=== PATIENT | male | born 1950 | race Caucasian/White ===

== ENCOUNTER 2022-09-27 13:22 | Outpatient (CLI) | payer OTHER, SELFPAY ==
--- NOTE | ~2022-09-27 | US_ITS ---
US art doppler w press LE BI INDICATION: Peripheral vascular disease TECHNIQUE: Segmental pressures and plethysmographic and Doppler waveforms of the brachial and lower e xtremity arteries were obtained. COMPARISON: None. FINDINGS: Right and left brachial artery pressures of 166 mm Hg and 178 mm Hg, respectively, are concordant (no rmal difference <= 30 mmHg). The right ankle-brachial index (SAMMIE) is 0.62 (normal >= 0.9-1.0). The right great toe-brachial index (TBI) is 0.56 (normal >= 0.60). The left SAMMIE could not be obtained. The left toe brachial index measures 0.62. IMPRESSION: 1. Diminished right ankle-brachial index. Left ankle brachial index could not be obtained. The right TBI is below normal limits measuring 0.56. Left TBI measures 0.62. Findings compatible with mild righ t peripheral arterial disease. 2: Normal left TBI. Evaluation of the left lower extremity limited due to inability to occlude the l ower extremity arteries. Reviewed, dictated and finalized at location A. IMPRESSION: 1. Diminished right ankle-brachial index. Left ankle brachial index could not b e obtained. The right TBI is below normal limits measuring 0.56. Left TBI measu res 0.62. Findings compatible with mild right peripheral arterial disease. 2: Normal left TBI. Evaluation of the left lower extremity limited due to inab ility to occlude the lower extremity arteries.
== END 2022-09-27 13:23 | disposition home or self-care (01) ==
PROVIDERS: PCP Family Medicine; Visit Provider Family Medicine
DX: I73.9 Peripheral vascular disease, unspecified (principal)
CPT/HCPCS: 93923

== ENCOUNTER 2022-11-05 07:58 | Outpatient (CLI) | payer OTHER, SELFPAY ==
[2022-11-05 20:07] LABS: Basophils Absolute Auto 0.1 K/mm3 (0.0-0.1); Basophils Percent Auto 0.6 % (0.2-1.2); Eosinophils Absolute Auto 0.1 K/mm3 (0-0.3); Eosinophils Percent Auto 1.1 % (0-4.4); Hematocrit 37.1 % (42.0-52.0); Hemoglobin 11.4 g/dL (14.0-18.0); Immature Granulocyte Absolute 0.08 K/mm3 (0.00-0.031); Immature Granulocyte Percent A 0.6 % (0-0.5); Lymphocytes Absolute Auto 3.01 K/mm3 (0.9-3.2); Lymphocytes Percent Auto 23.5 % (18.3-44.2); Mean Corpuscular HGB Conc 30.7 g/dl (32-36); Mean Corpuscular Hemoglobin 29.2 pg (26-34); Mean Corpuscular Volume 95.1 fl (80-100); Mean Platelet Volume 12.1 fl (7.4-10.4); Monocytes Absolute Auto 1.2 K/mm3 (0.1-0.6); Monocytes Percent Auto 9.2 % (2.6-8.5); Neutrophils Absolute Auto 8.3 K/mm3 (1.3-6.7); Platelet Count Result 231 k/mm3 (150-375); Red Cell Distribution Width 14.3 % (11.5-14.5); White Blood Count 12.8 K/mm3 (4.5-10.0)
[2022-11-06 00:33] LABS: Alanine Aminotransferase 20 U/L (6-50); Albumin Level 4.1 g/dL (3.5-5.1); Alkaline Phosphatase 52 U/L (38-126); Anion Gap 11 mmol/L (8-16); Aspartate Amino Transferase 38 U/L (17-59); Bilirubin,Total 0.4 mg/dL (0.2-1.3); Blood Urea Nitrogen 25 mg/dL (9-20); Calcium 8.8 mg/dL (8.4-10.2); Carbon Dioxide 24 mmol/L (22-30); Chloride 104 mmol/L (98-107); Cholesterol 123 mg/dL (0-200); Estimated Glomerular Filt Rate 54; Glucose 73 mg/dL (65-110); HDL Direct 31 mg/dL; Potassium 4.4 mmol/L (3.4-5.0); Sodium 139 mmol/L (137-145); Triglycerides 167 mg/dL (<150)
[2022-11-06 00:45] LABS: LDL Cholesterol Direct 50 mg/dL
[2022-11-06 01:03] LABS: Prostate Specific Antigen 0.4 ng/mL (< OR = 4.0)
[2022-11-06 01:10] LABS: Hemoglobin A1C 9.1 % (<5.7)
[2022-11-06 11:45] LABS: Creatinine Urine 41.1 mg/dL
[2022-11-06 12:08] LABS: Vitamin D 25 Hydroxy < 12.8 ng/mL
[2022-11-06 18:15] LABS: Microalbumin Urine Random 1049.8 mg/L (0-16.7)
== END 2022-11-05 07:59 | disposition home or self-care (01) ==
LOC: ANHGOSHLAB 07:59
PROVIDERS: PCP Family Medicine; Visit Provider Family Medicine
DX: E78.5 Hyperlipidemia, unspecified (principal); I10 Essential (primary) hypertension; Z12.5 Encounter for screening for malignant neoplasm of prostate; E11.9 Type 2 diabetes mellitus without complications; E53.8 Deficiency of other specified B group vitamins; E55.9 Vitamin D deficiency, unspecified
CPT/HCPCS: 36415; 80053; 80061; 82043; 82306; 82607; 83036; 84153; 84443; 85025; G0103

== ENCOUNTER 2023-02-04 10:17 | Outpatient (CLI) | payer OTHER, SELFPAY ==
[2023-02-04 14:11] LABS: Alanine Aminotransferase 19 U/L (6-50); Albumin Level 4.5 g/dL (3.5-5.1); Alkaline Phosphatase 53 U/L (38-126); Anion Gap 8 mmol/L (8-16); Aspartate Amino Transferase 37 U/L (17-59); Bilirubin,Total 0.5 mg/dL (0.2-1.3); Blood Urea Nitrogen 38 mg/dL (9-20); Calcium 10.2 mg/dL (8.4-10.2); Carbon Dioxide 25 mmol/L (22-30); Chloride 106 mmol/L (98-107); Estimated Glomerular Filt Rate 43; Glucose 192 mg/dL (65-110); Potassium 4.6 mmol/L (3.4-5.0); Sodium 139 mmol/L (137-145)
[2023-02-04 15:59] LABS: Hemoglobin A1C 8.7 % (<5.7)
== END 2023-02-04 10:18 | disposition home or self-care (01) ==
LOC: ANHGOSHLAB 10:18
PROVIDERS: PCP Family Medicine; Visit Provider Family Medicine
DX: E11.9 Type 2 diabetes mellitus without complications (principal); I10 Essential (primary) hypertension
CPT/HCPCS: 36415; 80053; 83036

== ENCOUNTER 2023-03-12 16:41 | Inpatient (IN) | payer OTHER, SELFPAY ==
[2023-03-12] VITALS (17 sets, daily range): BP systolic 77–170; BP diastolic 53–89; PULSE 67–88; RESP 12–19; TEMP 36.3–36.4; O2SAT 94–100; BMI 35.3; BMI 35.4
--- NOTE | ~2023-03-12 | XR_ITS ---
Supine and upright views of the abdomen Clinical history: Vomiting, recent hernia repair Findings: Dilated small bowel loops are present in the left upper quadrant. Cholecystectomy clips are present. Questionable free air at the left upper quadrant. Surgical brandi are noted vertically in the midline. Presumed percutaneous drainage catheter present. No abnormal mass lesion or calcificatio n is seen. Osseous structures are intact. Impression: Dilated small bowel loops in the left upper quadrant could reflect small bowel obstruction versus pos toperative ileus. Possible free air at the left upper quadrant, which could reflect sequelae recent surgery. Reviewed, dictated and finalized at location . 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 Possible free air at the left upper quadrant, which could reflect sequelae rece nt surgery.
--- NOTE | ~2023-03-12 | XR_ITS ---
EXAM: XR abdomen gastric tube rechec DATE: 03/12/2023 23:06 HISTORY: NG placement . COMPARISON: Same date at 10:01 PM. FINDINGS/IMPRESSION: Increasing bibasilar atelectasis. NG tube advanced into good position. Stable fi ndings of small bowel obstruction. Reviewed, dictated and finalized at location K. 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
--- NOTE | ~2023-03-12 | XR_ITS ---
EXAM: XR abdomen gastric tube insert DATE: 03/12/2023 22:07 HISTORY: NG tube . COMPARISON: CT abdomen pelvis, same date. FINDINGS: NG tube, tip projects over the stomach, side port at the GE junction Left hemidiaphragm el evation. Dilated stomach and multiple loops of dilated bowel in the upper abdomen. Cholecystomy clips . IMPRESSION: Shallow positioned NG tube, side port at the GE junction. Consider advancing 4 cm. Small bowel obstruction. Reviewed, dictated and finalized at location K. E TOURING GUIDE
--- NOTE | ~2023-03-12 | CT_ITS ---
EXAMINATION: CT abdomen pelvis w con DATE: 03/12/2023 19:47 INDICATION: incarcerated umbilical hernia TECHNIQUE: Computed tomography (CT) of the abdomen and pelvis was performed with 100 mL Omnipaque-350 intravenous contrast. Automated exposure control and iterative reconstruction technique were employe d. The dose-length product was 1477.50 mGy-cm. COMPARISON: None. FINDINGS: Lower thorax: Coronary artery calcifications. Dependent atelectasis. Liver: Normal. Biliary/Gallbladder: Gallbladder is absent. No bile duct dilation. Pancreas: No mass or duct dilation. Spleen: Normal. Adrenals:No mass. Kidneys: Bilateral perinephric stranding. Bilateral hypodensities that are too small to characterize but most likely represent cysts. Mild right hydronephrosis and urothelial enhancement. No obstructing mass or stone. GI tract: Dilation of the stomach proximal and mid small bowel. Transition point at the entrance of a infraumbilical ventral wall hernia, with distal decompression. Partial right colectomy. No large bow el dilation. A loop of large bowel herniates into an umbilical hernia, without dilation or inflammato ry change. Appendix not visualized. Mesentery/Peritoneum: No ascites, mass, or free air. Retroperitoneum: No mass. Pelvis: Pelvic organs are within normal limits. Soft Tissues: Uncomplicated appearing supraumbilical hernia containing a loop of normal-appearing lar ge bowel. Complicated infraumbilical ventral hernia containing a loop of mildly dilated small bowel w ith uniform wall hyperemia. There is fluid and inflammatory change in the hernia sac. Small uncomplic ated fat-containing umbilical hernia. Bones: No acute osseous finding. IMPRESSION: Mid small bowel obstruction. Transition point at an inflamed fluid containing infraumbilical hernia w hich contains a loop of mildly dilated small bowel. Uncomplicated supraumbilical hernia containing a loop of nondilated large bowel. Mild right hydronephrosis with urothelial enhancement concerning for ascending infection. Reviewed, dictated and finalized at location K. S CONSULTANT IMPRESSION: Mid small bowel obstruction. Transition point at an inflamed fluid containing i nfraumbilical hernia which contains a loop of mildly dilated small bowel. Uncomplicated supraumbilical hernia containing a loop of nondilated large bowel . Mild right hydronephrosis with urothelial enhancement concerning for ascending infection.
[2023-03-12 17:11] LABS: Basophils Absolute Auto 0.1 K/mm3 (0.0-0.1); Basophils Percent Auto 0.5 % (0.2-1.2); Eosinophils Absolute Auto 0.1 K/mm3 (0-0.3); Eosinophils Percent Auto 0.7 % (0-4.4); Hematocrit 41.7 % (42.0-52.0); Hemoglobin 13.1 g/dL (14.0-18.0); Immature Granulocyte Absolute 0.04 K/mm3 (0.00-0.031); Immature Granulocyte Percent A 0.3 % (0-0.5); Lymphocytes Absolute Auto 3.26 K/mm3 (0.9-3.2); Lymphocytes Percent Auto 28.2 % (18.3-44.2); Mean Corpuscular HGB Conc 31.4 g/dl (32-36); Mean Corpuscular Volume 92.5 fl (80-100); Mean Platelet Volume 11.4 fl (7.4-10.4); Monocytes Absolute Auto 0.9 K/mm3 (0.1-0.6); Monocytes Percent Auto 7.8 % (2.6-8.5); Neutrophils Absolute Auto 7.2 K/mm3 (1.3-6.7); Neutrophils Percent Auto 62.5 % (45.5-73.1); Platelet Count Result 285 k/mm3 (150-375); Red Blood Count 4.51 M/mm3 (4.6-6.20); Red Cell Distribution Width 14.2 % (11.5-14.5); White Blood Count 11.6 K/mm3 (4.5-10.0)
[2023-03-12 17:20] LABS: Alanine Aminotransferase 24 U/L (6-50); Albumin Level 4.7 g/dL (3.5-5.1); Alkaline Phosphatase 58 U/L (38-126); Anion Gap 12 mmol/L (8-16); Aspartate Amino Transferase 27 U/L (17-59); Bilirubin,Total 0.5 mg/dL (0.2-1.3); Blood Urea Nitrogen 41 mg/dL (9-20); Calcium 9.8 mg/dL (8.4-10.2); Carbon Dioxide 25 mmol/L (22-30); Chloride 101 mmol/L (98-107); Estimated CRCL calculation 51 ml/min; Estimated Glomerular Filt Rate 46; Glucose 229 mg/dL (65-110); Lipase 137 U/L (23-300); Potassium 4.5 mmol/L (3.4-5.0); Sodium 138 mmol/L (137-145)
--- NOTE | 2023-03-12 19:03 | ED.ABDPAIN ---
HPI - Abdominal Pain General Chief Complaint: Abdominal Pain Stated Complaint: lower abdomen pain Time Seen by Provider: 03/12/23 18:29 History of Present Illness HPI narrative: 72-year-old male with a history of hypothyroidism, peripheral arterial disease, dyslipidemia, type 2 diabetes, hypertension, known ventral hernia and umbilical hernia reports for evaluation for tenderness to his umbilical hernia and difficulty self reducing it. Pt states he had an emergency umbilical hernia repair on 2-3 years ago after he was found to have a strangulated umbilical hernia. He had his surgery performed and pleural he was living there. States a few months ago, he noticed his umbilical hernia has returned but has always been easily reduced. Patient states today he began having pain to this area no was unable to reduce it which prompted him to come the ED. he also states she normally has soft stools, however he has been more constipated today. He reports taking milk of magnesia today at noon without improvement. He had a bowel movement this morning and one while in the waiting room but he says both of them were small caliber. He reports nausea but no vomiting, fever, urinary complaints, testicular pain. Patient was also treated with colon cancer in [id number]. He had 17 cm of his colon resected and underwent chemo and radiation. He has and in remission since. He follows with his PCP, Dr. Sainz. Related Data Home Medications Medication Instructions Recorded Confirmed pravastatin 40 mg tablet 40 mg PO DAILY 03/12/23 03/12/23 Allergies Allergy/AdvReac Type Severity Reaction Status Date / Time codeine Allergy Severe Rash, Verified 03/12/23 23:03 vomiting meperidine [From Demerol] Allergy Severe Rash,vomiti Verified 03/12/23 23:03 ng gabapentin [From Neurontin] AdvReac Mild Dizziness Verified 03/12/23 23:12 amlodipine AdvReac Mild pedal edema Uncoded 03/12/23 23:03 Review of Systems Review of Systems: CONSTITUTIONAL: Denies fever, chills, or sweats. EYES: Denies visual changes, redness, or discharge. ENT: Denies rhinorrhea, congestion, sore throat, or otalgia. CARDIOVASCULAR: Denies chest pain, palpitations, or edema. RESPIRATORY: Denies cough or dyspnea. GASTROINTESTINAL: See HPI GENITOURINARY: Denies dysuria or hematuria. SKIN: Denies rash or itching. MUSCULOSKELETAL: Denies back pain, joint pain, or myalgia. NEUROLOGIC: Denies headache, numbness, or weakness. PSYCHIATRIC: Denies anxiety or depression. [facility] Past Medical History Medical History Dyslipidemia Essential (primary) hypertension History of colon cancer (~03/1999) s/p partial colectomy History of colon polyps HTN (hypertension) Hypothyroidism Neuropathy of right lower extremity Peripheral arterial disease Type 2 diabetes mellitus without complications Vitamin B12 deficiency Vitamin D deficiency Surgical History Surgical History History of appendectomy (~03/1999) History of cholecystectomy (~2009) History of colon resection (~03/1999) History of hernia repair (~2020) Family History Family History Mother Hypertension Cerebrovascular accident Son Heart disease Grandparent Alcohol abuse Father Lung cancer Social History Social History Smoking status: Never smoker Alcohol intake: never Substance use: never Substance use type: does not use Lack of Transportation: No Lack of Food: Never True Current Housing: I Have Housing Concerned About Future Housing: No Difficulty Paying Gas/Electric Bills: No Difficulty Paying for Meds: No Currently Unemployed: No Education: High School Diploma/GED Difficulty w/ Childcare or Family Care: No Living arrangements: with family Occupation/Education:
[2023-03-12] MEDS: ONDANSETRON INJ 4 MG/2 ML VIAL IV PUSH ×3 (19:08→23:31)
[2023-03-12] MEDS: MORPHINE SULFATE (*CRX) 4 MG/ML INJ IV PUSH (19:08)
[2023-03-12 19:21] LABS: Appearance Urine Turbid (Clear); Bacteria Urine Rare /hpf; Bilirubin Urine Negative (Negative); Blood Urine 2+ (Negative); Color Urine Yellow (Yellow); Glucose Urine UA 3+ mg/dL (Negative); Ketones Urine Negative (Negative); Leukocyte Esterase Ur 2+ LEU/UL (Negative); Need Manual Microscopic Reviewed; Nitrate Urine Negative (Negative); Non Pathogenic Casts 0-2; Protein Urine 2+ mg/dL (Negative); RBC Urine 0-2 /hpf (0-2); Specific Grav Ur 1.023 (1.001-1.035); Squamous Epithelial Cell Urine Occasional /hpf (Few); Urobilinogen Urine 0.2 mg/dL (<2.0); WBC Urine >100 /hpf
[2023-03-12 19:23] LABS: Add Urine Microscopic? YES
[2023-03-12 19:24] LABS: Lactic Acid Reflex 2.3 mmol/L (0.7-2.0)
[2023-03-12] MEDS: SODIUM CHLORIDE 0.9% IV 1,000 ML 999 ML IV CONT (21:23)
[2023-03-12] MEDS: PIPERACILLN/TAZ 3.375GM/NS50ML 3.375 GM/50 ML BAG IVPB (21:24)
[2023-03-12 22:10] LABS: Reflex Lactic Acid Yes or No Add Lactic
[2023-03-12 22:32] LABS: Glucose Point of Care 249 mg/dl (65-105)
--- NOTE | 2023-03-12 22:40 | ADMGEN ---
This patient, Alex Thao Jr., was admitted to [facility] Surg Room 328-01. Patient/family oriented to hospital policies and general routines including ID bracelet, bed and alarms, visiting hours, pain management, procedures, bathroom and other care routines, personal items, smoking policy, room service/diet, and visiting hours. Information on how to activate the Rapid Response Team has been discussed. Patient/Family are encouraged to report perceived risks to care and to ask questions if they do not understand what they are told or what they should do.
[2023-03-12] MEDS: SODIUM CHLORIDE 0.9% IV 1,000 ML 100 ML IV CONT (23:31)
[2023-03-12 23:34] LABS: Lactic Acid 1.7 mmol/L (0.7-2.0)
[2023-03-13] MEDS: MORPHINE SULFATE (*CRX) 4 MG/ML INJ IV PUSH ×4 (00:18→08:32)
--- NOTE | 2023-03-13 00:19 | PM.IMHP ---
H&P: HPI History of Present Illness Date/Time: 03/13/23 00:19 Chief Complaint: Nausea, Abdominal Pain Narrative: 72 y/o M presents here with abdominal pain and nausea/vomiting with PMH of HTN, colon cx s/p partial colectomy, hypothyroidism, PAD, DM2, CKD, and vitamin D/B12 deficiency. Patient presented here with new nausea, abdominal pain, and difficulty passing stools that started this morning. Patient reports that he had an emergency umbilical hernia repair 2-3 years ago due to a strangulated umbilical hernia. Since then has had no issues until recently when umbilical hernia returned. Patient has been able to self reduce without pain. However today hernia would not reduce and he developed diffuse umbilical pain. Initially endorsed nausea without vomiting. However since admission he has vomited 4 times, large volume. Last bowel movement today x2, once this morning and once while awaiting ER treatment room, both hard and small volumes. Tried milk of magnesia without resolution of constipation. ED workup revealed an SBO with transition point at infraumbilical hernia, an uncomplicated supraumbilical hernia, and mild right hydronephrosis. Elevated lactic acid of 2.3. Renal function elevated, similar to outpatient labs done with PCP on 02/04/23. UA indicative of UTI. General Surgery consulted. Review of Systems Review of Systems: All systems reviewed & are unremarkable except as noted in HPI and below PMFSH Past Medical History Medical History Dyslipidemia Essential (primary) hypertension History of colon cancer (~03/1999) s/p partial colectomy History of colon polyps HTN (hypertension) Hypothyroidism Neuropathy of right lower extremity Peripheral arterial disease Type 2 diabetes mellitus without complications Vitamin B12 deficiency Vitamin D deficiency Surgical History Surgical History History of appendectomy (~03/1999) History of cholecystectomy (~2009) History of colon resection (~03/1999) History of hernia repair (~2020) Family History Family History Mother Hypertension Cerebrovascular accident Son Heart disease Grandparent Alcohol abuse Father Lung cancer Social History Social History Smoking status: Never smoker Alcohol intake: never Substance use: never Substance use type: does not use Lack of Transportation: No Lack of Food: Never True Current Housing: I Have Housing Concerned About Future Housing: No Difficulty Paying Gas/Electric Bills: No Difficulty Paying for Meds: No Currently Unemployed: No Education: High School Diploma/GED Difficulty w/ Childcare or Family Care: No Living arrangements: with family Occupation/Education: retired Gender identity (if verbalized by the patient): Male Sexual Orientation (if Verbalized by the Patient): Straight or Heterosexual Spiritual care concerns: No Agree to blood products: Yes Meds Home Medications and Allergies Home Medications Medication Instructions Recorded Confirmed Type blood-glucose sensor (MedClimate G7 #6 ea 01/28/23 02/04/23 Rx Sensor device) cholecalciferol (vitamin D3) 1,250 1,250 mcg PO WEEKLY #12 tabs 01/28/23 03/12/23 Rx mcg (50,000 unit) tablet cyanocobalamin (vitamin B-12) 1,000 mcg IM MONTHLY #4 vials 01/28/23 03/12/23 Rx 1,000 mcg/mL injection solution dapagliflozin propanediol 10 mg 10 mg PO DAILY #90 tabs 01/28/23 03/12/23 Rx tablet (Farxiga) fenofibrate nanocrystallized 145 145 mg PO DAILY #90 tabs 01/28/23 03/12/23 Rx mg tablet glimepiride 4 mg tablet 4 mg PO BID #180 tabs 01/28/23 03/12/23 Rx hydrochlorothiazide 25 mg tablet 25 mg PO DAILY #90 tabs 01/28/23 03/12/23 Rx levothyroxine 50 mcg tablet 50 mcg PO DAILY #90 tabs 01/28/23 03/12/23 Rx lisino
[2023-03-13] MEDS: PIPERACILLN/TAZ 3.375GM/NS50ML 3.375 GM/50 ML BAG IVPB ×4 (02:58→20:49)
[2023-03-13] MEDS: ONDANSETRON INJ 4 MG/2 ML VIAL IV PUSH ×3 (03:02→15:51)
[2023-03-13 05:39] LABS: Glucose Point of Care 241 mg/dl (65-105)
[2023-03-13 05:43] VITALS: BP 122/54; PULSE 85; RESP 18; TEMP 36.6; O2SAT 96
--- NOTE | 2023-03-13 06:00 | ECG_ITS ---
Measurements Intervals [place] Rate: 82 P: 30 [place]: 175 QRS: 19 QRSD: 79 T: 50 QT: 371 QTc: 435 Interpretive Statements SINUS RHYTHM LOW QRS VOLTAGE IN PRECORDIAL LEADS BORDERLINE ECG NO PREVIOUS ECG AVAILABLE FOR COMPARISON Electronically Signed On 03-13-2023 9:15:23 ANESTHESIOLOGY MEDICAL DOCTOR by Renaldo Willis D.O.
[2023-03-13 06:06] LABS: Basophils Absolute Auto 0.1 K/mm3 (0.0-0.1); Basophils Percent Auto 0.4 % (0.2-1.2); Eosinophils Percent Auto 0.2 % (0-4.4); Hematocrit 36.5 % (42.0-52.0); Hemoglobin 11.3 g/dL (14.0-18.0); Immature Granulocyte Absolute 0.04 K/mm3 (0.00-0.031); Immature Granulocyte Percent A 0.3 % (0-0.5); Lymphocytes Absolute Auto 1.58 K/mm3 (0.9-3.2); Lymphocytes Percent Auto 13.4 % (18.3-44.2); Mean Corpuscular Hemoglobin 28.5 pg (26-34); Mean Corpuscular Volume 92.2 fl (80-100); Mean Platelet Volume 11.3 fl (7.4-10.4); Monocytes Absolute Auto 0.8 K/mm3 (0.1-0.6); Monocytes Percent Auto 6.8 % (2.6-8.5); Neutrophils Absolute Auto 9.3 K/mm3 (1.3-6.7); Neutrophils Percent Auto 78.9 % (45.5-73.1); Platelet Count Result 265 k/mm3 (150-375); Red Blood Count 3.96 M/mm3 (4.6-6.20); Red Cell Distribution Width 14.2 % (11.5-14.5); White Blood Count 11.8 K/mm3 (4.5-10.0)
[2023-03-13 06:14] LABS: Prothrombin Time 14.1 Seconds (11.1-14.7)
[2023-03-13 06:15] LABS: Alanine Aminotransferase 24 U/L (6-50); Albumin Level 3.9 g/dL (3.5-5.1); Alkaline Phosphatase 52 U/L (38-126); Anion Gap 10 mmol/L (8-16); Aspartate Amino Transferase 28 U/L (17-59); Bilirubin,Total 0.4 mg/dL (0.2-1.3); Blood Urea Nitrogen 49 mg/dL (9-20); Carbon Dioxide 28 mmol/L (22-30); Chloride 99 mmol/L (98-107); Estimated CRCL calculation 41 ml/min; Estimated Glomerular Filt Rate 35; Glucose 261 mg/dL (65-110); Magnesium 2.1 mg/dL (1.6-2.3); Partial Thromboplastin Time 25.3 SECONDS (22.3-36.8); Potassium 4.2 mmol/L (3.4-5.0); Sodium 137 mmol/L (137-145)
[2023-03-13 06:16] LABS: Lactic Acid Reflex 1.5 mmol/L (0.7-2.0)
[2023-03-13] MEDS: SODIUM CHLORIDE 0.9% IV 1,000 ML 100 ML IV CONT ×2 (06:42→18:28)
[2023-03-13] MEDS: INSULIN ASPART (*BKC) 100 UNITS/ML SUB-Q (06:52)
[2023-03-13] MEDS: LEVOTHYROXINE SODIUM INJ 100 MCG/5 ML VIAL 25 MCG IV PUSH (07:02)
--- NOTE | 2023-03-13 11:20 | PM.CNGS ---
Assessment and Plan Assessment and plan (1) Incarcerated incisional hernia: Code(s): K43.0 - Incisional hernia with obstruction, without gangrene Status: Acute Assessment and Plan: The patient has two incisional hernias, one containing nonobstructed large bowel on CT that was reducible in the ER, and the other is an infraumbilical incisional hernia that was containing a loop of small bowel on CT. The incarcerated infraumbilical hernia appeared to be causing the small bowel obstruction. This was not able to be reduced in the ER, but I was able to reduce the hernia this morning. He has had some relief of his pain after it was reduced. Discussed with the patient that he likely needs surgical repair in the near future, but this is not emergent at this time. We would recommend to continue treating the small bowel obstruction and the UTI, and we will consider proceeding with surgery in the near future. When considering using mesh, it would be ideal that his urinary tract infection be cleared before proceeding with surgery. Will continue to follow along closely to decide on timing of surgery. (2) SBO (small bowel obstruction): Code(s): K56.609 - Unspecified intestinal obstruction, unspecified as to partial versus complete obstruction Status: Acute Assessment and Plan: CT suggests transition point is at the incarcerated infraumbilical hernia containing a loop of small bowel. This was able to be reduced and hopefully will relieve the small bowel obstruction. Will continue NG tube decompression, bowel rest, and IV fluids for now. Monitor for signs of bowel function now that the hernia is reduced. See plan above regarding repair. (3) UTI (urinary tract infection): Qualifiers: Hematuria presence: with hematuria Urinary tract infection type: acute cystitis Qualified Code(s): N30.01 - Acute cystitis with hematuria Code(s): N39.0 - Urinary tract infection, site not specified Status: Acute Assessment and Plan: Continue IV antibiotics per Hospitalist. Urine culture pending. (4) Type 2 diabetes mellitus without complications: Qualifiers: Diabetes mellitus intermediate designer insulin use: without intermediate designer use Qualified Code(s): E11.9 - Type 2 diabetes mellitus without complications Code(s): E11.9 - Type 2 diabetes mellitus without complications Status: Acute (5) Peripheral arterial disease: Code(s): I73.9 - Peripheral vascular disease, unspecified Status: Acute (6) Renal insufficiency: Code(s): N28.9 - Disorder of kidney and ureter, unspecified Status: Acute (7) Essential (primary) hypertension: Code(s): I10 - Essential (primary) hypertension Status: Acute Plan I have discussed the patient's case and plan of care with Dr. Lu. Thank you for allowing us to see the patient in consultation and we will continue to follow along with you. History of Present Illness Consult details Consult date: 03/13/23 Reason for consult: other (Small bowel obstruction secondary to an incarcerated umbilical hernia) Requesting physician: Nisreen García PA-C Narrative: This is a 72-year-old man we were asked to see in surgical consultation for an incarcerated umbilical hernia with possible small bowel obstruction. The patient recently moved to [place] from [place] in July of this year. He reports multiple previous abdominal surgeries while he lived in [place]. 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 He additionally had an open cholecystectomy a few years after his colon resection. He then developed an incisional umbilical hernia that became incarcerated 2-3 years ago requiring emergent repair. Reportedly no mesh was used. A few months ago, he noticed a recurrent infraumbilical bulge that has progressively become more symptomatic. This bulges out when he gets up or when he
[2023-03-13 12:07] LABS: Glucose Point of Care 207 mg/dl (65-105)
[2023-03-13 14:00] VITALS: BP 131/62; PULSE 79; RESP 14; TEMP 36.4; O2SAT 94
[2023-03-13 16:23] VITALS: BP 140/65; PULSE 97; RESP 16; TEMP 36.7; O2SAT 96
[2023-03-13 16:57] LABS: Glucose Point of Care 160 mg/dl (65-105)
[2023-03-13 18:08] LABS: Glucose Point of Care 152 mg/dl (65-105)
[2023-03-13 22:00] VITALS: BP 114/66; PULSE 97; RESP 18; TEMP 36.7; O2SAT 96
[2023-03-14] MEDS: PIPERACILLN/TAZ 3.375GM/NS50ML 3.375 GM/50 ML BAG IVPB ×2 (03:05→08:21)
[2023-03-14] MEDS: SODIUM CHLORIDE 0.9% IV 1,000 ML 100 ML IV CONT (03:05)
[2023-03-14] MEDS: LEVOTHYROXINE SODIUM INJ 100 MCG/5 ML VIAL 25 MCG IV PUSH (05:53)
[2023-03-14 06:00] VITALS: BP 110/48; PULSE 93; RESP 12; TEMP 36.6; O2SAT 95
[2023-03-14 06:23] LABS: Hematocrit 38.1 % (42.0-52.0); Hemoglobin 11.6 g/dL (14.0-18.0); Mean Corpuscular HGB Conc 30.4 g/dl (32-36); Mean Corpuscular Hemoglobin 28.6 pg (26-34); Mean Corpuscular Volume 94.1 fl (80-100); Mean Platelet Volume 11.5 fl (7.4-10.4); Platelet Count Result 262 k/mm3 (150-375); Red Blood Count 4.05 M/mm3 (4.6-6.20); White Blood Count 14.5 K/mm3 (4.5-10.0)
[2023-03-14 06:33] LABS: Anion Gap 10 mmol/L (8-16); Blood Urea Nitrogen 51 mg/dL (9-20); Calcium 8.6 mg/dL (8.4-10.2); Carbon Dioxide 33 mmol/L (22-30); Chloride 101 mmol/L (98-107); Estimated CRCL calculation 34 ml/min; Estimated Glomerular Filt Rate 28; Glucose 153 mg/dL (65-110); Potassium 3.6 mmol/L (3.4-5.0); Sodium 144 mmol/L (137-145)
[2023-03-14 06:35] LABS: Lactic Acid Reflex 1.2 mmol/L (0.7-2.0)
[2023-03-14 06:38] LABS: Glucose Point of Care 145 mg/dl (65-105)
--- NOTE | 2023-03-14 09:29 | PM.IMPN ---
Progress Note: A&P Assessment and Plan (1) SBO (small bowel obstruction): Code(s): K56.609 - Unspecified intestinal obstruction, unspecified as to partial versus complete obstruction Status: Acute Assessment and Plan: Small-bowel obstruction CT showing mid small bowel obstruction. Transition point at an inflamed fluid containing infraumbilical hernia which contains a loop of mildly dilated small bowel. As well as an uncomplicated supraumbilical hernia containing a loop of nondilated large bowel. Bowel rest initiated. NG tube placed and confirmed with abdominal x-ray. Bilious output. Lactic 2.3, given IVF and now 1.7. General surgery consulted. NPO, hold home PO medications. continue pain control and anti-emetics. add EKG, as well as type and screen, and coags to a.m. labs for pre-op testing Appreciate general surgeon consult, cancer considers incarcerated infraumbilical hernia appeared to be causing the small bowel obstruction, he likely needs surgical repair in the near future, recommend to continue treating the small bowel obstruction UTI Patient has cloudy urine, UA shows pyuria, Patient is on Zosyn q.6 are IV kidney worsening kidney function switch to cefepime and Flagyl Follow urine culture Hypothyroidism Continue Synthroid 25 mcg IV daily during p.o. Hypertension Patient is on hydralazine 10 mg q.8 hours IV p.r.n. with parameters GURMEET on CKD Elevated BUN creatinine above baseline Creatinine 2.3 today, baseline 1.5 on March 12 Likely secondary to dehydration and UTI Increase normal saline from 100 mL to 150 mL/hour Switch from Zosyn to cefepime and Flagyl Sepsis Patient has leukocytosis of 14,500, tachycardia, hypothermia POA Possible sepsis from UTI and intra-abdominal infection White blood cells trending up Received fluid resuscitation Follow-up blood culture urine culture, start cefepime and Flagyl IV . continue to monitor CBC, renal function, and electrolytes. (2) Incarcerated umbilical hernia: Code(s): K42.0 - Umbilical hernia with obstruction, without gangrene Status: Acute Assessment and Plan: see above (#1) (3) UTI (urinary tract infection): Qualifiers: Hematuria presence: with hematuria Urinary tract infection type: acute cystitis Qualified Code(s): N30.01 - Acute cystitis with hematuria Code(s): N39.0 - Urinary tract infection, site not specified Status: Acute Assessment and Plan: UA: Turbid, 2+ protein, 3+ glucose, 2+ blood, 2+ le uks,>100 WBC. Urine culture pending. Zosyn started on 03/12. Continue IVF hydration. (4) Renal insufficiency: Code(s): N28.9 - Disorder of kidney and ureter, unspecified Status: Acute Assessment and Plan: creatinine previously 1.3 on 11/05. Outpatient primary care lab work showed increase to 1.6 on 02/04. Current creatinine is 1.5 with a GFR of 46, BUN 41, ECC 51. Lab work consistent with CKD stage 3a, no previous history documented. 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 continue to monitor. (5) Hypothyroidism: Qualifiers: Hypothyroidism type: acquired Qualified Code(s): E03.9 - Hypothyroidism, unspecified Code(s): E03.9 - Hypothyroidism, unspecified Status: Acute Assessment and Plan: Last TSH 3.15 on 11/05/2022. Will reassess. Continue levothyroxine as 25 IVP, home dose is 50 p.o. (6) Type 2 diabetes mellitus without complications: Qualifiers: Diabetes mellitus terminal supervisor insulin use: without alf use Qualified Code(s): E11.9 - Type 2 diabetes mellitus without complications Code(s): E11.9 - Type 2 diabetes mellitus without complications Status: Acute Assessment and Plan: hypoglycemia protocol, POC blood glucose Q6H due to NPO status, home medications held (all PO), correct regimen ordered - low dose TIDWM and HS, A
[2023-03-14] MEDS: SODIUM CHLORIDE 0.9% IV 1,000 ML 250 ML IV CONT (09:45)
[2023-03-14] MEDS: MORPHINE SULFATE (*CRX) 4 MG/ML INJ IV PUSH (09:50)
[2023-03-14] MEDS: PHENOL/SOD PHENO SPRAY CHERRY (*BKC) 1 SPRAY MUCOUS MEM (11:12)
[2023-03-14] MEDS: CEFEPIME 2 GM/NS 50 ML 2 GM/50 ML BAG IVPB ×2 (11:21→21:24)
[2023-03-14 11:47] LABS: Glucose Point of Care 163 mg/dl (65-105)
[2023-03-14] MEDS: metroNIDAZOLE 500 MG/ISO 100ML 500 MG/100 ML BAG 100 MG IVPB ×2 (12:26→22:07)
--- NOTE | 2023-03-14 13:57 | PM.PNGS ---
Progress Note: A&P Assessment and Plan (1) Incarcerated incisional hernia: Code(s): K43.0 - Incisional hernia with obstruction, without gangrene Status: Acute Assessment and Plan: Patient's abdominal exam is much improved today. He is starting passed flatus and he feels like he may need to have a bowel movement. Nasogastric tube output is coffee-ground appearing likely due to stress gastritis and irritation from the nasogastric tube. Would initiate placement of some Mylanta through the nasogastric tube for stress GI prophylaxis. Go ahead and clamp the nasogastric tube today if he tolerates clamping hopefully can remove in started on liquids tomorrow. Hospitalist service has changed IV antibiotics due to increased serum creatinine from acute renal injury. I gave him a liter of lactated Ringer's today as he is likely volume depleted due to his high nasogastric tube output over the past 2 days. Will follow his creatinine and labs. He does not appear to have acute surgical abdomen. His white blood count is still around 15,000 which could be due to his urinary tract infection. Will likely stay in the hospital the weekend for supportive management IV antibiotics. Decision for possible repair of his incisional hernias prior to discharge will be made early next week. Will need to watch his renal function and foot does not improve with hydration then consider nephrology consultation. (2) UTI (urinary tract infection): Qualifiers: Hematuria presence: with hematuria Urinary tract infection type: acute cystitis Qualified Code(s): N30.01 - Acute cystitis with hematuria Code(s): N39.0 - Urinary tract infection, site not specified Status: Acute Assessment and Plan: Await culture results antibiotics switched to cefepime from Zosyn which would be okay with me. Subjective Subjective Date/Time Seen: 03/14/23 13:57 Interval history: Patient is doing better today. Started passing flatus and feels like he might need to have a bowel movement. Has much less abdominal pain. Nasogastric tube is still in place with now dark coffee-ground output. Otherwise been hemodynamically stable. No nausea today. Exam Const: General: comfortable and no acute distress Resp: Effort & Inspection: normal respiratory effort Auscultation: clear to auscultation bilaterally Cardio: Rate: regular rate Rhythm: regular rhythm GI: Other: Abdomen is soft and minimally distended. Some minimal tenderness around the palpable reducible incisional hernias. No evidence of diffuse peritoneal signs or guarding. Neuro: Speech: normal speech Psych: Mental Status: mental status grossly normal Affect: normal affect Objective Data Vital Signs Vital Signs: Vital Signs - 24 hr 03/13/23 16:23 03/13/23 14:00 03/13/23 20:40 Temperature 36.7 C 36.4 C Pulse Rate 97 79 Respiratory Rate 16 14 Blood Pressure 140/65 131/62 Pulse Oximetry 96 94 Oxygen Delivery Room Air 03/13/23 22:00 03/14/23 06:00 03/14/23 08:25 Temperature 36.7 C 36.6 C Pulse Rate 97 93 Respiratory Rate 18 12 Blood Pressure 114/66 110/48 L Pulse Oximetry 96 95 Oxygen Delivery Room Air Intake/Output Intake/Output: Intake & Output 03/11/23 03/12/23 03/13/23 03/14/23 23:59 23:59 23:59 23:59 Intake Total 1050 2200 1250 Output Total 400 2750 2300 Balance 650 -550 -1050 Meds/Results Medications: Active Medications Generic Name Dose Route Start Last Admin Trade Name Freq PRN Reason Stop Dose Admin Acetaminophen 650 mg 03/13/23 00:53 Acetaminophen 650 Mg Suppository RECTAL Q6H PRN Mild Pain (1-3) or Fever Dextrose 12.5 gm 03/12/23 23:55 Dextrose 50% 25 Gm/50 Ml Syringe IV PUSH PRN PRN Hypoglycemia Protocol Glucagon 1 mg 03/12/23 23:55 Glucagon For Inj 1 Mg Vial IM PRN PRN Hypoglycemia Protocol Glucose 15 gm 03/12/23 23:55 Glucos
[2023-03-14 14:00] VITALS: BP 127/69; PULSE 95; RESP 16; TEMP 36.5; O2SAT 95
[2023-03-14] MEDS: MAG HYDROX/AL HYDROX/SIMETH 30 ML UDC PO ×2 (15:05→21:23)
[2023-03-14 16:10] LABS: Glucose Point of Care 134 mg/dl (65-105)
[2023-03-14 21:22] VITALS: BP 139/69; PULSE 92; RESP 16; TEMP 36; O2SAT 97
[2023-03-14] MEDS: SODIUM CHLORIDE 0.9% IV 1,000 ML 150 ML IV CONT (21:31)
[2023-03-15 00:33] LABS: Glucose Point of Care 129 mg/dl (65-105)
[2023-03-15] MEDS: MAG HYDROX/AL HYDROX/SIMETH 30 ML UDC PO ×2 (01:32→08:00)
[2023-03-15] MEDS: metroNIDAZOLE 500 MG/ISO 100ML 500 MG/100 ML BAG 100 MG IVPB ×3 (05:05→22:20)
[2023-03-15 06:00] VITALS: BP 115/74; PULSE 82; RESP 16; TEMP 35.9; O2SAT 97
[2023-03-15 06:12] LABS: Glucose Point of Care 120 mg/dl (65-105)
[2023-03-15] MEDS: LEVOTHYROXINE SODIUM INJ 100 MCG/5 ML VIAL 25 MCG IV PUSH (06:20)
[2023-03-15] MEDS: SODIUM CHLORIDE 0.9% IV 1,000 ML 150 ML IV CONT (06:28)
[2023-03-15 07:33] LABS: Basophils Absolute Auto 0.1 K/mm3 (0.0-0.1); Basophils Percent Auto 0.4 % (0.2-1.2); Eosinophils Absolute Auto 0.1 K/mm3 (0-0.3); Eosinophils Percent Auto 0.9 % (0-4.4); Hematocrit 38.2 % (42.0-52.0); Hemoglobin 11.6 g/dL (14.0-18.0); Immature Granulocyte Absolute 0.04 K/mm3 (0.00-0.031); Immature Granulocyte Percent A 0.3 % (0-0.5); Lymphocytes Absolute Auto 3.16 K/mm3 (0.9-3.2); Lymphocytes Percent Auto 25.8 % (18.3-44.2); Mean Corpuscular HGB Conc 30.4 g/dl (32-36); Mean Corpuscular Hemoglobin 28.8 pg (26-34); Mean Corpuscular Volume 94.8 fl (80-100); Mean Platelet Volume 11.7 fl (7.4-10.4); Monocytes Percent Auto 7.8 % (2.6-8.5); Neutrophils Absolute Auto 7.9 K/mm3 (1.3-6.7); Neutrophils Percent Auto 64.8 % (45.5-73.1); Platelet Count Result 262 k/mm3 (150-375); Red Blood Count 4.03 M/mm3 (4.6-6.20); Red Cell Distribution Width 14.1 % (11.5-14.5); White Blood Count 12.2 K/mm3 (4.5-10.0)
[2023-03-15 07:47] LABS: Anion Gap 18 mmol/L (8-16); Blood Urea Nitrogen 45 mg/dL (9-20); Calcium 8.1 mg/dL (8.4-10.2); Carbon Dioxide 26 mmol/L (22-30); Chloride 103 mmol/L (98-107); Estimated CRCL calculation 45 ml/min; Estimated Glomerular Filt Rate 40; Glucose 135 mg/dL (65-110); Potassium 3.1 mmol/L (3.4-5.0); Sodium 147 mmol/L (137-145)
[2023-03-15] MEDS: CEFEPIME 2 GM/NS 50 ML 2 GM/50 ML BAG IVPB ×2 (08:00→20:19)
--- NOTE | 2023-03-15 09:52 | PM.IMPN ---
Progress Note: A&P Assessment and Plan (1) SBO (small bowel obstruction): Code(s): K56.609 - Unspecified intestinal obstruction, unspecified as to partial versus complete obstruction Status: Acute Assessment and Plan: Small-bowel obstruction CT showing mid small bowel obstruction. Transition point at an inflamed fluid containing infraumbilical hernia which contains a loop of mildly dilated small bowel. As well as an uncomplicated supraumbilical hernia containing a loop of nondilated large bowel. Bowel rest initiated. NG tube placed and confirmed with abdominal x-ray. Bilious output. Lactic 2.3, given IVF and now 1.7. General surgery consulted. was on NGT suction continue pain control and anti-emetics. add EKG, as well as type and screen, and coags to a.m. labs for pre-op testing Appreciate general surgeon consult, cancer considers incarcerated infraumbilical hernia appeared to be causing the small bowel obstruction, plans surgical repair friday off NGT on liquid diet now. tolerated diet well had 2 BMs am UTI Patient has cloudy urine, UA shows pyuria, Patient is on Zosyn q.6 are IV kidney worsening kidney function switch to cefepime and Flagyl Follow urine culture: coag neg staph Hypothyroidism Continue Synthroid 25 mcg IV daily during p.o. Hypertension Patient is on hydralazine 10 mg q.8 hours IV p.r.n. with parameters GURMEET on CKD Elevated BUN creatinine above baseline Creatinine 2.3 today, baseline 1.5 on March 12 Likely secondary to dehydration and UTI Increase normal saline from 100 mL to 150 mL/hour on 03/14 Switch from Zosyn to cefepime and Flagyl Cr 1.7 on 03/15, dc NS 03/15 Hypokalemia Replete with potassium chloride 40 mEq IV once Sepsis Patient has leukocytosis of 14,500, tachycardia, hypothermia POA Possible sepsis from UTI and intra-abdominal infection White blood cells trending up Received fluid resuscitation Follow-up blood culture urine culture, start cefepime and Flagyl IV WBC is trending down 12k continue to monitor CBC, renal function, and electrolytes. (2) Incarcerated umbilical hernia: Code(s): K42.0 - Umbilical hernia with obstruction, without gangrene Status: Acute Assessment and Plan: see above (#1) (3) UTI (urinary tract infection): Qualifiers: Hematuria presence: with hematuria Urinary tract infection type: acute cystitis Qualified Code(s): N30.01 - Acute cystitis with hematuria Code(s): N39.0 - Urinary tract infection, site not specified Status: Acute Assessment and Plan: UA: Turbid, 2+ protein, 3+ glucose, 2+ blood, 2+ le uks,>100 WBC. Urine culture pending. Zosyn started on 03/12. Continue IVF hydration. (4) Renal insufficiency: Code(s): N28.9 - Disorder of kidney and ureter, unspecified Status: Acute Assessment and Plan: creatinine previously 1.3 on 11/05. Outpatient primary care lab work showed increase to 1.6 on 02/04. Current creatinine is 1.5 with a GFR of 46, BUN 41, ECC 51. Lab work consistent with CKD stage 3a, no previous history documented. Previously elevated Ur random microalbumin and microalb/morphologist ratio on 11/05. continue to monitor. (5) Hypothyroidism: Qualifiers: Hypothyroidism type: acquired Qualified Code(s): E03.9 - Hypothyroidism, unspecified Code(s): E03.9 - Hypothyroidism, unspecified Status: Acute Assessment and Plan: Last TSH 3.15 on 11/05/2022. Will reassess. Continue levothyroxine as 25 IVP, home dose is 50 p.o. (6) Type 2 diabetes mellitus without complications: Qualifiers: Diabetes mellitus fdc insulin use: without fdc use Qualified Code(s): E11.9 - Type 2 diabetes mellitus without complications Code(s): E11.9 - Type 2 diabetes mellitus without complications Status: Acute Assessment and Plan: hypoglycemia protocol, POC blood g
--- NOTE | 2023-03-15 10:03 | PM.PNGS ---
Progress Note: A&P Assessment and Plan (1) Incarcerated incisional hernia: Code(s): K43.0 - Incisional hernia with obstruction, without gangrene Status: Acute Assessment and Plan: reduced, exam benign, large BM, NG has been clamped, ok to remove NG and start clears, plan to repair hernia prior to dc Subjective Subjective Date/Time Seen: 03/15/23 10:03 Interval history: feels much better today, large BM this am, NG has been clamped since yesterday afternoon Review of Systems Review of Systems: All systems reviewed & are unremarkable except as noted in HPI and below Exam Const: General: cooperative, comfortable and no acute distress Resp: Auscultation: clear to auscultation bilaterally Cardio: Rate: regular rate Rhythm: regular rhythm GI: Inspection: normal to inspection and non-distended GI Palp: No abdominal tenderness, Yes Soft to palpation, No Tenderness to palpation present (GI), No Guarding due to palpation present (GI) and No Rigid due to palpation Objective Data Vital Signs Vital Signs: Vital Signs - 24 hr 03/14/23 14:00 03/14/23 21:22 03/14/23 21:15 Temperature 36.5 C 36.0 C L Pulse Rate 95 92 Respiratory Rate 16 16 Blood Pressure 127/69 139/69 Pulse Oximetry 95 97 Oxygen Delivery Room Air 03/15/23 06:00 Temperature 35.9 C L Pulse Rate 82 Respiratory Rate 16 Blood Pressure 115/74 Pulse Oximetry 97 Oxygen Delivery Intake/Output Intake/Output: Intake & Output 03/12/23 03/13/23 03/14/23 03/15/23 23:59 23:59 23:59 23:59 Intake Total 1050 2200 3700 1100 Output Total 400 2750 2600 Balance 650 -550 1100 1100 Meds/Results Medications: Active Medications Generic Name Dose Route Start Last Admin Trade Name Freq PRN Reason Stop Dose Admin Acetaminophen 650 mg 03/13/23 00:53 Acetaminophen 650 Mg Suppository RECTAL Q6H PRN Mild Pain (1-3) or Fever Al Hydrox/Mg Hydrox/Simethicone 30 ml 03/14/23 14:25 03/15/23 08:00 Mag Hydrox/Al Hydrox/Simeth 30 Ml Udc PO 30 ml Q6H BANDAR Administration Dextrose 12.5 gm 03/12/23 23:55 Dextrose 50% 25 Gm/50 Ml Syringe IV PUSH PRN PRN Hypoglycemia Protocol Glucagon 1 mg 03/12/23 23:55 Glucagon For Inj 1 Mg Vial IM PRN PRN Hypoglycemia Protocol Glucose 15 gm 03/12/23 23:55 Glucose Oral Gel 15 Gm Of Glucse In 37.5 Gm Tube PO PRN PRN Hypoglycemia Protocol Hydralazine HCl 10 mg 03/12/23 23:53 Hydralazine Hcl 20 Mg/Ml Vial IV PUSH Q8H PRN Blood Pressure - High Sodium Chloride 1,000 mls @ 150 mls/hr 03/12/23 21:15 03/15/23 06:28 Normal Saline Iv IV CONT 150 mls/hr .Q6H40M BANDAR Administration Dextrose 1,000 mls @ 100 mls/hr 03/12/23 23:55 Dextrose 5% 1,000 Ml IVPB PRN PRN Hypoglycemia Protocol Cefepime HCl 2 gm in 50 mls @ 100 mls/hr 03/14/23 12:00 03/15/23 08:00 Maxipime 2 Gm/Ns 50 Ml IVPB 100 mls/hr Q12HR BANDAR Administration Metronidazole 500 mg in 100 mls @ 100 mls/hr 03/14/23 12:00 03/15/23 06:05 Flagyl 500 Mg/Iso Soln 100 Ml IVPB Infused Q8HR BANDAR Infusion Potassium Chloride 40 meq/ 520 mls @ 130 mls/hr 03/15/23 11:00 Sodium Chloride IVPB 03/15/23 14:59 ONCE ONE Insulin Aspart 2 - 5 units 03/13/23 06:10 03/15/23 06:19 Insulin Aspart (*Bkc) 100 Units/Ml SUB-Q Not Given Q6HR [facility] Protocol Levothyroxine Sodium 25 mcg 03/13/23 06:30 03/15/23 06:20 Levothyroxine Sodium Inj 100 Mcg/5 Ml Vial IV PUSH 25 mcg DAILY@0630 BANDAR Administration Morphine Sulfate 4 mg 03/12/23 21:12 03/14/23 09:50 Morphine Sulfate (*Crx) 4 Mg/Ml Inj IV PUSH 4 mg Q2H PRN Administration Pain Rated 7-10 Ondansetron HCl 4 mg 03/12/23 21:12 03/13/23 15:51 Ondansetron Inj 4 Mg/2 Ml Vial IV PUSH 4 mg Q4H PRN Administration Nausea Phenol 1 spray 03/14/23 10:16 03/14/23 11:12 Phenol/Sod Pheno [place] (*Bkc) MUCOUS MEM 1
[2023-03-15 10:19] LABS: Glucose Point of Care 140 mg/dl (65-105)
[2023-03-15] MEDS: POTASSIUM CHLORIDE INJ 40 MEQ in SODIUM CHLORIDE 0.9% IV 500 ML 130 MEQ IVPB (10:49)
[2023-03-15 12:52] LABS: Glucose Point of Care 141 mg/dl (65-105)
[2023-03-15 14:00] VITALS: BP 114/63; PULSE 85; RESP 18; TEMP 36.6; O2SAT 100
[2023-03-15 14:45] VITALS: O2SAT 97
[2023-03-15 16:51] LABS: Glucose Point of Care 217 mg/dl (65-105)
[2023-03-15] MEDS: INSULIN ASPART (*BKC) 100 UNITS/ML SUB-Q (16:52)
[2023-03-15 21:35] LABS: Glucose Point of Care 130 mg/dl (65-105)
[2023-03-15 22:00] VITALS: BP 139/70; PULSE 88; RESP 20; TEMP 37.1; O2SAT 100
[2023-03-16 06:00] VITALS: BP 124/69; PULSE 79; RESP 22; TEMP 36.8; O2SAT 98
[2023-03-16] MEDS: LEVOTHYROXINE SODIUM INJ 100 MCG/5 ML VIAL 25 MCG IV PUSH (06:05)
[2023-03-16] MEDS: metroNIDAZOLE 500 MG/ISO 100ML 500 MG/100 ML BAG 100 MG IVPB ×3 (06:05→21:28)
[2023-03-16 08:17] LABS: Glucose Point of Care 134 mg/dl (65-105)
[2023-03-16] MEDS: CEFEPIME 2 GM/NS 50 ML 2 GM/50 ML BAG IVPB ×2 (08:57→21:29)
--- NOTE | 2023-03-16 11:09 | PM.PNGS ---
Progress Note: A&P Assessment and Plan (1) Incarcerated incisional hernia: Code(s): K43.0 - Incisional hernia with obstruction, without gangrene Status: Acute Assessment and Plan: long d/w pt and decision to proceed c urgent repair tomorrow, NPO p MN Subjective Subjective Date/Time Seen: 03/16/23 11:09 Interval history: feels good, no further pain, [place]inton clears Review of Systems Review of Systems: All systems reviewed & are unremarkable except as noted in HPI and below Exam Const: General: cooperative, comfortable and no acute distress Resp: Auscultation: clear to auscultation bilaterally Cardio: Rate: regular rate Rhythm: regular rhythm GI: Inspection: normal to inspection, non-distended and visible herniation GI Palp: No abdominal tenderness, Yes Soft to palpation, No Tenderness to palpation present (GI), No Guarding due to palpation present (GI), No Rigid due to palpation, Yes Hernia present and No Rebound tenderness present Objective Data Vital Signs Vital Signs: Vital Signs - 24 hr 03/15/23 14:45 03/15/23 14:00 03/15/23 20:00 Temperature 36.6 C Pulse Rate 85 Respiratory Rate 18 Blood Pressure 114/63 Pulse Oximetry 97 100 Oxygen Delivery Room Air Room Air 03/15/23 22:00 03/16/23 06:00 Temperature 37.1 C 36.8 C Pulse Rate 88 79 Respiratory Rate 20 22 H Blood Pressure 139/70 124/69 Pulse Oximetry 100 98 Oxygen Delivery Intake/Output Intake/Output: Intake & Output 03/13/23 03/14/23 03/15/23 03/16/23 23:59 23:59 23:59 23:59 Intake Total 2200 3700 5630 800 Output Total 2750 2600 Balance -550 1100 5630 800 Meds/Results Medications: Active Medications Generic Name Dose Route Start Last Admin Trade Name Freq PRN Reason Stop Dose Admin Acetaminophen 650 mg 03/13/23 00:53 Acetaminophen 650 Mg Suppository RECTAL Q6H PRN Mild Pain (1-3) or Fever Dextrose 12.5 gm 03/12/23 23:55 Dextrose 50% 25 Gm/50 Ml Syringe IV PUSH PRN PRN Hypoglycemia Protocol Glucagon 1 mg 03/12/23 23:55 Glucagon For Inj 1 Mg Vial IM PRN PRN Hypoglycemia Protocol Glucose 15 gm 03/12/23 23:55 Glucose Oral Gel 15 Gm Of Glucse In 37.5 Gm Tube PO PRN PRN Hypoglycemia Protocol Hydralazine HCl 10 mg 03/12/23 23:53 Hydralazine Hcl 20 Mg/Ml Vial IV PUSH Q8H PRN Blood Pressure - High Dextrose 1,000 mls @ 100 mls/hr 03/12/23 23:55 Dextrose 5% 1,000 Ml IVPB PRN PRN Hypoglycemia Protocol Cefepime HCl 2 gm in 50 mls @ 100 mls/hr 03/14/23 12:00 03/16/23 08:57 Maxipime 2 Gm/Ns 50 Ml IVPB 100 mls/hr Q12HR BANDAR Administration Metronidazole 500 mg in 100 mls @ 100 mls/hr 03/14/23 12:00 03/16/23 06:05 Flagyl 500 Mg/Iso Soln 100 Ml IVPB 100 mls/hr Q8HR BANDAR Administration Insulin Aspart 2 - 5 units 03/15/23 17:00 03/16/23 08:56 Insulin Aspart (*Bkc) 100 Units/Ml SUB-Q Not Given TIDWM [facility] Protocol Levothyroxine Sodium 25 mcg 03/13/23 06:30 03/16/23 06:05 Levothyroxine Sodium Inj 100 Mcg/5 Ml Vial IV PUSH 25 mcg DAILY@0630 [facility] Administration Morphine Sulfate 4 mg 03/12/23 21:12 03/14/23 09:50 Morphine Sulfate (*Crx) 4 Mg/Ml Inj IV PUSH 4 mg Q2H PRN Administration Pain Rated 7-10 Ondansetron HCl 4 mg 03/12/23 21:12 03/13/23 15:51 Ondansetron Inj 4 Mg/2 Ml Vial IV PUSH 4 mg Q4H PRN Administration Nausea Phenol 1 spray 03/14/23 10:16 03/14/23 11:12 Phenol/Sod Pheno [place] (*Bkc) MUCOUS MEM 1 spray PRN PRN Administration Sore Throat Radiology Results: ITS Impressions Abdomen/Pelvis CT 03/12/23 20:17 IMPRESSION: Mid small bowel obstruction. Transition point at an inflamed fluid containing infraumbilical hernia which contains a loop of mildly dilated small bowel. Uncomplicated supraumbilical hernia containing a loop of nondilated large bowel. Mild right hydronephro
[2023-03-16 11:42] LABS: Glucose Point of Care 142 mg/dl (65-105)
[2023-03-16 12:24] LABS: Basophils Absolute Auto 0.1 K/mm3 (0.0-0.1); Basophils Percent Auto 0.6 % (0.2-1.2); Eosinophils Absolute Auto 0.1 K/mm3 (0-0.3); Eosinophils Percent Auto 1.4 % (0-4.4); Hematocrit 36.6 % (42.0-52.0); Hemoglobin 11.1 g/dL (14.0-18.0); Immature Granulocyte Absolute 0.04 K/mm3 (0.00-0.031); Immature Granulocyte Percent A 0.4 % (0-0.5); Lymphocytes Absolute Auto 2.33 K/mm3 (0.9-3.2); Lymphocytes Percent Auto 24.4 % (18.3-44.2); Mean Corpuscular HGB Conc 30.3 g/dl (32-36); Mean Corpuscular Hemoglobin 28.9 pg (26-34); Mean Corpuscular Volume 95.3 fl (80-100); Mean Platelet Volume 11.3 fl (7.4-10.4); Monocytes Absolute Auto 0.8 K/mm3 (0.1-0.6); Neutrophils Absolute Auto 6.2 K/mm3 (1.3-6.7); Neutrophils Percent Auto 65.2 % (45.5-73.1); Platelet Count Result 210 k/mm3 (150-375); Red Blood Count 3.84 M/mm3 (4.6-6.20); Red Cell Distribution Width 13.8 % (11.5-14.5); White Blood Count 9.6 K/mm3 (4.5-10.0)
[2023-03-16 12:41] LABS: Anion Gap 10 mmol/L (8-16); Blood Urea Nitrogen 28 mg/dL (9-20); Calcium 7.3 mg/dL (8.4-10.2); Carbon Dioxide 25 mmol/L (22-30); Chloride 103 mmol/L (98-107); Estimated CRCL calculation 58 ml/min; Estimated Glomerular Filt Rate 54; Glucose 158 mg/dL (65-110); Phosphorus 1.5 mg/dL (2.5-4.5); Potassium 3.4 mmol/L (3.4-5.0); Sodium 138 mmol/L (137-145)
[2023-03-16 14:00] VITALS: BP 159/74; PULSE 72; RESP 16; TEMP 36.9; O2SAT 100
[2023-03-16 16:39] LABS: Glucose Point of Care 203 mg/dl (65-105)
--- NOTE | 2023-03-16 17:35 | PM.IMPN ---
Progress Note: A&P Assessment and Plan (1) SBO (small bowel obstruction): Code(s): K56.609 - Unspecified intestinal obstruction, unspecified as to partial versus complete obstruction Status: Acute (2) Incarcerated incisional hernia: Code(s): K43.0 - Incisional hernia with obstruction, without gangrene Status: Acute (3) Incarcerated umbilical hernia: Code(s): K42.0 - Umbilical hernia with obstruction, without gangrene Status: Acute (4) Vitamin B12 deficiency: Code(s): E53.8 - Deficiency of other specified B group vitamins Status: Acute (5) Vitamin D deficiency: Code(s): E55.9 - Vitamin D deficiency, unspecified Status: Acute (6) Hypothyroidism: Qualifiers: Hypothyroidism type: acquired Qualified Code(s): E03.9 - Hypothyroidism, unspecified Code(s): E03.9 - Hypothyroidism, unspecified Status: Acute (7) Peripheral arterial disease: Code(s): I73.9 - Peripheral vascular disease, unspecified Status: Acute (8) Neuropathy of right lower extremity: Code(s): G57.91 - Unspecified mononeuropathy of right lower limb Status: Acute (9) Type 2 diabetes mellitus without complications: Qualifiers: Diabetes mellitus termite technician insulin use: without retirement use Qualified Code(s): E11.9 - Type 2 diabetes mellitus without complications Code(s): E11.9 - Type 2 diabetes mellitus without complications Status: Acute (10) Essential (primary) hypertension: Code(s): I10 - Essential (primary) hypertension Status: Acute (11) UTI (urinary tract infection): Qualifiers: Hematuria presence: with hematuria Urinary tract infection type: acute cystitis Qualified Code(s): N30.01 - Acute cystitis with hematuria Code(s): N39.0 - Urinary tract infection, site not specified Status: Acute (12) Renal insufficiency: Code(s): N28.9 - Disorder of kidney and ureter, unspecified Status: Acute Plan Small-bowel obstruction CT showing mid small bowel obstruction. Transition point at an inflamed fluid containing infraumbilical hernia which contains a loop of mildly dilated small bowel. As well as an uncomplicated supraumbilical hernia containing a loop of nondilated large bowel. Bowel rest initiated.? NG tube placed and confirmed with abdominal x-ray.? Bilious output.? Lactic 2.3, given IVF and now normal at 1.2. General surgery consulted. was on NGT suction continue pain control and anti-emetics.? add EKG, as well as type and screen, and coags to a.m. labs for pre-op testing Appreciate general surgeon consult, cancer considers? incarcerated infraumbilical hernia appeared to be causing the small bowel obstruction, plans surgical repair friday off NGT on liquid diet now.? tolerated diet well had 2 BMs am Keep patient NPO after midnight for surgery in a.m. UTI Patient has cloudy urine, UA shows pyuria, Patient is on Zosyn q.6 are IV kidney worsening kidney function switch to cefepime and Flagyl Follow urine culture: coag neg staph Hypothyroidism Continue Synthroid 25 mcg IV daily during p.o. Hypertension Patient is on hydralazine 10 mg q.8 hours IV p.r.n. with parameters GURMEET on CKD Elevated BUN creatinine above baseline Creatinine 2.3 , now on baseline at 1.3 DC IV fluids Switch from Zosyn to cefepime and Flagyl Hypokalemia Replete with potassium chloride 40 mEq IV on 03/15/2023 Now within normal limits Sepsis Patient had leukocytosis of 14,500, tachycardia, hypothermia POA Possible sepsis from UTI and intra-abdominal infection Received fluid resuscitation Follow-up blood culture urine culture, start cefepime and Flagyl IV WBC is trending down ... now within normal limits at 9.6 ? Patient seen and examined at bedside during my morning rounds ? Collaborated with patient's nurse at the bedside in detail and addressed all concerns ? Labs, electrolytes, radiology, inv
[2023-03-16] MEDS: POTASSIUM PHOS,M-BASIC-D-BASIC 40 MMOL in SODIUM CHLORIDE 0.9% IV 250 ML 43.89 MMOL IVPB (18:55)
[2023-03-16 20:03] LABS: Glucose Point of Care 219 mg/dl (65-105)
[2023-03-16 20:20] VITALS: BP 179/92; PULSE 89; RESP 18; TEMP 37.2; O2SAT 98
[2023-03-16] MEDS: hydrALAZINE HCL 20 MG/ML VIAL 10 MG IV PUSH (21:28)
[2023-03-17] VITALS (13 sets, daily range): BP systolic 127–177; BP diastolic 66–91; PULSE 83–99; RESP 12–20; TEMP 36.4–37; O2SAT 93–100
[2023-03-17] MEDS: metroNIDAZOLE 500 MG/ISO 100ML 500 MG/100 ML BAG 100 MG IVPB ×2 (06:24→13:57)
[2023-03-17] MEDS: LEVOTHYROXINE SODIUM INJ 100 MCG/5 ML VIAL 25 MCG IV PUSH (06:57)
[2023-03-17 07:00] LABS: Basophils Absolute Auto 0.1 K/mm3 (0.0-0.1); Basophils Percent Auto 0.9 % (0.2-1.2); Eosinophils Absolute Auto 0.2 K/mm3 (0-0.3); Eosinophils Percent Auto 1.8 % (0-4.4); Hematocrit 35.1 % (42.0-52.0); Hemoglobin 10.9 g/dL (14.0-18.0); Immature Granulocyte Absolute 0.04 K/mm3 (0.00-0.031); Immature Granulocyte Percent A 0.5 % (0-0.5); Lymphocytes Absolute Auto 2.23 K/mm3 (0.9-3.2); Lymphocytes Percent Auto 27.2 % (18.3-44.2); Mean Corpuscular HGB Conc 31.1 g/dl (32-36); Mean Corpuscular Hemoglobin 28.8 pg (26-34); Mean Corpuscular Volume 92.9 fl (80-100); Mean Platelet Volume 11.3 fl (7.4-10.4); Monocytes Absolute Auto 0.8 K/mm3 (0.1-0.6); Monocytes Percent Auto 9.9 % (2.6-8.5); Neutrophils Absolute Auto 4.9 K/mm3 (1.3-6.7); Neutrophils Percent Auto 59.7 % (45.5-73.1); Platelet Count Result 236 k/mm3 (150-375); Red Blood Count 3.78 M/mm3 (4.6-6.20); Red Cell Distribution Width 13.6 % (11.5-14.5); White Blood Count 8.2 K/mm3 (4.5-10.0)
[2023-03-17 07:13] LABS: Anion Gap 10 mmol/L (8-16); Blood Urea Nitrogen 21 mg/dL (9-20); Calcium 7.6 mg/dL (8.4-10.2); Carbon Dioxide 24 mmol/L (22-30); Chloride 106 mmol/L (98-107); Estimated CRCL calculation 58 ml/min; Estimated Glomerular Filt Rate 54; Glucose 179 mg/dL (65-110); Phosphorus 2.2 mg/dL (2.5-4.5); Potassium 3.4 mmol/L (3.4-5.0); Sodium 140 mmol/L (137-145)
[2023-03-17] MEDS: SODIUM CHLORIDE 0.9% IV 1,000 ML 100 ML IV CONT (07:35)
[2023-03-17 08:17] LABS: Glucose Point of Care 175 mg/dl (65-105)
[2023-03-17] MEDS: CEFEPIME 2 GM/NS 50 ML 2 GM/50 ML BAG IVPB ×2 (08:57→22:03)
--- NOTE | 2023-03-17 11:19 | PM.IMPN ---
Progress Note: A&P Assessment and Plan (1) SBO (small bowel obstruction): Code(s): K56.609 - Unspecified intestinal obstruction, unspecified as to partial versus complete obstruction Status: Acute (2) Incarcerated incisional hernia: Code(s): K43.0 - Incisional hernia with obstruction, without gangrene Status: Acute (3) Incarcerated umbilical hernia: Code(s): K42.0 - Umbilical hernia with obstruction, without gangrene Status: Acute (4) Vitamin B12 deficiency: Code(s): E53.8 - Deficiency of other specified B group vitamins Status: Acute (5) Vitamin D deficiency: Code(s): E55.9 - Vitamin D deficiency, unspecified Status: Acute (6) Hypothyroidism: Qualifiers: Hypothyroidism type: acquired Qualified Code(s): E03.9 - Hypothyroidism, unspecified Code(s): E03.9 - Hypothyroidism, unspecified Status: Acute (7) Peripheral arterial disease: Code(s): I73.9 - Peripheral vascular disease, unspecified Status: Acute (8) Neuropathy of right lower extremity: Code(s): G57.91 - Unspecified mononeuropathy of right lower limb Status: Acute (9) Type 2 diabetes mellitus without complications: Qualifiers: Diabetes mellitus long term care administrator insulin use: without custodial use Qualified Code(s): E11.9 - Type 2 diabetes mellitus without complications Code(s): E11.9 - Type 2 diabetes mellitus without complications Status: Acute (10) Essential (primary) hypertension: Code(s): I10 - Essential (primary) hypertension Status: Acute (11) UTI (urinary tract infection): Qualifiers: Hematuria presence: with hematuria Urinary tract infection type: acute cystitis Qualified Code(s): N30.01 - Acute cystitis with hematuria Code(s): N39.0 - Urinary tract infection, site not specified Status: Acute (12) Renal insufficiency: Code(s): N28.9 - Disorder of kidney and ureter, unspecified Status: Acute Plan DVT prophylaxis with SCDs GI prophylaxis not indicated Code status full code Small-bowel obstruction CT showing mid small bowel obstruction. Transition point at an inflamed fluid containing infraumbilical hernia which contains a loop of mildly dilated small bowel. As well as an uncomplicated supraumbilical hernia containing a loop of nondilated large bowel. Bowel rest initiated.? NG tube placed and confirmed with abdominal x-ray.? Bilious output.? Lactic 2.3, given IVF and now normal at 1.2. General surgery consulted. was on NGT suction continue pain control and anti-emetics.? add EKG, as well as type and screen, and coags to a.m. labs for pre-op testing Appreciate general surgeon consult, cancer considers? incarcerated infraumbilical hernia appeared to be causing the small bowel obstruction, plans surgical repair friday off NGT on liquid diet now.? tolerated diet well had 2 BMs am Keep patient NPO after midnight for surgery in a.m. UTI Patient has cloudy urine, UA shows pyuria, Patient is on Zosyn q.6 are IV kidney worsening kidney function switch to cefepime and Flagyl Follow urine culture: coag neg staph Hypothyroidism Continue Synthroid 25 mcg IV daily during p.o. Hypertension Patient is on hydralazine 10 mg q.8 hours IV p.r.n. with parameters GURMEET on CKD Elevated BUN creatinine above baseline Creatinine 2.3 , now on baseline at 1.3 DC IV fluids Switch from Zosyn to cefepime and Flagyl Hypokalemia Replete with potassium chloride 40 mEq IV on 03/15/2023 Now within normal limits Sepsis Patient had leukocytosis of 14,500, tachycardia, hypothermia POA Possible sepsis from UTI and intra-abdominal infection Received fluid resuscitation Follow-up blood culture urine culture, start cefepime and Flagyl IV WBC is trending down ... now within normal limits at 9.6 ? Patient seen and examined at bedside during my morning rounds ? Collaborated with patient's nurse at the
[2023-03-17 11:47] LABS: Glucose Point of Care 178 mg/dl (65-105)
--- NOTE | 2023-03-17 15:06 | PC.NURSE ---
To OR per [Cat], IV [ ]. Report given to [Cat].
[2023-03-17 15:21] LABS: Glucose Point of Care 148 mg/dl (65-105)
--- NOTE | 2023-03-17 15:52 | WPDANESEPPF ---
Anes - Initial Pre Proc Eval Procedure: Operation Date: 03/17/23 16:00 Proposed Procedures p Open Incisional Hernia Repair with Mesh - Devin Lu MD Date/Time: 03/17/23 15:52 Surgeon: Salvatore Craig MD Pre Op Diagnosis: SBO, Incarcerated Umbilical Hernia, UTI Patient Data Age: 72 Gender: M Height: 1.78 m Weight: 111.9 kg Last Vital Signs Temp 36.5 C 03/17/23 15:05 Pulse 83 03/17/23 15:05 Resp 18 03/17/23 15:05 BP 177/77 H 03/17/23 15:05 Pulse Ox 100 03/17/23 15:05 O2 Del Method Room Air 03/17/23 15:05 Allergies Allergy/AdvReac Type Severity Reaction Status Date / Time codeine Allergy Severe Rash, Verified 03/12/23 23:03 vomiting meperidine [From Demerol] Allergy Severe Rash,vomiti Verified 03/12/23 23:03 ng amlodipine AdvReac Mild pedal edema Verified 03/17/23 07:30 gabapentin [From Neurontin] AdvReac Mild Dizziness Verified 03/12/23 23:12 Home Medications Medication Instructions Recorded Confirmed Type blood-glucose sensor (Dexcom G7 #6 ea 01/28/23 03/13/23 Rx Sensor device) cholecalciferol (vitamin D3) 1,250 1,250 mcg PO WEEKLY #12 tabs 01/28/23 03/12/23 Rx mcg (50,000 unit) tablet cyanocobalamin (vitamin B-12) 1,000 mcg IM MONTHLY #4 vials 01/28/23 03/12/23 Rx 1,000 mcg/mL injection solution dapagliflozin propanediol 10 mg 10 mg PO DAILY #90 tabs 01/28/23 03/12/23 Rx tablet (Farxiga) fenofibrate nanocrystallized 145 145 mg PO DAILY #90 tabs 01/28/23 03/12/23 Rx mg tablet glimepiride 4 mg tablet 4 mg PO BID #180 tabs 01/28/23 03/12/23 Rx hydrochlorothiazide 25 mg tablet 25 mg PO DAILY #90 tabs 01/28/23 03/12/23 Rx levothyroxine 50 mcg tablet 50 mcg PO DAILY #90 tabs 01/28/23 03/12/23 Rx lisinopril 40 mg tablet 40 mg PO DAILY #90 tabs 01/28/23 03/12/23 Rx metformin 1,000 mg tablet 1,000 mg PO BID #180 tabs 01/28/23 03/12/23 Rx metoprolol succinate 50 mg 50 mg PO DAILY #90 tabs 02/04/23 03/12/23 Rx tablet,extended release 24 hr pravastatin 40 mg tablet 40 mg PO DAILY 03/12/23 03/12/23 History Laboratory Tests 03/16/23 03/16/23 03/17/23 16:25 19:44 06:40 WBC 8.2 K/mm3 (4.5-10.0) RBC 3.78 L M/mm3 (4.6-6.20) Hgb 10.9 L g/dL (14.0-18.0) Hct 35.1 L % (42.0-52.0) MCV 92.9 fl (80-100) MCH 28.8 pg (26-34) MCHC 31.1 L g/dl (32-36) RDW 13.6 % (11.5-14.5) Plt Count 236 k/mm3 (150-375) MPV 11.3 H fl (7.4-10.4) Immature Gran % (Auto) 0.5 % (0-0.5) Neut % (Auto) 59.7 % (45.5-73.1) Lymph % (Auto) 27.2 % (18.3-44.2) [place] % (Auto) 9.9 H % (2.6-8.5) Eos % (Auto) 1.8 % (0-4.4) Baso % (Auto) 0.9 % (0.2-1.2) Lymph # (Auto) 2.23 K/mm3 (0.9-3.2) [place] # (Auto) 0.8 H K/mm3 (0.1-0.6) Eos # (Auto) 0.2 K/mm3 (0-0.3) Baso # (Auto) 0.1 K/mm3 (0.0-0.1) Abs Immat Gran (auto) 0.04 H K/mm3 (0.00-0.031) Absolute Neuts (auto) 4.9 K/mm3 (1.3-6.7) Absolute Nucleated RBC 0.0 K/mm3 (0.0-0.012) Nucleated RBC % 0.0 % (0.0-0.2) Sodium 140 mmol/L (137-145) Potassium 3.4 mmol/L (3.4-5.0) Chloride 106 mmol/L (98-107) Carbon Dioxide 24 mmol/L (22-30) Anion Gap 10 mmol/L (8-16) BUN 21 H mg/dL (9-20) Creatinine 1.30 mg/dL (0.7-1.3) Estim Creat Clear Calc 58 ml/min Estimated GFR 54 L (59 - ) Glucose 179 H mg/dL (65-110) POC Capillary Glucose 203 H mg/dl 219 H mg/dl (65-105) (65-105) Calcium 7.6 L mg/dL (8.4-10.2) Phosphorus 2.2 L mg/dL (2.5-4.5) 03/17/23 03/17/23 03/17/23 08:04 11:18 15:16 WBC RBC Hgb Hct MCV MCH MCHC RDW Plt Count
--- NOTE | 2023-03-17 16:16 | WPDHPUPDATE1 ---
History and Physical Update Update Date/Time: 03/17/23 16:16 History and Physical has been reviewed, including an updated exam of the patient. There are NO changes in the patient's condition. Risks, benefits, and alternatives have been discussed and questions answered. Patient agrees to proceed with procedure. Will proceed with open incisional hernia repair with mesh today. Risks, benefits, indications, and expected outcomes were discussed with the patient and/or family members. Risks to include bleeding and possible need for blood transfusion, injury to other organs, infection and possible infection of mesh if mesh is placed, and risks for recurrence of the hernia was discussed. Specifically the risk for chronic pain after hernia repair was discussed as well. They understand and I have answered all their questions. They wished to proceed with surgery as outlined above.
[2023-03-17] MEDS: ceFAZolin 2 GM/D5W 50 ML 2 GM/50 ML BAG IVPB (16:36)
--- NOTE | 2023-03-17 18:41 | PM.IMPN ---
Progress Note: A&P Assessment and Plan (1) SBO (small bowel obstruction): Code(s): K56.609 - Unspecified intestinal obstruction, unspecified as to partial versus complete obstruction Status: Acute (2) Incarcerated incisional hernia: Code(s): K43.0 - Incisional hernia with obstruction, without gangrene Status: Acute (3) Incarcerated umbilical hernia: Code(s): K42.0 - Umbilical hernia with obstruction, without gangrene Status: Acute (4) Vitamin B12 deficiency: Code(s): E53.8 - Deficiency of other specified B group vitamins Status: Acute (5) Vitamin D deficiency: Code(s): E55.9 - Vitamin D deficiency, unspecified Status: Acute (6) Hypothyroidism: Qualifiers: Hypothyroidism type: acquired Qualified Code(s): E03.9 - Hypothyroidism, unspecified Code(s): E03.9 - Hypothyroidism, unspecified Status: Acute (7) Peripheral arterial disease: Code(s): I73.9 - Peripheral vascular disease, unspecified Status: Acute (8) Neuropathy of right lower extremity: Code(s): G57.91 - Unspecified mononeuropathy of right lower limb Status: Acute (9) Type 2 diabetes mellitus without complications: Qualifiers: Diabetes mellitus intermediate frame tender insulin use: without [place] [facility] use Qualified Code(s): E11.9 - Type 2 diabetes mellitus without complications Code(s): E11.9 - Type 2 diabetes mellitus without complications Status: Acute (10) Essential (primary) hypertension: Code(s): I10 - Essential (primary) hypertension Status: Acute (11) UTI (urinary tract infection): Qualifiers: Hematuria presence: with hematuria Urinary tract infection type: acute cystitis Qualified Code(s): N30.01 - Acute cystitis with hematuria Code(s): N39.0 - Urinary tract infection, site not specified Status: Acute (12) Renal insufficiency: Code(s): N28.9 - Disorder of kidney and ureter, unspecified Status: Acute Plan DVT prophylaxis with SCDs GI prophylaxis not indicated Code status full code Small-bowel obstruction CT showing mid small bowel obstruction. Transition point at an inflamed fluid containing infraumbilical hernia which contains a loop of mildly dilated small bowel. As well as an uncomplicated supraumbilical hernia containing a loop of nondilated large bowel. Bowel rest initiated.? NG tube placed and confirmed with abdominal x-ray.? Bilious output.? Lactic 2.3, given IVF and now normal at 1.2. General surgery consulted. was on NGT suction continue pain control and anti-emetics.? add EKG, as well as type and screen, and coags to a.m. labs for pre-op testing Appreciate general surgeon consult, cancer considers? incarcerated infraumbilical hernia appeared to be causing the small bowel obstruction, plans surgical repair friday off NGT on liquid diet now.? tolerated diet well had 2 BMs am Keep patient NPO sincer midnight for surgery today UTI Patient has cloudy urine, UA shows pyuria, Patient is on Zosyn q.6 are IV kidney worsening kidney function switch to cefepime and Flagyl Follow urine culture: coag neg staph Hypothyroidism Continue Synthroid 25 mcg IV daily during p.o. Hypertension Patient is on hydralazine 10 mg q.8 hours IV p.r.n. with parameters GURMEET on CKD Elevated BUN creatinine above baseline Creatinine 2.3 , now on baseline at 1.3 DC IV fluids Switch from Zosyn to cefepime and Flagyl Hypokalemia Replete with potassium chloride 40 mEq IV on 03/15/2023 Now within normal limits Sepsis Patient had leukocytosis of 14,500, tachycardia, hypothermia POA Possible sepsis from UTI and intra-abdominal infection Received fluid resuscitation Follow-up blood culture urine culture, start cefepime and Flagyl IV WBC is trending down ... now within normal limits at 8.2 ? Patient seen and examined at bedside during my morning rounds ? Collaborated with patient's nurse at the
[2023-03-17] MEDS: KETOROLAC 15 MG/ML VIAL (*BKC) IV PUSH (19:00)
--- NOTE | 2023-03-17 19:26 | SUR.OPER ---
300mL of yellow urine drained from suresh
[2023-03-17] MEDS: LACTATED RINGERS 1,000 ML 30 ML IV CONT ×2 (19:35)
[2023-03-17] MEDS: fentaNYL CITRATE INJ (*CRX) 100 MCG/2 ML VIAL 25 MCG IV PUSH ×6 (19:46→20:35)
[2023-03-17 19:59] LABS: Glucose Point of Care 149 mg/dl (65-105)
[2023-03-17 21:30] LABS: Glucose Point of Care 218 mg/dl (65-105)
[2023-03-17] MEDS: HYDROmorphone HCL INJ (*CRX) 1 MG/ML SYR IV PUSH (22:02)
[2023-03-17] MEDS: diazePAM INJ (*CRX) 10 MG/2 ML SYRINGE 5 MG IV PUSH (22:02)
[2023-03-17] MEDS: TOLNAFTATE 1% POWDER 45 GM BTL 1 APPLIC TOPICAL (22:05)
[2023-03-17] MEDS: IBUPROFEN IV 800 MG/200 ML 800 MG/200 ML BAG 400 MG IVPB (22:53)
[2023-03-18] VITALS (7 sets, daily range): BP systolic 134–166; BP diastolic 65–78; PULSE 77–85; RESP 16–20; TEMP 36.1–36.8; O2SAT 94–100
[2023-03-18] MEDS: HYDROmorphone HCL INJ (*CRX) 1 MG/ML SYR IV PUSH (04:16)
[2023-03-18] MEDS: IBUPROFEN IV 800 MG/200 ML 800 MG/200 ML BAG 400 MG IVPB ×3 (05:17→21:13)
--- NOTE | 2023-03-18 06:53 | PC.NURSE ---
pt back to floor from surgery at 2100, suresh removed prior, pt had not voided since, this RN and SCREEN AND CYCLONE REPAIRER bladder scanned pt and no volume was seen on the bladder scanner at 0330
--- NOTE | 2023-03-18 07:25 | WPDANESPN ---
Anes - Prog Note Post-Op Date/Time: 03/18/23 07:25 Cardiovascular status: normal Respiratory status: normal Airway patency: baseline Mental status: baseline Post-Op hydration status: normal Vital Signs: Last Vital Signs Temp 36.2 C L 03/18/23 04:35 Pulse 78 03/18/23 04:35 Resp 20 03/18/23 04:35 BP 134/66 03/18/23 04:35 Pulse Ox 99 03/18/23 04:35 O2 Del Method Nasal Cannula 03/17/23 20:45 O2 Flow Rate 2 03/17/23 20:45 Pain Score (VAS): 2 I/O: Intake & Output 03/17/23 03/17/23 03/18/23 15:59 23:59 07:59 Intake Total 150 500 450 Output Total 30 40 Balance 150 470 410 Laboratory Tests 03/17/23 06:40 03/17/23 06:40 03/17/23 03/17/23 03/17/23 08:04 11:18 15:16 POC Capillary Glucose 175 H 178 H 148 H 03/17/23 03/17/23 19:48 21:25 POC Capillary Glucose 149 H 218 H Post-procedural complaints: none Patient Feedback: Patient satisfied with anesthetic care.
[2023-03-18] MEDS: CEFEPIME 2 GM/NS 50 ML 2 GM/50 ML BAG IVPB (08:32)
[2023-03-18 08:35] LABS: Glucose Point of Care 159 mg/dl (65-105)
[2023-03-18] MEDS: PRAVASTATIN SODIUM 20 MG TABLET 40 MG PO (08:35)
[2023-03-18] MEDS: lisinopriL 20 MG TABLET 40 MG PO (08:35)
[2023-03-18] MEDS: PANTOPRAZOLE 40 MG TABLET PO (08:35)
[2023-03-18] MEDS: GLIMEPIRIDE 2 MG TABLET 4 MG PO ×2 (08:35→16:40)
[2023-03-18] MEDS: FENOFIBRATE NANOCRYSTALLIZED 145 MG TABLET PO (08:35)
[2023-03-18] MEDS: hydroCHLOROthiazide 25 MG TABLET PO (08:35)
[2023-03-18] MEDS: EMPAGLIFLOZIN 25 MG TABLET BY MOUTH (08:36)
[2023-03-18] MEDS: metFORMIN HCL 500 MG TABLET 1000 MG PO ×2 (08:36→16:40)
[2023-03-18] MEDS: METOPROLOL SUCCINATE EXT REL 50 MG TABCR PO (08:36)
[2023-03-18] MEDS: TOLNAFTATE 1% POWDER 45 GM BTL 1 APPLIC TOPICAL ×2 (08:38→21:22)
[2023-03-18] MEDS: ENOXAPARIN 40 MG/0.4 ML SYRINGE SUB-Q (08:39)
[2023-03-18] MEDS: diazePAM INJ (*CRX) 10 MG/2 ML SYRINGE 5 MG IV PUSH ×2 (08:40→21:13)
[2023-03-18] MEDS: HYDROcodone/acetaminophen (*CRX) 5-325 MG TABLET 1 TAB PO ×3 (08:44→19:33)
[2023-03-18 10:23] LABS: Basophils Absolute Auto 0.1 K/mm3 (0.0-0.1); Basophils Percent Auto 0.6 % (0.2-1.2); Eosinophils Absolute Auto 0.1 K/mm3 (0-0.3); Eosinophils Percent Auto 0.4 % (0-4.4); Hematocrit 37.6 % (42.0-52.0); Hemoglobin 10.9 g/dL (14.0-18.0); Immature Granulocyte Absolute 0.08 K/mm3 (0.00-0.031); Immature Granulocyte Percent A 0.6 % (0-0.5); Immature Platelet Fraction Pct 8.1 % (0.9-11.2); Lymphocytes Absolute Auto 1.75 K/mm3 (0.9-3.2); Lymphocytes Percent Auto 14.1 % (18.3-44.2); Mean Corpuscular Hemoglobin 28.2 pg (26-34); Mean Corpuscular Volume 97.2 fl (80-100); Monocytes Absolute Auto 0.9 K/mm3 (0.1-0.6); Monocytes Percent Auto 7.5 % (2.6-8.5); Neutrophils Absolute Auto 9.5 K/mm3 (1.3-6.7); Neutrophils Percent Auto 76.8 % (45.5-73.1); Platelet Count Result 178 k/mm3 (150-375); Red Blood Count 3.87 M/mm3 (4.6-6.20); Red Cell Distribution Width 13.9 % (11.5-14.5); White Blood Count 12.4 K/mm3 (4.5-10.0)
[2023-03-18 10:38] LABS: Anion Gap 10 mmol/L (8-16); Blood Urea Nitrogen 25 mg/dL (9-20); Calcium 7.8 mg/dL (8.4-10.2); Carbon Dioxide 21 mmol/L (22-30); Chloride 109 mmol/L (98-107); Estimated CRCL calculation 54 ml/min; Estimated Glomerular Filt Rate 50; Glucose 252 mg/dL (65-110); Potassium 3.9 mmol/L (3.4-5.0); Sodium 140 mmol/L (137-145)
--- NOTE | 2023-03-18 10:53 | PM.PNGS ---
Progress Note: A&P Assessment and Plan (1) Incarcerated incisional hernia: Code(s): K43.0 - Incisional hernia with obstruction, without gangrene Status: Acute Assessment and Plan: S/p open incisional hernia repair with mesh, extensive adhesiolysis. Advance to full liquids for dinner. Pain well controlled. IV antibiotics stopped. Will try to get up to the chair and start increasing activity. Will order therapy to evaluate the patient. Repeat labs tomorrow morning. (2) SBO (small bowel obstruction): Code(s): K56.609 - Unspecified intestinal obstruction, unspecified as to partial versus complete obstruction Status: Acute Assessment and Plan: Resolved once hernia was reduced, and now s/p hernia repair as mentioned above. Advancing diet to full liquids today. Plan I have discussed the patient's case and plan of care with Dr. Lu. Subjective Subjective Date/Time Seen: 03/18/23 10:53 Post Op day: 1 (Open incisional hernia repair with mesh, extensive adhesiolysis) Patient reports: voiding w/o difficulty, flatus, diarrhea (in the OR) and afebrile Interval history: Patient seen postop day and was brought back to the room after surgery last evening around 9pm per nursing. He is feeling very tired this morning, but wakes up easily. He has been up out of bed to the bedside commode. He reports lots of flatus and had liquid diarrhea yesterday. Denies any bowel movements yet today. He had his first clear liquid tray this morning and tolerated this well. No nausea or vomiting. His postoperative pain is currently controlled, and he received hydrocodone not long before my assessment. Denies any issues with voiding. Per nursing, he was taken off 2 liters of O2 this morning and tolerating this well. Review of Systems Constitutional: Constitutional: Reports no additional constitutional complaints, Denies headache(s) and Denies weakness Cardiovascular: Cardiovascular: Reports no additional cardiovascular complaints, Denies chest pain and Denies pedal edema Respiratory: Respiratory: Reports no additional respiratory complaints, Denies cough and Denies dyspnea Exam Const: General: no acute distress and tired appearing Orientation/consciousness: patient oriented x3 Resp: Auscultation: clear to auscultation bilaterally GI: Inspection: non-distended GI Palp: Yes Soft to palpation, Yes Tenderness to palpation present (GI) and No Hernia present Auscultation: normal bowel sounds Other: Midline incision covered with an island dressing that has scant dry sanguineous drainage, scattered small incisions in a circular pattern that are dry and intact, no erythema Extrem: General: no calf tenderness and no edema Psych: Mental Status: mental status grossly normal Insight: Good insight present (Psych) Objective Data Vital Signs Vital Signs: Vital Signs - 24 hr 03/17/23 15:05 03/17/23 14:00 03/17/23 19:35 Temperature 97.7 F 98.1 F 98.6 F Pulse Rate 83 84 99 Respiratory Rate 18 16 16 Blood Pressure 177/77 H 165/74 H 176/91 H Pulse Oximetry 100 100 98 Oxygen Delivery Room Air Simple Face Mask Oxygen Flow Rate 10 03/17/23 19:50 03/17/23 20:05 03/17/23 20:15 Temperature Pulse Rate 93 88 87 Respiratory Rate 12 12 12 Blood Pressure 153/84 H 167/87 H 165/88 H Pulse Oximetry 99 93 97 Oxygen Delivery Simple Face Mask Nasal Cannula Nasal Cannula Oxygen Flow Rate 10 2 2 03/17/23 20:30 03/17/23 20:45 03/17/23 21:00 Temperature 98 F Pulse Rate 86 87 89 Respiratory Rate 12 12 16 Blood Pressure 170/84 H 165/81 H 160/76 H Pulse Oximetry 99 97 94 Oxygen Delivery Nasal Cannula Nasal Cannula Oxygen Flow Rate 2 2 03/17/23 21:25 03/17/23 21:59 03/17/23 23:10 Temperature 98.1 F 98 F 98 F Pulse Rate 87 90 85 Respiratory Rate 18 20 20 Blood Pressure 152/71 H 150/74 H 127/66 Pulse Oximetry 95 97 96 Oxygen Delivery Oxygen Flow Rate 03/18/23 00:55 03/18/23 04:35 03/18/23 08:36 Temperat
[2023-03-18 11:56] LABS: Glucose Point of Care 188 mg/dl (65-105)
--- NOTE | 2023-03-18 15:36 | W.PM.PROC2 ---
Procedure Note - Detailed Date of Procedure 03/17/23 Pre-op Diagnosis Incisional hernia. Post-op Diagnosis Same Procedure Performed Open reducible incisional hernia repair with Ventralight ST mesh and extensive intra-abdominal adhesiolysis. Surgeon Devin Lu MD [employer]let [employer] Operator YOU Casarez Anesthesia General Indications Patient is a 72-year-old gentleman who previously had an open cholecystectomy as well as a prior colon resection. He has developed an incisional hernia with 2 separate defects measuring approximately 3cm each in diameter along the midline scar. He was admitted to the hospital because he had a partial small-bowel obstruction due to incarceration of the lower incisional hernia with small bowel. This hernia was reduced the hospital and his small-bowel obstruction resolved. He presents now for a semi-urgent open incisional hernia repair with mesh. Findings Patient had extensive abdominal adhesions including a small portion of the transverse colon as well as multiple loops of small bowel and omentum to the undersurface of the anterior abdominal wall around the old scar. There were 2 separate fascial defects, one was in the upper epigastric region and the 2nd was in the juan jose umbilical region. Each defect measured approximately 3 cm in diameter and both of these defects were by approximately 10 to 12 cm. The hernia was repaired with intraperitoneal placement of Bard Ventralight ST mesh measuring 20 cm in length by 15cm in width. The mesh was circumferentially fixated with transfascial 0 Ethibond sutures. In total 20 sutures were used to secure the mesh. Description of Procedure After informed consent was obtained patient brought to the operating room was placed supine position and general endotracheal anesthesia was administered. An orogastric tube was placed to decompress the stomach and a Duong catheter was placed decompress the bladder. The abdomen was then prepped and draped usual sterile fashion. A time-out was then performed correctly identifying the patient as well as procedure to be performed. He was already on scheduled IV antibiotics. I then started by making a generous midline incision starting in the epigastric region extending all way down to below the umbilicus. Dissection was then carried down through the subcu tissue electrocautery. I then dissected down to both of the hernia sacs and the hernia sac from the surrounding subcutaneous tissues. This is all done electrocautery dissection. I then opened the hernia sac in the epigastric region of the abdomen and released some omentum which was adherent within the hernia sac with electrocautery. I was then able to palpate underneath the anterior abdominal wall and there were multiple loops of small bowel and omentum adherent to the undersurface of the anterior abdominal wall going in the caudal direction. I then very carefully opened the midline fascia electrocautery all the time taking down these adhesions of the small bowel and omentum. This extensive intra-abdominal adhesiolysis added about 1hour to the surgical case. This is all done with a combination sharp scissor and electrocautery dissection. No iatrogenic bowel injuries were noted during the adhesiolysis. Once I had all the adhesions down I then evaluated whether I could place a piece of mesh in the retrorectus space. The patient had prior open cholecystectomy with scarring of that space and the separation in the muscle was about 6cm in diameter after I opened the fascia between the 2 hernia defects. Both hernia defects measured about 3cm each and they were by a bridge of fascia about 10 to 12 cm long. I decided to place a piece of intraperitoneal onlay mesh for the repair. A piece of Bard Ventralight ST mesh and a oval configuration measuring 20cm in length by 15cm in width was chosen. Initially 0 Ethibond sutures were placed into the mesh at the 4 cardinal points. The
[2023-03-18 17:06] LABS: Glucose Point of Care 203 mg/dl (65-105)
[2023-03-18] MEDS: INSULIN ASPART (*BKC) 100 UNITS/ML SUB-Q (17:09)
--- NOTE | 2023-03-18 18:49 | PM.IMPN ---
Progress Note: A&P Assessment and Plan (1) SBO (small bowel obstruction): Code(s): K56.609 - Unspecified intestinal obstruction, unspecified as to partial versus complete obstruction Status: Acute (2) Incarcerated incisional hernia: Code(s): K43.0 - Incisional hernia with obstruction, without gangrene Status: Acute (3) Incarcerated umbilical hernia: Code(s): K42.0 - Umbilical hernia with obstruction, without gangrene Status: Acute (4) Vitamin B12 deficiency: Code(s): E53.8 - Deficiency of other specified B group vitamins Status: Acute (5) Vitamin D deficiency: Code(s): E55.9 - Vitamin D deficiency, unspecified Status: Acute (6) Hypothyroidism: Qualifiers: Hypothyroidism type: acquired Qualified Code(s): E03.9 - Hypothyroidism, unspecified Code(s): E03.9 - Hypothyroidism, unspecified Status: Acute (7) Peripheral arterial disease: Code(s): I73.9 - Peripheral vascular disease, unspecified Status: Acute (8) Neuropathy of right lower extremity: Code(s): G57.91 - Unspecified mononeuropathy of right lower limb Status: Acute (9) Type 2 diabetes mellitus without complications: Qualifiers: Diabetes mellitus intermodal customer service insulin use: without [facility] use Qualified Code(s): E11.9 - Type 2 diabetes mellitus without complications Code(s): E11.9 - Type 2 diabetes mellitus without complications Status: Acute (10) Essential (primary) hypertension: Code(s): I10 - Essential (primary) hypertension Status: Acute (11) UTI (urinary tract infection): Qualifiers: Hematuria presence: with hematuria Urinary tract infection type: acute cystitis Qualified Code(s): N30.01 - Acute cystitis with hematuria Code(s): N39.0 - Urinary tract infection, site not specified Status: Acute (12) Renal insufficiency: Code(s): N28.9 - Disorder of kidney and ureter, unspecified Status: Acute Plan Plan DVT prophylaxis with SCDs GI prophylaxis not indicated Code status full code Small-bowel obstruction CT showing mid small bowel obstruction. Transition point at an inflamed fluid containing infraumbilical hernia which contains a loop of mildly dilated small bowel. As well as an uncomplicated supraumbilical hernia containing a loop of nondilated large bowel. Bowel rest initiated.? NG tube placed and confirmed with abdominal x-ray.? Bilious output.? Lactic 2.3, given IVF and now normal at 1.2. General surgery consulted. was on NGT suction continue pain control and anti-emetics.? add EKG, as well as type and screen, and coags to a.m. labs for pre-op testing Appreciate general surgeon consult, cancer considers? incarcerated infraumbilical hernia appeared to be causing the small bowel obstruction, Patient underwent surgery yesterday Postop he is doing okay Started patient on clear liquid diet UTI Patient has cloudy urine, UA shows pyuria, Patient is on Zosyn q.6 are IV kidney worsening kidney function switch to cefepime and Flagyl Follow urine culture: coag neg staph Hypothyroidism Continue Synthroid 25 mcg IV daily during p.o. Hypertension Patient is on hydralazine 10 mg q.8 hours IV p.r.n. with parameters GURMEET on CKD Elevated BUN creatinine above baseline Creatinine 2.3 , now on baseline at 1.3 DC IV fluids Switch from Zosyn to cefepime and Flagyl Hypokalemia Replete with potassium chloride 40 mEq IV on? 03/15/2023 Now within normal limits Sepsis Patient had leukocytosis of 14,500, tachycardia, hypothermia POA Possible sepsis from UTI and intra-abdominal infection Received fluid resuscitation Follow-up blood culture urine culture, start cefepime and Flagyl IV WBC is trending down ...? now within normal limits at 8.2 ? Patient seen and examined at bedside during my morning rounds ? Collaborated with patient's nurse at the bedside in detail and addressed all con
[2023-03-18 19:45] LABS: Glucose Point of Care 258 mg/dl (65-105)
[2023-03-19] MEDS: oxyCODONE HCL (*CRX) 5 MG TAB IR PO ×2 (03:27→19:28)
[2023-03-19 04:45] VITALS: BP 155/79; PULSE 73; RESP 18; TEMP 36.5; O2SAT 96
[2023-03-19] MEDS: LEVOTHYROXINE SODIUM 50 MCG TABLET PO (05:55)
[2023-03-19] MEDS: IBUPROFEN IV 800 MG/200 ML 800 MG/200 ML BAG 400 MG IVPB ×3 (05:55→21:24)
[2023-03-19 06:45] LABS: Hematocrit 35.3 % (42.0-52.0); Hemoglobin 10.8 g/dL (14.0-18.0); Mean Corpuscular HGB Conc 30.6 g/dl (32-36); Mean Corpuscular Hemoglobin 28.6 pg (26-34); Mean Corpuscular Volume 93.4 fl (80-100); Mean Platelet Volume 11.3 fl (7.4-10.4); Platelet Count Result 243 k/mm3 (150-375); Red Blood Count 3.78 M/mm3 (4.6-6.20); Red Cell Distribution Width 13.9 % (11.5-14.5)
[2023-03-19 06:59] LABS: Anion Gap 8 mmol/L (8-16); Blood Urea Nitrogen 20 mg/dL (9-20); Calcium 8.3 mg/dL (8.4-10.2); Carbon Dioxide 26 mmol/L (22-30); Chloride 106 mmol/L (98-107); Estimated CRCL calculation 48 ml/min; Estimated Glomerular Filt Rate 43; Glucose 96 mg/dL (65-110); Potassium 3.3 mmol/L (3.4-5.0); Sodium 140 mmol/L (137-145)
[2023-03-19 07:39] LABS: Glucose Point of Care 82 mg/dl (65-105)
[2023-03-19] MEDS: lisinopriL 20 MG TABLET 40 MG PO (08:12)
[2023-03-19] MEDS: hydroCHLOROthiazide 25 MG TABLET PO (08:13)
[2023-03-19] MEDS: PANTOPRAZOLE 40 MG TABLET PO (08:13)
[2023-03-19] MEDS: metFORMIN HCL 500 MG TABLET 1000 MG PO ×2 (08:13→16:45)
[2023-03-19] MEDS: EMPAGLIFLOZIN 25 MG TABLET BY MOUTH (08:13)
[2023-03-19 08:14] VITALS: PULSE 84
[2023-03-19] MEDS: FENOFIBRATE NANOCRYSTALLIZED 145 MG TABLET PO (08:14)
[2023-03-19] MEDS: GLIMEPIRIDE 2 MG TABLET 4 MG PO ×2 (08:14→16:45)
[2023-03-19] MEDS: METOPROLOL SUCCINATE EXT REL 50 MG TABCR PO (08:14)
[2023-03-19] MEDS: ENOXAPARIN 40 MG/0.4 ML SYRINGE SUB-Q (08:15)
[2023-03-19] MEDS: TOLNAFTATE 1% POWDER 45 GM BTL 1 APPLIC TOPICAL ×2 (08:18→20:27)
[2023-03-19] MEDS: PRAVASTATIN SODIUM 20 MG TABLET 40 MG PO (08:24)
[2023-03-19] MEDS: diazePAM (*CRX) 5 MG TABLET 10 MG PO (10:39)
[2023-03-19] MEDS: POTASSIUM CHLORIDE 20 MEQ ER TABLET 40 MEQ PO (10:39)
[2023-03-19] MEDS: MAGNESIUM SULF 1 GM/D5W 100 ML 1 GM/100 ML BAG IVPB (10:40)
[2023-03-19] MEDS: CYANOCOBALAMIN INJ 1,000 MCG/ML VIAL 1000 MCG IM (11:13)
[2023-03-19 11:24] LABS: Glucose Point of Care 171 mg/dl (65-105)
--- NOTE | 2023-03-19 13:26 | PM.PNGS ---
Progress Note: A&P Assessment and Plan (1) Incarcerated incisional hernia: Code(s): K43.0 - Incisional hernia with obstruction, without gangrene Status: Acute Assessment and Plan: S/p open incisional hernia repair with mesh, extensive adhesiolysis. Pain is well controlled and he is increasing his activity. Will advance to a diabetic diet. Give a Dulcolax suppository. Potassium replaced. Continue increasing activity, PT/OT following. CHANELL drain with minimal output, will consider removing tomorrow. Repeat labs tomorrow morning. (2) SBO (small bowel obstruction): Code(s): K56.609 - Unspecified intestinal obstruction, unspecified as to partial versus complete obstruction Status: Acute Assessment and Plan: Resolved once hernia was reduced, and now s/p hernia repair as mentioned above. Advancing diet. Plan I have discussed the patient's case and plan of care with Dr. Lu. Subjective Subjective Date/Time Seen: 03/19/23 13:26 Post Op day: 2 (Open reducible incisional hernia repair with Ventralight ST mesh and extensive intra-abdominal adhesiolysis) Patient reports: feels better, tolerating liquids well, voiding w/o difficulty, flatus, no bowel movement and afebrile Interval history: Patient feels better today. He feels sore but not having much pain. He has gotten up more today and ambulated into the bathroom. He slept in the recliner last night because it was more comfortable. He has not used any IV Dilaudid since early yesterday morning, and feels his pain is well controlled on the oral analgesics. No nausea or vomiting. Lots of flatus but no BM yet since surgery. Exam Const: General: comfortable and no acute distress Orientation/consciousness: patient oriented x3 GI: Inspection: non-distended GI Palp: Yes Soft to palpation and Yes Tenderness to palpation present (GI) (expected incisional tenderness) Auscultation: normal bowel sounds Other: Dressing removed today and midline incision has scant sanguineous drainage near umbilicus but otherwise dry with brandi intact, no erythema. Tiny puncture incisions with glue intact and no erythema, a few small areas of the glue peeled off with the dressing. CHANELL drain with scant serosanguineous drainage. Extrem: General: no calf tenderness and no edema Objective Data Vital Signs Vital Signs: Vital Signs - 24 hr 03/18/23 16:00 03/18/23 20:35 03/19/23 04:45 Temperature 97.8 F 96.9 F L 97.7 F Pulse Rate 77 79 73 Respiratory Rate 16 18 18 Blood Pressure 166/78 H 155/74 H 155/79 H Pulse Oximetry 100 98 96 Oxygen Delivery 03/19/23 08:14 03/19/23 09:25 03/19/23 08:00 Temperature Pulse Rate 84 Respiratory Rate Blood Pressure Pulse Oximetry Oxygen Delivery Room Air Room Air Intake/Output Intake/Output: Intake & Output 03/16/23 03/17/23 03/18/23 03/19/23 23:59 23:59 23:59 23:59 Intake Total 2019 3534 2254 1348 Output Total 30 60 5 Balance 2019 4587 0956 1344 Meds/Results Medications: Active Medications Generic Name Dose Route Start Last Admin Trade Name Freq PRN Reason Stop Dose Admin Acetaminophen 1,000 mg 03/17/23 19:28 Acetaminophen 500 Mg Tablet PO Q6H PRN Mild Pain (1-3) or Fever Hydrocodone Bitart/Acetaminophen 1 tab 03/17/23 19:28 03/18/23 19:33 Hydrocodone/Acetaminophen (*Crx) 5-325 Mg Tablet PO 1 tab Q4H PRN Administration Pain Rated 4-6 Cyanocobalamin 1,000 mcg 04/14/23 09:00 Cyanocobalamin Inj 1,000 Mcg/Ml Vial IM MONTHLY [facility] Dextrose 12.5 gm 03/12/23 23:55 Dextrose 50% 25 Gm/50 Ml Syringe IV PUSH PRN PRN Hypoglycemia Protocol Diazepam 10 mg 03/19/23 09:00 03/19/23 10:39 Diazepam (*Crx) 5 Mg Tablet PO 10 mg DAILY [facility] Administration Empagliflozin 25 mg 03/18/23 09:00 03/19/23 08:13 Empagliflozin 25 Mg Tablet BY MOUTH 25 mg DAILY [facility] Administration Enoxaparin Sodium 40 mg 03/18/23 09:00 03/19/23 08:15
[2023-03-19 14:00] VITALS: BP 150/64; PULSE 75; RESP 14; TEMP 36.9; O2SAT 94
[2023-03-19] MEDS: HYDROcodone/acetaminophen (*CRX) 5-325 MG TABLET 1 TAB PO (14:55)
[2023-03-19 16:25] LABS: Glucose Point of Care 103 mg/dl (65-105)
--- NOTE | 2023-03-19 17:40 | PM.IMPN ---
Progress Note: A&P Assessment and Plan (1) SBO (small bowel obstruction): Code(s): K56.609 - Unspecified intestinal obstruction, unspecified as to partial versus complete obstruction Status: Acute (2) Incarcerated incisional hernia: Code(s): K43.0 - Incisional hernia with obstruction, without gangrene Status: Acute (3) Incarcerated umbilical hernia: Code(s): K42.0 - Umbilical hernia with obstruction, without gangrene Status: Acute (4) Vitamin B12 deficiency: Code(s): E53.8 - Deficiency of other specified B group vitamins Status: Acute (5) Vitamin D deficiency: Code(s): E55.9 - Vitamin D deficiency, unspecified Status: Acute (6) Hypothyroidism: Qualifiers: Hypothyroidism type: acquired Qualified Code(s): E03.9 - Hypothyroidism, unspecified Code(s): E03.9 - Hypothyroidism, unspecified Status: Acute (7) Peripheral arterial disease: Code(s): I73.9 - Peripheral vascular disease, unspecified Status: Acute (8) Neuropathy of right lower extremity: Code(s): G57.91 - Unspecified mononeuropathy of right lower limb Status: Acute (9) Type 2 diabetes mellitus without complications: Qualifiers: Diabetes mellitus 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 insulin use: without detention use Qualified Code(s): E11.9 - Type 2 diabetes mellitus without complications Code(s): E11.9 - Type 2 diabetes mellitus without complications Status: Acute (10) Essential (primary) hypertension: Code(s): I10 - Essential (primary) hypertension Status: Acute (11) UTI (urinary tract infection): Qualifiers: Hematuria presence: with hematuria Urinary tract infection type: acute cystitis Qualified Code(s): N30.01 - Acute cystitis with hematuria Code(s): N39.0 - Urinary tract infection, site not specified Status: Acute (12) Renal insufficiency: Code(s): N28.9 - Disorder of kidney and ureter, unspecified Status: Acute Plan Plan DVT prophylaxis with SCDs GI prophylaxis not indicated Code status full code Small-bowel obstruction CT showing mid small bowel obstruction. Transition point at an inflamed fluid containing infraumbilical hernia which contains a loop of mildly dilated small bowel. As well as an uncomplicated supraumbilical hernia containing a loop of nondilated large bowel. Bowel rest initiated.? NG tube placed and confirmed with abdominal x-ray.? Bilious output.? Lactic 2.3, given IVF and now normal at 1.2. General surgery consulted. was on NGT suction continue pain control and anti-emetics.? add EKG, as well as type and screen, and coags to a.m. labs for pre-op testing Appreciate general surgeon consult, cancer considers? incarcerated infraumbilical hernia appeared to be causing the small bowel obstruction, Patient underwent surgery yesterday Postop he is doing okay Patient tolerated clear liquid and full liquid diet, advanced to diabetic consistent carbohydrate diet Awaiting bowel movement May DC in next 1-2 days if he remains stable and cleared by surgery UTI Patient has cloudy urine, UA shows pyuria, Patient is on Zosyn q.6 are IV kidney worsening kidney function switch to cefepime and Flagyl Follow urine culture: coag neg staph Hypothyroidism Continue Synthroid 25 mcg IV daily during p.o. Hypertension Patient is on hydralazine 10 mg q.8 hours IV p.r.n. with parameters GURMEET on CKD Elevated BUN creatinine above baseline Creatinine 2.3 , now on baseline at 1.3 DC IV fluids Switch from Zosyn to cefepime and Flagyl Hypokalemia Replete with potassium chloride 40 mEq IV on? 03/15/2023 Now within normal limits Sepsis Patient had leukocytosis of 14,500, tachycardia, hypothermia POA Possible sepsis from UTI and intra-abdominal infection Received fluid resuscitation Follow-up blood culture urine culture, start cefepime and Flagyl IV WBC has mildly up trended to 12.4/13 post surger
[2023-03-19 20:07] VITALS: PULSE 81; RESP 20; TEMP 36.8; O2SAT 96
[2023-03-19] MEDS: ONDANSETRON INJ 4 MG/2 ML VIAL IV PUSH (20:26)
[2023-03-19 20:32] VITALS: BP 186/84
[2023-03-19] MEDS: hydrALAZINE HCL 20 MG/ML VIAL 10 MG IV PUSH (20:36)
[2023-03-19 21:10] VITALS: BP 168/80
[2023-03-19 21:16] LABS: Glucose Point of Care 73 mg/dl (65-105)
[2023-03-19 21:16] LABS: Glucose Point of Care 77 mg/dl (65-105)
[2023-03-19 21:52] LABS: Glucose Point of Care 90 mg/dl (65-105)
[2023-03-19 22:39] LABS: Glucose Point of Care 113 mg/dl (65-105)
[2023-03-19] MEDS: HYDROmorphone HCL INJ (*CRX) 1 MG/ML SYR IV PUSH (22:57)
[2023-03-20 01:34] LABS: Glucose Point of Care 173 mg/dl (65-105)
[2023-03-20 01:55] VITALS: BP 138/70; PULSE 88; RESP 16; TEMP 36.3; O2SAT 97
[2023-03-20] MEDS: ONDANSETRON INJ 4 MG/2 ML VIAL IV PUSH (02:51)
[2023-03-20] MEDS: IBUPROFEN IV 800 MG/200 ML 800 MG/200 ML BAG 400 MG IVPB (05:45)
[2023-03-20 06:00] VITALS: BP 146/79; PULSE 84; RESP 20; TEMP 35.9; O2SAT 98
[2023-03-20 08:26] LABS: Glucose Point of Care 170 mg/dl (65-105)
--- NOTE | 2023-03-20 08:51 | PCOTNOTE ---
The patient treatment was not able to be completed. Pt. getting blood draw. Will plan to continue treatment per plan of care.
[2023-03-20 09:43] LABS: Anion Gap 9 mmol/L (8-16); Blood Urea Nitrogen 19 mg/dL (9-20); Calcium 9.1 mg/dL (8.4-10.2); Carbon Dioxide 26 mmol/L (22-30); Chloride 103 mmol/L (98-107); Estimated CRCL calculation 43 ml/min; Estimated Glomerular Filt Rate 37; Glucose 177 mg/dL (65-110); Magnesium 2.6 mg/dL (1.6-2.3); Phosphorus 3.9 mg/dL (2.5-4.5); Potassium 3.8 mmol/L (3.4-5.0); Sodium 138 mmol/L (137-145)
[2023-03-20 09:46] LABS: Basophils Percent Auto 0.3 % (0.2-1.2); Eosinophils Absolute Auto 0.1 K/mm3 (0-0.3); Eosinophils Percent Auto 0.5 % (0-4.4); Hematocrit 38.3 % (42.0-52.0); Hemoglobin 11.8 g/dL (14.0-18.0); Immature Granulocyte Percent A 0.8 % (0-0.5); Lymphocytes Absolute Auto 1.76 K/mm3 (0.9-3.2); Lymphocytes Percent Auto 13.6 % (18.3-44.2); Mean Corpuscular HGB Conc 30.8 g/dl (32-36); Mean Corpuscular Hemoglobin 28.4 pg (26-34); Mean Corpuscular Volume 92.3 fl (80-100); Mean Platelet Volume 11.5 fl (7.4-10.4); Monocytes Percent Auto 7.3 % (2.6-8.5); Neutrophils Absolute Auto 10.1 K/mm3 (1.3-6.7); Neutrophils Percent Auto 77.5 % (45.5-73.1); Platelet Count Result 269 k/mm3 (150-375); Red Blood Count 4.15 M/mm3 (4.6-6.20)
[2023-03-20 10:14] LABS: Alanine Aminotransferase 22 U/L (6-50); Albumin Level 3.5 g/dL (3.5-5.1); Alkaline Phosphatase 81 U/L (38-126); Aspartate Amino Transferase 35 U/L (17-59); Bilirubin,Total 0.6 mg/dL (0.2-1.3)
[2023-03-20] MEDS: ENOXAPARIN 40 MG/0.4 ML SYRINGE SUB-Q (11:39)
[2023-03-20] MEDS: BISACODYL 10 MG SUPPOSITORY RECTAL (11:39)
[2023-03-20 12:10] LABS: Glucose Point of Care 142 mg/dl (65-105)
[2023-03-20 13:19] VITALS: BMI 36.1
--- NOTE | 2023-03-20 14:02 | PM.PNGS ---
Progress Note: A&P Assessment and Plan (1) Incarcerated incisional hernia: Code(s): K43.0 - Incisional hernia with obstruction, without gangrene Status: Acute Assessment and Plan: S/p open incisional hernia repair with mesh and extensive adhesiolysis. He developed vomiting last night and early this morning. May have developed an ileus. He was made NPO. Creatinine up to 1.8 today. IV fluids have been added. He is feeling better this afternoon and is passing flatus. Still no bowel movement since surgery. Nursing is going to give the Dulcolax suppository today that he did not take yesterday. Will keep NPO for now. CHANELL drain with minimal output over the past 24 hours, continue to monitor. Repeat labs again tomorrow morning. Plan I have discussed the patient's case and plan of care with Dr. Lu. Subjective Subjective Date/Time Seen: 03/20/23 12:02 Post Op day: 3 (Open reducible incisional hernia repair with Ventralight ST mesh and extensive intra-abdominal adhesiolysis) Patient reports: voiding w/o difficulty, flatus, no bowel movement, nausea and vomiting Interval history: Patient seen today with complaints of nausea and multiple episodes of vomiting. He reportedly had a solid diet for dinner last night and shortly after vomited a large quantity. He vomited again early this morning. He also reports having lots of flatus last night, but still no BM. He refused his suppository yesterday per nursing. He is still getting up and ambulating well without any issues. He is still having incisional soreness, but denies any abdominal pain. Overall, he is feeling much better than he did last night. He is not having any nausea anymore. He is actually thirsty and a little hungry. No other complaints at this time. His creatinine is up to 1.8 today. He is NPO and is not currently on IV fluids. Review of Systems Review of Systems: All systems reviewed & are unremarkable except as noted in HPI and below Exam Const: General: comfortable and no acute distress Orientation/consciousness: patient oriented x3 GI: Inspection: non-distended GI Palp: Yes Soft to palpation, Yes Tenderness to palpation present (GI) (only tender near incisions, but otherwise no diffuse tenderness) and No Guarding due to palpation present (GI) Auscultation: normal bowel sounds Other: LLQ CHANELL drain with scant serosanguineous drainage Midline incision dry and brandi intact, no erythema Neuro: General: no focal motor deficits Speech: normal speech Extrem: General: no calf tenderness and no edema Psych: Mental Status: mental status grossly normal Objective Data Vital Signs Vital Signs: Vital Signs - 24 hr 03/19/23 20:32 03/19/23 21:10 03/19/23 20:07 Temperature 98.2 F Pulse Rate 81 Respiratory Rate 20 Blood Pressure 186/84 H 168/80 H Pulse Oximetry 96 Oxygen Delivery 03/20/23 01:55 03/20/23 06:00 03/20/23 11:07 Temperature 97.4 F L 96.7 F L Pulse Rate 88 84 Respiratory Rate 16 20 Blood Pressure 138/70 146/79 H Pulse Oximetry 97 98 Oxygen Delivery Room Air Intake/Output Intake/Output: Intake & Output 03/17/23 03/18/23 03/19/23 03/20/23 23:59 23:59 23:59 23:59 Intake Total 1339 2254 2768 1260 Output Total 30 60 513 1015 Balance 1309 2194 2255 245 Meds/Results Medications: Active Medications Generic Name Dose Route Start Last Admin Trade Name Freq PRN Reason Stop Dose Admin Acetaminophen 1,000 mg 03/17/23 19:28 Acetaminophen 500 Mg Tablet PO Q6H PRN Mild Pain (1-3) or Fever Hydrocodone Bitart/Acetaminophen 1 tab 03/17/23 19:28 03/19/23 14:55 Hydrocodone/Acetaminophen (*Crx) 5-325 Mg Tablet PO 1 tab Q4H PRN Administration Pain Rated 4-6 Cyanocobalamin 1,000 mcg 04/14/23 09:00 Cyanocobalamin Inj 1,000 Mcg/Ml Vial IM MONTHLY [facility] Dextrose 12.5 gm 03/12/23 23:55 Dextrose 50% 25 Gm/50 Ml Syringe IV PUSH PRN PRN Hypoglycemia Protocol
[2023-03-20] MEDS: LACTATED RINGERS 1,000 ML 100 ML IV CONT (14:34)
[2023-03-20] MEDS: TOLNAFTATE 1% POWDER 45 GM BTL 1 APPLIC TOPICAL ×2 (14:35→20:32)
[2023-03-20 16:15] VITALS: BP 182/79; PULSE 89; RESP 12; TEMP 36.4; O2SAT 98
[2023-03-20 17:21] LABS: Glucose Point of Care 78 mg/dl (65-105)
--- NOTE | 2023-03-20 17:59 | PC.NURSE ---
Die Cut Operator spoke with Dr Craig while he was rounding on floor. Pt BS is 78 at dinner and is NPO. Patient has had a BM and no N/V today. Verbal order given to advance diet to full liquids and provide patient with apple juice.
--- NOTE | 2023-03-20 19:47 | PM.IMPN ---
Progress Note: A&P Assessment and Plan (1) SBO (small bowel obstruction): Code(s): K56.609 - Unspecified intestinal obstruction, unspecified as to partial versus complete obstruction Status: Acute (2) Incarcerated incisional hernia: Code(s): K43.0 - Incisional hernia with obstruction, without gangrene Status: Acute (3) Incarcerated umbilical hernia: Code(s): K42.0 - Umbilical hernia with obstruction, without gangrene Status: Acute (4) Vitamin B12 deficiency: Code(s): E53.8 - Deficiency of other specified B group vitamins Status: Acute (5) Vitamin D deficiency: Code(s): E55.9 - Vitamin D deficiency, unspecified Status: Acute (6) Hypothyroidism: Qualifiers: Hypothyroidism type: acquired Qualified Code(s): E03.9 - Hypothyroidism, unspecified Code(s): E03.9 - Hypothyroidism, unspecified Status: Acute (7) Peripheral arterial disease: Code(s): I73.9 - Peripheral vascular disease, unspecified Status: Acute (8) Neuropathy of right lower extremity: Code(s): G57.91 - Unspecified mononeuropathy of right lower limb Status: Acute (9) Type 2 diabetes mellitus without complications: Qualifiers: Diabetes mellitus corporate logistics manager insulin use: without residential use Qualified Code(s): E11.9 - Type 2 diabetes mellitus without complications Code(s): E11.9 - Type 2 diabetes mellitus without complications Status: Acute (10) Essential (primary) hypertension: Code(s): I10 - Essential (primary) hypertension Status: Acute (11) UTI (urinary tract infection): Qualifiers: Hematuria presence: with hematuria Urinary tract infection type: acute cystitis Qualified Code(s): N30.01 - Acute cystitis with hematuria Code(s): N39.0 - Urinary tract infection, site not specified Status: Acute (12) Renal insufficiency: Code(s): N28.9 - Disorder of kidney and ureter, unspecified Status: Acute Plan Plan DVT prophylaxis with SCDs GI prophylaxis not indicated Code status full code Small-bowel obstruction CT showing mid small bowel obstruction. Transition point at an inflamed fluid containing infraumbilical hernia which contains a loop of mildly dilated small bowel. As well as an uncomplicated supraumbilical hernia containing a loop of nondilated large bowel. Bowel rest initiated.? NG tube placed and confirmed with abdominal x-ray.? Bilious output.? Lactic 2.3, given IVF and now normal at 1.2. General surgery consulted. was on NGT suction continue pain control and anti-emetics.? add EKG, as well as type and screen, and coags to a.m. labs for pre-op testing Appreciate general surgeon consult, cancer considers? incarcerated infraumbilical hernia appeared to be causing the small bowel obstruction, Patient underwent surgery 03/18/2023 Postop he is doing okay Patient tolerated clear liquid and full liquid diet, advanced to diabetic consistent carbohydrate diet which caused nausea vomiting Patient is NPO at this time Will start patient on full liquid diet to be slowly advanced to semi solid as tolerated Patient is passing flatus yet awaiting bowel movement May DC in next 1-2 days if he remains stable and cleared by surgery UTI Patient has cloudy urine, UA shows pyuria, Patient is on Zosyn q.6 are IV kidney worsening kidney function switch to cefepime and Flagyl Follow urine culture: coag neg staph Hypothyroidism Continue Synthroid 25 mcg IV daily during p.o. Hypertension Patient is on hydralazine 10 mg q.8 hours IV p.r.n. with parameters GURMEET on CKD Elevated BUN creatinine above baseline Creatinine 2.3 , came down to baseline at 1.3, now rising slowly up to 1.8 Patient's daughter gentle IV hydration with the normal saline at 75 cc/hour Switch from Zosyn to cefepime and Flagyl Hypokalemia Replete with potassium chloride 40 mEq IV on? 03/15/2023 Now within normal limits Se
[2023-03-20 20:10] VITALS: BP 164/93; PULSE 95; RESP 16; TEMP 36.4; O2SAT 98
[2023-03-20] MEDS: HYDROcodone/acetaminophen (*CRX) 5-325 MG TABLET 1 TAB PO (20:29)
[2023-03-20] MEDS: SODIUM CHLORIDE 0.9% IV 1,000 ML 75 ML IV CONT (20:43)
[2023-03-20 21:05] LABS: Glucose Point of Care 87 mg/dl (65-105)
[2023-03-21 00:02] LABS: Glucose Point of Care 137 mg/dl (65-105)
[2023-03-21 04:25] VITALS: BP 144/67; PULSE 81; RESP 16; TEMP 36.7; O2SAT 98
[2023-03-21] MEDS: LEVOTHYROXINE SODIUM 50 MCG TABLET PO (05:12)
[2023-03-21 07:49] LABS: Glucose Point of Care 64 mg/dl (65-105)
[2023-03-21 07:49] LABS: Glucose Point of Care 62 mg/dl (65-105)
[2023-03-21 08:06] LABS: Glucose Point of Care 85 mg/dl (65-105)
[2023-03-21 08:23] LABS: Basophils Percent Auto 0.4 % (0.2-1.2); Eosinophils Absolute Auto 0.3 K/mm3 (0-0.3); Eosinophils Percent Auto 2.5 % (0-4.4); Hematocrit 37.2 % (42.0-52.0); Hemoglobin 11.5 g/dL (14.0-18.0); Immature Granulocyte Absolute 0.05 K/mm3 (0.00-0.031); Immature Granulocyte Percent A 0.5 % (0-0.5); Lymphocytes Absolute Auto 2.62 K/mm3 (0.9-3.2); Lymphocytes Percent Auto 24.5 % (18.3-44.2); Mean Corpuscular HGB Conc 30.9 g/dl (32-36); Mean Corpuscular Hemoglobin 28.4 pg (26-34); Mean Corpuscular Volume 91.9 fl (80-100); Mean Platelet Volume 10.9 fl (7.4-10.4); Monocytes Absolute Auto 0.9 K/mm3 (0.1-0.6); Monocytes Percent Auto 8.8 % (2.6-8.5); Neutrophils Absolute Auto 6.8 K/mm3 (1.3-6.7); Neutrophils Percent Auto 63.3 % (45.5-73.1); Platelet Count Result 277 k/mm3 (150-375); Red Blood Count 4.05 M/mm3 (4.6-6.20); Red Cell Distribution Width 13.9 % (11.5-14.5); White Blood Count 10.7 K/mm3 (4.5-10.0)
[2023-03-21 08:58] LABS: Anion Gap 4 mmol/L (8-16); Blood Urea Nitrogen 16 mg/dL (9-20); Calcium 8.7 mg/dL (8.4-10.2); Carbon Dioxide 29 mmol/L (22-30); Chloride 105 mmol/L (98-107); Estimated CRCL calculation 55 ml/min; Estimated Glomerular Filt Rate 50; Glucose 104 mg/dL (65-110); Potassium 3.8 mmol/L (3.4-5.0); Sodium 138 mmol/L (137-145)
[2023-03-21] MEDS: FENOFIBRATE NANOCRYSTALLIZED 145 MG TABLET PO (09:26)
[2023-03-21] MEDS: TOLNAFTATE 1% POWDER 45 GM BTL 1 APPLIC TOPICAL (09:26)
[2023-03-21] MEDS: hydroCHLOROthiazide 25 MG TABLET PO (09:26)
[2023-03-21] MEDS: METOPROLOL SUCCINATE EXT REL 50 MG TABCR PO (09:26)
[2023-03-21] MEDS: lisinopriL 20 MG TABLET 40 MG PO (09:26)
[2023-03-21] MEDS: diazePAM (*CRX) 5 MG TABLET 10 MG PO (09:26)
[2023-03-21] MEDS: ENOXAPARIN 40 MG/0.4 ML SYRINGE SUB-Q (09:26)
[2023-03-21] MEDS: PRAVASTATIN SODIUM 20 MG TABLET 40 MG PO (09:26)
[2023-03-21] MEDS: PANTOPRAZOLE 40 MG TABLET PO (09:26)
--- NOTE | 2023-03-21 10:38 | PM.DS ---
DS: Admitting Diagnosis Discharge Date 03/21/2023: Admitting Diagnosis Small-bowel obstruction Incarcerated incisional hernia Incarcerated umbilical hernia DS: Discharge Diagnosis Discharge Diagnosis (1) Incarcerated incisional hernia: Code(s): K43.0 - Incisional hernia with obstruction, without gangrene Status: Acute (2) SBO (small bowel obstruction): Code(s): K56.609 - Unspecified intestinal obstruction, unspecified as to partial versus complete obstruction Status: Acute (3) Incarcerated umbilical hernia: Code(s): K42.0 - Umbilical hernia with obstruction, without gangrene Status: Acute (4) UTI (urinary tract infection): Qualifiers: Hematuria presence: with hematuria Urinary tract infection type: acute cystitis Qualified Code(s): N30.01 - Acute cystitis with hematuria Code(s): N39.0 - Urinary tract infection, site not specified Status: Acute (5) Renal insufficiency: Code(s): N28.9 - Disorder of kidney and ureter, unspecified Status: Acute (6) Vitamin B12 deficiency: Code(s): E53.8 - Deficiency of other specified B group vitamins Status: Acute (7) Vitamin D deficiency: Code(s): E55.9 - Vitamin D deficiency, unspecified Status: Acute (8) Hypothyroidism: Qualifiers: Hypothyroidism type: acquired Qualified Code(s): E03.9 - Hypothyroidism, unspecified Code(s): E03.9 - Hypothyroidism, unspecified Status: Acute (9) Peripheral arterial disease: Code(s): I73.9 - Peripheral vascular disease, unspecified Status: Acute (10) History of colon polyps: Code(s): Z86.010 - Personal history of colonic polyps Status: Acute (11) Neuropathy of right lower extremity: Code(s): G57.91 - Unspecified mononeuropathy of right lower limb Status: Acute (12) Dyslipidemia: Code(s): E78.5 - Hyperlipidemia, unspecified Status: Acute (13) Type 2 diabetes mellitus without complications: Qualifiers: Diabetes mellitus director long term care insulin use: without director long term care use Qualified Code(s): E11.9 - Type 2 diabetes mellitus without complications Code(s): E11.9 - Type 2 diabetes mellitus without complications Status: Acute (14) Essential (primary) hypertension: Code(s): I10 - Essential (primary) hypertension Status: Acute (15) Post-op pain: Code(s): G89.18 - Other acute postprocedural pain Status: Acute DS: Summary Hospital Course Reason for hospitalization: Patient admitted with nausea, vomiting and abdominal pain. Workup was done which showed small bowel obstruction and incarcerated incisional/umbilical hernias Hospital Course: H&P: HPI History of Present Illness Date/Time: 03/13/23? 00:19 Chief Complaint: Nausea, Abdominal Pain Narrative: 72 y/o M presents here with abdominal pain and nausea/vomiting with PMH of HTN, colon cx s/p partial colectomy, hypothyroidism, PAD, DM2, CKD, and vitamin D/B12 deficiency. Patient presented here with new nausea, abdominal pain, and difficulty passing stools that started this morning. Patient reports that he had an emergency umbilical hernia repair 2-3 years ago due to a strangulated umbilical hernia.? Since then has had no issues until recently when umbilical hernia returned.? Patient has been able to self reduce without pain.? However today hernia would not reduce and he developed diffuse umbilical pain.? Initially endorsed nausea without vomiting.? However since admission he has vomited 4 times, large volume.? Last bowel movement today x2, once this morning and once while awaiting ER treatment room, both hard and small volumes. Tried milk of magnesia without resolution of constipation. ED workup revealed an SBO with transition point at infraumbilical hernia, an uncomplicated supraumbilical hernia, and mild right hydronephrosis. Elevated lactic acid of 2.3.? Renal function elevated, similar
--- NOTE | 2023-03-21 10:41 | PM.PNGS ---
Progress Note: A&P Assessment and Plan (1) Incarcerated incisional hernia: Code(s): K43.0 - Incisional hernia with obstruction, without gangrene Status: Acute Assessment and Plan: Patient seems to be doing much better today. He has been able to tolerate full liquids without any nausea or vomiting. I think he can advance to regular diet today if he continues to do well later today he can be discharged home. He is to be discharged home with his drain. Nursing will need to teach drain care. I will see him back in my office next week for wound check and likely to remove his drain. His creatinine which was elevated 1.8 yesterday likely due to mild dehydration with nausea vomiting and no IV fluids started has resolved back to his baseline of a creatinine of 1.4 today. Subjective Subjective Date/Time Seen: 03/21/23 10:41 Interval history: Patient is doing much better today. Not had any nausea or vomiting for over 24hours. He received an enema yesterday and started having multiple bowel movements after the enema. His pain is minimal today any has tolerated full liquids. Would like to go home today if possible. Exam GI: Other: Abdomen is soft and nondistended. Incisions are healing well. CHANELL drain put is slightly blood-tinged serous. Drain site is fine. Objective Data Vital Signs Vital Signs: Vital Signs - 24 hr 03/20/23 11:07 03/20/23 16:15 03/20/23 20:10 Temperature 36.4 C L 36.4 C L Pulse Rate 89 95 Respiratory Rate 12 16 Blood Pressure 182/79 H 164/93 H Pulse Oximetry 98 98 Oxygen Delivery Room Air 03/20/23 20:20 03/21/23 04:25 Temperature 36.7 C Pulse Rate 81 Respiratory Rate 16 Blood Pressure 144/67 H Pulse Oximetry 98 Oxygen Delivery Room Air Intake/Output Intake/Output: Intake & Output 03/18/23 03/19/23 03/20/23 03/21/23 23:59 23:59 23:59 23:59 Intake Total 2254 2768 1260 1200 Output Total 60 513 1026 10 Balance 2194 7876 234 1190 Meds/Results Medications: Active Medications Generic Name Dose Route Start Last Admin Trade Name Freq PRN Reason Stop Dose Admin Acetaminophen 1,000 mg 03/17/23 19:28 Acetaminophen 500 Mg Tablet PO Q6H PRN Mild Pain (1-3) or Fever Hydrocodone Bitart/Acetaminophen 1 tab 03/17/23 19:28 03/20/23 20:29 Hydrocodone/Acetaminophen (*Crx) 5-325 Mg Tablet PO 1 tab Q4H PRN Administration Pain Rated 4-6 Cyanocobalamin 1,000 mcg 04/14/23 09:00 Cyanocobalamin Inj 1,000 Mcg/Ml Vial IM MONTHLY [facility] Dextrose 12.5 gm 03/12/23 23:55 Dextrose 50% 25 Gm/50 Ml Syringe IV PUSH PRN PRN Hypoglycemia Protocol Diazepam 10 mg 03/19/23 09:00 03/21/23 09:26 Diazepam (*Crx) 5 Mg Tablet PO 10 mg DAILY [facility] Administration Empagliflozin 25 mg 03/18/23 09:00 03/21/23 08:07 Empagliflozin 25 Mg Tablet BY MOUTH Not Given DAILY [facility] Enoxaparin Sodium 40 mg 03/18/23 09:00 03/21/23 09:26 Enoxaparin 40 Mg/0.4 Ml Syringe SUB-Q 40 mg DAILY BANDAR Administration Ergocalciferol 50,000 units 03/22/23 09:00 Ergocalciferol 50,000 Units Capsule PO WEEKLY [facility] Fenofibrate 145 mg 03/18/23 09:00 03/21/23 09:26 Fenofibrate Nanocrystallized 145 Mg Tablet PO 145 mg DAILY [facility] Administration Glimepiride 4 mg 03/18/23 09:00 03/21/23 08:07 Glimepiride 2 Mg Tablet PO Not Given BID [facility] Glucagon 1 mg 03/12/23 23:55 Glucagon For Inj 1 Mg Vial IM PRN PRN Hypoglycemia Protocol Glucose 15 gm 03/12/23 23:55 Glucose Oral Gel 15 Gm Of Glucse In 37.5 Gm Tube PO PRN PRN Hypoglycemia Protocol Hydralazine HCl 10 mg 03/12/23 23:53 03/19/23 20:36 Hydralazine Hcl 20 Mg/Ml Vial IV PUSH 10 mg Q8H PRN Administration Blood Pressure - High Hydrochlorothiazide 25 mg 03/18/23 09:00 03/21/23 09:26 Hydrochlorothiazide 25 Mg Tablet PO 25 mg DAILY [facility]AR Administration Hydromorphone HCl 1 mg 03/17
[2023-03-21 11:41] LABS: Glucose Point of Care 161 mg/dl (65-105)
== END 2023-03-21 13:05 | disposition home health service (06) | DRG 854 ==
LOC: ANHED 21:12 → ANH3MEDSUR 22:09
PROVIDERS: Nurse Practitioner Family; Student in an Organized Health Care Education/Training Program; Surgery; Admitting Provider Internal Medicine; Emergency Provider Physician Assistant; PCP Family Medicine; Visit Provider Family Medicine
PROC: 0WQF0ZZ Repair Abdominal Wall, Open Approach (ICD-10-PCS; principal; 2023-03-17 16:00)
DX: A41.9 Sepsis, unspecified organism (principal); K43.0 Incisional hernia with obstruction, without gangrene; N39.0 Urinary tract infection, site not specified; N17.9 Acute kidney failure, unspecified; N13.30 Unspecified hydronephrosis; I12.9 Hypertensive chronic kidney disease with stage 1 through stage 4 chronic kidney disease, or unspecified chronic kidney disease; K66.0 Peritoneal adhesions (postprocedural) (postinfection); I73.9 Peripheral vascular disease, unspecified; E03.9 Hypothyroidism, unspecified; E78.5 Hyperlipidemia, unspecified; E55.9 Vitamin D deficiency, unspecified; E53.8 Deficiency of other specified B group vitamins; E11.22 Type 2 diabetes mellitus with diabetic chronic kidney disease; E87.6 Hypokalemia; E86.0 Dehydration; N18.31 Chronic kidney disease, stage 3a; Z85.038 Personal history of other malignant neoplasm of large intestine
CPT/HCPCS: 36415; 74018; 74177; 80048; 80053; 80076; 81001; 82948; 83605; 83690; 83735; 84100; 85025; 85027; 85055; 85610; 85730; 86850; 86900; 86901; 87077; 87086; 87088; 88302; 93005; 96361; 96365; 96366; 96375; 96376; 97161; 97165; 97535; 99285; A9270; C1781; G0378; J0360; J0690; J0692; J1170; J1650; J1741; J1815; J1836; J1885; J2270; J2405; J2543; J3010; J3360; J3420; J3475; J3480; J7030; J7040; J7050; J7120; Q9967

== ENCOUNTER 2023-07-08 09:14 | Outpatient (CLI) | payer OTHER, SELFPAY ==
[2023-07-08 14:02] LABS: Basophils Absolute Auto 0.1 K/mm3 (0.0-0.1); Basophils Percent Auto 0.6 % (0.2-1.2); Eosinophils Absolute Auto 0.2 K/mm3 (0-0.3); Eosinophils Percent Auto 1.3 % (0-4.4); Hematocrit 40.9 % (42.0-52.0); Hemoglobin 12.3 g/dL (14.0-18.0); Immature Granulocyte Absolute 0.05 K/mm3 (0.00-0.031); Immature Granulocyte Percent A 0.4 % (0-0.5); Lymphocytes Absolute Auto 3.39 K/mm3 (0.9-3.2); Lymphocytes Percent Auto 29.6 % (18.3-44.2); Mean Corpuscular HGB Conc 30.1 g/dl (32-36); Mean Corpuscular Hemoglobin 27.8 pg (26-34); Mean Corpuscular Volume 92.3 fl (80-100); Mean Platelet Volume 12.5 fl (7.4-10.4); Monocytes Percent Auto 8.6 % (2.6-8.5); Neutrophils Absolute Auto 6.8 K/mm3 (1.3-6.7); Neutrophils Percent Auto 59.5 % (45.5-73.1); Platelet Count Result 260 k/mm3 (150-375); Red Blood Count 4.43 M/mm3 (4.6-6.20); Red Cell Distribution Width 14.6 % (11.5-14.5); White Blood Count 11.4 K/mm3 (4.5-10.0)
[2023-07-08 14:29] LABS: Alanine Aminotransferase 16 U/L (6-50); Albumin Level 4.1 g/dL (3.5-5.1); Alkaline Phosphatase 52 U/L (38-126); Anion Gap 6 mmol/L (4-12); Aspartate Amino Transferase 35 U/L (17-59); Bilirubin,Total 0.5 mg/dL (0.2-1.3); Blood Urea Nitrogen 29 mg/dL (9-20); Calcium 9.4 mg/dL (8.4-10.2); Carbon Dioxide 22 mmol/L (22-30); Chloride 107 mmol/L (98-107); Estimated Glomerular Filt Rate 50; Glucose 158 mg/dL (65-110); Potassium 4.4 mmol/L (3.4-5.0); Sodium 135 mmol/L (137-145)
[2023-07-08 16:54] LABS: Vitamin D 25 Hydroxy 61.8 ng/mL
[2023-07-08 16:58] LABS: Iron 68 ug/dL (49-181)
[2023-07-08 17:07] LABS: Percent Iron Saturation 14 % (20-50)
[2023-07-08 21:00] LABS: Hemoglobin A1C 8.7 % (<5.7)
== END 2023-07-08 09:15 | disposition home or self-care (01) ==
LOC: ANHGOSHLAB 09:15
PROVIDERS: PCP Family Medicine; Visit Provider Family Medicine
DX: E11.9 Type 2 diabetes mellitus without complications (principal); D64.9 Anemia, unspecified; I10 Essential (primary) hypertension; Z00.00 Encounter for general adult medical examination without abnormal findings; E55.9 Vitamin D deficiency, unspecified
CPT/HCPCS: 36415; 80053; 82306; 82728; 83036; 83540; 83550; 84443; 85025

== ENCOUNTER 2024-01-27 08:03 | Outpatient (CLI) | payer OTHER, SELFPAY ==
[2024-01-27 19:25] LABS: Basophils Absolute Auto 0.1 K/mm3 (0.0-0.1); Basophils Percent Auto 0.8 % (0.2-1.2); Eosinophils Absolute Auto 0.2 K/mm3 (0-0.3); Hematocrit 38.5 % (42.0-52.0); Hemoglobin 11.8 g/dL (14.0-18.0); Lymphocytes Absolute Auto 3.48 K/mm3 (0.9-3.2); Lymphocytes Percent Auto 33.7 % (18.3-44.2); Mean Corpuscular HGB Conc 30.6 g/dl (32-36); Mean Corpuscular Hemoglobin 28.9 pg (26-34); Mean Corpuscular Volume 94.4 fl (80-100); Mean Platelet Volume 11.3 fl (7.4-10.4); Monocytes Absolute Auto 1.1 K/mm3 (0.1-0.6); Monocytes Percent Auto 10.3 % (2.6-8.5); Neutrophils Absolute Auto 5.4 K/mm3 (1.3-6.7); Neutrophils Percent Auto 52.2 % (45.5-73.1); Platelet Count Result 292 k/mm3 (150-375); Red Blood Count 4.08 M/mm3 (4.6-6.20); Red Cell Distribution Width 14.6 % (11.5-14.5); White Blood Count 10.3 K/mm3 (4.5-10.0)
[2024-01-27 19:39] LABS: Alanine Aminotransferase 21 U/L (6-50); Alkaline Phosphatase 55 U/L (38-126); Anion Gap 7 mmol/L (4-12); Aspartate Amino Transferase 44 U/L (17-59); Bilirubin,Total 0.4 mg/dL (0.2-1.3); Blood Urea Nitrogen 33 mg/dL (9-20); Carbon Dioxide 28 mmol/L (22-30); Chloride 99 mmol/L (98-107); Cholesterol 129 mg/dL (0-200); Estimated Glomerular Filt Rate 54; Glucose 165 mg/dL (65-110); HDL Direct 28 mg/dL; Potassium 4.3 mmol/L (3.4-5.0); Sodium 134 mmol/L (137-145); Triglycerides 195 mg/dL (<150)
[2024-01-27 19:51] LABS: LDL Cholesterol Direct 43 mg/dL
[2024-01-27 20:11] LABS: Prostate Specific Antigen 0.4 ng/mL (< OR = 4.0)
[2024-01-27 20:50] LABS: Hemoglobin A1C 8.5 % (<5.7)
== END 2024-01-27 08:04 | disposition home or self-care (01) ==
LOC: ANHGOSHLAB 08:05
PROVIDERS: PCP Family Medicine; Visit Provider Nurse Practitioner Family
DX: E11.9 Type 2 diabetes mellitus without complications (principal); I10 Essential (primary) hypertension; Z12.5 Encounter for screening for malignant neoplasm of prostate; E78.5 Hyperlipidemia, unspecified; E03.9 Hypothyroidism, unspecified
CPT/HCPCS: 36415; 80053; 80061; 83036; 84153; 84443; 85025; G0103

== ENCOUNTER 2024-03-03 10:24 | Outpatient (CLI) | payer OTHER, SELFPAY ==
[2024-03-03 14:33] LABS: Creatinine Urine 32.1 mg/dL
[2024-03-03 15:47] LABS: MALB Creatinine Ratio 2513.7 mg/g (0-30); Microalbumin Urine Random 806.9 mg/L (0-16.7)
== END 2024-03-03 10:25 | disposition home or self-care (01) ==
PROVIDERS: PCP Family Medicine; Visit Provider Nurse Practitioner Family
DX: E11.9 Type 2 diabetes mellitus without complications (principal)
CPT/HCPCS: 82043

== ENCOUNTER 2024-03-07 09:16 | Emergency (ER) | payer OTHER, SELFPAY ==
[2024-03-07] VITALS (9 sets, daily range): BP systolic 153–180; BP diastolic 75–83; PULSE 79–115; RESP 12–23; TEMP 36.4; O2SAT 94–99
--- NOTE | ~2024-03-07 | CT_ITS ---
EXAMINATION: CT abdomen pelvis w con DATE: 03/07/2024 10:11 INDICATION: Possible bowel obstruction. TECHNIQUE: Computed tomography (CT) of the abdomen and pelvis was performed without intravenous contr ast. Automated exposure control and iterative reconstruction technique were employed. The dose-length product was 1315.50 mGy-cm. COMPARISON: 03/12/2023 FINDINGS: Small patchy groundglass opacities in the right lower lobe which could represent atelectasis, aspirat ion or pneumonia. Heart size is normal. No pericardial or pleural effusion. Cholecystectomy clips in the gallbladder fossa. Liver, spleen,, bilateral adrenal glands and left kidney are normal. There is mild right hydroureteronephrosis extending to the ureterovesicular junction without evident obstructi ng stone or mass. Bladder is unremarkable. Small dystrophic calcification at the tail the pancreas li kimberly sequela of chronic pancreatitis. There is dilation of multiple loops of proximal small bowel whi ch gradually tapers distally to decompressed distal loops of bowel without a discrete transition poin t and would favor an ileus over obstruction. Postoperative change of prior right hemicolectomy with i leocolic anastomosis in the right lower quadrant. Multiple surgical clips the right inguinal region s uggesting prior inguinal hernia repair. No free intraperitoneal gas or fluid. No pathologically enlar ged abdominal or pelvic lymphadenopathy. Mild S-shaped curvature of the lumbar spine with severe spon dylosis. IMPRESSION: 1. Mild dilation of the proximal small bowel which tapers gradually with no discrete transition point and would favor an ileus over obstruction. 2. Mild right hydroureteronephrosis extending to the ureterovesicular junction but without evident ob structing stone or mass. Would consider further evaluation with either CT urogram or ureteroscopy and retrograde pyelogram. Reviewed, dictated and finalized at location A. AND LABEL CUTTER IMPRESSION: 1. Mild dilation of the proximal small bowel which tapers gradually with no dis crete transition point and would favor an ileus over obstruction. 2. Mild right hydroureteronephrosis extending to the ureterovesicular junction but without evident obstructing stone or mass. Would consider further evaluatio n with either CT urogram or ureteroscopy and retrograde pyelogram.
--- NOTE | 2024-03-07 09:23 | ECG_ITS ---
Test Date: 2024-03-07 09:24:59 Measurements Intervals Lilly Rate: 96 P: 55 OH: 191 QRS: 14 QRSD: 86 T: 68 QT: 337 QTc: 426 Interpretive Statements SINUS RHYTHM INTERMITTENT CHANGE IN QRS COMPLEXES TO IVCD LOW QRS VOLTAGE IN PRECORDIAL LEADS BORDERLINE R WAVE PROGRESSION, ANTERIOR LEADS BORDERLINE ST-T WAVE ABNORMALITY- INF/HIGH LAT LEADS BASELINE ARTIFACT- I, II, III, AVR, AVL, AVF ABNORMAL ECG No previous ECG available for comparison Electronically Signed On 03-07-2024 11:59:34 SHANK TAPER by Renaldo Willis D.O.
[2024-03-07 09:33] LABS: Basophils Absolute Auto 0.1 K/mm3 (0.0-0.1); Basophils Percent Auto 0.4 % (0.2-1.2); Eosinophils Percent Auto 0.1 % (0-4.4); Hematocrit 38.3 % (42.0-52.0); Hemoglobin 12.4 g/dL (14.0-18.0); Immature Granulocyte Absolute 0.04 K/mm3 (0.00-0.031); Immature Granulocyte Percent A 0.3 % (0-0.5); Lymphocytes Absolute Auto 1.99 K/mm3 (0.9-3.2); Mean Corpuscular HGB Conc 32.4 g/dl (32-36); Mean Corpuscular Hemoglobin 29.7 pg (26-34); Mean Corpuscular Volume 91.8 fl (80-100); Mean Platelet Volume 11.2 fl (7.4-10.4); Monocytes Absolute Auto 0.9 K/mm3 (0.1-0.6); Monocytes Percent Auto 6.1 % (2.6-8.5); Neutrophils Absolute Auto 12.3 K/mm3 (1.3-6.7); Neutrophils Percent Auto 80.1 % (45.5-73.1); Platelet Count Result 294 k/mm3 (150-375); Red Blood Count 4.17 M/mm3 (4.6-6.20); Red Cell Distribution Width 14.5 % (11.5-14.5); White Blood Count 15.4 K/mm3 (4.5-10.0)
[2024-03-07] MEDS: ONDANSETRON INJ 4 MG/2 ML VIAL IV PUSH (09:41)
[2024-03-07] MEDS: SODIUM CHLORIDE 0.9% IV 1,000 ML 999 ML IV CONT (09:41)
[2024-03-07 09:42] LABS: Alanine Aminotransferase 18 U/L (6-50); Albumin Level 4.3 g/dL (3.5-5.1); Alkaline Phosphatase 53 U/L (38-126); Anion Gap 10 mmol/L (4-12); Aspartate Amino Transferase 31 U/L (17-59); Bilirubin,Total 0.7 mg/dL (0.2-1.3); Blood Urea Nitrogen 38 mg/dL (9-20); Calcium 9.4 mg/dL (8.4-10.2); Carbon Dioxide 34 mmol/L (22-30); Chloride 95 mmol/L (98-107); Estimated CRCL calculation 45 ml/min; Estimated Glomerular Filt Rate 40; Glucose 291 mg/dL (65-110); Lipase 77 U/L (23-300); Potassium 4.3 mmol/L (3.4-5.0); Sodium 139 mmol/L (137-145)
[2024-03-07 09:53] LABS: Add Urine Microscopic? YES; Appearance Urine Cloudy (Clear); Bacteria Urine None Seen /hpf; Bilirubin Urine Negative (Negative); Blood Urine 1+ (Negative); Color Urine Yellow (Yellow); Glucose Urine UA 3+ mg/dL (Negative); Ketones Urine Trace mg/dL (Negative); Leukocyte Esterase Ur 1+ LEU/UL (Negative); Nitrate Urine Negative (Negative); Non Pathogenic Casts 0-2; Protein Urine 3+ mg/dL (Negative); Squamous Epithelial Cell Urine None Seen /hpf (Few); Urobilinogen Urine 0.2 mg/dL (<2.0); WBC Urine >100 /hpf (0-3); pH Urine 7.5 (5.0-9.0)
--- NOTE | 2024-03-07 11:56 | ED.GENADULT ---
HPI - General Adult General Chief complaint: Nausea/Vomiting/Diarrhea Stated complaint: vomiting since last night Time Seen by Provider: 03/07/24 09:20 History of Present Illness HPI narrative: Patient is a 73-year-old male who presents ER with nausea vomiting. Began last night. He is passing gas from below. No diarrhea. No fevers or chills or sweats. Has history of partial colectomy from colon cancer. No fevers chills. No alleviating factors. Related Data Allergies Allergy/AdvReac Type Severity Reaction Status Date / Time codeine Allergy Severe Rash, Verified 03/07/24 09:17 vomiting meperidine [From Demerol] Allergy Severe Rash,vomiti Verified 03/07/24 09:17 ng amlodipine AdvReac Mild pedal edema Verified 03/07/24 09:17 gabapentin [From Neurontin] AdvReac Mild Dizziness Verified 03/07/24 09:17 Review of Systems Review of Systems: All systems reviewed & are unremarkable except as noted in HPI and below Constitutional: Constitutional: Reports no additional constitutional complaints ENT: Reports system reviewed and no additional complaints, except as documented Cardiovascular: Cardiovascular: Reports no additional cardiovascular complaints Respiratory: Respiratory: Reports no additional respiratory complaints Gastrointestinal: Gastrointestinal: Reports bloating, Denies diarrhea, Reports nausea and Reports vomiting PMFSH Past Medical History Medical History (Updated 03/07/24 @ 12:01 by Abner Villalta MD) Dyslipidemia Essential (primary) hypertension History of colon cancer (~03/1999) s/p partial colectomy History of colon polyps HTN (hypertension) Hypothyroidism Incarcerated incisional hernia (~02/2023) Neuropathy of right lower extremity Peripheral arterial disease SBO (small bowel obstruction) (~02/2023) Stage 3a chronic kidney disease (CKD) Type 2 diabetes mellitus with stage 3 chronic kidney disease Vitamin B12 deficiency Vitamin D deficiency Surgical History Surgical History History of appendectomy (~03/1999) History of cholecystectomy (~2009) History of colon resection (~03/1999) History of hernia repair (~2020) History of incisional hernia repair (~03/2023) Open reducible incisional hernia repair with Ventralight ST mesh and extensive intra-abdominal adhesiolysis on 03/18/23 SAW Family History Family History Mother Hypertension Cerebrovascular accident Son Heart disease Grandparent Alcohol abuse Father Lung cancer Social History Social History Smoking status: Never smoker Alcohol intake: never Substance use: never Substance use type: does not use Lack of Transportation: No Lack of Food: Never True Current Housing: I Have Housing Concerned About Future Housing: No Difficulty Paying Gas/Electric Bills: No Difficulty Paying for Meds: No Currently Unemployed: No Education: High School Diploma/GED Difficulty w/ Childcare or Family Care: No Living arrangements: with family Occupation/Education: retired Gender identity (if verbalized by the patient): Male Sexual Orientation (if Verbalized by the Patient): Straight or Heterosexual Spiritual care concerns: No Agree to blood products: Yes Exam Narrative: GENERAL: Well-appearing, Obese, and in no acute distress. HEAD: Normocephalic, atraumatic. ENT: Mucous membranes moist. CHEST: Clear to auscultation. No respiratory distress. HEART: Regular rate and rhythm. Normal peripheral pulses. ABDOMEN: Soft, nontender, nondistended. EXTREMITIES: Normal range of motion. No edema. SKIN: Warm, dry, no rash. NEURO: Alert and oriented x3. PSYCH: Normal mood and affect. Course Course Emergency Course: patient resting comfortably. No longer vomiting after antiemetics and feels improved. Discussed imaging and labs. Offered admission for observation with bowel rest and symptom control. Patient declines reports that he can perform these treatments at home. He will follow-up with his PCP about dilated ureter to get a referral to Urology. Urine does have elevated white blood cells with positive leukocyte Estrace so I will give him some oral antibiotic as well. Vital Signs Vital signs: Vital Signs Temperature 97.6 F 03/07/24 09:20 Pulse Rate 95 03/07/24 09:20 Respiratory Rate 17 03/07/24 09:20 Blood Pressure 162/78 H 03/07/24 09:20 Pulse Oximetry 99 03/07/24 09:20 Oxygen Delivery Room Air 03/07/24 09:20 Temperature 97.6 F 03/07/24 09:20 Pulse Rate 92 03/07/24 09:46 Respiratory Rate 23 H 03/07/24 09:46 Blood Pressure 160/83 H 03/07/24 09:46 Pulse Oximetry 98 03/07/24 09:46 Oxygen Delivery Room Air 03/07/24 09:20 Medical Decision Making Vital Signs Vital Signs: Vital Signs Temperature 97.6 F 03/07/24 09:20 Pulse Rate 95 03/07/24 09:20 Respiratory Rate 17 03/07/24 09:20 Blood Pressure 162/78 H 03/07/24 09:20 Pulse Oximetry 99 03/07/24 09:20 Oxygen Delivery Room Air 03/07/24 09:20 Temperature 97.6 F 03/07/24 09:20 Pulse Rate 92 03/07/24 09:46 Respiratory Rate 23 H 03/07/24 09:46 Blood Pressure 160/83 H 03/07/24 09:46 Pulse Oximetry 98 03/07/24 09:46 Oxygen Delivery Room Air 03/07/24 09:20 Lab Data 03/07/24 09:27 03/07/24 09:27 Labs: Lab Results 03/07/24 03/07/24 Range/Units 09:27 09:46 WBC 15.4 H (4.5-10.0) K/mm3 RBC 4.17 L (4.6-6.20) M/mm3 Hgb 12.4 L (14.0-18.0) g/dL Hct 38.3 L (42.0-52.0) % MCV 91.8 (80-100) fl MCH 29.7 (26-34) pg MCHC 32.4 (32-36) g/dl RDW 14.5 (11.5-14.5) % Plt Count 294 (150-375) k/mm3 MPV 11.2 H (7.4-10.4) fl Immature Gran % (Auto) 0.3 (0-0.5) % Neut % (Auto) 80.1 H (45.5-73.1) % Lymph % (Auto) 13.0 L (18.3-44.2) % [place] % (Auto) 6.1 (2.6-8.5) % Eos % (Auto) 0.1 (0-4.4) % Baso % (Auto) 0.4 (0.2-1.2) % Lymph # (Auto) 1.99 (0.9-3.2) K/mm3 [place] # (Auto) 0.9 H (0.1-0.6) K/mm3 Eos # (Auto) 0.0 (0-0.3) K/mm3 Baso # (Auto) 0.1 (0.0-0.1) K/mm3 Abs Immat Gran (auto) 0.04 H (0.00-0.031) K/mm3 Absolute Neuts (auto) 12.3 H (1.3-6.7) K/mm3 Absolute Nucleated RBC 0.000 (0.0-0.012) K/mm3 Nucleated RBC % 0.0 (0.0-0.2) % Sodium 139 (137-145) mmol/L Potassium 4.3 (3.4-5.0) mmol/L Chloride 95 L (98-107) mmol/L Carbon Dioxide 34 H (22-30) mmol/L Anion Gap 10 (4-12) mmol/L BUN 38 H (9-20) mg/dL Creatinine 1.70 H (0.7-1.3) mg/dL Estim Creat Clear Calc 45 ml/min Estimated GFR 40 L (59 - ) Glucose 291 H (65-110) mg/dL Calcium 9.4 (8.4-10.2) mg/dL Total Bilirubin 0.7 (0.2-1.3) mg/dL AST 31 (17-59) U/L ALT 18 (6-50) U/L Alkaline Phosphatase 53 (38-126) U/L Total Protein 8.0 (6.3-8.2) g/dL Albumin 4.3 (3.5-5.1) g/dL Lipase 77 (23-300) U/L Urine Color Yellow (Yellow) Urine Appearance Cloudy H (Clear) Urine pH 7.5 (5.0-9.0) Ur Specific [place] 1.020 (1.001-1.035) Urine Protein 3+ H (Negative) mg/dL Urine Glucose (UA) 3+ H (Negative) mg/dL Urine Ketones Trace H (Negative) mg/dL Ur Blood (Man) 1+ H (Negative) Urine Nitrate Negative (Negative) Urine Bilirubin Negative (Negative) Urine Urobilinogen 0.2 (<2.0) mg/dL Leukocyte Esterase Rfl 1+ H (Negative) LANG/UL Urine RBC 3-5 H (0-2) /hpf Urine WBC >100 H (0-3) /hpf Ur Squamous Epith Cells None seen (Few) /hpf Urine Bacteria None seen /hpf Urine Casts 0-2 Imaging Data Radiologist's impression: ITS Impressions Abdomen/Pelvis CT 03/07/24 10:14 IMPRESSION: 1. Mild dilation of the proximal small bowel which tapers gradually with no discrete transition point and would favor an ileus over obstruction. 2. Mild right hydroureteronephrosis extending to the ureterovesicular junction but without evident obstructing stone or mass. Would consider further evaluation with either CT urogram or ureteroscopy and retrograde pyelogram. Discharge Plan Discharge Clinical Impression: Ileus, Dilation of right ureter, Acute UTI Patient Disposition: Home, Self-Care Condition: Stable Instructions: Antibiotic Form, Urinary Tract Infection in Men (ED), Ileus (ED) Additional Instructions: Return to the emergency department if you develop severe abdominal pain, severe nausea and vomiting to the point where you are unable to keep down fluids, if you develop chest pain or difficulty breathing, blood in your stool, dizziness or fainting, or if you develop any other new or concerning symptoms as these could be signs of more serious medical illness. Try to stay well hydrated. Prescriptions: New ondansetron 4 mg tablet,disintegrating 4 mg PO Q6H PRN (Reason: nausea and vomiting) Qty: 10 0RF cefuroxime axetil 500 mg tablet 500 mg PO BID Qty: 14 0RF No Action hydrocortisone [Anusol-HC] 2.5 % cream with perineal applicator 1 applic RECTAL DAILY PRN (Reason: hemorrhoids) Qty: 30 0RF fenofibrate nanocrystallized 145 mg tablet 145 mg PO DAILY Qty: 90 1RF levothyroxine 50 mcg tablet 50 mcg PO DAILY Qty: 90 1RF pravastatin 40 mg tablet 40 mg PO QHS Qty: 90 1RF diltiazem HCl 240 mg capsule,extended release 24 hr 240 mg PO BID Qty: 360 1RF glimepiride 4 mg tablet 4 mg PO BID Qty: 180 1RF Rx Instructions: administer with breakfast lisinopril 40 mg tablet 40 mg PO DAILY Qty: 90 1RF hydrochlorothiazide 25 mg tablet 25 mg PO DAILY Qty: 90 1RF cholecalciferol (vitamin D3) 50 mcg (2,000 unit) tablet 50 mcg PO DAILY Qty: 90 1RF metoprolol succinate 100 mg tablet extended release 24 hr 100 mg PO DAILY Qty: 90 1RF Follow-up/Referrals: Marito Sainz MD [Primary Care Provider] - 3 Days
== END 2024-03-07 12:16 | disposition home or self-care (01) ==
PROVIDERS: Emergency Provider Emergency Medicine; PCP Family Medicine
DX: N39.0 Urinary tract infection, site not specified (principal); K56.7 Ileus, unspecified; N28.82 Megaloureter; E11.22 Type 2 diabetes mellitus with diabetic chronic kidney disease; I12.9 Hypertensive chronic kidney disease with stage 1 through stage 4 chronic kidney disease, or unspecified chronic kidney disease; N18.30 Chronic kidney disease, stage 3 unspecified; E11.51 Type 2 diabetes mellitus with diabetic peripheral angiopathy without gangrene; I73.9 Peripheral vascular disease, unspecified; E11.40 Type 2 diabetes mellitus with diabetic neuropathy, unspecified; E03.9 Hypothyroidism, unspecified; E78.5 Hyperlipidemia, unspecified; E55.9 Vitamin D deficiency, unspecified; E53.8 Deficiency of other specified B group vitamins; Z90.49 Acquired absence of other specified parts of digestive tract; Z86.0100 Personal history of colon polyps, unspecified; Z79.899 Other long term (current) drug therapy; Z79.84 Long term (current) use of oral hypoglycemic drugs; N13.30 Unspecified hydronephrosis; R94.31 Abnormal electrocardiogram [ECG] [EKG]
CPT/HCPCS: 36415; 74177; 80053; 81001; 83690; 85025; 87086; 93005; 96361; 96374; 99284; J2405; J7030; Q9967

== ENCOUNTER 2024-09-16 07:52 | Outpatient (CLI) | payer OTHER, SELFPAY ==
--- OUTSIDE RECORDS SUMMARY | 2024-09-16 07:56 | XMS_ITS | Patient Health Record ---
Author Organization [facility] Address [address] [place] [address] Care Team Providers Care Brim Presser Name Role Phone Adelfo Hernandez Primary Care Provider Jian Nuñez Unavailable [phone] Reason For Referral No Information Medications Medication SIG (Take, Route, Frequency, Duration) Notes Start Date End Date Status Aspirin 81 MG Oral aspirin 81 mg or al tablet,chewable 05/13/2011 Active Semaglutide 1 mg/0.75 mL (2 mg/1.5 mL) inject 0.75 milliliter (1 mg) by subcutaneous route once weekly on the same day of each week, in the abdomen, thighs, or upper arm rotatinginjection sites *please review for potential update for e-prescription and drug interaction check* semaglutide 1 mg/dose (2 mg/1.5 mL) subcutaneous Pen Injector 07/01/2019 Active Pravastatin take 1 tablet daily *please revi ew for potential update for e-prescription and drug interaction check* Pravastatin 40 mg 05/13/2011 Active Levothyroxine Sodium 50 MCG take 1 tablet (50 mcg) by oral route once daily Oral levothyroxine 50 mcg oral tablet 07/01/2019 Active metFORMIN HCl take 1 tablet twice dialy *please review for potential update for e-prescription and drug interaction check* Metformin HCl 1000 mg 05/13/2011 Active Glimepiride take 2 tablets daily *please rev iew for potential update for e-prescription and drug interaction check* Glimepiride 4mg 05/13/2011 Active Fenofibrate 145 mg take 1 tablet daily *please review for potential update for e-prescription and drug interaction check* fenofibrate 07/01/2019 Active Lisinopril 40 MG take 1 tablet (40 mg ) by oral route once daily Oral lisinopriL 40 mg oral tablet 07/01/2019 Active dapagliflozin 10 mg take 1 tablet (10 mg ) by oral route once daily in the morning *please review for potential update for e-prescription and drug interaction check* dapagliflozin 10 mg oral tablet 07/01/2019 Active Problems Problem Type SNOMED Code ICD Code Onset Dates Problem Status W/U Status Risk Notes Problem Functional diarrhea (05420372) Functional diarrhea (564.5) 2 Problem resolved confirmed Agustin-1199 882- Problem Diarrhea (28451745) Diarrhea (787.91) 2 Active confirmed Agustin-1199 882- Problem History of malignant neoplasm of colon (730857181) History of colon cancer (Z85.038) Active confirmed Problem History of malignant neoplasm of colon (162024253) HISTORY OF COLON CANCER (V10.05) 2 Active confirmed Agustin-1199 882- Problem History of polyp of colon (situation) (577158744) Personal history of colon polyps (Z86.010) Active confirmed Problem 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) Adenomatous colon polyps (235.2) 2 Active confirmed Agustin-1199 882- Problem History of polyp of colon (situation) (248486688) History of colonic polyps (V12.72) 2 Active confirmed Agustin-1199 882- Problem Screening for malignant neoplasm of colon (395243928) Screening for cancer of colon (V76.51) 2 Active confirmed Agustin-1199 882- Plan Of Treatment No Information Insurance Providers Payer Name Payer Address Payer Phone Subscriber Number Group Number Insured Name Patient Relationship to Insured Coverage Start Date Coverage End Date BC [place] [address] [place] [address] [id number] Alex Thao Self - patient is the insured Medical (General) History Surgical History Surgery Date(Month/Year) diverticulosis, internal hem orrhoids, polyp of the colon, and benign amastomosis. BX: adenoma, SURVEILLANCE: 5 years COLONOSCOPY: 06/10/11 INDICA TION: personal history of colon cancer DX: mild diverticulosis, internal hemorrhoids, and polyps of the colon. BX: adenoma, SURVEILLANCE: 3 years COLONOSCOPY: 11/21/14 INDICATION: personal history of colon cancer DX: mild
--- OUTSIDE RECORDS SUMMARY | 2024-09-16 07:56 | XMS_ITS | Clinical Summary ---
Author Organization [facility] at the [facility] Address [address] [place] [address] Care Team Providers Care Quality Assurance Technician Name Role Phone Sanjeev Sainz MD Primary Care Provider Allergies Active Allergy Reactions Criticality Noted Date Comments Codeine Fever,Vomiting Medium 10/16/2022 Meperidine Fever,Vomiting Medium 10/16/2022 Medications glimepiride (AMARYL) 4 mg tablet Take 1 tablet (4 mg total) by mouth 2 (two) times a day after breakfast and dinner 07/12/19 23 Active metFORMIN (GLUCOPHAGE) 1,000 mg tablet Take 1 tablet (1,000 mg total) by mouth 2 (two) times a day 09/06/19 23 Active lisinopriL (PRINIVIL,ZESTRIL) 40 mg tablet Take 1 tablet (40 mg total) by mouth daily 07/12/19 23 Active amLODIPine (NORVASC) 10 mg tablet Take 1 tablet (10 mg total) by mouth daily 09/24/19 23 Active fenofibrate nanocrystallized (TRICOR) 145 mg tablet Take 1 tablet (145 mg total) by mouth daily 07/12/19 23 Active levothyroxine (SYNTHROID) 50 mcg tablet Take 1 tablet (50 mcg total) by mouth daily 07/12/19 23 Active pravastatin (PRAVACHOL) 40 mg tablet Take 1 tablet (40 mg total) by mouth daily 07/12/19 23 Active Active Problems Problem Noted Date Diagnosed Date 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 Distal pulses palpable on the left. Will have patient follow-up in 1-3 months with baseline lower extremity arterial Doppler, as patient states his is undergoing surgery involving a hernia repair within the next couple of weeks. Assessment & Plan (10/16/2022 11:32 AM CDT): Patient with chronic non limiting claudication to his right lower extremity, no distal pulses palpable on exam. Distal pulses palpable on the left. Will have patient follow-up in 1-3 months with baseline lower extremity arterial Doppler, as patient states his is undergoing surgery involving a hernia repair within the next couple of weeks. Essential hypertension 10/16/2022 Overview (10/16/2022): Amlodipine lisinopril Type 2 diabetes mellitus without complication Hyperlipidemia 10/16/2022 Surgical History Surgery Date Site/Laterality Comments GALLBLADDER SURGERY 04/14/2009 - 04/13/2010 N/A HERNIA REPAIR 04/14/2020 - 04/13/2021 CATARACT EXTRACTION, BILATERAL 04/14/2018 - 04/13/2019 B ilateral COLON BIOPSY Medical History Medical History Date Comments Colon cancer (HCC) 1998 Stage 4- Canc er free at this time Social History Tobacco Use Types Packs/Day Years Used Date Smoking Tobacco: Never Passive Smoke Exposure: Never Smokeless Tobacco: Never Tobacco Cessation:Counseling Given: No Personal Safety Answer Date Recorded Getting School Help Needed Not on file 06/14 Sex and Gender Information Value Date Recorded Sex Assigned at Not on file Legal Sex Male 12:12 PM CDT Gender Identity Male 12/11/2022 7:04 AM CDT Sexual Orientation Straight 12/11/2022 7: 04 AM CDT Obstetrics History Last Filed Vital Signs Vital Sign Reading Time Taken Comments Blood Pressure - - Pulse - - Temperature - - Respiratory Rate - - Oxygen Saturation - - Inhaled Oxygen Concentration - - Weight 111.6 kg (246 lb) 10/16/2022 10:21 AM CDT Height 177.8 cm (5' 10) 10/16/2022 10:21 AM CDT Body Mass Index 35.3 10/16/2022 10:21 AM CDT Plan of Treatment Health Maintenance Due Date Last Done Comments Albumin Creatinine Ratio, Urine 1951 Colon Cancer Screening-Colonoscopy 1951 Depression Screening 1951 Fall Risk Assessment 1950 Hemoglobin A1C 1951 Hepatitis C Screening 1950 eGFR 1951 Dilated Eye Exam 1951 Foot Exam 1951 Lipid Panel 1951 DTaP/Tdap/Td Vaccine (1 - Tdap) 07/07/1962 Hepatitis B Screening 07/07/1969 Pneumococcal vaccine 65+ (1 of 2 - PCV) 07/07/1970 Zoster Vaccine (1 of 2) 07/07/2001 Abdominal Aortic Aneurysm (AAA) Screen 07/07/2016 Well Visit 65+ 07/07/2016 Influenza Vaccine (Season Ended) 2024 Insurance [facility] Member Subscriber Plan / Payer (Ef fective 2022-Present) Name:Alex Thao Relation to Subscriber:Self Name:Alex Thao Payer ID:[id number] (NAIC) Type:MEDICARE RISK OTHER Address: [place] [id number] Care Teams Quality Assurance Technician Relationship Specialty Start Date End Date Sanjeev Sainz MD PCP - General Family Practice 10/02/22
--- OUTSIDE RECORDS SUMMARY | 2024-09-16 07:56 | XMS_ITS | Referral Summary ---
Author Organization [facility] at the [facility] Address [address] [place] [address] Care Team Providers Care Motor Teacher Name Role Phone Sanjeev Sainz MD Primary [...] Problem Noted Date Diagnosed Date Atherosclerosis of [place] of right lower extremity with [...] 2 diabetes mellitus without complication Hyperlipidemia 10/16/2022 Social History Tobacco Use Types Packs/Day Years [...] Orientation Straight 12/11/2022 7: 04 AM CDT Last Filed Vital Signs Vital Sign Reading Time Taken Comments Blood Pressure - - Pulse - - Temperature - - Respiratory Rate - - Oxygen Saturation - - Inhaled Oxygen Concentration - - Weight 111.6 kg (246 lb) 10/16/2022 10:21 AM CDT Height 177.8 cm (5' 10) 10/16/2022 10:21 AM CDT Body Mass Index 35.3 10/16/2022 10:21 AM CDT Plan of Treatment Not on file Insurance [facility] Member Subscriber Plan / Payer ( fective 2022-Present) Name:Alex Thao Relation to Subscriber:Self Name:Alex Thao Payer ID:[id number] (NAIC) Type:MEDICARE RISK OTHER Address: [place] [id number] Care Teams Motor Teacher Relationship Specialty Start Date End Date Sanjeev Sainz MD PCP - General Family Practice 10/02/22
[2024-09-16 13:07] LABS: Basophils Absolute Auto 0.1 K/mm3 (0.0-0.1); Basophils Percent Auto 0.8 % (0.2-1.2); Eosinophils Absolute Auto 0.1 K/mm3 (0-0.3); Eosinophils Percent Auto 1.2 % (0-4.4); Hematocrit 34.1 % (42.0-52.0); Immature Granulocyte Absolute 0.05 K/mm3 (0.00-0.031); Immature Granulocyte Percent A 0.6 % (0-0.5); Lymphocytes Absolute Auto 2.46 K/mm3 (0.9-3.2); Lymphocytes Percent Auto 27.2 % (18.3-44.2); Mean Corpuscular HGB Conc 29.3 g/dl (32-36); Mean Corpuscular Hemoglobin 28.2 pg (26-34); Mean Corpuscular Volume 96.3 fl (80-100); Mean Platelet Volume 11.7 fl (7.4-10.4); Monocytes Absolute Auto 0.8 K/mm3 (0.1-0.6); Monocytes Percent Auto 8.6 % (2.6-8.5); Neutrophils Absolute Auto 5.6 K/mm3 (1.3-6.7); Neutrophils Percent Auto 61.6 % (45.5-73.1); Platelet Count Result 235 k/mm3 (150-375); Red Blood Count 3.54 M/mm3 (4.6-6.20); Red Cell Distribution Width 14.6 % (11.5-14.5); White Blood Count 9.1 K/mm3 (4.5-10.0)
[2024-09-16 13:39] LABS: Alanine Aminotransferase 17 U/L (6-50); Albumin Level 3.7 g/dL (3.5-5.1); Alkaline Phosphatase 49 U/L (38-126); Anion Gap 7 mmol/L (4-12); Aspartate Amino Transferase 46 U/L (17-59); Bilirubin,Total 0.3 mg/dL (0.2-1.3); Blood Urea Nitrogen 23 mg/dL (9-20); Calcium 8.9 mg/dL (8.4-10.2); Carbon Dioxide 26 mmol/L (22-30); Chloride 108 mmol/L (98-107); Cholesterol 92 mg/dL (0-200); Estimated Glomerular Filt Rate 47; Glucose 107 mg/dL (65-110); HDL Direct 29 mg/dL; LDL Cholesterol Direct 31 mg/dL; Potassium 4.1 mmol/L (3.4-5.0); Sodium 141 mmol/L (137-145); Total Protein 6.9 g/dL (6.3-8.2); Triglycerides 104 mg/dL (<150)
[2024-09-16 14:10] LABS: Hypochromasia 1+; Platelet Estimate Adequate (Adequate); Schistocytes None Seen
[2024-09-16 14:31] LABS: Free T4 Free Thyroxine 1.06 ng/dL (0.78-2.19)
[2024-09-16 15:59] LABS: Hemoglobin A1C 7.1 % (<5.7)
[2024-09-16 19:22] LABS: Creatinine Urine 55.6 mg/dL; MALB Creatinine Ratio > 2050.4 mg/g (0-30); Microalbumin Urine Random > 1140.0 mg/L (0-16.7)
== END 2024-09-16 07:53 | disposition home or self-care (01) ==
LOC: ANHGOSHLAB 07:52
PROVIDERS: PCP Family Medicine; Visit Provider Nurse Practitioner Family
DX: E03.9 Hypothyroidism, unspecified (principal); E11.9 Type 2 diabetes mellitus without complications; I10 Essential (primary) hypertension; E78.5 Hyperlipidemia, unspecified
CPT/HCPCS: 36415; 80053; 80061; 82043; 83036; 84439; 84443; 85025

== ENCOUNTER 2024-09-18 19:37 | Inpatient (IN) | payer OTHER, SELFPAY ==
[2024-09-18] VITALS (19 sets, daily range): BP systolic 137–223; BP diastolic 63–143; PULSE 71–91; RESP 12–22; TEMP 36.6; O2SAT 97–100; BMI 40.1
--- NOTE | ~2024-09-18 | CT_ITS ---
Clinical Indication: Dyspnea CT Scan of the Chest with Contrast: Technique: Contiguous sections were acquired throughout the chest after intravenous administration of 100 cc of Omnipaque 350. Dose reduction technique was used on this scan by utilizing automated expos ure control and iterative reconstruction technique. The dose-length product (DLP) was 996.46 mGy-cm. Findings: There is no evidence of any significant mediastinal, hilar or axillary lymphadenopathy. There is no f illing defect in the pulmonary arterial tree to suggest pulmonary embolus. There is no evidence of ao rtic dissection or aneurysm. There is no evidence of pleural or pericardial effusion. There is minimal mosaic attenuation pattern in the lungs. No suspicious pulmonary nodule. Images through the upper abdomen reveal no abnormalities. Impression: No evidence of pulmonary embolus, aortic dissection, or aortic aneurysm. Minimal mosaic attenuation pattern in the lungs. Correlate for minimal pulmonary edema, hypoventilato ry change, bronchiolitis, hypersensitivity pneumonitis, chronic interstitial disease. Reviewed, dictated and finalized at location . Impression: No evidence of pulmonary embolus, aortic dissection, or aortic aneurysm. Minimal mosaic attenuation pattern in the lungs. Correlate for minimal pulmonar y edema, hypoventilatory change, bronchiolitis, hypersensitivity pneumonitis, c hronic interstitial disease.
--- NOTE | ~2024-09-18 | XR_ITS ---
EXAMINATION: XR chest 1V portable Exam Date/Time: 09/18/2024 20:19 CDT HISTORY: chest pain Comparison: None. RESULT: Lines, tubes, and devices: Left subclavian central line terminating over the brachiocephalic vein. Lungs and pleura: Low volumes with crowding. Lordotic positioning. Streaky bibasilar atelectasis/sca r. Tenting/elevation of the left hemidiaphragm. Cardiomediastinal silhouette: Stable. Other: No acute osseous or upper abdominal finding. IMPRESSION: No acute cardiopulmonary process. Reviewed, dictated and finalized at location K.
--- OUTSIDE RECORDS SUMMARY | 2024-09-18 19:39 | XMS_ITS | Clinical Summary ---
Author Organization [facility] at the [facility] Address [address] [place] [address] Care Team Providers Care Reinforcement Maker Name Role Phone Sanjeev Sainz MD Primary [...] Problem Noted Date Diagnosed Date Atherosclerosis of [place] ar [place] of right lower extremity with [...] Influenza Vaccine (Season Ended) [address] [facility] Member Subscriber Plan / Payer (Ef fective 2022-Present) Name:Alex Thao Relation to Subscriber:Self Name:Alex Thao Payer ID:[id number] (NAIC) Type:MEDICARE RISK OTHER Address: [place] [id number] Care Teams Reinforcement Maker Relationship Specialty Start Date End Date Sanjeev Sainz MD PCP - General Family Practice 10/02/22
--- OUTSIDE RECORDS SUMMARY | 2024-09-18 19:39 | XMS_ITS | Patient Health Record ---
Author Organization [facility] Address [address] [address] Care Team Providers Care Field Support Specialist Name Role Phone Adelfo Hernandez Primary Care Provider Jian Nuñez Unavailable [phone] Reason For Referral No Information Medications Medication [...] W/U Status Risk Notes Problem Functional diarrhea (21920086) Functional diarrhea (564.5) 2 Problem resolved confirmed Agustin-1199 882- Problem Screening for malignant neoplasm of colon (309386674) Screening for cancer of colon (V76.51) 2 Active confirmed Agustin-1199 882- Problem History of polyp of colon (situation) (593276109) History of colonic polyps (V12.72) 2 Active confirmed Agustin-1199 882- Problem 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) Adenomatous colon polyps (235.2) 2 Active confirmed Agustin-1199 882- Problem History of malignant neoplasm of colon (538936221) HISTORY OF COLON CANCER (V10.05) 2 Active confirmed Agustin-1199 882- Problem Diarrhea (54328085) Diarrhea (787.91) 2 Active confirmed Agustin-1199 882- Problem History of polyp of colon (situation) (885456095) Personal history of colon polyps (Z86.010) Active confirmed Problem History of malignant neoplasm of colon (721906027) History of colon cancer (Z85.038) Active confirmed Plan Of Treatment No Information Insurance Providers Payer Name Payer Address Payer Phone Subscriber Number Group Number Insured Name Patient Relationship to Insured Coverage Start Date Coverage End Date [place] [address] [place] [address] [id number] Alex Thao Self - patient is the [...]
--- OUTSIDE RECORDS SUMMARY | 2024-09-18 19:39 | XMS_ITS | Referral Summary ---
Author Organization [facility] Address [address] [place] [address] Care Team Providers Care Rigger Third Name Role Phone Sanjeev Sainz MD Primary [...] Problem Noted Date Diagnosed Date Atherosclerosis of [place] ar tristin of right lower extremity with [...] Plan of Treatment Not on file Insurance [facility] Member Subscriber Plan / Payer ( fective 2022-Present) Name:Alex Thao Relation to Subscriber:Self Name:Alex Thao Payer ID:[id number] (NAIC) Type:MEDICARE RISK OTHER Address: [place] [phone] Care Teams Rigger Third Relationship Specialty Start Date End Date Sanjeev Sainz MD PCP - General Family Practice 10/02/22
--- NOTE | 2024-09-18 19:41 | ECG_ITS ---
Test Date: 2024-09-18 19:43:33 Measurements Intervals [place] Rate: 89 P: 78 [place]: 221 QRS: -29 QRSD: 113 T: 86 QT: 345 QTc: 420 Interpretive Statements SINUS RHYTHM WITH FIRST DEGREE AV BLOCK INTRAVENTRICULAR CONDUCTION DELAY LOW QRS VOLTAGE IN PRECORDIAL LEADS CANNOT R/O SEPTAL INFARCT, AGE INDETERMINATE BORDERLINE ST-T WAVE ABNORMALITY- HIGH LATERAL LEADS ABNORMAL ECG Compared to ECG 03/07/2024 09:24:59 First degree AV block now present Electronically Signed On 09-18-2024 20:14:15 CDT by Renaldo Willis D.O.
[2024-09-18] MEDS: ASPIRIN 81 MG CHEWABLE TABLET 324 MG PO (20:17)
--- NOTE | 2024-09-18 20:21 | ED.CHESTPAIN ---
HPI - Chest Pain General Chief Complaint: Chest Pain Stated Complaint: chest pain Time Seen by Provider: 09/18/24 19:39 History of Present Illness HPI narrative: 74-year-old male with a past medical history including hypertension, CKD, diabetes. Patient presents to the emergency room with difficulty breathing 10 chest pain, lower extremity swelling bilaterally for several weeks. Patient denies any significant cardiac history but states he has had multiple abdominal surgeries previously and a remote history of colon cancer now in remission. Patient states that symptoms started with bilateral lower extremity swelling and now progressed to the point where he is feeling bloated and short of breath and having chest pain. Has a history of hypertension several different medications but his is not sure which ones are current as they have been changed previously by his PCP. Patient states that he is having shortness of breath and it worsens with standing or exertion. Patient states he has been gaining weight recently. Related Data Allergies Allergy/AdvReac Type Severity Reaction Status Date / Time codeine Allergy Severe Rash, Verified 09/18/24 19:47 vomiting meperidine (From Demerol) Allergy Severe Rash,vomiti Verified 09/18/24 19:47 ng dapagliflozin (From Farxiga) Allergy Mild genital Verified 09/18/24 19:47 abscess amlodipine AdvReac Mild pedal edema Verified 09/18/24 19:47 gabapentin (From Neurontin) AdvReac Mild Dizziness Verified 09/18/24 19:47 sitagliptin (From Januvia) AdvReac Mild abscess Verified 09/18/24 23:04 Review of Systems Review of Systems: As reviewed above in HPI [facility] Past Medical History Medical History (Updated 09/19/24 @ 06:54 by Neal Luque MD) Kidney stones BPH (benign prostatic hyperplasia) Diabetic peripheral neuropathy Type 2 diabetes mellitus with stage 3 chronic kidney disease Stage 3a chronic kidney disease (CKD) Incarcerated incisional hernia (~02/2023) SBO (small bowel obstruction) (~02/2023) Vitamin B12 deficiency Vitamin D deficiency Hypothyroidism Peripheral arterial disease Mildly diminished ankle-brachial index on the left 09/2022 History of colon polyps History of colon cancer (~03/1999) Stage IV at time of initial diagnosis in 1998 s/p partial colectomy currently in remission Dyslipidemia Essential (primary) hypertension HTN (hypertension) Surgical History Surgical History (Updated 09/18/24 @ 22:40 by Kenzie Martin DO) Status post cataract extraction of both eyes with insertion of intraocular lens History of incisional hernia repair (~03/2023) Open reducible incisional hernia repair with Ventralight ST mesh and extensive intra-abdominal adhesiolysis on 03/18/23 SAW History of hernia repair (~2020) Patient has had multiple ventral hernia repairs with most recent being March [address] Lu History of cholecystectomy (~2009) History of colon resection (~03/1999) History of appendectomy (~03/1999) Family History Family History Mother , Early 60s Hypertension Cerebrovascular accident Son , Mid 30s Acute myocardial infarction Grandparent Alcohol abuse Father , Mid 60s Lung cancer Heavy tobacco smoker Social History Social History (Updated 09/18/24 @ 22:46 by Kenzie Martin DO) Social History: Patient is been to his current for over 40 years. He has 2 biological children 1 of which in his mid 30s of heart disease. He has 2 step children. He is a lifelong nonsmoker and does not drink alcohol or use illicit substances. 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 Code status: Full code Surrogate decision maker: Smoking status: Never smoker Alcohol intake: never Substance use: never Substance use type: does not use Do You Feel Safe in your Home?: Yes Lack of Transportation: No Lack of Food: Never True Current Housing: I Have Housing Concerned About Future Housing: No Difficulty Paying Gas/Electric Bills: No Difficulty Paying for Meds: No Currently Unemployed: No Education: Decline to Answer Difficulty w/ Childcare or Family Care: Decline to Answer Living arrangements: with family Occupation/Education: retired Gender identity (if verbalized by the patient): Male Sexual Orientation (if Verbalized by the Patient): Straight or Heterosexual Spiritual care concerns: No Agree to blood products: Yes Exam Narrative: GENERAL: Difficulty breathing but conversational, tachypneic, audible rales in the examination room HEAD: [Normocephalic, atraumatic.] EYES: [PERRLA and EOMI.] ENT: Nares clear, no rhinorrhea or epistaxis. Mucous membranes moist. NECK: Supple. CHEST: Rales in bilateral lung walls, mildly tachypneic and moderate respiratory distress. Conversational with clear speech HEART: [Regular rate and rhythm]. No murmur heard. [Normal peripheral pulses.] ABDOMEN: [Soft, nondistended], [nontender], [No rigidity or guarding] EXTREMITIES: Normal range of motion. 2+ pitting edema to the thighs bilaterally and symmetric SKIN: Warm, dry, no rash. Dilated left upper chest vessels from previous port site in the left chest wall NEURO: [No focal deficits]. Alert and oriented [x3.] PSYCH: [Normal mood and affect.] Course Vital Signs Vital signs: Vital Signs Temperature 36.6 C 09/18/24 19:42 Pulse Rate 90 09/18/24 19:42 Respiratory Rate 21 H 09/18/24 19:42 Blood Pressure 194/78 H 09/18/24 19:42 Pulse Oximetry 97 09/18/24 19:42 Oxygen Delivery Room Air 09/18/24 19:42 Temperature 36.1 C L 09/19/24 06:31 Pulse Rate 65 09/19/24 06:31 Respiratory Rate 12 09/19/24 06:31 Blood Pressure 118/55 L 09/19/24 06:31 Pulse Oximetry 99 09/19/24 06:31 Oxygen Delivery BiPAP 09/19/24 04:00 Fraction of Inspired Oxygen 09/19/24 04:00 MDM - Chest Pain MDM Narrative Medical decision making narrative: 74-year-old male with history of hypertension, diabetes, CKD. He presents with signs and symptoms of bilateral lower extremity swelling, audible rales in both lungs, shortness of breath and chest pain. He appears in moderate respiratory distress and tachypneic but is saturating well on room air. He is hypertensive in the 190s region. He states this is been going on for several weeks and worsening. He is on blood pressure medicines but not sure what kind. Examination is concerning for congestive heart failure which he states he has no history of. Other considerations are for sympathetic crash acute pulmonary edema but this is been going on for several weeks and not acutely onset. Hypertensive urgency or emergency given that his blood pressure is rather elevated. Patient's laboratory studies were sent including CBC, CMP, BNP, troponin, EKG is obtained, chest x-ray ordered. He was given Lasix and hydralazine and re-evaluated. Patient is still on room air at this time but given his respiratory efforts might benefit from BiPAP depending on findings. Bedside echocardiogram was performed and does show biapical enlarged atria, no ventricular strain, ventricular hypertrophy is noted, plethoric IVC indicative of fluid overload and right-sided heart failure. He is massively hypertensive requiring additional antihypertensive regimen including nitro paste and nitro infusion. Patient was placed on BiPAP given his respiratory efforts and concern for decompensation. He had improvement after initial treatment plan and was feeling improved after blood pressure lowering. His troponins are negative, BNP is negative and his chest x-ray initially appears clear raising suspicion for a sympathetic acute pulmonary edema and hypertensive crisis for or acute right-sided heart failure. CT angiography shows no PE, dissection or aneurysm. There is minimal pulmonary edema on the CT angiography. Intensive care unit was consulted and small kick press operator Dr. Camargo was spoken to with accepting him to the ICU. Hospitalist Dr. Martin came and evaluated the patient at bedside and agreeable for admission here. Family members or comfortable the plan patient is improving on current regimen. Medical Records Data Attestation: I reviewed the patient's medical records. Lab Data Attestation: I reviewed the patient's lab results. 09/18/24 20:17 09/18/24 20:17 Labs: Lab Results 09/18/24 Range/Units 20:17 WBC 10.0 (4.5-10.0) K/mm3 RBC 3.41 L (4.6-6.20) M/mm3 Hgb 9.8 L (14.0-18.0) g/dL Hct 32.3 L (42.0-52.0) % MCV 94.7 (80-100) fl MCH 28.7 (26-34) pg MCHC 30.3 L (32-36) g/dl RDW 14.7 H (11.5-14.5) % Plt Count 238 (150-375) k/mm3 MPV 10.7 H (7.4-10.4) fl Immature Gran % (Auto) 0.6 H (0-0.5) % Neut % (Auto) 57.3 (45.5-73.1) % Lymph % (Auto) 30.7 (18.3-44.2) % [place] % (Auto) 9.3 H (2.6-8.5) % Eos % (Auto) 1.4 (0-4.4) % Baso % (Auto) 0.7 (0.2-1.2) % Lymph # (Auto) 3.05 (0.9-3.2) K/mm3 [place] # (Auto) 0.9 H (0.1-0.6) K/mm3 Eos # (Auto) 0.1 (0-0.3) K/mm3 Baso # (Auto) 0.1 (0.0-0.1) K/mm3 Abs Immat Gran (auto) 0.06 H (0.00-0.031) K/mm3 Absolute Neuts (auto) 5.7 (1.3-6.7) K/mm3 Absolute Nucleated RBC 0.000 (0.0-0.012) K/mm3 Nucleated RBC % 0.0 (0.0-0.2) % PT 13.2 (11.1-14.7) Seconds INR 1.0 APTT 29.0 (22.3-36.8) Seconds D-Dimer 0.92 H (<0.48) ug/mL Sodium 144 (137-145) mmol/L Potassium 4.4 (3.4-5.0) mmol/L Chloride 109 H (98-107) mmol/L Carbon Dioxide 25 (22-30) mmol/L Anion Gap 10 (4-12) mmol/L BUN 31 H (9-20) mg/dL Creatinine 1.73 H (0.7-1.3) mg/dL Estim Creat Clear Calc 46 ml/min Estimated GFR 39 L (59 - ) Glucose 220 H (65-110) mg/dL Calcium 8.4 (8.4-10.2) mg/dL Total Bilirubin 0.2 (0.2-1.3) mg/dL AST 27 (17-59) U/L ALT 19 (6-50) U/L Alkaline Phosphatase 49 (38-126) U/L Troponin I < 0.012 (0.000-0.034) ng/mL NT-Pro-B Natriuret Pep 384 H (19.9-100) pg/mL Total Protein 7.3 (6.3-8.2) g/dL Albumin 3.9 (3.5-5.1) g/dL Lipase 51 (23-300) U/L Imaging Data Attestation: I personally reviewed and interpreted this imaging study as follows: My impression: Impressions Chest X-Ray 09/18/24 20:35 IMPRESSION: No acute cardiopulmonary process. Radiologist's impression: No evidence of pulmonary embolus, aortic dissection, or aortic aneurysm. Minimal mosaic attenuation pattern in the lungs. Correlate for minimal pulmonary edema, hypoventilatory change, bronchiolitis, hypersensitivity pneumonitis, chronic interstitial disease. ECG Data EKG #1: Attestation: I personally reviewed and interpreted this ECG as follows: ECG completion date: 09/19/24 ECG completion time: 19:43 Prior ECG tracings: available for review Interpretation: Sinus rhythm with first-degree AV block, no ST segment elevations, depressions. QTC 420, QRS 113, MN interval 221. Rate of 89 beats per minute. Critical Care Time Critical Care Time Critical Care Time: Yes Total Critical Care Time: 75 Discharge Plan Discharge Clinical Impression: Hypertensive crisis, Difficulty breathing Patient Disposition: Still a Patient Condition: Serious
[2024-09-18] MEDS: hydrALAZINE HCL 20 MG/ML VIAL 10 MG IV PUSH (20:22)
[2024-09-18] MEDS: FUROSEMIDE INJ 40 MG/4 ML VIAL IV PUSH (20:22)
[2024-09-18 20:23] LABS: Basophils Absolute Auto 0.1 K/mm3 (0.0-0.1); Basophils Percent Auto 0.7 % (0.2-1.2); Eosinophils Absolute Auto 0.1 K/mm3 (0-0.3); Eosinophils Percent Auto 1.4 % (0-4.4); Hematocrit 32.3 % (42.0-52.0); Hemoglobin 9.8 g/dL (14.0-18.0); Immature Granulocyte Absolute 0.06 K/mm3 (0.00-0.031); Immature Granulocyte Percent A 0.6 % (0-0.5); Lymphocytes Absolute Auto 3.05 K/mm3 (0.9-3.2); Lymphocytes Percent Auto 30.7 % (18.3-44.2); Mean Corpuscular HGB Conc 30.3 g/dl (32-36); Mean Corpuscular Hemoglobin 28.7 pg (26-34); Mean Corpuscular Volume 94.7 fl (80-100); Mean Platelet Volume 10.7 fl (7.4-10.4); Monocytes Absolute Auto 0.9 K/mm3 (0.1-0.6); Monocytes Percent Auto 9.3 % (2.6-8.5); Neutrophils Absolute Auto 5.7 K/mm3 (1.3-6.7); Neutrophils Percent Auto 57.3 % (45.5-73.1); Platelet Count Result 238 k/mm3 (150-375); Red Blood Count 3.41 M/mm3 (4.6-6.20); Red Cell Distribution Width 14.7 % (11.5-14.5)
[2024-09-18 20:32] LABS: Alanine Aminotransferase 19 U/L (6-50); Albumin Level 3.9 g/dL (3.5-5.1); Alkaline Phosphatase 49 U/L (38-126); Anion Gap 10 mmol/L (4-12); Aspartate Amino Transferase 27 U/L (17-59); Bilirubin,Total 0.2 mg/dL (0.2-1.3); Blood Urea Nitrogen 31 mg/dL (9-20); Calcium 8.4 mg/dL (8.4-10.2); Carbon Dioxide 25 mmol/L (22-30); Chloride 109 mmol/L (98-107); Estimated CRCL calculation 46 ml/min; Estimated Glomerular Filt Rate 39; Glucose 220 mg/dL (65-110); Lipase 51 U/L (23-300); Potassium 4.4 mmol/L (3.4-5.0); Sodium 144 mmol/L (137-145); Total Protein 7.3 g/dL (6.3-8.2)
[2024-09-18 20:43] LABS: Troponin I < 0.012 ng/mL (0.000-0.034)
[2024-09-18 20:52] LABS: Prothrombin Time 13.2 Seconds (11.1-14.7)
[2024-09-18 21:04] LABS: NT Pro B Type Natriuretic Pept 384 pg/mL (19.9-100)
--- NOTE | 2024-09-18 21:11 | PM.IMHP ---
H&P: HPI History of Present Illness Date/Time: 09/18/24 21:11 Chief Complaint: Chest pain, shortness breast, leg swelling Narrative: 74-year-old male with a past medical history of essential hypertension, chronic kidney disease stage III, type 2 diabetes mellitus, diabetic peripheral neuropathy, suspected obstructive sleep apnea in multiple prior abdominal surgeries who presented to the ER via private vehicle with shortness of breath, chest pain and leg swelling. The patient reports that he has had about a 30 lb weight gain since his visit with his primary care physician in August. He has had a 2-1/2 lb weight gain in the last 24-48 hours. He had went to his primary care physician in August due to his symptoms of dyspnea on exertion and lower extremity swelling and was started on Lasix 20 mg daily. Despite starting on Lasix his leg swelling has progressed from his mid lower extremities and is now up into his thighs. His at bedside also reports that she thinks the patient's abdomen is been more swollen. He has been short of breath with exertion for the last couple of months but in the last day or so his shortness of breath has precipitously worsened where he is labored at rest. He has been having central chest pressure that is nonradiating. It is been intermittent in nature as been occurring for the last week or so. He denies any radiation of the pain, diaphoresis or nausea. He does not have a history of coronary artery disease or heart failure that he knows of. He has never had an echocardiogram. His reports that the patient has slept in a recliner for several years due to orthopnea. He feels like he has to have a fan on him at all times or he can not breathe. It is been suggested in the past that he have a polysomnogram but the patient never followed up with this recommendation. states that the patient falls asleep in his recliner all the time. She worries at times that he will not stop breathing and not start breathing again. It sounds like he has numerous episodes of witnessed apnea at home. He also has had episodes of paroxysmal nocturnal dyspnea. He reports that his blood pressures usually run in the 130s to 140 systolic over 80s to 90s. His blood pressure just before leaving the house was in the mid 140s systolic. He denies history of BPH but was noted to have difficulty urinating in the ER. Pure wick catheter was in place and the patient was only able to pass a few mL of urine. Bladder scan was performed while I was at bedside and patient had greater than 700 mL of retained urine. The patient does report chronic weak urinary stream and possible symptoms of incomplete bladder emptying. His reports that he does have frequent urinary tract infections. He has not had any recent cough, congestion, fevers, dysuria or hematuria. On review of external medication records it appears that the patient was recently discontinued on his hydrochlorothiazide. He has been on metoprolol 100 mg a.m. and 50 mg p.m. for a long time. He has also been on lisinopril 40 mg and Cardizem 240 mg p.o. b.i.d. for a long time. He was recently started on Lasix 40 mg daily. Patient did have some skin changes on his abdomen and lateral ribcage at the mid axillary line that appear to be consistent with either bruising or vascular malformations. Patient denies any recent falls or trauma. His states that these and had not been noticed previously. He denies any history of easy bruising or bleeding. In the ER patient was had markedly labored respirations despite chest x-ray demonstrating no acute cardiopulmonary process and patient was on room air. He was started on BiPAP for respiratory support and given 10 mg of IV hydralazine and 40 mg of IV Lasix. Despite these medications his blood pressures continued to provides upward instead of decreasing. Although he looks more comfortable on BiPAP he is still labored. He was still having some chest discomfort but it had improved from prior. Bedside echo was performed by ER provider and reviewed by myself at bedside patient seemed to have biatrial enlargement and noncompressible IVC suggesting volume overload despite no evidence of for CHF on chest x-ray. Given the patient's reported symptoms of orthopnea paroxysmal nocturnal dyspnea as well as witnessed episodes of apnea I suspect patient has a right-sided heart failure likely due to untreated severe obstructive sleep apnea. However patient also has elevated D-dimer 0.92. He is at higher risk of blood clots due to his history of stage IV colon cancer (in remission since early ) and sedentary lifestyle. Risk for DVT/PE is still moderate subsequently patient will be sent for CTA of the chest to rule out pulmonary embolism. Patient's has been started on a nitro drip and nitro paste in the ER and the patient has been admitted to the ICU with the veterinary toxicologist being consulted from the ER. Hemoglobin in the ER was stable compared to values from 2 days ago that were performed as outpatient. But down 2.5 g from last February. He denies any hematochezia or melena. He is not on blood thinners. Patient's , who was at bedside, helps provide some of the pertinent information with the patient's permission. Review of Systems Review of Systems: 12 systems were reviewed with pertinent positives and negatives per HPI. Except as documented in the HPI, all other systems were reviewed and are negative. The patient is stated to his that he had times cannot feel the bottoms of either of his feet. He denies any GERD symptoms or heartburn. He has not had a EGD in many years. His colon cancer was treated in [place]. The patient reports chronic candidiasis under is right pannus fold. He relates the start of the yeast infection to when he was on Ozempic long time ago. They have tried multiple medications both prescription and [id number]. [facility] Past Medical History Medical History (Updated 09/18/24 @ 23:09 by Kenzie Martin DO) Kidney stones BPH (benign prostatic hyperplasia) Diabetic peripheral neuropathy Type 2 diabetes mellitus with stage 3 chronic kidney disease Stage 3a chronic kidney disease (CKD) Incarcerated incisional hernia (~02/2023) SBO (small bowel obstruction) (~02/2023) Vitamin B12 deficiency Vitamin D deficiency Hypothyroidism Peripheral arterial disease Mildly diminished ankle-brachial index on the left 09/2022 History of colon polyps History of colon cancer (~03/1999) Stage IV at time of initial diagnosis in 1998 s/p partial colectomy currently in remission Dyslipidemia Essential (primary) hypertension HTN (hypertension) Surgical History Surgical History (Updated 09/18/24 @ 22:40 by Kenzie Martin DO) Status post cataract extraction of both eyes with insertion of intraocular lens History of incisional hernia repair (~03/2023) Open reducible incisional hernia repair with Ventralight ST mesh and extensive intra-abdominal adhesiolysis on 03/18/23 SAW History of hernia repair (~2020) Patient has had multiple ventral hernia repairs with most recent being March [address] Lu History of cholecystectomy (~2009) History of colon resection (~03/1999) History of appendectomy (~03/1999) Family History Family History (Updated 09/18/24 @ 22:44 by Kenzie Martin DO) Mother , Early 60s Hypertension Cerebrovascular accident Son , Mid 30s Acute myocardial infarction Grandparent Alcohol abuse Father , Mid 60s Lung cancer Heavy tobacco smoker Social History Social History (Updated 09/18/24 @ 22:46 by Kenzie Martin DO) Social History: Patient is been to his current for over 40 years. He has 2 biological children 1 of which in his mid 30s of heart disease. He has 2 step children. He is a lifelong nonsmoker and does not drink alcohol or use illicit substances. 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 Code status: Full code Surrogate decision maker: Smoking status: Never smoker Alcohol intake: never Substance use: never Substance use type: does not use Lack of Transportation: No Lack of Food: Never True Current Housing: I Have Housing Concerned About Future Housing: No Difficulty Paying Gas/Electric Bills: No Difficulty Paying for Meds: No Currently Unemployed: No Education: High School Diploma/GED Difficulty w/ Childcare or Family Care: No Living arrangements: with family Occupation/Education: retired Gender identity (if verbalized by the patient): Male Sexual Orientation (if Verbalized by the Patient): Straight or Heterosexual Spiritual care concerns: No Agree to blood products: Yes Meds Home Medications and Allergies Home Medications ?Medication ?Instructions ?Recorded ?Confirmed ?Type hydrocortisone 2.5 % topical cream 1 applic RECTAL DAILY PRN 04/08/23 05/31/24 Rx with perineal applicator hemorrhoids #30 grams (Anusol-HC) diltiazem HCl 240 mg capsule,24 240 mg PO BID #360 caps 01/28/24 05/31/24 Rx hr,extended release glimepiride 4 mg tablet 4 mg PO BID #180 tabs 03/03/24 05/31/24 Rx lisinopril 40 mg tablet 40 mg PO DAILY #90 tabs 03/04/24 05/31/24 Rx cholecalciferol (vitamin D3) 50 50 mcg PO DAILY #90 tabs 05/10/24 05/31/24 Rx mcg (2,000 unit) tablet fenofibrate nanocrystallized 145 145 mg PO DAILY #90 tabs 05/20/24 05/31/24 Rx mg tablet pravastatin 40 mg tablet 40 mg PO QHS #90 tabs 05/20/24 05/31/24 Rx doxazosin 2 mg tablet (Cardura) 2 mg PO DAILY #90 tabs 05/31/24 05/31/24 Rx metformin 500 mg tablet,extended 500 mg PO DAILY #90 tabs 05/31/24 05/31/24 Rx release 24 hr (Glucophage XR) levothyroxine 50 mcg tablet 50 mcg PO DAILY #90 tabs 06/10/24 Rx metoprolol succinate 100 mg 100 mg PO QAM #90 tabs 06/10/24 Rx tablet,extended release 24 hr metoprolol succinate 50 mg 50 mg PO QPM #90 tabs 06/10/24 Rx tablet,extended release 24 hr furosemide 20 mg tablet (Lasix) 20 mg PO QAM #90 tabs 08/30/24 Rx ferrous sulfate 325 mg (65 mg 325 mg PO DAILY #90 tabs 09/16/24 Rx iron) tablet,delayed release Allergies Allergy/AdvReac Type Severity Reaction Status Date / Time codeine Allergy Severe Rash, Verified 09/18/24 19:47 vomiting meperidine (From Demerol) Allergy Severe Rash,vomiti Verified 09/18/24 19:47 ng dapagliflozin (From Farxiga) Allergy Mild genital Verified 09/18/24 19:47 abscess amlodipine AdvReac Mild pedal edema Verified 09/18/24 19:47 gabapentin (From Neurontin) AdvReac Mild Dizziness Verified 09/18/24 19:47 sitagliptin (From Januvia) AdvReac Mild abscess Verified 09/18/24 23:04 Vital Signs Vital Signs - 24 hr 09/18/24 19:42 09/18/24 20:37 Temperature 97.9 F Pulse Rate 90 Respiratory Rate 21 H Blood Pressure 194/78 H Pulse Oximetry 97 97 Oxygen Delivery Room Air Room Air Exam Narrative: Weight 127.7 kg BMI 40.4 Const: Other: Acutely ill-appearing, morbidly obese, appears stated age HENMT: Other: Mucous membranes are dry, oral exam limited due to BiPAP but patient's oropharynx is definitely crowded, head is normocephalic atraumatic Eyes: Other: Pupils are equal and reactive, lens implants noted bilaterally, positive conjunctival pallor, mild scleral icterus Neck: Other: Large neck circumference, no overt JVD Resp: Other: Tachypnea with accessory muscle use, crackles at the bases Cardio: Other: Regular rate, regular rhythm, no murmur, 2+ bilateral radial pedal pulses GI: Other: Distended, nontender, multiple abdominal scars, nontender Abdomen image:  1. Longitudinal midline scar transecting umbilicus 2. Scar from prior open cholecystectomy : Other: Pure wick catheter in place but patient unable to urinate, bladder scan perform oz at bedside with greater than 700 mL Skin: Other: Generalized pallor, non jaundice, multiple areas of purple discoloration possibly vascular malformations verses bruising which patient's had not noticed previously Full body images:  1. 2. 3. Neuro: Other: Alert oriented x4, speech is clear within limits of expected given presence of BiPAP, no obvious facial asymmetry, cranial nerves 2-12 appear to be grossly intact, no localizing neurologic deficits noted during the course of conversation Extrem: Other: 2+ Pitting edema up through the thighs and into the lower abdomen bilaterally, no clubbing, no cyanosis Psych: Other: Appropriate mood and affect, pleasant and cooperative, fair judgment and insight H&P: Results Labs Labs: Laboratory Tests 09/18/24 20:17 09/18/24 20:17 09/18/24 09/18/24 20:17 21:44 WBC 10.0 RBC 3.41 L Hgb 9.8 L Hct 32.3 L MCV 94.7 MCH 28.7 MCHC 30.3 L RDW 14.7 H Plt Count 238 MPV 10.7 H Immature Gran % (Auto) 0.6 H Neut % (Auto) 57.3 Lymph % (Auto) 30.7 Tripp % (Auto) 9.3 H Eos % (Auto) 1.4 Baso % (Auto) 0.7 Lymph # (Auto) 3.05 Tripp # (Auto) 0.9 H Eos # (Auto) 0.1 Baso # (Auto) 0.1 Abs Immat Gran (auto) 0.06 H Absolute Neuts (auto) 5.7 Absolute Nucleated RBC 0.000 Nucleated RBC % 0.0 PT 13.2 INR 1.0 APTT 29.0 D-Dimer 0.92 H Sodium 144 Potassium 4.4 Chloride 109 H Carbon Dioxide 25 Anion Gap 10 BUN 31 H Creatinine 1.73 H Estim Creat Clear Calc 46 Estimated GFR 39 L Glucose 220 H Calcium 8.4 Total Bilirubin 0.2 AST 27 ALT 19 Alkaline Phosphatase 49 Troponin I < 0.012 NT-Pro-B Natriuret Pep 384 H Total Protein 7.3 Albumin 3.9 Lipase 51 Nasal MRSA (PCR) Pending Impressions Chest X-Ray 09/18/24 20:35 IMPRESSION: No acute cardiopulmonary process. EKG: (nonspecific ST and T-wave abnormalities V1 V2) Test Date: 2024-09-18 19:43:33 Measurements Intervals [place] Rate: 89 P: 78 VA: 221 QRS: -29 QRSD: 113 T: 86 QT: 345 QTc: 420 Interpretive Statements SINUS RHYTHM WITH FIRST DEGREE AV BLOCK INTRAVENTRICULAR CONDUCTION DELAY LOW QRS VOLTAGE IN PRECORDIAL LEADS CANNOT R/O SEPTAL INFARCT, AGE INDETERMINATE BORDERLINE ST-T WAVE ABNORMALITY- HIGH LATERAL LEADS ABNORMAL ECG Compared to ECG 03/07/2024 09:24:59 First degree AV block now present Assessment and Plan Assessment and plan (1) Acute exacerbation of CHF (congestive heart failure): Qualifiers: Heart failure type: unspecified Qualified Code(s): I50.9 - Heart failure, unspecified Code(s): I50.9 - Heart failure, unspecified Status: Acute (2) Hypertensive emergency: Code(s): I16.1 - Hypertensive emergency Status: Acute (3) Obstructive sleep apnea: Code(s): G47.33 - Obstructive sleep apnea (adult) (pediatric) Status: Acute (4) Respiratory distress determined by examination: Code(s): R06.03 - Acute respiratory distress Status: Acute (5) Type 2 diabetes mellitus with hyperglycemia, without long-term current use of insulin: Code(s): E11.65 - Type 2 diabetes mellitus with hyperglycemia Status: Acute (6) Urinary retention due to benign prostatic hyperplasia: Code(s): N40.1 - Benign prostatic hyperplasia with lower urinary tract symptoms; R33.8 - Other retention of urine Status: Acute (7) Stage 3a chronic kidney disease (CKD): Code(s): N18.31 - Chronic kidney disease, stage 3a Status: Acute (8) Anemia: Qualifiers: Anemia type: unspecified type Qualified Code(s): D64.9 - Anemia, unspecified Code(s): D64.9 - Anemia, unspecified Status: Acute Plan Patient presented with respiratory distress with clinical picture concerning for acute on chronic heart failure previously undiagnosed. I suspect right-sided heart failure given likely previously undiagnosed severe obstructive sleep apnea and what appears to be at least moderate biatrial enlargement on bedside echocardiogram with noncompressible IVC. Patient has hypertensive emergency with blood pressures 220s over 90s with persistent chest pain. Patient is started on nitropaste and nitroglycerin drip and has been admitted to the ICU. As the patient's hypertensive crisis is acute in onset it is safe to bring the patient down to normal systolic blood pressures. Will resume the patient's home metoprolol, Cardizem, and lisinopril. The patient has been started on Lasix 40 mg IV q.6 hours per veterinary toxicologist and ER discussion. Will monitor strict I&O's. The patient is having active urinary retention his sounds as if he has been having symptoms of BPH for quite some time. Will start patient on Flomax and will continue home doxazosin. Will continue BiPAP patient is currently on settings of 12/6 with a backup rate of 12. His pulling tidal volumes 500-600 in appears more comfortable. Patient needs to remain on BiPAP at least while sleeping. Patient will need outpatient polysomnogram on discharge. Patient does have chronic kidney disease stage 3 which appears to be relatively stable. Will monitor electrolyte panel in a.m. given aggressive diuresis. Given the patient's elevated D-dimer and degree of respiratory distress will give the patient 1 time dose of 1 milligram/kilogram Lovenox until CTA with PE protocol results are known. Patient did have chest pain but initial troponin was negative. Will monitor serial troponins. Pain is improved with respiratory support and blood pressure control. Will check serial EKGs. Patient does have type 2 diabetes mellitus with hyperglycemia. Will place patient on moderate sliding scale insulin with Accu-Cheks a.c. HS. Will evaluate home hypoglycemic agents and restart if appropriate. Will check A1c with a.m. labs. Patient does have history of chronic anemia but hemoglobin has dropped a couple of grams since prior values in February 2024. Will check iron studies, B12 and folic acid level well as reticulocyte count. Patient could have component of anemia of chronic disease and or some iron deficiency anemia. Denies any active symptoms of bleeding. Will monitor closely. Will place patient on Protonix 40 mg IV daily for stress ulcer prophylaxis. 105 minute spent in critical care activities. Due to a high probability of clinically significant, life threatening deterioration, the patient required my highest level of preparedness to intervene emergently and I personally spent this critical care time directly and personally managing the patient. This critical care time included obtaining a history; examining the patient; pulse oximetry; ordering and review of studies; arranging urgent treatment with development of a management plan; evaluation of patient's response to treatment; frequent reassessment; and discussions with other providers. It was exclusive of separately billable procedures and treating other patients and teaching time. Please see Assessment and Plan section and the rest of the note for further information on patient assessment and treatment.
[2024-09-18] MEDS: LORazepam INJ (*CRX) 2 MG/ML VIAL 0.5 MG IV PUSH (21:14)
[2024-09-18 21:29] LABS: D Dimer 0.92 ug/mL (<0.48)
[2024-09-18] MEDS: NITROGLYCERIN/D5W 200 MCG/ML 50 MG/250 ML BTL IV CONT (21:32)
[2024-09-18] MEDS: NITROGLYCERIN OINTMENT 1 INCH DOSE TRANSDERM (21:41)
--- NOTE | 2024-09-18 22:00 | PC.NURSE ---
This attempted to call report to ICU when service unit operator oil well and COMPUTER ENGINEERING PROFESSOR were arguing about CT being done before pt gets brought. Called CT to come take pt for scan.
--- NOTE | 2024-09-18 22:03 | PC.NURSE ---
On phone for report, notified ADULT PAROLE OFFICER that Dr Martin wants the CTA ordered by Dr Naqvi completed before patient is brought to the floor. ER states 'OK and ended call.
--- NOTE | 2024-09-18 22:19 | PC.NURSE ---
This RN spoke to EDP Dr. Zhang who stated Hospitalist Hopen wants pt up to ICU immediately. CT has been waiting for ED Respiratory to help transport pt and then This RN and ED Resp. will transport pt to floor.
--- NOTE | 2024-09-18 22:24 | PC.NURSE ---
2217 Report received from ER, CT picking up patient for CTA.
--- NOTE | 2024-09-18 22:45 | PC.NURSE ---
This patient, Alex Thao Jr., was admitted to Intensive Care Unit-5. Patient/family oriented to hospital policies and general routines including ID bracelet, bed and alarms, visiting hours, pain management, procedures, bathroom and other care routines, personal items, smoking policy, room service/diet, and visiting hours. Information on how to activate the Rapid Response Team has been discussed. Patient/Family are encouraged to report perceived risks to care and to ask questions if they do not understand what they are told or what they should do.
[2024-09-18] MEDS: LIDOCAINE 2% GEL UROJET 10 ML PKG MUCOUS MEM (23:00)
[2024-09-18 23:04] LABS: MRSA (PCR) NOT DETECTED (NOT DETECTE)
[2024-09-18 23:40] LABS: Immature Reticulocyte Fraction 13.1 % (3.0-15.9); Reticulocyte Hemoglobin Conten 31.1 pg (28.2-36.6); Reticulocyte Percent 1.25 % (0.7-4.3); Reticulocytes Absolute 0.04 10^6/uL (0.02-0.10)
[2024-09-19] VITALS (66 sets, daily range): BP systolic 114–158; BP diastolic 52–98; PULSE 56–110; RESP 6–22; TEMP 36–37.1; O2SAT 96–100
[2024-09-19] MEDS: ENOXAPARIN 120 MG/0.8 ML SYRINGE SUB-Q (00:18)
[2024-09-19 00:20] LABS: Iron 50 ug/dL (49-181)
[2024-09-19] MEDS: NITROGLYCERIN OINTMENT 1 INCH DOSE TRANSDERM ×4 (00:20→17:40)
[2024-09-19 00:29] LABS: Percent Iron Saturation 12 % (20-50)
[2024-09-19 00:32] LABS: Troponin I < 0.012 ng/mL (0.000-0.034)
[2024-09-19] MEDS: FUROSEMIDE INJ 40 MG/4 ML VIAL IV PUSH ×3 (01:17→14:50)
[2024-09-19 02:25] LABS: Troponin I < 0.012 ng/mL (0.000-0.034)
[2024-09-19 03:34] LABS: Folic Acid 11.6 ng/mL (2.76->20)
[2024-09-19 07:29] LABS: Hemoglobin A1C 7.1 % (<5.7)
[2024-09-19] MEDS: MICONAZOLE NITRATE 2% CREAM 30 GM TUBE 1 APPLIC TOPICAL ×2 (09:00→21:30)
[2024-09-19] MEDS: TAMSULOSIN HCL 0.4 MG CAPSULE PO (09:36)
[2024-09-19] MEDS: FENOFIBRATE NANOCRYSTALLIZED 145 MG TABLET PO (09:36)
[2024-09-19] MEDS: PANTOPRAZOLE SODIUM IV 40 MG VIAL IV PUSH (09:36)
[2024-09-19] MEDS: HYDROCORTISONE 2.5% CREAM 30 GM TUBE 1 APPLIC TOPICAL ×2 (09:36→21:30)
[2024-09-19] MEDS: lisinopriL 20 MG TABLET PO (09:37)
[2024-09-19] MEDS: LEVOTHYROXINE SODIUM 50 MCG TABLET PO (09:37)
[2024-09-19] MEDS: METOPROLOL TARTRATE 25 MG TABLET PO ×2 (09:37→21:33)
[2024-09-19] MEDS: ASPIRIN 325 MG ENTERIC TABLET PO (09:37)
[2024-09-19] MEDS: PRAVASTATIN SODIUM 20 MG TABLET 40 MG PO (09:37)
[2024-09-19] MEDS: GLIMEPIRIDE 2 MG TABLET 4 MG PO (09:38)
--- NOTE | 2024-09-19 09:54 | WPDCNINT ---
Assessment and Plan Assessment and plan (1) Acute respiratory failure: Code(s): J96.00 - Acute respiratory failure, unspecified whether with hypoxia or hypercapnia Status: Acute Assessment and Plan: patient presented with acute respiratory failure secondary to congestive heart failure and hypertensive emergency he was placed on BiPAP. he was also given Lasix he appears clinically improved with no respiratory distress at this time and saturating adequately and 25% FiO2 on the BiPAP. I will transition him to nasal cannula continue diuretic BiPAP p.r.n. (2) Hypertensive crisis: Code(s): I16.9 - Hypertensive crisis, unspecified Status: Acute Assessment and Plan: patient was started on nitroglycerin infusion which has been weaned off. I will continue metoprolol and lisinopril at lower dose at this time patient will be diuresed aggressively for his CHF and volume overload will adjust blood pressure medications as needed add p.r.n. labetalol (3) Acute exacerbation of CHF (congestive heart failure): Qualifiers: Heart failure type: unspecified Qualified Code(s): I50.9 - Heart failure, unspecified Code(s): I50.9 - Heart failure, unspecified Status: Acute Assessment and Plan: patient clearly has signs and symptoms of congestive heart failure with bilateral lower extremity edema, orthopnea PND and mild pulmonary edema this could be mostly right heart failure considering patient has untreated sleep apnea and obesity echocardiogram is ordered IV Lasix cardiology consult (4) Dyslipidemia: Code(s): E78.5 - Hyperlipidemia, unspecified Status: Acute Assessment and Plan: continue staff (5) Type 2 diabetes mellitus with hyperglycemia, without long-term current use of insulin: Code(s): E11.65 - Type 2 diabetes mellitus with hyperglycemia Status: Acute Assessment and Plan: patient is on high dose of glimepiride and also on metformin I will continue them and add sliding scale insulin at this time (6) Stage 3a chronic kidney disease (CKD): Code(s): N18.31 - Chronic kidney disease, stage 3a Status: Acute Assessment and Plan: creatinine appears to be close to baseline Duong catheter has been inserted for accurate I&Os any urinary retention monitor urine output electrolytes and creatinine IV Lasix for volume overload (7) Urinary retention: Code(s): R33.9 - Retention of urine, unspecified Status: Acute Assessment and Plan: Duong placed urology consulted (8) Obstructive sleep apnea: Code(s): G47.33 - Obstructive sleep apnea (adult) (pediatric) Status: Acute Assessment and Plan: BiPAP while inpatient. he will need a formal sleep study once he recovers from current issues (9) Chest pain: Code(s): R07.9 - Chest pain, unspecified Status: Acute Assessment and Plan: EKG reviewed troponin negative patient does have history of diabetes mellitus hypertension and hyperlipidemia. he has CHF consult cardiology for evaluation for ischemic coronary disease Plan DVT prophylaxis - Lovenox Stress ulcer prophylaxis - Nutrition - diet ordered Code Status - Full Code Total Critical Care Time - 35 minutes Due to a high probability of clinically significant, life threatening deterioration, the patient required my highest level of preparedness to intervene emergently and I personally spent this critical care time directly and personally managing the patient. This critical care time included obtaining a history; examining the patient; pulse oximetry; ordering and review of studies; arranging urgent treatment with development of a management plan; evaluation of patient's response to treatment; frequent reassessment; and discussions with other providers. It was exclusive of separately billable procedures and treating other patients and teaching time. Please see Assessment and Plan section and the rest of the note for further information on patient assessment and treatment Director Of Coding Consult Note Consult date: 09/19/24 Reason for consult: acute respiratory failure, congestive heart failure, uncontrolled hypertension HPI: Alex Thao Jr. is a 74 year old male with past medical history of essential hypertension, chronic kidney disease stage III, type 2 diabetes mellitus, diabetic peripheral neuropathy, suspected obstructive sleep apnea in multiple prior abdominal surgeries who presented to the ER via private vehicle with shortness of breath, intermittent chest pain and leg swelling. patient states that he has gained about 30 lb over last few months. He had gained couple more lb in last 2 days. He states that he has been having difficulty urinating with poor stream. Over last few days he has been feeling shortness of breath mostly on exertion. He denies any cough fever nausea vomiting. He states he has difficulty laying flat because of shortness of breath. He has also noticed swelling in his legs. Few days ago he had episode of chest pain which was 4/10 severe Hua in the chest resolved by itself. He denies any dysuria hematuria hematochezia melena. He does snore at night and does not know if he has sleep apnea. He states compliance with his medications. Blood pressure is elevated but in controlled range as per patient's report. In the ER patient was found to be having urinary retention. And a Duong catheter was placed. He was also noticed to have elevated blood pressure. He was noticed to have be in respiratory distress. chest x-ray demonstrating no acute cardiopulmonary process and patient was on room air. He was started on BiPAP for respiratory support and given 10 mg of IV hydralazine and 40 mg of IV Lasix. Bedside echo was performed by ER provider and reviewed by myself at bedside patient seemed to have biatrial enlargement and noncompressible IVC suggesting volume overload despite no evidence of for CHF on chest x-ray. Patient had elevated D-dimer 0.92. CTA chest Minimal mosaic attenuation pattern in the lungs. Correlate for minimal pulmonary edema, hypoventilatory change, bronchiolitis, hypersensitivity pneumonitis, chronic interstitial disease He was started on nitro infusion for hypotension and given Lasix and admitted to ICU This morning when I evaluated the patient he is on BiPAP at 25% FiO2 and feels markedly better with improvement in his breathing. He has been weaned off of nitroglycerin infusion. Overnight no new complaints. Denies any chest pain at this time Review of Systems Review of Systems: All systems reviewed & are unremarkable except as noted in HPI and below ( HPI) [facility] Past Medical History Medical History Kidney stones BPH (benign prostatic hyperplasia) Diabetic peripheral neuropathy Type 2 diabetes mellitus with stage 3 chronic kidney disease Stage 3a chronic kidney disease (CKD) Incarcerated incisional hernia (~02/2023) SBO (small bowel obstruction) (~02/2023) Vitamin B12 deficiency Vitamin D deficiency Hypothyroidism Peripheral arterial disease Mildly diminished ankle-brachial index on the left 09/2022 History of colon polyps History of colon cancer (~03/1999) Stage IV at time of initial diagnosis in 1998 s/p partial colectomy currently in remission Dyslipidemia Essential (primary) hypertension HTN (hypertension) Surgical History Surgical History Status post cataract extraction of both eyes with insertion of intraocular lens History of incisional hernia repair (~03/2023) Open reducible incisional hernia repair with Ventralight ST mesh and extensive intra-abdominal adhesiolysis on 03/18/23 SAW History of hernia repair (~2020) Patient has had multiple ventral hernia repairs with most recent being March [address] Lu History of cholecystectomy (~2009) History of colon resection (~03/1999) History of appendectomy (~03/1999) Family History Family History Mother , Early 60s Hypertension Cerebrovascular accident Son , Mid 30s Acute myocardial infarction Grandparent Alcohol abuse Father , Mid 60s Lung cancer Heavy tobacco smoker Social History Social History Social History: Patient is been to his current for over 40 years. He has 2 biological children 1 of which in his mid 30s of heart disease. He has 2 step children. He is a lifelong nonsmoker and does not drink alcohol or use illicit substances. 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 Code status: Full code Surrogate decision maker: Smoking status: Never smoker Alcohol intake: never Substance use: never Substance use type: does not use Do You Feel Safe in your Home?: Yes Lack of Transportation: No Lack of Food: Never True Current Housing: I Have Housing Concerned About Future Housing: No Difficulty Paying Gas/Electric Bills: No Difficulty Paying for Meds: No Currently Unemployed: No Education: Decline to Answer Difficulty w/ Childcare or Family Care: Decline to Answer Living arrangements: with family Occupation/Education: retired Gender identity (if verbalized by the patient): Male Sexual Orientation (if Verbalized by the Patient): Straight or Heterosexual Spiritual care concerns: No Agree to blood products: Yes Meds Home Medications and Allergies Home Medications ?Medication ?Instructions ?Recorded ?Confirmed ?Type hydrocortisone 2.5 % topical cream 1 applic RECTAL DAILY PRN 04/08/23 05/31/24 Rx with perineal applicator hemorrhoids #30 grams (Anusol-HC) diltiazem HCl 240 mg capsule,24 240 mg PO BID #360 caps 01/28/24 05/31/24 Rx hr,extended release glimepiride 4 mg tablet 4 mg PO BID #180 tabs 03/03/24 05/31/24 Rx lisinopril 40 mg tablet 40 mg PO DAILY #90 tabs 03/04/24 05/31/24 Rx cholecalciferol (vitamin D3) 50 50 mcg PO DAILY #90 tabs 05/10/24 05/31/24 Rx mcg (2,000 unit) tablet fenofibrate nanocrystallized 145 145 mg PO DAILY #90 tabs 05/20/24 05/31/24 Rx mg tablet pravastatin 40 mg tablet 40 mg PO QHS #90 tabs 05/20/24 05/31/24 Rx doxazosin 2 mg tablet (Cardura) 2 mg PO DAILY #90 tabs 05/31/24 05/31/24 Rx metformin 500 mg tablet,extended 500 mg PO DAILY #90 tabs 05/31/24 05/31/24 Rx release 24 hr (Glucophage XR) levothyroxine 50 mcg tablet 50 mcg PO DAILY #90 tabs 06/10/24 Rx metoprolol succinate 100 mg 100 mg PO QAM #90 tabs 06/10/24 Rx tablet,extended release 24 hr metoprolol succinate 50 mg 50 mg PO QPM #90 tabs 06/10/24 Rx tablet,extended release 24 hr furosemide 20 mg tablet (Lasix) 20 mg PO QAM #90 tabs 08/30/24 Rx ferrous sulfate 325 mg (65 mg 325 mg PO DAILY #90 tabs 09/16/24 Rx iron) tablet,delayed release Allergies Allergy/AdvReac Type Severity Reaction Status Date / Time codeine Allergy Severe Rash, Verified 09/18/24 19:47 vomiting meperidine (From Demerol) Allergy Severe Rash,vomiti Verified 09/18/24 19:47 ng dapagliflozin (From Farxiga) Allergy Mild genital Verified 09/18/24 19:47 abscess amlodipine AdvReac Mild pedal edema Verified 09/18/24 19:47 gabapentin (From Neurontin) AdvReac Mild Dizziness Verified 09/18/24 19:47 sitagliptin (From Januvia) AdvReac Mild abscess Verified 09/18/24 23:04 Vital Signs Vital Signs - 24 hr 09/18/24 19:42 09/18/24 20:25 09/18/24 20:37 Temperature 36.6 C Pulse Rate 90 87 Respiratory Rate 21 H 22 H Blood Pressure 194/78 H 184/81 H Pulse Oximetry 97 97 97 Oxygen Delivery Room Air Room Air Oxygen Flow Rate Fraction of Inspired Oxygen 09/18/24 20:40 09/18/24 20:40 09/18/24 21:00 Temperature Pulse Rate 90 Respiratory Rate 22 H 22 H Blood Pressure 186/84 H Pulse Oximetry 98 97 100 Oxygen Delivery BiPAP BiPAP Oxygen Flow Rate Fraction of Inspired Oxygen 09/18/24 21:15 09/18/24 21:20 09/18/24 21:32 Temperature Pulse Rate 87 88 87 Respiratory Rate 20 20 Blood Pressure 212/96 H 223/90 H 222/94 H Pulse Oximetry 100 100 Oxygen Delivery Oxygen Flow Rate Fraction of Inspired Oxygen 09/18/24 21:52 09/18/24 22:02 09/18/24 22:20 Temperature Pulse Rate 80 77 91 Respiratory Rate 18 15 17 Blood Pressure 194/88 H 164/143 H Pulse Oximetry 100 100 100 Oxygen Delivery BiPAP Oxygen Flow Rate Fraction of Inspired Oxygen 09/18/24 23:00 09/18/24 23:00 09/18/24 23:00 Temperature Pulse Rate 84 84 84 Respiratory Rate 15 Blood Pressure 155/68 H Pulse Oximetry Oxygen Delivery Oxygen Flow Rate Fraction of Inspired Oxygen 09/18/24 23:05 09/18/24 23:15 09/18/24 23:15 Temperature 36.6 C Pulse Rate 81 80 79 Respiratory Rate 13 16 Blood Pressure 144/63 H 147/68 H Pulse Oximetry 100 99 Oxygen Delivery Oxygen Flow Rate Fraction of Inspired Oxygen 09/18/24 23:16 09/18/24 23:30 09/18/24 23:30 Temperature 36.6 C 36.6 C Pulse Rate 77 75 73 Respiratory Rate 13 12 Blood Pressure 147/68 H 137/69 Pulse Oximetry 100 99 Oxygen Delivery Oxygen Flow Rate Fraction of Inspired Oxygen 09/18/24 23:31 09/18/24 23:45 09/18/24 23:45 Temperature 36.6 C 36.6 C Pulse Rate 75 71 72 Respiratory Rate 15 20 Blood Pressure 137/69 149/67 H Pulse Oximetry 100 99 Oxygen Delivery Oxygen Flow Rate Fraction of Inspired Oxygen 09/18/24 23:46 09/19/24 00:00 09/19/24 00:00 Temperature 36.6 C Pulse Rate 72 75 75 Respiratory Rate 17 15 Blood Pressure 149/67 H 154/69 H Pulse Oximetry 100 100 Oxygen Delivery BiPAP Oxygen Flow Rate Fraction of Inspired Oxygen 09/19/24 00:00 09/19/24 00:00 09/19/24 00:00 Temperature 36.6 C 36.6 C Pulse Rate 75 66 70 Respiratory Rate 15 12 Blood Pressure 154/69 H Pulse Oximetry 100 100 Oxygen Delivery Oxygen Flow Rate Fraction of Inspired Oxygen 09/19/24 00:15 09/19/24 00:15 09/19/24 00:16 Temperature 36.6 C 36.5 C Pulse Rate 65 73 67 Respiratory Rate 21 H 14 Blood Pressure 137/60 137/60 Pulse Oximetry 98 100 Oxygen Delivery Oxygen Flow Rate Fraction of Inspired Oxygen 09/19/24 00:30 09/19/24 00:31 09/19/24 00:45 Temperature 36.6 C 36.6 C 36.5 C Pulse Rate 63 66 61 Respiratory Rate 10 L 10 L 10 L Blood Pressure 136/60 Pulse Oximetry 99 98 99 Oxygen Delivery Oxygen Flow Rate Fraction of Inspired Oxygen 09/19/24 00:46 09/19/24 00:47 09/19/24 01:00 Temperature 36.5 C 36.5 C 36.4 C Pulse Rate 65 62 60 Respiratory Rate 10 L 10 L 10 L Blood Pressure 121/54 L Pulse Oximetry 96 98 100 Oxygen Delivery Oxygen Flow Rate Fraction of Inspired Oxygen 09/19/24 01:01 09/19/24 01:15 09/19/24 01:30 Temperature 36.4 C 36.4 C L 36.3 C L Pulse Rate 58 L 60 56 L Respiratory Rate 10 L 9 L 9 L Blood Pressure 115/56 L 121/59 L Pulse Oximetry 99 100 100 Oxygen Delivery Oxygen Flow Rate Fraction of Inspired Oxygen 09/19/24 01:31 09/19/24 01:46 09/19/24 02:00 Temperature 36.3 C L 36.3 C L Pulse Rate 59 L 60 58 L Respiratory Rate 9 L 8 L Blood Pressure 133/52 L 145/58 H 123/57 L Pulse Oximetry 99 98 Oxygen Delivery Oxygen Flow Rate Fraction of Inspired Oxygen 09/19/24 02:00 09/19/24 02:01 09/19/24 02:16 Temperature 36.2 C L 36.2 C L Pulse Rate 57 L 58 L 56 L Respiratory Rate 9 L 10 L Blood Pressure 123/57 L Pulse Oximetry 100 99 Oxygen Delivery Oxygen Flow Rate Fraction of Inspired Oxygen 09/19/24 02:16 09/19/24 02:16 09/19/24 02:30 Temperature 36.2 C L 36.2 C L Pulse Rate 56 L 58 L 60 Respiratory Rate 10 L 8 L 10 L Blood Pressure 140/53 L 140/53 L Pulse Oximetry 99 99 100 Oxygen Delivery Oxygen Flow Rate Fraction of Inspired Oxygen 09/19/24 02:31 09/19/24 02:40 09/19/24 02:46 Temperature 36.2 C L 36.1 C L Pulse Rate 56 L 58 L 58 L Respiratory Rate 12 16 10 L Blood Pressure 130/55 L 134/56 L Pulse Oximetry 100 99 100 Oxygen Delivery BiPAP Oxygen Flow Rate Fraction of Inspired Oxygen 09/19/24 03:00 09/19/24 03:01 09/19/24 03:30 Temperature 36.1 C L 36.1 C L 36.1 C L Pulse Rate 64 57 L 63 Respiratory Rate 11 L 8 L 10 L Blood Pressure 146/57 H Pulse Oximetry 99 100 99 Oxygen Delivery Oxygen Flow Rate Fraction of Inspired Oxygen 09/19/24 03:31 09/19/24 03:46 09/19/24 04:00 Temperature 36.1 C L 36.1 C L 36.0 C L Pulse Rate 64 56 L 68 Respiratory Rate 9 L 12 12 Blood Pressure 144/59 H 137/56 L 123/91 H Pulse Oximetry 99 100 100 Oxygen Delivery Oxygen Flow Rate Fraction of Inspired Oxygen 09/19/24 04:00 09/19/24 04:00 09/19/24 04:00 Temperature 36.0 C L Pulse Rate 65 72 Respiratory Rate 13 Blood Pressure Pulse Oximetry 100 99 Oxygen Delivery BiPAP Oxygen Flow Rate Fraction of Inspired Oxygen 09/19/24 04:01 09/19/24 04:16 09/19/24 04:30 Temperature 36.0 C L 36.0 C L 36.0 C L Pulse Rate 61 81 71 Respiratory Rate 9 L 16 12 Blood Pressure 123/91 H 137/83 Pulse Oximetry 100 100 100 Oxygen Delivery Oxygen Flow Rate Fraction of Inspired Oxygen 09/19/24 04:31 09/19/24 04:45 09/19/24 05:00 Temperature 36.0 C L 36.0 C L 36.0 C L Pulse Rate 70 66 62 Respiratory Rate 10 L 12 11 L Blood Pressure 136/61 132/63 Pulse Oximetry 100 100 100 Oxygen Delivery Oxygen Flow Rate Fraction of Inspired Oxygen 09/19/24 05:01 09/19/24 05:02 09/19/24 05:15 Temperature 36.0 C L 36.0 C L 36.1 C L Pulse Rate 60 62 67 Respiratory Rate 6 L 13 12 Blood Pressure 127/52 L Pulse Oximetry 100 100 100 Oxygen Delivery Oxygen Flow Rate Fraction of Inspired Oxygen 09/19/24 05:16 09/19/24 05:30 09/19/24 05:31 Temperature 36.0 C L 36.1 C L 36.1 C L Pulse Rate 60 60 65 Respiratory Rate 12 14 12 Blood Pressure 142/58 H 128/55 L Pulse Oximetry 100 100 99 Oxygen Delivery Oxygen Flow Rate Fraction of Inspired Oxygen 09/19/24 05:45 09/19/24 05:46 09/19/24 06:00 Temperature 36.1 C L 36.1 C L Pulse Rate 62 72 65 Respiratory Rate 9 L 11 L Blood Pressure 114/54 L Pulse Oximetry 99 98 Oxygen Delivery Oxygen Flow Rate Fraction of Inspired Oxygen 09/19/24 06:00 09/19/24 06:00 09/19/24 06:01 Temperature 36.1 C L 36.1 C L 36.1 C L Pulse Rate 65 63 61 Respiratory Rate 12 11 L 12 Blood Pressure 114/54 L 114/54 L Pulse Oximetry 99 98 100 Oxygen Delivery Oxygen Flow Rate Fraction of Inspired Oxygen 09/19/24 06:02 09/19/24 06:15 09/19/24 06:16 Temperature 36.1 C L 36.1 C L Pulse Rate 74 63 60 Respiratory Rate 10 L 10 L Blood Pressure 115/54 L 125/56 L Pulse Oximetry 99 99 Oxygen Delivery Oxygen Flow Rate Fraction of Inspired Oxygen 09/19/24 06:30 09/19/24 06:31 09/19/24 08:00 Temperature 36.1 C L 36.1 C L 36.6 C Pulse Rate 64 65 79 Respiratory Rate 11 L 12 13 Blood Pressure 118/55 L 151/73 H Pulse Oximetry 98 99 97 Oxygen Delivery Oxygen Flow Rate Fraction of Inspired Oxygen 09/19/24 08:00 09/19/24 08:00 09/19/24 08:17 Temperature Pulse Rate 80 73 72 Respiratory Rate 14 Blood Pressure 151/73 H Pulse Oximetry 99 Oxygen Delivery BiPAP Oxygen Flow Rate Fraction of Inspired Oxygen 09/19/24 08:20 09/19/24 09:32 09/19/24 09:37 Temperature Pulse Rate 73 80 Respiratory Rate Blood Pressure 132/67 Pulse Oximetry 99 Oxygen Delivery Nasal Cannula Oxygen Flow Rate 2 Fraction of Inspired Oxygen 28 Exam Narrative: General: Pt is alert awake and in NAD Lungs/Chest: Trachea central Clear BS B/L, few crackles at the bases bilaterally, no respiratory distress tachypnea or use of accessory muscles at this time. Cardiac: RRR. Normal S1 S2. No murmurs Circulation: Pedal pulses are intact and symmetrical. Abdomen: Normal bowel sounds obese.. Soft. NT. ND. Extremities: bilateral lower extremity pitting edema present : Duong in place Neurologic: Follows commands. Moves all 4 extremities PERRL Skin: No Rash, had fungal infection and inguinal skin folds Results Labs 09/18/24 20:17 09/18/24 20:17 Labs: Impressions Chest X-Ray 09/18/24 20:35 IMPRESSION: No acute cardiopulmonary process. Chest CTA 09/19/24 06:17 Impression: No evidence of pulmonary embolus, aortic dissection, or aortic aneurysm. Minimal mosaic attenuation pattern in the lungs. Correlate for minimal pulmonary edema, hypoventilatory change, bronchiolitis, hypersensitivity pneumonitis, chronic interstitial disease. Short CBC 09/18/24 Range/Units 20:17 WBC 10.0 (4.5-10.0) K/mm3 Hgb 9.8 L (14.0-18.0) g/dL Hct 32.3 L (42.0-52.0) % Plt Count 238 (150-375) k/mm3 BMP 09/18/24 20:17 Sodium 144 Potassium 4.4 Chloride 109 H Carbon Dioxide 25 BUN 31 H Creatinine 1.73 H Glucose 220 H Calcium 8.4 Cardiac Enzymes 09/18/24 09/18/24 09/19/24 Range/Units 20:17 23:30 01:43 Troponin I < 0.012 < 0.012 < 0.012 (0.000-0.034) ng/mL Liver Function 09/18/24 Range/Units 20:17 Total Bilirubin 0.2 (0.2-1.3) mg/dL AST 27 (17-59) U/L ALT 19 (6-50) U/L Alkaline Phosphatase 49 (38-126) U/L Albumin 3.9 (3.5-5.1) g/dL Quality VTE Prophylaxis VTE prophylaxis: pharmacologic ordered Hospitalist MIPS Advance Care Plan I have confirmed that the patient's Advanced Care Plan is present, code status is documented, or surrogate decision maker is listed in patient medical record.: Yes Medication Reconciliation I have utilized all available resources to obtain, update and review the patients current medications (includes all prescriptions, OTC, herbals, cannabis, and nutritional supplements).: Yes
--- NOTE | 2024-09-19 09:57 | P.CONUR_ITS ---
Assessment and Plan Assessment and plan (1) Urinary retention: Code(s): R33.9 - Retention of urine, unspecified Status: Acute Assessment and Plan: Etiology for his retention is unclear but there is concern that he may have an atonic component given his lack of sensation. At this point time will need Duong catheter for about a week. He once catheter is no longer needed for his diuresis he will have a voiding trial which can be done as an outpatient if needed. Continue with tamsulosin for the time being. If he fails his voiding trial he may need urodynamics and cystoscopy as an outpatient Urology Consult Note HPI Date Seen: 09/19/24 Time Seen: 09:58 Requesting Physician: Kenzie Martin DO Primary Care Provider: Sanjeev Sainz MD Consult Narrative Reason for consult: Urinary retention patient had Narrative: Alex Thao Jr. is a 74 year old male admitted to the intensive care unit with respiratory issues. Patient has multiple medical issues. Were asked to see him after Doung catheter was placed in the emergency room with anywhere from 800-1000 cc. Patient denied any discomfort prior to that. He states that he normally has nocturia every hour and voids every couple hours during the daytime with a poor stream. He denied being on any medicines for his prostate but a tamsulosin as listed as a home medication. He has never seen a urologist nor has he had any surgery on his prostate. He has a history of colon cancer with chemo and radiation. Currently his Duong catheter is draining clear urine Review of Systems 2 Review of Systems: All systems reviewed & are unremarkable except as noted in HPI and below PMFSH Past Medical History Medical History Kidney stones BPH (benign prostatic hyperplasia) Diabetic peripheral neuropathy Type 2 diabetes mellitus with stage 3 chronic kidney disease Stage 3a chronic kidney disease (CKD) Incarcerated incisional hernia (~02/2023) SBO (small bowel obstruction) (~02/2023) Vitamin B12 deficiency Vitamin D deficiency Hypothyroidism Peripheral arterial disease Mildly diminished ankle-brachial index on the left 09/2022 History of colon polyps History of colon cancer (~03/1999) Stage IV at time of initial diagnosis in 1998 s/p partial colectomy currently in remission Dyslipidemia Essential (primary) hypertension HTN (hypertension) Surgical History Surgical History Status post cataract extraction of both eyes with insertion of intraocular lens History of incisional hernia repair (~03/2023) Open reducible incisional hernia repair with Ventralight ST mesh and extensive intra-abdominal adhesiolysis on 03/18/23 SAW History of hernia repair (~2020) Patient has had multiple ventral hernia repairs with most recent being March [address] Lu History of cholecystectomy (~2009) History of colon resection (~03/1999) History of appendectomy (~03/1999) Family History Family History Mother , Early 60s Hypertension Cerebrovascular accident Son , Mid 30s Acute myocardial infarction Grandparent Alcohol abuse Father , Mid 60s Lung cancer Heavy tobacco smoker Social History Social History Social History: Patient is been to his current for over 40 years. He has 2 biological children 1 of which in his mid 30s of heart disease. He has 2 step children. He is a lifelong nonsmoker and does not drink alcohol or use illicit substances. 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 Code status: Full code Surrogate decision maker: Smoking status: Never smoker Alcohol intake: never Substance use: never Substance use type: does not use Do You Feel Safe in your Home?: Yes Lack of Transportation: No Lack of Food: Never True Current Housing: I Have Housing Concerned About Future Housing: No Difficulty Paying Gas/Electric Bills: No Difficulty Paying for Meds: No Currently Unemployed: No Education: Decline to Answer Difficulty w/ Childcare or Family Care: Decline to Answer Living arrangements: with family Occupation/Education: retired Gender identity (if verbalized by the patient): Male Sexual Orientation (if Verbalized by the Patient): Straight or Heterosexual Spiritual care concerns: No Agree to blood products: Yes Meds Home Medications and Allergies Home Medications ?Medication ?Instructions ?Recorded ?Confirmed ?Type hydrocortisone 2.5 % topical cream 1 applic RECTAL DAILY PRN 04/08/23 05/31/24 Rx with perineal applicator hemorrhoids #30 grams (Anusol-HC) diltiazem HCl 240 mg capsule,24 240 mg PO BID #360 caps 01/28/24 05/31/24 Rx hr,extended release glimepiride 4 mg tablet 4 mg PO BID #180 tabs 03/03/24 05/31/24 Rx lisinopril 40 mg tablet 40 mg PO DAILY #90 tabs 03/04/24 05/31/24 Rx cholecalciferol (vitamin D3) 50 50 mcg PO DAILY #90 tabs 05/10/24 05/31/24 Rx mcg (2,000 unit) tablet fenofibrate nanocrystallized 145 145 mg PO DAILY #90 tabs 05/20/24 05/31/24 Rx mg tablet pravastatin 40 mg tablet 40 mg PO QHS #90 tabs 05/20/24 05/31/24 Rx doxazosin 2 mg tablet (Cardura) 2 mg PO DAILY #90 tabs 05/31/24 05/31/24 Rx metformin 500 mg tablet,extended 500 mg PO DAILY #90 tabs 05/31/24 05/31/24 Rx release 24 hr (Glucophage XR) levothyroxine 50 mcg tablet 50 mcg PO DAILY #90 tabs 06/10/24 Rx metoprolol succinate 100 mg 100 mg PO QAM #90 tabs 06/10/24 Rx tablet,extended release 24 hr metoprolol succinate 50 mg 50 mg PO QPM #90 tabs 06/10/24 Rx tablet,extended release 24 hr furosemide 20 mg tablet (Lasix) 20 mg PO QAM #90 tabs 08/30/24 Rx ferrous sulfate 325 mg (65 mg 325 mg PO DAILY #90 tabs 09/16/24 Rx iron) tablet,delayed release Allergies Allergy/AdvReac Type Severity Reaction Status Date / Time codeine Allergy Severe Rash, Verified 09/18/24 19:47 vomiting meperidine (From Demerol) Allergy Severe Rash,vomiti Verified 09/18/24 19:47 ng dapagliflozin (From Farxiga) Allergy Mild genital Verified 09/18/24 19:47 abscess amlodipine AdvReac Mild pedal edema Verified 09/18/24 19:47 gabapentin (From Neurontin) AdvReac Mild Dizziness Verified 09/18/24 19:47 sitagliptin (From Januvia) AdvReac Mild abscess Verified 09/18/24 23:04 Vital Signs Vital Signs - 24 hr 09/18/24 19:42 09/18/24 20:25 09/18/24 20:37 Temperature 36.6 C Pulse Rate 90 87 Respiratory Rate 21 H 22 H Blood Pressure 194/78 H 184/81 H Pulse Oximetry 97 97 97 Oxygen Delivery Room Air Room Air Oxygen Flow Rate Fraction of Inspired Oxygen 09/18/24 20:40 09/18/24 20:40 09/18/24 21:00 Temperature Pulse Rate 90 Respiratory Rate 22 H 22 H Blood Pressure 186/84 H Pulse Oximetry 98 97 100 Oxygen Delivery BiPAP BiPAP Oxygen Flow Rate Fraction of Inspired Oxygen 09/18/24 21:15 09/18/24 21:20 09/18/24 21:32 Temperature Pulse Rate 87 88 87 Respiratory Rate 20 20 Blood Pressure 212/96 H 223/90 H 222/94 H Pulse Oximetry 100 100 Oxygen Delivery Oxygen Flow Rate Fraction of Inspired Oxygen 09/18/24 21:52 09/18/24 22:02 09/18/24 22:20 Temperature Pulse Rate 80 77 91 Respiratory Rate 18 15 17 Blood Pressure 194/88 H 164/143 H Pulse Oximetry 100 100 100 Oxygen Delivery BiPAP Oxygen Flow Rate Fraction of Inspired Oxygen 09/18/24 23:00 09/18/24 23:00 09/18/24 23:00 Temperature Pulse Rate 84 84 84 Respiratory Rate 15 Blood Pressure 155/68 H Pulse Oximetry Oxygen Delivery Oxygen Flow Rate Fraction of Inspired Oxygen 09/18/24 23:05 09/18/24 23:15 09/18/24 23:15 Temperature 36.6 C Pulse Rate 81 80 79 Respiratory Rate 13 16 Blood Pressure 144/63 H 147/68 H Pulse Oximetry 100 99 Oxygen Delivery Oxygen Flow Rate Fraction of Inspired Oxygen 09/18/24 23:16 09/18/24 23:30 09/18/24 23:30 Temperature 36.6 C 36.6 C Pulse Rate 77 75 73 Respiratory Rate 13 12 Blood Pressure 147/68 H 137/69 Pulse Oximetry 100 99 Oxygen Delivery Oxygen Flow Rate Fraction of Inspired Oxygen 09/18/24 23:31 09/18/24 23:45 09/18/24 23:45 Temperature 36.6 C 36.6 C Pulse Rate 75 71 72 Respiratory Rate 15 20 Blood Pressure 137/69 149/67 H Pulse Oximetry 100 99 Oxygen Delivery Oxygen Flow Rate Fraction of Inspired Oxygen 09/18/24 23:46 09/19/24 00:00 09/19/24 00:00 Temperature 36.6 C Pulse Rate 72 75 75 Respiratory Rate 17 15 Blood Pressure 149/67 H 154/69 H Pulse Oximetry 100 100 Oxygen Delivery BiPAP Oxygen Flow Rate Fraction of Inspired Oxygen 25 09/19/24 00:00 09/19/24 00:00 09/19/24 00:00 Temperature 36.6 C 36.6 C Pulse Rate 75 66 70 Respiratory Rate 15 12 Blood Pressure 154/69 H Pulse Oximetry 100 100 Oxygen Delivery Oxygen Flow Rate Fraction of Inspired Oxygen 09/19/24 00:15 09/19/24 00:15 09/19/24 00:16 Temperature 36.6 C 36.5 C Pulse Rate 65 73 67 Respiratory Rate 21 H 14 Blood Pressure 137/60 137/60 Pulse Oximetry 98 100 Oxygen Delivery Oxygen Flow Rate Fraction of Inspired Oxygen 09/19/24 00:30 09/19/24 00:31 09/19/24 00:45 Temperature 36.6 C 36.6 C 36.5 C Pulse Rate 63 66 61 Respiratory Rate 10 L 10 L 10 L Blood Pressure 136/60 Pulse Oximetry 99 98 99 Oxygen Delivery Oxygen Flow Rate Fraction of Inspired Oxygen 09/19/24 00:46 09/19/24 00:47 09/19/24 01:00 Temperature 36.5 C 36.5 C 36.4 C Pulse Rate 65 62 60 Respiratory Rate 10 L 10 L 10 L Blood Pressure 121/54 L Pulse Oximetry 96 98 100 Oxygen Delivery Oxygen Flow Rate Fraction of Inspired Oxygen 09/19/24 01:01 09/19/24 01:15 09/19/24 01:30 Temperature 36.4 C 36.4 C L 36.3 C L Pulse Rate 58 L 60 56 L Respiratory Rate 10 L 9 L 9 L Blood Pressure 115/56 L 121/59 L Pulse Oximetry 99 100 100 Oxygen Delivery Oxygen Flow Rate Fraction of Inspired Oxygen 09/19/24 01:31 09/19/24 01:46 09/19/24 02:00 Temperature 36.3 C L 36.3 C L Pulse Rate 59 L 60 58 L Respiratory Rate 9 L 8 L Blood Pressure 133/52 L 145/58 H 123/57 L Pulse Oximetry 99 98 Oxygen Delivery Oxygen Flow Rate Fraction of Inspired Oxygen 09/19/24 02:00 09/19/24 02:01 09/19/24 02:16 Temperature 36.2 C L 36.2 C L Pulse Rate 57 L 58 L 56 L Respiratory Rate 9 L 10 L Blood Pressure 123/57 L Pulse Oximetry 100 99 Oxygen Delivery Oxygen Flow Rate Fraction of Inspired Oxygen 09/19/24 02:16 09/19/24 02:16 09/19/24 02:30 Temperature 36.2 C L 36.2 C L Pulse Rate 56 L 58 L 60 Respiratory Rate 10 L 8 L 10 L Blood Pressure 140/53 L 140/53 L Pulse Oximetry 99 99 100 Oxygen Delivery Oxygen Flow Rate Fraction of Inspired Oxygen 09/19/24 02:31 09/19/24 02:40 09/19/24 02:46 Temperature 36.2 C L 36.1 C L Pulse Rate 56 L 58 L 58 L Respiratory Rate 12 16 10 L Blood Pressure 130/55 L 134/56 L Pulse Oximetry 100 99 100 Oxygen Delivery BiPAP Oxygen Flow Rate Fraction of Inspired Oxygen 09/19/24 03:00 09/19/24 03:01 09/19/24 03:30 Temperature 36.1 C L 36.1 C L 36.1 C L Pulse Rate 64 57 L 63 Respiratory Rate 11 L 8 L 10 L Blood Pressure 146/57 H Pulse Oximetry 99 100 99 Oxygen Delivery Oxygen Flow Rate Fraction of Inspired Oxygen 09/19/24 03:31 09/19/24 03:46 09/19/24 04:00 Temperature 36.1 C L 36.1 C L 36.0 C L Pulse Rate 64 56 L 68 Respiratory Rate 9 L 12 12 Blood Pressure 144/59 H 137/56 L 123/91 H Pulse Oximetry 99 100 100 Oxygen Delivery Oxygen Flow Rate Fraction of Inspired Oxygen 09/19/24 04:00 09/19/24 04:00 09/19/24 04:00 Temperature 36.0 C L Pulse Rate 65 72 Respiratory Rate 13 Blood Pressure Pulse Oximetry 100 99 Oxygen Delivery BiPAP Oxygen Flow Rate Fraction of Inspired Oxygen 09/19/24 04:01 09/19/24 04:16 09/19/24 04:30 Temperature 36.0 C L 36.0 C L 36.0 C L Pulse Rate 61 81 71 Respiratory Rate 9 L 16 12 Blood Pressure 123/91 H 137/83 Pulse Oximetry 100 100 100 Oxygen Delivery Oxygen Flow Rate Fraction of Inspired Oxygen 09/19/24 04:31 09/19/24 04:45 09/19/24 05:00 Temperature 36.0 C L 36.0 C L 36.0 C L Pulse Rate 70 66 62 Respiratory Rate 10 L 12 11 L Blood Pressure 136/61 132/63 Pulse Oximetry 100 100 100 Oxygen Delivery Oxygen Flow Rate Fraction of Inspired Oxygen 09/19/24 05:01 09/19/24 05:02 09/19/24 05:15 Temperature 36.0 C L 36.0 C L 36.1 C L Pulse Rate 60 62 67 Respiratory Rate 6 L 13 12 Blood Pressure 127/52 L Pulse Oximetry 100 100 100 Oxygen Delivery Oxygen Flow Rate Fraction of Inspired Oxygen 09/19/24 05:16 09/19/24 05:30 09/19/24 05:31 Temperature 36.0 C L 36.1 C L 36.1 C L Pulse Rate 60 60 65 Respiratory Rate 12 14 12 Blood Pressure 142/58 H 128/55 L Pulse Oximetry 100 100 99 Oxygen Delivery Oxygen Flow Rate Fraction of Inspired Oxygen 09/19/24 05:45 09/19/24 05:46 09/19/24 06:00 Temperature 36.1 C L 36.1 C L Pulse Rate 62 72 65 Respiratory Rate 9 L 11 L Blood Pressure 114/54 L Pulse Oximetry 99 98 Oxygen Delivery Oxygen Flow Rate Fraction of Inspired Oxygen 09/19/24 06:00 09/19/24 06:00 09/19/24 06:01 Temperature 36.1 C L 36.1 C L 36.1 C L Pulse Rate 65 63 61 Respiratory Rate 12 11 L 12 Blood Pressure 114/54 L 114/54 L Pulse Oximetry 99 98 100 Oxygen Delivery Oxygen Flow Rate Fraction of Inspired Oxygen 09/19/24 06:02 09/19/24 06:15 09/19/24 06:16 Temperature 36.1 C L 36.1 C L Pulse Rate 74 63 60 Respiratory Rate 10 L 10 L Blood Pressure 115/54 L 125/56 L Pulse Oximetry 99 99 Oxygen Delivery Oxygen Flow Rate Fraction of Inspired Oxygen 09/19/24 06:30 09/19/24 06:31 09/19/24 08:00 Temperature 36.1 C L 36.1 C L 36.6 C Pulse Rate 64 65 79 Respiratory Rate 11 L 12 13 Blood Pressure 118/55 L 151/73 H Pulse Oximetry 98 99 97 Oxygen Delivery Oxygen Flow Rate Fraction of Inspired Oxygen 09/19/24 08:00 09/19/24 08:00 09/19/24 08:17 Temperature Pulse Rate 80 73 72 Respiratory Rate 14 Blood Pressure 151/73 H Pulse Oximetry 99 Oxygen Delivery BiPAP Oxygen Flow Rate Fraction of Inspired Oxygen 09/19/24 08:20 09/19/24 09:32 09/19/24 09:37 Temperature Pulse Rate 73 80 Respiratory Rate Blood Pressure 132/67 Pulse Oximetry 99 Oxygen Delivery Nasal Cannula Oxygen Flow Rate 2 Fraction of Inspired Oxygen 28 Exam 2 Const: General: cooperative Urinary Catheter: Urinary Catheter: patent and draining and urine clear Results Labs 09/18/24 20:17 09/18/24 20:17 Labs: Short CBC 09/18/24 Range/Units 20:17 WBC 10.0 (4.5-10.0) K/mm3 Hgb 9.8 L (14.0-18.0) g/dL Hct 32.3 L (42.0-52.0) % Plt Count 238 (150-375) k/mm3 BMP 09/18/24 20:17 Sodium 144 Potassium 4.4 Chloride 109 H Carbon Dioxide 25 BUN 31 H Creatinine 1.73 H Glucose 220 H Calcium 8.4 Cardiac Enzymes 09/18/24 09/18/24 09/19/24 Range/Units 20:17 23:30 01:43 Troponin I < 0.012 < 0.012 < 0.012 (0.000-0.034) ng/mL Liver Function 09/18/24 Range/Units 20:17 Total Bilirubin 0.2 (0.2-1.3) mg/dL AST 27 (17-59) U/L ALT 19 (6-50) U/L Alkaline Phosphatase 49 (38-126) U/L Albumin 3.9 (3.5-5.1) g/dL
--- NOTE | 2024-09-19 10:08 | P.CONCA_ITS ---
Assessment and Plan Assessment and plan (1) Acute exacerbation of CHF (congestive heart failure): Qualifiers: Heart failure type: unspecified Qualified Code(s): I50.9 - Heart failure, unspecified Code(s): I50.9 - Heart failure, unspecified Status: Acute Plan -acute CHF exacerbation, unspecified -chest pressure -CKD stage 3 -hypertension -hyperlipidemia -diabetes -in regards to acute heart failure exacerbation, nonspecified. Order echocardiogram to assess cardiac structure and function. Reported gaining 30 lb. Continue IV Lasix. Serum albumin 3.9. -in regards to chest pressure he will benefit from ischemic evaluation at some point -in regards to hypertension urgency, blood pressure improved. Continue metoprolol, lisinopril. -in regards to hyperlipidemia continue pravastatin. -in regards to her diabetes, management per primary team, hemoglobin A1c 7.3 History of Present Illness History of Present Illness Consult date/time: Date of service 09/19/24 10:08 Requesting physician: Seth Camargo MD Consult reason: chest pain, congestive heart failure and Other (Diabetes) Reason For Visit: Hypertensive crisis, Difficulty breathing Narrative: This 74-year-old patient with history of diabetes, hypertension, CKD stage 3, history of colon cancer in remission since 1999 who presents here to the hospital with progressive weight gain, shortness of breath and chest pressure. He stated that he was having increasing lower extremity edema and so his PCP in August and started him on Lasix 20 mg daily but since then he gained 30 lb. stated that he has also abdominal distention. For the last 1 weeks admits to central chest pressure with no radiation. He sleeps usually on a recliner because cannot lay flat. Noticed to have apnea episodes in the past. His blood pressure on admission was severely elevated as well. Blood pressure this morning 158/73. He is receiving IV Lasix and his lower extremity edema much improved. His labs show creatinine 1.7 which is baseline. Albumin 3.9, brain atretic peptide 384. Troponins x2 negative. Chest x-ray reviewed was muscle unremarkable, CTA thorax ruled out pulmonary embolism and shows mosaic pattern which can be edema versus bronchiolitis versus chronic changes. EKG reviewed and as massive sinus rhythm, first-degree heart block, interventricular conduction delay, possible septal Q-waves. Review of Systems 2 Constitutional: Constitutional: Denies chills, Denies fever(s) and Denies poor appetite Eyes: Eyes: Denies eye discharge, Denies loss of vision and Denies eye pain ENT: Denies dizziness, Denies epistaxis, Denies nasal congestion and Denies sore throat Cardiovascular: Cardiovascular: Reports chest pain, Denies syncope, Denies pedal edema, Reports leg edema, Denies palpitations, Reports dyspnea, Reports dyspnea on exertion and Reports orthopnea Respiratory: Respiratory: Denies cough, Reports dyspnea, Reports dyspnea on exertion and Denies wheezing Gastrointestinal: Gastrointestinal: Denies abdominal pain, Denies diarrhea, Denies nausea and Denies vomiting Genitourinary: Genitourinary: Denies hematuria, Denies genital lesions and Denies dysuria Musculoskeletal: Musculoskeletal: Denies arthralgias, Denies joint swelling and Denies numbness Integumentary/Breasts: Skin/Breast: Denies pruritus and Denies rash Neurologic: Denies dizziness, Denies syncope, Denies loss of vision and Denies numbness Psychiatric: Psychiatric: Denies anxiety and Denies depression Endocrine: Endocrine: Denies cold intolerance, Denies heat intolerance and Denies palpitations Hematologic/Lymphatic: Hematologic/Lymphatic: Denies easy bleeding and Denies easy bruising Allergic/Immunologic: Allergic/Immunologic: Denies urticaria and Denies wheezing PMFSH Past Medical History Medical History Kidney stones BPH (benign prostatic hyperplasia) Diabetic peripheral neuropathy Type 2 diabetes mellitus with stage 3 chronic kidney disease Stage 3a chronic kidney disease (CKD) Incarcerated incisional hernia (~02/2023) SBO (small bowel obstruction) (~02/2023) Vitamin B12 deficiency Vitamin D deficiency Hypothyroidism Peripheral arterial disease Mildly diminished ankle-brachial index on the left 09/2022 History of colon polyps History of colon cancer (~03/1999) Stage IV at time of initial diagnosis in 1998 s/p partial colectomy currently in remission Dyslipidemia Essential (primary) hypertension HTN (hypertension) Surgical History Surgical History Status post cataract extraction of both eyes with insertion of intraocular lens History of incisional hernia repair (~03/2023) Open reducible incisional hernia repair with Ventralight ST mesh and extensive intra-abdominal adhesiolysis on 03/18/23 SAW History of hernia repair (~2020) Patient has had multiple ventral hernia repairs with most recent being March [address] Lu History of cholecystectomy (~2009) History of colon resection (~03/1999) History of appendectomy (~03/1999) Family History Family History Mother , Early 60s Hypertension Cerebrovascular accident Son , Mid 30s Acute myocardial infarction Grandparent Alcohol abuse Father , Mid 60s Lung cancer Heavy tobacco smoker Social History Social History Social History: Patient is been to his current for over 40 years. He has 2 biological children 1 of which in his mid 30s of heart disease. He has 2 step children. He is a lifelong nonsmoker and does not drink alcohol or use illicit substances. 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 Code status: Full code Surrogate decision maker: Smoking status: Never smoker Alcohol intake: never Substance use: never Substance use type: does not use Do You Feel Safe in your Home?: Yes Lack of Transportation: No Lack of Food: Never True Current Housing: I Have Housing Concerned About Future Housing: No Difficulty Paying Gas/Electric Bills: No Difficulty Paying for Meds: No Currently Unemployed: No Education: Decline to Answer Difficulty w/ Childcare or Family Care: Decline to Answer Living arrangements: with family Occupation/Education: retired Gender identity (if verbalized by the patient): Male Sexual Orientation (if Verbalized by the Patient): Straight or Heterosexual Spiritual care concerns: No Agree to blood products: Yes Meds Home Medications and Allergies Home Medications ?Medication ?Instructions ?Recorded ?Confirmed ?Type hydrocortisone 2.5 % topical cream 1 applic RECTAL DAILY PRN 04/08/23 05/31/24 Rx with perineal applicator hemorrhoids #30 grams (Anusol-HC) diltiazem HCl 240 mg capsule,24 240 mg PO BID #360 caps 01/28/24 05/31/24 Rx hr,extended release glimepiride 4 mg tablet 4 mg PO BID #180 tabs 03/03/24 05/31/24 Rx lisinopril 40 mg tablet 40 mg PO DAILY #90 tabs 03/04/24 05/31/24 Rx cholecalciferol (vitamin D3) 50 50 mcg PO DAILY #90 tabs 05/10/24 05/31/24 Rx mcg (2,000 unit) tablet fenofibrate nanocrystallized 145 145 mg PO DAILY #90 tabs 05/20/24 05/31/24 Rx mg tablet pravastatin 40 mg tablet 40 mg PO QHS #90 tabs 05/20/24 05/31/24 Rx doxazosin 2 mg tablet (Cardura) 2 mg PO DAILY #90 tabs 05/31/24 05/31/24 Rx metformin 500 mg tablet,extended 500 mg PO DAILY #90 tabs 05/31/24 05/31/24 Rx release 24 hr (Glucophage XR) levothyroxine 50 mcg tablet 50 mcg PO DAILY #90 tabs 06/10/24 Rx metoprolol succinate 100 mg 100 mg PO QAM #90 tabs 06/10/24 Rx tablet,extended release 24 hr metoprolol succinate 50 mg 50 mg PO QPM #90 tabs 06/10/24 Rx tablet,extended release 24 hr furosemide 20 mg tablet (Lasix) 20 mg PO QAM #90 tabs 08/30/24 Rx ferrous sulfate 325 mg (65 mg 325 mg PO DAILY #90 tabs 09/16/24 Rx iron) tablet,delayed release Allergies Allergy/AdvReac Type Severity Reaction Status Date / Time codeine Allergy Severe Rash, Verified 09/18/24 19:47 vomiting meperidine (From Demerol) Allergy Severe Rash,vomiti Verified 09/18/24 19:47 ng dapagliflozin (From Farxiga) Allergy Mild genital Verified 09/18/24 19:47 abscess amlodipine AdvReac Mild pedal edema Verified 09/18/24 19:47 gabapentin (From Neurontin) AdvReac Mild Dizziness Verified 09/18/24 19:47 sitagliptin (From Januvia) AdvReac Mild abscess Verified 09/18/24 23:04 Vital Signs Vital Signs - 24 hr 09/18/24 19:42 09/18/24 20:25 09/18/24 20:37 Temperature 36.6 C Pulse Rate 90 87 Respiratory Rate 21 H 22 H Blood Pressure 194/78 H 184/81 H Pulse Oximetry 97 97 97 Oxygen Delivery Room Air Room Air Oxygen Flow Rate Fraction of Inspired Oxygen 09/18/24 20:40 09/18/24 20:40 09/18/24 21:00 Temperature Pulse Rate 90 Respiratory Rate 22 H 22 H Blood Pressure 186/84 H Pulse Oximetry 98 97 100 Oxygen Delivery BiPAP BiPAP Oxygen Flow Rate Fraction of Inspired Oxygen 09/18/24 21:15 09/18/24 21:20 09/18/24 21:32 Temperature Pulse Rate 87 88 87 Respiratory Rate 20 20 Blood Pressure 212/96 H 223/90 H 222/94 H Pulse Oximetry 100 100 Oxygen Delivery Oxygen Flow Rate Fraction of Inspired Oxygen 09/18/24 21:52 09/18/24 22:02 09/18/24 22:20 Temperature Pulse Rate 80 77 91 Respiratory Rate 18 15 17 Blood Pressure 194/88 H 164/143 H Pulse Oximetry 100 100 100 Oxygen Delivery BiPAP Oxygen Flow Rate Fraction of Inspired Oxygen 09/18/24 23:00 09/18/24 23:00 09/18/24 23:00 Temperature Pulse Rate 84 84 84 Respiratory Rate 15 Blood Pressure 155/68 H Pulse Oximetry Oxygen Delivery Oxygen Flow Rate Fraction of Inspired Oxygen 09/18/24 23:05 09/18/24 23:15 09/18/24 23:15 Temperature 36.6 C Pulse Rate 81 80 79 Respiratory Rate 13 16 Blood Pressure 144/63 H 147/68 H Pulse Oximetry 100 99 Oxygen Delivery Oxygen Flow Rate Fraction of Inspired Oxygen 09/18/24 23:16 09/18/24 23:30 09/18/24 23:30 Temperature 36.6 C 36.6 C Pulse Rate 77 75 73 Respiratory Rate 13 12 Blood Pressure 147/68 H 137/69 Pulse Oximetry 100 99 Oxygen Delivery Oxygen Flow Rate Fraction of Inspired Oxygen 09/18/24 23:31 09/18/24 23:45 09/18/24 23:45 Temperature 36.6 C 36.6 C Pulse Rate 75 71 72 Respiratory Rate 15 20 Blood Pressure 137/69 149/67 H Pulse Oximetry 100 99 Oxygen Delivery Oxygen Flow Rate Fraction of Inspired Oxygen 09/18/24 23:46 09/19/24 00:00 09/19/24 00:00 Temperature 36.6 C Pulse Rate 72 75 75 Respiratory Rate 17 15 Blood Pressure 149/67 H 154/69 H Pulse Oximetry 100 100 Oxygen Delivery BiPAP Oxygen Flow Rate Fraction of Inspired Oxygen 09/19/24 00:00 09/19/24 00:00 09/19/24 00:00 Temperature 36.6 C 36.6 C Pulse Rate 75 66 70 Respiratory Rate 15 12 Blood Pressure 154/69 H Pulse Oximetry 100 100 Oxygen Delivery Oxygen Flow Rate Fraction of Inspired Oxygen 09/19/24 00:15 09/19/24 00:15 09/19/24 00:16 Temperature 36.6 C 36.5 C Pulse Rate 65 73 67 Respiratory Rate 21 H 14 Blood Pressure 137/60 137/60 Pulse Oximetry 98 100 Oxygen Delivery Oxygen Flow Rate Fraction of Inspired Oxygen 09/19/24 00:30 09/19/24 00:31 09/19/24 00:45 Temperature 36.6 C 36.6 C 36.5 C Pulse Rate 63 66 61 Respiratory Rate 10 L 10 L 10 L Blood Pressure 136/60 Pulse Oximetry 99 98 99 Oxygen Delivery Oxygen Flow Rate Fraction of Inspired Oxygen 09/19/24 00:46 09/19/24 00:47 09/19/24 01:00 Temperature 36.5 C 36.5 C 36.4 C Pulse Rate 65 62 60 Respiratory Rate 10 L 10 L 10 L Blood Pressure 121/54 L Pulse Oximetry 96 98 100 Oxygen Delivery Oxygen Flow Rate Fraction of Inspired Oxygen 09/19/24 01:01 09/19/24 01:15 09/19/24 01:30 Temperature 36.4 C 36.4 C L 36.3 C L Pulse Rate 58 L 60 56 L Respiratory Rate 10 L 9 L 9 L Blood Pressure 115/56 L 121/59 L Pulse Oximetry 99 100 100 Oxygen Delivery Oxygen Flow Rate Fraction of Inspired Oxygen 09/19/24 01:31 09/19/24 01:46 09/19/24 02:00 Temperature 36.3 C L 36.3 C L Pulse Rate 59 L 60 58 L Respiratory Rate 9 L 8 L Blood Pressure 133/52 L 145/58 H 123/57 L Pulse Oximetry 99 98 Oxygen Delivery Oxygen Flow Rate Fraction of Inspired Oxygen 09/19/24 02:00 09/19/24 02:01 09/19/24 02:16 Temperature 36.2 C L 36.2 C L Pulse Rate 57 L 58 L 56 L Respiratory Rate 9 L 10 L Blood Pressure 123/57 L Pulse Oximetry 100 99 Oxygen Delivery Oxygen Flow Rate Fraction of Inspired Oxygen 09/19/24 02:16 09/19/24 02:16 09/19/24 02:30 Temperature 36.2 C L 36.2 C L Pulse Rate 56 L 58 L 60 Respiratory Rate 10 L 8 L 10 L Blood Pressure 140/53 L 140/53 L Pulse Oximetry 99 99 100 Oxygen Delivery Oxygen Flow Rate Fraction of Inspired Oxygen 09/19/24 02:31 09/19/24 02:40 09/19/24 02:46 Temperature 36.2 C L 36.1 C L Pulse Rate 56 L 58 L 58 L Respiratory Rate 12 16 10 L Blood Pressure 130/55 L 134/56 L Pulse Oximetry 100 99 100 Oxygen Delivery BiPAP Oxygen Flow Rate Fraction of Inspired Oxygen 09/19/24 03:00 09/19/24 03:01 09/19/24 03:30 Temperature 36.1 C L 36.1 C L 36.1 C L Pulse Rate 64 57 L 63 Respiratory Rate 11 L 8 L 10 L Blood Pressure 146/57 H Pulse Oximetry 99 100 99 Oxygen Delivery Oxygen Flow Rate Fraction of Inspired Oxygen 09/19/24 03:31 09/19/24 03:46 09/19/24 04:00 Temperature 36.1 C L 36.1 C L 36.0 C L Pulse Rate 64 56 L 68 Respiratory Rate 9 L 12 12 Blood Pressure 144/59 H 137/56 L 123/91 H Pulse Oximetry 99 100 100 Oxygen Delivery Oxygen Flow Rate Fraction of Inspired Oxygen 09/19/24 04:00 09/19/24 04:00 09/19/24 04:00 Temperature 36.0 C L Pulse Rate 65 72 Respiratory Rate 13 Blood Pressure Pulse Oximetry 100 99 Oxygen Delivery BiPAP Oxygen Flow Rate Fraction of Inspired Oxygen 09/19/24 04:01 09/19/24 04:16 09/19/24 04:30 Temperature 36.0 C L 36.0 C L 36.0 C L Pulse Rate 61 81 71 Respiratory Rate 9 L 16 12 Blood Pressure 123/91 H 137/83 Pulse Oximetry 100 100 100 Oxygen Delivery Oxygen Flow Rate Fraction of Inspired Oxygen 09/19/24 04:31 09/19/24 04:45 09/19/24 05:00 Temperature 36.0 C L 36.0 C L 36.0 C L Pulse Rate 70 66 62 Respiratory Rate 10 L 12 11 L Blood Pressure 136/61 132/63 Pulse Oximetry 100 100 100 Oxygen Delivery Oxygen Flow Rate Fraction of Inspired Oxygen 09/19/24 05:01 09/19/24 05:02 09/19/24 05:15 Temperature 36.0 C L 36.0 C L 36.1 C L Pulse Rate 60 62 67 Respiratory Rate 6 L 13 12 Blood Pressure 127/52 L Pulse Oximetry 100 100 100 Oxygen Delivery Oxygen Flow Rate Fraction of Inspired Oxygen 09/19/24 05:16 09/19/24 05:30 09/19/24 05:31 Temperature 36.0 C L 36.1 C L 36.1 C L Pulse Rate 60 60 65 Respiratory Rate 12 14 12 Blood Pressure 142/58 H 128/55 L Pulse Oximetry 100 100 99 Oxygen Delivery Oxygen Flow Rate Fraction of Inspired Oxygen 09/19/24 05:45 09/19/24 05:46 09/19/24 06:00 Temperature 36.1 C L 36.1 C L Pulse Rate 62 72 65 Respiratory Rate 9 L 11 L Blood Pressure 114/54 L Pulse Oximetry 99 98 Oxygen Delivery Oxygen Flow Rate Fraction of Inspired Oxygen 09/19/24 06:00 09/19/24 06:00 09/19/24 06:01 Temperature 36.1 C L 36.1 C L 36.1 C L Pulse Rate 65 63 61 Respiratory Rate 12 11 L 12 Blood Pressure 114/54 L 114/54 L Pulse Oximetry 99 98 100 Oxygen Delivery Oxygen Flow Rate Fraction of Inspired Oxygen 09/19/24 06:02 09/19/24 06:15 09/19/24 06:16 Temperature 36.1 C L 36.1 C L Pulse Rate 74 63 60 Respiratory Rate 10 L 10 L Blood Pressure 115/54 L 125/56 L Pulse Oximetry 99 99 Oxygen Delivery Oxygen Flow Rate Fraction of Inspired Oxygen 09/19/24 06:30 09/19/24 06:31 09/19/24 08:00 Temperature 36.1 C L 36.1 C L 36.6 C Pulse Rate 64 65 79 Respiratory Rate 11 L 12 13 Blood Pressure 118/55 L 151/73 H Pulse Oximetry 98 99 97 Oxygen Delivery Oxygen Flow Rate Fraction of Inspired Oxygen 09/19/24 08:00 09/19/24 08:00 09/19/24 08:17 Temperature Pulse Rate 80 73 72 Respiratory Rate 14 Blood Pressure 151/73 H Pulse Oximetry 99 Oxygen Delivery BiPAP Oxygen Flow Rate Fraction of Inspired Oxygen 09/19/24 08:20 09/19/24 09:32 09/19/24 09:37 Temperature Pulse Rate 73 80 Respiratory Rate Blood Pressure 132/67 Pulse Oximetry 99 Oxygen Delivery Nasal Cannula Oxygen Flow Rate 2 Fraction of Inspired Oxygen 28 Exam 2 Const: General: cooperative, comfortable, no acute distress, alert, awake and well nourished Nutritional Appearance: well nourished O rientation/consciousness: patient oriented x3 HENMT: Head: normal to inspection, normocephalic and atraumatic Ears: h earing grossly normal bilaterally Face/Nose/Sinus: Normal external nose present, Normal nares present, no nasal discharge noted, normal facial exam and No erythema Face and sinus: normal facial exam and no erythema Mouth: No drooling and No restricted motion Throat: uvula midline Eyes: General: appearance normal, both eyes and all related structures A lignment and Position: position normal Conjunctivae: conjunctivae normal S clera: sclerae normal Direct Ophthalmoscopy: No photophobia Neck: Neck: normal visual inspection and no JVD Thyroid: thyroid normal Carotids: no bruits Lymphatic: lymphedema not noted Chest: Chest palpation & inspection: normal inspection of the chest and no tenderness Resp: Effort & Inspection: normal respiratory effort and no nasal flaring A uscultation: diminished lung sounds Cardio: Jugular venous distension: no JVD Rate: regular rate Rhythm: r egular rhythm Heart sounds: S1 normal heart sound present, S2 normal heart sound present, no gallops, no murmurs and no rubs GI: Inspection: non-distended GI Palp: No abdominal tenderness and No Soft to palpation Auscultation: normal bowel sounds Rectal Exam: deferred : General: No no CVA tenderness Back/Spine/Pelvis: Back: No no CVA tenderness Cervical Spine: cervical ROM normal Skin: General skin exam: normal color and rashes and/or lesions noted Neuro: General: patient oriented x3 Cranial nerves: No CN's II-XII intact bilaterally Speech: normal speech Motor exam (neuro): no tremors Extrem: General: normal to inspection and pedal edema present Psych: Appearance: grossly normal and well kempt Speech and movement: N ormal speech and movement present Affect: normal affect Results Labs and Meds 09/18/24 20:17 09/18/24 20:17 Lab results: Cardiac Enzymes 09/18/24 09/18/24 09/19/24 Range/Units 20:17 23:30 01:43 AST 27 (17-59) U/L Troponin I < 0.012 < 0.012 < 0.012 (0.000-0.034) ng/mL Coagulation 09/18/24 Range/Units 20:17 PT 13.2 (11.1-14.7) Seconds APTT 29.0 (22.3-36.8) Seconds CBC 09/18/24 Range/Units 20:17 WBC 10.0 (4.5-10.0) K/mm3 RBC 3.41 L (4.6-6.20) M/mm3 Hgb 9.8 L (14.0-18.0) g/dL Hct 32.3 L (42.0-52.0) % Plt Count 238 (150-375) k/mm3 Lymph # (Auto) 3.05 (0.9-3.2) K/mm3 Shannon # (Auto) 0.9 H (0.1-0.6) K/mm3 Eos # (Auto) 0.1 (0-0.3) K/mm3 Baso # (Auto) 0.1 (0.0-0.1) K/mm3 Comprehensive Metabolic Panel 09/18/24 Range/Units 20:17 Sodium 144 (137-145) mmol/L Potassium 4.4 (3.4-5.0) mmol/L Chloride 109 H (98-107) mmol/L Carbon Dioxide 25 (22-30) mmol/L BUN 31 H (9-20) mg/dL Creatinine 1.73 H (0.7-1.3) mg/dL Glucose 220 H (65-110) mg/dL Calcium 8.4 (8.4-10.2) mg/dL AST 27 (17-59) U/L ALT 19 (6-50) U/L Alkaline Phosphatase 49 (38-126) U/L Total Protein 7.3 (6.3-8.2) g/dL Albumin 3.9 (3.5-5.1) g/dL Intake and Output 09/18/24 09/19/24 09/19/24 23:59 07:59 15:59 Intake Total 3.4 100.8 0 Output Total 1175 1650 Balance -1171.6 -1549.2 0 Intake: IV 3.4 0.8 0 Nitroglycerin/D5w 200 Mcg/ml 50 3.4 0.8 0 mg In 250 ml @ 0 mls/hr IV CONT .Q0M [facility] Rx#:[id number] Oral 100 Output: Urine 925 Catheter Urine 250 1650 External/Condom 250 Urethral Catheter 1650 Other: # Unmeasured Voids 2 Patient Weight 09/19/24 23:59 Weight 123.7 kg
[2024-09-19 10:11] LABS: Glucose Point of Care 82 mg/dl (65-105)
--- NOTE | 2024-09-19 11:09 | PM.IMPN ---
Progress Note: A&P Assessment and Plan (1) Acute respiratory failure: Code(s): J96.00 - Acute respiratory failure, unspecified whether with hypoxia or hypercapnia Status: Acute Assessment and Plan: patient presented with acute respiratory failure secondary to congestive heart failure and hypertensive emergency he was placed on BiPAP. he was also given Lasix he appears clinically improved with no respiratory distress at this time and saturating adequately and 25% FiO2 on the BiPAP. I will transition him to nasal cannula continue diuretic BiPAP p.r.n. (2) Hypertensive crisis: Code(s): I16.9 - Hypertensive crisis, unspecified Status: Acute Assessment and Plan: patient was started on nitroglycerin infusion which has been weaned off. I will continue metoprolol and lisinopril at lower dose at this time patient will be diuresed aggressively for his CHF and volume overload will adjust blood pressure medications as needed add p.r.n. labetalol (3) Acute exacerbation of CHF (congestive heart failure): Qualifiers: Heart failure type: unspecified Qualified Code(s): I50.9 - Heart failure, unspecified Code(s): I50.9 - Heart failure, unspecified Status: Acute Assessment and Plan: patient clearly has signs and symptoms of congestive heart failure with bilateral lower extremity edema, orthopnea PND and mild pulmonary edema this could be mostly right heart failure considering patient has untreated sleep apnea and obesity echocardiogram is ordered IV Lasix cardiology consult (4) Dyslipidemia: Code(s): E78.5 - Hyperlipidemia, unspecified Status: Acute Assessment and Plan: continue staff (5) Type 2 diabetes mellitus with hyperglycemia, without long-term current use of insulin: Code(s): E11.65 - Type 2 diabetes mellitus with hyperglycemia Status: Acute Assessment and Plan: patient is on high dose of glimepiride and also on metformin I will continue them and add sliding scale insulin at this time (6) Stage 3a chronic kidney disease (CKD): Code(s): N18.31 - Chronic kidney disease, stage 3a Status: Acute Assessment and Plan: creatinine appears to be close to baseline Duong catheter has been inserted for accurate I&Os any urinary retention monitor urine output electrolytes and creatinine IV Lasix for volume overload (7) Urinary retention: Code(s): R33.9 - Retention of urine, unspecified Status: Acute Assessment and Plan: Duong placed urology consulted (8) Obstructive sleep apnea: Code(s): G47.33 - Obstructive sleep apnea (adult) (pediatric) Status: Acute Assessment and Plan: BiPAP while inpatient. he will need a formal sleep study once he recovers from current issues (9) Chest pain: Code(s): R07.9 - Chest pain, unspecified Status: Acute Assessment and Plan: EKG reviewed troponin negative patient does have history of diabetes mellitus hypertension and hyperlipidemia. he has CHF consult cardiology for evaluation for ischemic coronary disease Plan DVT prophylaxis - Lovenox Stress ulcer prophylaxis - Nutrition - diet ordered Code Status - Full Code Subjective Date/time seen: 09/19/24 11:09 Interval history: Patient is admitted in the setting of hypertension, acute on chronic CHF and urinary retention. Cardiology evaluated the patient. Pending echocardiogram. In regards to hypertension continue metoprolol and lisinopril. Urology evaluated the patient and advised to continue Duong for a week and continue tamsulosin. Possible urodynamics and cystoscopy as an outpatient Review of Systems Review of Systems: 12 systems were reviewed with pertinent positives and negatives per HPI. Except as documented in the HPI, all other systems were reviewed and are negative. The patient is stated to his that he had times cannot feel the bottoms of either of his feet. He denies any GERD symptoms or heartburn. He has not had a EGD in many years. His colon cancer was treated in [place]. The patient reports chronic candidiasis under is right pannus fold. He relates the start of the yeast infection to when he was on Ozempic long time ago. They have tried multiple medications both prescription and [id number]. All systems reviewed & are unremarkable except as noted in HPI and below ( HPI) Exam Narrative: General: Pt is alert awake and in NAD Lungs/Chest: Trachea central Clear BS B/L, few crackles at the bases bilaterally, no respiratory distress tachypnea or use of accessory muscles at this time. Cardiac: RRR. Normal S1 S2. No murmurs Circulation: Pedal pulses are intact and symmetrical. Abdomen: Normal bowel sounds obese.. Soft. NT. ND. Extremities: bilateral lower extremity pitting edema present : Duong in place Neurologic: Follows commands. Moves all 4 extremities PERRL Skin: No Rash, had fungal infection and inguinal skin folds Const: Other: Acutely ill-appearing, morbidly obese, appears stated age HENMT: Other: Mucous membranes are dry, oral exam limited due to BiPAP but patient's oropharynx is definitely crowded, head is normocephalic atraumatic Eyes: Other: Pupils are equal and reactive, lens implants noted bilaterally, positive conjunctival pallor, mild scleral icterus Neck: Other: Large neck circumference, no overt JVD Resp: Other: Tachypnea with accessory muscle use, crackles at the bases Cardio: Other: Regular rate, regular rhythm, no murmur, 2+ bilateral radial pedal pulses GI: Other: Distended, nontender, multiple abdominal scars, nontender : Other: Pure wick catheter in place but patient unable to urinate, bladder scan perform oz at bedside with greater than 700 mL Skin: Other: Generalized pallor, non jaundice, multiple areas of purple discoloration possibly vascular malformations verses bruising which patient's had not noticed previously Neuro: Other: Alert oriented x4, speech is clear within limits of expected given presence of BiPAP, no obvious facial asymmetry, cranial nerves 2-12 appear to be grossly intact, no localizing neurologic deficits noted during the course of conversation Extrem: Other: 2+ Pitting edema up through the thighs and into the lower abdomen bilaterally, no clubbing, no cyanosis Psych: Other: Appropriate mood and affect, pleasant and cooperative, fair judgment and insight Objective Data Vital Signs Vital Signs: Vital Signs - 24 hr 09/18/24 19:42 09/18/24 20:25 09/18/24 20:37 Temperature 97.9 F Pulse Rate 90 87 Respiratory Rate 21 H 22 H Blood Pressure 194/78 H 184/81 H Pulse Oximetry 97 97 97 Oxygen Delivery Room Air Room Air Oxygen Flow Rate Fraction of Inspired Oxygen 09/18/24 20:40 09/18/24 20:40 09/18/24 21:00 Temperature Pulse Rate 90 Respiratory Rate 22 H 22 H Blood Pressure 186/84 H Pulse Oximetry 98 97 100 Oxygen Delivery BiPAP BiPAP Oxygen Flow Rate Fraction of Inspired Oxygen 09/18/24 21:15 09/18/24 21:20 09/18/24 21:32 Temperature Pulse Rate 87 88 87 Respiratory Rate 20 20 Blood Pressure 212/96 H 223/90 H 222/94 H Pulse Oximetry 100 100 Oxygen Delivery Oxygen Flow Rate Fraction of Inspired Oxygen 09/18/24 21:52 09/18/24 22:02 09/18/24 22:20 Temperature Pulse Rate 80 77 91 Respiratory Rate 18 15 17 Blood Pressure 194/88 H 164/143 H Pulse Oximetry 100 100 100 Oxygen Delivery BiPAP Oxygen Flow Rate Fraction of Inspired Oxygen 09/18/24 23:00 09/18/24 23:00 09/18/24 23:00 Temperature Pulse Rate 84 84 84 Respiratory Rate 15 Blood Pressure 155/68 H Pulse Oximetry Oxygen Delivery Oxygen Flow Rate Fraction of Inspired Oxygen 09/18/24 23:05 09/18/24 23:15 09/18/24 23:15 Temperature 97.8 F Pulse Rate 81 80 79 Respiratory Rate 13 16 Blood Pressure 144/63 H 147/68 H Pulse Oximetry 100 99 Oxygen Delivery Oxygen Flow Rate Fraction of Inspired Oxygen 09/18/24 23:16 09/18/24 23:30 09/18/24 23:30 Temperature 97.9 F 97.9 F Pulse Rate 77 75 73 Respiratory Rate 13 12 Blood Pressure 147/68 H 137/69 Pulse Oximetry 100 99 Oxygen Delivery Oxygen Flow Rate Fraction of Inspired Oxygen 09/18/24 23:31 09/18/24 23:45 09/18/24 23:45 Temperature 97.9 F 97.9 F Pulse Rate 75 71 72 Respiratory Rate 15 20 Blood Pressure 137/69 149/67 H Pulse Oximetry 100 99 Oxygen Delivery Oxygen Flow Rate Fraction of Inspired Oxygen 09/18/24 23:46 09/19/24 00:00 09/19/24 00:00 Temperature 97.8 F Pulse Rate 72 75 75 Respiratory Rate 17 15 Blood Pressure 149/67 H 154/69 H Pulse Oximetry 100 100 Oxygen Delivery BiPAP Oxygen Flow Rate Fraction of Inspired Oxygen 09/19/24 00:00 09/19/24 00:00 09/19/24 00:00 Temperature 97.8 F 97.8 F Pulse Rate 75 66 70 Respiratory Rate 15 12 Blood Pressure 154/69 H Pulse Oximetry 100 100 Oxygen Delivery Oxygen Flow Rate Fraction of Inspired Oxygen 09/19/24 00:15 09/19/24 00:15 09/19/24 00:16 Temperature 97.8 F 97.7 F Pulse Rate 65 73 67 Respiratory Rate 21 H 14 Blood Pressure 137/60 137/60 Pulse Oximetry 98 100 Oxygen Delivery Oxygen Flow Rate Fraction of Inspired Oxygen 09/19/24 00:30 09/19/24 00:31 09/19/24 00:45 Temperature 97.8 F 97.8 F 97.7 F Pulse Rate 63 66 61 Respiratory Rate 10 L 10 L 10 L Blood Pressure 136/60 Pulse Oximetry 99 98 99 Oxygen Delivery Oxygen Flow Rate Fraction of Inspired Oxygen 09/19/24 00:46 09/19/24 00:47 09/19/24 01:00 Temperature 97.7 F 97.7 F 97.6 F Pulse Rate 65 62 60 Respiratory Rate 10 L 10 L 10 L Blood Pressure 121/54 L Pulse Oximetry 96 98 100 Oxygen Delivery Oxygen Flow Rate Fraction of Inspired Oxygen 09/19/24 01:01 09/19/24 01:15 09/19/24 01:30 Temperature 97.6 F 97.5 F L 97.4 F L Pulse Rate 58 L 60 56 L Respiratory Rate 10 L 9 L 9 L Blood Pressure 115/56 L 121/59 L Pulse Oximetry 99 100 100 Oxygen Delivery Oxygen Flow Rate Fraction of Inspired Oxygen 09/19/24 01:31 09/19/24 01:46 09/19/24 02:00 Temperature 97.4 F L 97.3 F L Pulse Rate 59 L 60 58 L Respiratory Rate 9 L 8 L Blood Pressure 133/52 L 145/58 H 123/57 L Pulse Oximetry 99 98 Oxygen Delivery Oxygen Flow Rate Fraction of Inspired Oxygen 09/19/24 02:00 09/19/24 02:01 09/19/24 02:16 Temperature 97.2 F L 97.2 F L Pulse Rate 57 L 58 L 56 L Respiratory Rate 9 L 10 L Blood Pressure 123/57 L Pulse Oximetry 100 99 Oxygen Delivery Oxygen Flow Rate Fraction of Inspired Oxygen 09/19/24 02:16 09/19/24 02:16 09/19/24 02:30 Temperature 97.2 F L 97.1 F L Pulse Rate 56 L 58 L 60 Respiratory Rate 10 L 8 L 10 L Blood Pressure 140/53 L 140/53 L Pulse Oximetry 99 99 100 Oxygen Delivery Oxygen Flow Rate Fraction of Inspired Oxygen 09/19/24 02:31 09/19/24 02:40 09/19/24 02:46 Temperature 97.1 F L 97.0 F L Pulse Rate 56 L 58 L 58 L Respiratory Rate 12 16 10 L Blood Pressure 130/55 L 134/56 L Pulse Oximetry 100 99 100 Oxygen Delivery BiPAP Oxygen Flow Rate Fraction of Inspired Oxygen 09/19/24 03:00 09/19/24 03:01 09/19/24 03:30 Temperature 97.0 F L 97.0 F L 96.9 F L Pulse Rate 64 57 L 63 Respiratory Rate 11 L 8 L 10 L Blood Pressure 146/57 H Pulse Oximetry 99 100 99 Oxygen Delivery Oxygen Flow Rate Fraction of Inspired Oxygen 09/19/24 03:31 09/19/24 03:46 09/19/24 04:00 Temperature 96.9 F L 96.9 F L 96.8 F L Pulse Rate 64 56 L 68 Respiratory Rate 9 L 12 12 Blood Pressure 144/59 H 137/56 L 123/91 H Pulse Oximetry 99 100 100 Oxygen Delivery Oxygen Flow Rate Fraction of Inspired Oxygen 09/19/24 04:00 09/19/24 04:00 09/19/24 04:00 Temperature 96.8 F L Pulse Rate 65 72 Respiratory Rate 13 Blood Pressure Pulse Oximetry 100 99 Oxygen Delivery BiPAP Oxygen Flow Rate Fraction of Inspired Oxygen 09/19/24 04:01 09/19/24 04:16 09/19/24 04:30 Temperature 96.8 F L 96.8 F L 96.8 F L Pulse Rate 61 81 71 Respiratory Rate 9 L 16 12 Blood Pressure 123/91 H 137/83 Pulse Oximetry 100 100 100 Oxygen Delivery Oxygen Flow Rate Fraction of Inspired Oxygen 09/19/24 04:31 09/19/24 04:45 09/19/24 05:00 Temperature 96.8 F L 96.8 F L 96.8 F L Pulse Rate 70 66 62 Respiratory Rate 10 L 12 11 L Blood Pressure 136/61 132/63 Pulse Oximetry 100 100 100 Oxygen Delivery Oxygen Flow Rate Fraction of Inspired Oxygen 09/19/24 05:01 09/19/24 05:02 09/19/24 05:15 Temperature 96.8 F L 96.8 F L 96.9 F L Pulse Rate 60 62 67 Respiratory Rate 6 L 13 12 Blood Pressure 127/52 L Pulse Oximetry 100 100 100 Oxygen Delivery Oxygen Flow Rate Fraction of Inspired Oxygen 09/19/24 05:16 09/19/24 05:30 09/19/24 05:31 Temperature 96.8 F L 96.9 F L 96.9 F L Pulse Rate 60 60 65 Respiratory Rate 12 14 12 Blood Pressure 142/58 H 128/55 L Pulse Oximetry 100 100 99 Oxygen Delivery Oxygen Flow Rate Fraction of Inspired Oxygen 09/19/24 05:45 09/19/24 05:46 09/19/24 06:00 Temperature 96.9 F L 96.9 F L Pulse Rate 62 72 65 Respiratory Rate 9 L 11 L Blood Pressure 114/54 L Pulse Oximetry 99 98 Oxygen Delivery Oxygen Flow Rate Fraction of Inspired Oxygen 09/19/24 06:00 09/19/24 06:00 09/19/24 06:01 Temperature 96.9 F L 97.0 F L 97.0 F L Pulse Rate 65 63 61 Respiratory Rate 12 11 L 12 Blood Pressure 114/54 L 114/54 L Pulse Oximetry 99 98 100 Oxygen Delivery Oxygen Flow Rate Fraction of Inspired Oxygen 09/19/24 06:02 09/19/24 06:15 09/19/24 06:16 Temperature 97.0 F L 97.0 F L Pulse Rate 74 63 60 Respiratory Rate 10 L 10 L Blood Pressure 115/54 L 125/56 L Pulse Oximetry 99 99 Oxygen Delivery Oxygen Flow Rate Fraction of Inspired Oxygen 09/19/24 06:30 09/19/24 06:31 09/19/24 08:00 Temperature 97.0 F L 97.0 F L 97.9 F Pulse Rate 64 65 79 Respiratory Rate 11 L 12 13 Blood Pressure 118/55 L 151/73 H Pulse Oximetry 98 99 97 Oxygen Delivery Oxygen Flow Rate Fraction of Inspired Oxygen 09/19/24 08:00 09/19/24 08:00 09/19/24 08:00 Temperature Pulse Rate 80 73 Respiratory Rate Blood Pressure 151/73 H Pulse Oximetry 99 Oxygen Delivery Nasal Cannula Oxygen Flow Rate 2 Fraction of Inspired Oxygen 09/19/24 08:17 09/19/24 08:20 09/19/24 09:32 Temperature Pulse Rate 72 73 Respiratory Rate 14 Blood Pressure 132/67 Pulse Oximetry 99 99 Oxygen Delivery BiPAP Nasal Cannula Oxygen Flow Rate 2 Fraction of Inspired Oxygen 28 09/19/24 09:37 09/19/24 10:00 09/19/24 10:00 Temperature 97.7 F Pulse Rate 80 83 79 Respiratory Rate 18 Blood Pressure 158/73 H Pulse Oximetry 99 Oxygen Delivery Oxygen Flow Rate Fraction of Inspired Oxygen 09/19/24 10:47 Temperature Pulse Rate Respiratory Rate Blood Pressure Pulse Oximetry 100 Oxygen Delivery Nasal Cannula Oxygen Flow Rate 1 Fraction of Inspired Oxygen 24 Intake/Output Intake/Output: Intake & Output 09/16/24 09/17/24 09/18/24 09/19/24 23:59 23:59 23:59 23:59 Intake Total 3.4 100.8 Output Total 1175 1650 Balance -1171.6 -1549.2 Meds/Results Medications: Active Medications Generic Name Dose Route Start Last Admin Trade Name Freq PRN Reason Stop Dose Admin Acetaminophen 650 mg 09/18/24 23:06 Acetaminophen 325 Mg Tablet PO Q4H PRN Mild Pain (1-3) or Fever Aspirin 325 mg 09/19/24 09:00 09/19/24 09:37 Aspirin 325 Mg Enteric Tablet PO 325 mg QAM BANDAR Administration Enoxaparin Sodium 40 mg 09/20/24 09:00 Enoxaparin 40 Mg/0.4 Ml Syringe SUB-Q DAILY [facility] Fenofibrate 145 mg 09/19/24 09:00 09/19/24 09:36 Fenofibrate Nanocrystallized 145 Mg Tablet PO 145 mg QAM BANDAR Administration Furosemide 40 mg 09/19/24 02:00 09/19/24 09:36 Furosemide Inj 40 Mg/4 Ml Vial IV PUSH 09/19/24 14:01 40 mg Q6H BANDAR Administration Furosemide 40 mg 09/20/24 09:00 Furosemide Inj 40 Mg/4 Ml Vial IV PUSH BID BANDAR Glimepiride 4 mg 09/19/24 09:05 09/19/24 09:38 Glimepiride 2 Mg Tablet PO 4 mg BIDWM BANDAR Administration Hydrocortisone 1 applic 09/19/24 09:00 09/19/24 09:36 Hydrocortisone 2.5% Cream 30 Gm Tube TOPICAL 1 applic Q12HR BANDAR Administration Nitroglycerin/Dextrose 50 mg in 250 mls @ 0 mls/hr 09/18/24 21:20 09/19/24 08:00 Nitroglycerin In 5% Dextrose 50 Mg IV CONT 0 mcg/min .Q0M BANDAR 0 mls/hr Titration Protocol Labetalol HCl 20 mg 09/19/24 08:37 Labetalol Hcl Inj 100 Mg/20 Ml Vial IV PUSH Q4H PRN SBP > 180 Levothyroxine Sodium 50 mcg 09/19/24 09:00 09/19/24 09:37 Levothyroxine Sodium 50 Mcg Tablet PO 50 mcg DAILY@0630 BANDAR Administration Lisinopril 20 mg 09/19/24 09:00 09/19/24 09:37 Lisinopril 20 Mg Tablet PO 20 mg QAM BANDAR Administration Metformin HCl 500 mg 09/19/24 17:00 Metformin Hcl 500 Mg Tablet PO BIDWM [facility] Metoprolol Tartrate 25 mg 09/19/24 09:00 09/19/24 09:37 Metoprolol Tartrate 25 Mg Tablet PO 25 mg Q12HR BANDAR Administration Miconazole Nitrate 1 applic 09/19/24 09:00 Miconazole Nitrate 2% Cream 30 Gm Tube TOPICAL Q12HR [facility] Nitroglycerin 1 inch 09/19/24 00:00 09/19/24 05:54 Nitroglycerin Ointment 1 Inch Dose TRANSDERM 1 inch Q6HR [facility] Administration Pantoprazole Sodium 40 mg 09/19/24 09:00 09/19/24 09:36 Pantoprazole Sodium Iv 40 Mg Vial IV PUSH 40 mg QAM BANDAR Administration Perflutren Lipid Microsphere 0 ml 09/18/24 22:59 Perflutren Lipid Microspheres 1.5 Ml Vial Diluted To 10 Ml Total Volume IV PUSH 09/21/24 22:59 ONCE PRN adequate visualization Protocol Pravastatin Sodium 40 mg 09/19/24 09:00 09/19/24 09:37 Pravastatin Sodium 20 Mg Tablet PO 40 mg DAILY BANDAR Administration Tamsulosin HCl 0.4 mg 09/19/24 09:00 09/19/24 09:36 Tamsulosin Hcl 0.4 Mg Capsule PO 0.4 mg QAM BANDAR Administration Radiology Results: ITS Impressions Chest X-Ray 09/18/24 20:35 IMPRESSION: No acute cardiopulmonary process. Chest CTA 09/19/24 06:17 Impression: No evidence of pulmonary embolus, aortic dissection, or aortic aneurysm. Minimal mosaic attenuation pattern in the lungs. Correlate for minimal pulmonary edema, hypoventilatory change, bronchiolitis, hypersensitivity pneumonitis, chronic interstitial disease. Labs Labs: Laboratory Results - last 24 hr 09/18/24 09/18/24 09/18/24 20:17 21:44 23:30 WBC 10.0 RBC 3.41 L Hgb 9.8 L Hct 32.3 L MCV 94.7 MCH 28.7 MCHC 30.3 L RDW 14.7 H Plt Count 238 MPV 10.7 H Immature Gran % (Auto) 0.6 H Neut % (Auto) 57.3 Lymph % (Auto) 30.7 [place] % (Auto) 9.3 H Eos % (Auto) 1.4 Baso % (Auto) 0.7 Lymph # (Auto) 3.05 [place] # (Auto) 0.9 H Eos # (Auto) 0.1 Baso # (Auto) 0.1 Abs Immat Gran (auto) 0.06 H Absolute Neuts (auto) 5.7 Absolute Nucleated RBC 0.000 Nucleated RBC % 0.0 Absolute Retic 0.04 Percent Retic 1.25 Immature Retic Fraction 13.1 Retic Hgb Content 31.1 PT 13.2 INR 1.0 APTT 29.0 D-Dimer 0.92 H Sodium 144 Potassium 4.4 Chloride 109 H Carbon Dioxide 25 Anion Gap 10 BUN 31 H Creatinine 1.73 H Estim Creat Clear Calc 46 Estimated GFR 39 L Glucose 220 H POC Capillary Glucose Hemoglobin A1c 7.1 H Calcium 8.4 Iron 50 TIBC 404 % Saturation 12 L Ferritin 32.20 Total Bilirubin 0.2 AST 27 ALT 19 Alkaline Phosphatase 49 Troponin I < 0.012 < 0.012 NT-Pro-B Natriuret Pep 384 H Total Protein 7.3 Albumin 3.9 Lipase 51 Vitamin B12 272.0 Folate 11.6 TSH (Reflex) 3.010 Nasal MRSA (PCR) Not detected 09/19/24 09/19/24 01:43 09:33 WBC RBC Hgb Hct MCV MCH MCHC RDW Plt Count MPV Immature Gran % (Auto) Neut % (Auto) Lymph % (Auto) [place] % (Auto) Eos % (Auto) Baso % (Auto) Lymph # (Auto) [place] # (Auto) Eos # (Auto) Baso # (Auto) Abs Immat Gran (auto) Absolute Neuts (auto) Absolute Nucleated RBC Nucleated RBC % Absolute Retic Percent Retic Immature Retic Fraction Retic Hgb Content PT INR APTT D-Dimer Sodium Potassium Chloride Carbon Dioxide Anion Gap BUN Creatinine Estim Creat Clear Calc Estimated GFR Glucose POC Capillary Glucose 82 Hemoglobin A1c Calcium Iron TIBC % Saturation Ferritin Total Bilirubin AST ALT Alkaline Phosphatase Troponin I < 0.012 NT-Pro-B Natriuret Pep Total Protein Albumin Lipase Vitamin B12 Folate TSH (Reflex) Nasal MRSA (PCR) Quality VTE Prophylaxis VTE prophylaxis: pharmacologic ordered Hospitalist MIPS Advance Care Plan I have confirmed that the patient's Advanced Care Plan is present, code status is documented, or surrogate decision maker is listed in patient medical record.: Yes Medication Reconciliation I have utilized all available resources to obtain, update and review the patients current medications (includes all prescriptions, OTC, herbals, cannabis, and nutritional supplements).: Yes
[2024-09-19 16:22] LABS: Glucose Point of Care 81 mg/dl (65-105)
[2024-09-19 16:22] LABS: Glucose Point of Care 54 mg/dl (65-105)
--- NOTE | 2024-09-19 18:43 | PC.NURSE ---
This patient, Alex Thao Jr., was received from ICU 5 on 09/19/24 at 1822. Patient/family oriented to unit policies and routines. Call light and personal items in reach. Bed alarm on. Will continue to monitor. Betty Khan RN
[2024-09-19 20:22] LABS: Glucose Point of Care 154 mg/dl (65-105)
[2024-09-20] VITALS (15 sets, daily range): BP systolic 142–164; BP diastolic 63–83; PULSE 76–112; RESP 14–18; TEMP 36.6–36.9; O2SAT 96–100
--- NOTE | 2024-09-20 | ECHO_ITS ---
Patient Info Name: Alex Thao Age: 74 years : 1950 Gender: Male Ht: 70 in Wt: 279 lbs BSA: 2.56 m2 HR: 97 bpm BP: 163 / 68 mmHg Technical Quality: Good Exam Date: 09/20/2024 3:15 PM Patient Status: I Admit Date: 09/18/2024 Exam Type: CA echo doppler color flow Complete two-dimensional, color flow and Doppler transthoracic echocardiogram is performed. Staff Referring Physician: Neal Luque [employer] Designer: Agata Heredia Attending Provider: Kenzie Martin DO Summary 1. Left ventricular chamber dimension is normal. 2. Left ventricular systolic function is normal, estimated at 50-55. 3. There is mildly increased left ventricular wall thickness. 4. The left ventricular diastolic function is grade I diastolic dysfunction. 5. Right ventricular chamber dimension is mildly enlarged. 6. Right ventricular systolic function is normal. 7. There is mild mitral valve regurgitation. Left Ventricle Left ventricular chamber dimension is normal. Left ventricular systolic function is normal, estimated at 50-55. There is mildly increased left ventricular wall thickness. The left ventricular diastolic function is grade I diastolic dysfunction. Right Ventricle Right ventricular chamber dimension is mildly enlarged. Right ventricular systolic function is normal. Left Atria Left atrial chamber dimension is normal. Right Atria Right atrial chamber dimension is normal. Atrial Septum Intact interatrial septum visualized by color flow imaging. Aortic Valve The aortic valve is probable trileaflet. There is no aortic valve stenosis. There is no aortic valve regurgitation. There is mild aortic valve calcification. Pulmonic Valve The pulmonic valve is not well visualized. There is no pulmonic regurgitation. Mitral Valve There is mild mitral valve regurgitation. Tricuspid Valve There is trace tricuspid valve regurgitation. Pericardium/Pleural There is no pericardial effusion. Inferior Vena Cava Normal inferior vena cava with >50% collapse upon inspiration consistent with normal right atrial pressure, 3 mmHg. Aorta The aortic root size at the sinus of Valsalva is normal. Left Ventricular Outflow Tract Name Value Normal LVOT 2D LVOT Diameter 2.0 cm LVOT Doppler LVOT Peak Velocity 112 cm/s LVOT Peak Gradient 5 mmHg LVOT Mean Gradient 3 mmHg LVOT VTI 19 cm LVOT VTI/AV VTI Ratio 0.9 LVOT Stroke Volume 58 ml LVOT CO 4.8 l/min LVOT CI 1.9 l/min/m2 Mitral Valve Name Value Normal MV Diastolic Function MV E Peak Velocity 99 cm/s MV A Peak Velocity 101 cm/s MV E/A 1.0 MV Decel Time (PW) 209 ms MV Annular TDI MV E/e' (Septal) 13.7 MV E/e' (Lateral) 13.4 MV E/e' (Average) 13.5 Tricuspid Valve Name Value Normal Estimated PAP/RSVP RA Pressure 3 mmHg <=5 TV Annular TDI TV Lateral Gregoria s' Velocity 13.5 cm/s >=9.5 Aortic Valve Name Value Normal AV Doppler AV Peak Velocity 129 cm/s AV Peak Gradient 7 mmHg AV Mean Gradient 3 mmHg AV VTI 22 cm AV Area (Cont Eq VTI) 2.7 cm2 >=3.0 AV Area (Cont Eq Aly) 2.6 cm2 AV DI (Aly) 0.87 AV Regurgitation 2D LVOT Area 3.0 cm2 Ventricles Name Value Normal LV Dimensions 2D/MM IVS Diastolic Thickness (2D) 1.1 cm 0.6-1.0 LVID Diastole (2D) 5.1 cm 4.2-5.8 LVIW Diastolic Thickness (2D) 0.9 cm 0.6-1.0 LVID Systole (2D) 3.6 cm 2.5-4.0 LVOT Diameter 2.0 cm LV Mass (2D Cubed) 190.30 g 88.00-224.00 LV Mass Index (2D Cubed) 74 g/m2 49-115 Relative Wall Thickness (2D) 0.37 <=0.42 LV Fractional Shortening/Ejection Fraction 2D/MM LV Fractional Shortening (2D) 29 % 25-43 LV EF (2D Teichholz) 55 % LV Diastolic Volume (4C MOD) 144 ml LV EF (4C MOD) 51 % LV Diastolic Volume (2C MOD) 127 ml LV EF (2C MOD) 54 % LV Diastolic Volume (BP MOD) 136 ml 62-150 LV Diastolic Volume Index (BP MOD) 53 ml/m2 34-74 LV Systolic Volume (BP MOD) 65 ml 21-61 LV Systolic Volume Index (BP MOD) 25 ml/m2 11-31 LV EF (BP MOD) 53 % 52-72 LV Diastolic Length (4C) 8.7 cm LV Systolic Length (4C) 7.1 cm LV Stroke Volume (4C MOD) 74 ml Atria Name Value Normal LA Dimensions LA Volume (4C A-L) 52 ml LA Volume (BP A-L) 56 ml RA Dimensions RA Systolic Major [place] Length (4C) 5.2 cm 2.1-2.7 RA Area (4C) 20.5 cm2 <=18.0 Report Signatures
[2024-09-20 03:43] LABS: Glucose Point of Care 52 mg/dl (65-105)
[2024-09-20 04:03] LABS: Glucose Point of Care 94 mg/dl (65-105)
[2024-09-20 04:26] LABS: Hematocrit 30.3 % (42.0-52.0); Mean Corpuscular HGB Conc 29.7 g/dl (32-36); Mean Corpuscular Volume 94.1 fl (80-100); Mean Platelet Volume 11.6 fl (7.4-10.4); Platelet Count Result 216 k/mm3 (150-375); Red Blood Count 3.22 M/mm3 (4.6-6.20); Red Cell Distribution Width 14.5 % (11.5-14.5); White Blood Count 10.2 K/mm3 (4.5-10.0)
[2024-09-20 04:47] LABS: Alanine Aminotransferase 14 U/L (6-50); Albumin Level 3.3 g/dL (3.5-5.1); Alkaline Phosphatase 45 U/L (38-126); Anion Gap 3 mmol/L (4-12); Aspartate Amino Transferase 29 U/L (17-59); Bilirubin,Total 0.3 mg/dL (0.2-1.3); Blood Urea Nitrogen 25 mg/dL (9-20); Calcium 8.5 mg/dL (8.4-10.2); Carbon Dioxide 31 mmol/L (22-30); Chloride 105 mmol/L (98-107); Estimated CRCL calculation 45 ml/min; Estimated Glomerular Filt Rate 39; Glucose 66 mg/dL (65-110); Potassium 3.5 mmol/L (3.4-5.0); Sodium 139 mmol/L (137-145); Total Protein 6.2 g/dL (6.3-8.2)
[2024-09-20 04:54] LABS: NT Pro B Type Natriuretic Pept 465 pg/mL (19.9-100)
--- NOTE | 2024-09-20 05:51 | PCRCNOTE ---
ABG not obtained this am due patient coming off bipap at 3:45am. RCS will attempt again tomorrow morning.
[2024-09-20] MEDS: NITROGLYCERIN OINTMENT 1 INCH DOSE TRANSDERM ×5 (06:04→23:55)
[2024-09-20] MEDS: LEVOTHYROXINE SODIUM 50 MCG TABLET PO (06:05)
[2024-09-20 06:17] LABS: Alveolar/Arterial O2 Gradient 17.6 mmHg; Base Excess ABG 5.1 mEq/l (+/-2.0); Fractional Inspired Oxygen 21 %; HCO3 ABG 28.9 mEq/l (22.0-26.0); Oxygen Content ABG 14.3 %vol (16.0-22.0); Oxyhemoglobin 95.9 % THb (90.0-100.0); PCO2 ABG 39.3 mmHg (35.0-45.0); PO2 ABG 85.1 mmHg (80.0-100.0); PO2 FiO2 Ratio Arterial Blood 4.05 %; Total Hemoglobin 10.5 g/dL (12.0-18.0); pH ABG 7.484 (7.350-7.450)
[2024-09-20 06:21] LABS: Modified Allen's Test Pass; Site Drawn LEFT RADIAL
[2024-09-20 07:47] LABS: Glucose Point of Care 52 mg/dl (65-105)
--- NOTE | 2024-09-20 07:49 | P.PNIM_ITS ---
Progress Note: A&P Assessment and Plan (1) Acute respiratory failure: Code(s): J96.00 - Acute respiratory failure, unspecified whether with hypoxia or hypercapnia Status: Acute Assessment and Plan: Patient presented with acute respiratory failure secondary to congestive heart failure and hypertensive emergency Status post BiPAP and Lasix Currently on nasal cannula Patient currently on furosemide 40 mg IV b.i.d. BiPAP p.r.n. Patient home medications on hold: Can be restart after echocardiogram and Cardiology recommendation Diltiazem 240 mg ER Doxazosin 2 mg p.o. q.d. Lisinopril 40 mg p.o. q.d. Metoprolol 50 mg p.o. HS Metoprolol 100 mg Q a.m. (2) Hypertensive crisis: Code(s): I16.9 - Hypertensive crisis, unspecified Status: Acute Assessment and Plan: Initially started nitroglycerin infusion which has been weaned off. Continue metoprolol and lisinopril at lower dose at this time Patient will be diuresed aggressively for his CHF and volume overload Will adjust blood pressure medications as needed P.r.n. labetalol (3) Acute exacerbation of CHF (congestive heart failure): Qualifiers: Heart failure type: unspecified Qualified Code(s): I50.9 - Heart failure, unspecified Code(s): I50.9 - Heart failure, unspecified Status: Acute Assessment and Plan: Patient clearly has signs and symptoms of congestive heart failure with bilateral lower extremity edema, orthopnea PND and mild pulmonary edema this could be mostly right heart failure considering patient has untreated sleep apnea and obesity Echocardiogram pending IV Lasix cardiology consult (4) Dyslipidemia: Code(s): E78.5 - Hyperlipidemia, unspecified Status: Acute Assessment and Plan: continue staff (5) Type 2 diabetes mellitus with hyperglycemia, without long-term current use of insulin: Code(s): E11.65 - Type 2 diabetes mellitus with hyperglycemia Status: Acute Assessment and Plan: Hold home glimepiride due to hypoglycemia and continue metformin Add sliding scale insulin at this time (6) Stage 3a chronic kidney disease (CKD): Code(s): N18.31 - Chronic kidney disease, stage 3a Status: Acute Assessment and Plan: creatinine appears to be close to baseline Duong catheter has been inserted for accurate I&Os any urinary retention monitor urine output electrolytes and creatinine IV Lasix for volume overload (7) Urinary retention: Code(s): R33.9 - Retention of urine, unspecified Status: Acute Assessment and Plan: Duong placed urology consulted (8) Obstructive sleep apnea: Code(s): G47.33 - Obstructive sleep apnea (adult) (pediatric) Status: Acute Assessment and Plan: BiPAP while inpatient. he will need a formal sleep study once he recovers from current issues (9) Chest pain: Code(s): R07.9 - Chest pain, unspecified Status: Acute Assessment and Plan: EKG reviewed troponin negative patient does have history of diabetes mellitus hypertension and hyperlipid emia. he has CHF consult cardiology for evaluation for ischemic coronary disease Plan DVT prophylaxis - Lovenox Stress ulcer prophylaxis - Nutrition - diet ordered Code Status - Full Code Subjective Date/time seen: 09/20/24 07:49 Interval history: Patient needs the medication reconciliation from Cardiology. Pending echocardiogram. During the evaluation patient reports he is feeling better than yesterday. Review of Systems Review of Systems: 12 systems were reviewed with pertinent positives and negatives per HPI. Except as documented in the HPI, all other systems were reviewed and are negative. The patient is stated to his that he had times cannot feel the bottoms of either of his feet. He denies any GERD symptoms or heartburn. He has not had a EGD in many years. His colon cancer was treated in [place]. The patient reports chronic candidiasis under is right pannus fold. He relates the start of the yeast infection to when he was on Ozempic long time ago. They have tried multiple medications both prescription and [id number]. All systems reviewed & are unremarkable except as noted in HPI and below ( HPI) Exam Narrative: General: Pt is alert awake and in NAD Lungs/Chest: Trachea central Clear BS B/L, few crackles at the bases bilaterally, no respiratory distress tachypnea or use of accessory muscles at this time. Cardiac: RRR. Normal S1 S2. No murmurs Circulation: Pedal pulses are intact and symmetrical. Abdomen: Normal bowel sounds obese.. Soft. NT. ND. Extremities: bilateral lower extremity pitting edema present : Duong in place Neurologic: Follows commands. Moves all 4 extremities PERRL Skin: No Rash, had fungal infection and inguinal skin folds Const: Other: Acutely ill-appearing, morbidly obese, appears stated age HENMT: Other: Mucous membranes are dry, oral exam limited due to BiPAP but patient's oropharynx is definitely crowded, head is normocephalic atraumatic Eyes: Other: Pupils are equal and reactive, lens implants noted bilaterally, positive conjunctival pallor, mild scleral icterus Neck: Other: Large neck circumference, no overt JVD Resp: Other: Tachypnea with accessory muscle use, crackles at the bases Cardio: Other: Regular rate, regular rhythm, no murmur, 2+ bilateral radial pedal pulses GI: Other: Distended, nontender, multiple abdominal scars, nontender : Other: Pure wick catheter in place but patient unable to urinate, bladder scan perform oz at bedside with greater than 700 mL Skin: Other: Generalized pallor, non jaundice, multiple areas of purple discoloration possibly vascular malformations verses bruising which patient's had not noticed previously Neuro: Other: Alert oriented x4, speech is clear within limits of expected given presence of BiPAP, no obvious facial asymmetry, cranial nerves 2-12 appear to be grossly intact, no localizing neurologic deficits noted during the course of conversation Extrem: Other: 2+ Pitting edema up through the thighs a nd into the lower abdomen bilaterally, no clubbing, no cyanosis Psych: Other: Appropriate mood and affect, pleasant and cooperative, fair judgment and insight Objective Data Vital Signs Vital Signs: Vital Signs - 24 hr 09/19/24 08:00 09/19/24 08:00 09/19/24 08:00 Temperature 97.9 F Pulse Rate 79 80 73 Respiratory Rate 13 Blood Pressure 151/73 H 151/73 H Pulse Oximetry 97 Oxygen Delivery Oxygen Flow Rate Fraction of Inspired Oxygen 09/19/24 08:00 09/19/24 08:17 09/19/24 08:20 Temperature Pulse Rate 72 Respiratory Rate 14 Blood Pressure Pulse Oximetry 99 99 99 Oxygen Delivery Nasal Cannula BiPAP Nasal Cannula Oxygen Flow Rate 2 2 Fraction of Inspired Oxygen 28 09/19/24 09:32 09/19/24 09:37 09/19/24 10:00 Temperature 97.7 F Pulse Rate 73 80 83 Respiratory Rate 18 Blood Pressure 132/67 158/73 H Pulse Oximetry 99 Oxygen Delivery Oxygen Flow Rate Fraction of Inspired Oxygen 09/19/24 10:00 09/19/24 10:00 09/19/24 10:47 Temperature Pulse Rate 79 81 Respiratory Rate Blood Pressure 158/73 H Pulse Oximetry 100 Oxygen Delivery Nasal Cannula Oxygen Flow Rate 1 Fraction of Inspired Oxygen 24 09/19/24 12:00 09/19/24 12:00 09/19/24 12:00 Temperature 98.2 F Pulse Rate 83 71 Respiratory Rate 20 Blood Pressure 143/66 H 156/64 H Pulse Oximetry 100 100 Oxygen Delivery Nasal Cannula Oxygen Flow Rate 2 Fraction of Inspired Oxygen 09/19/24 12:00 09/19/24 13:52 09/19/24 14:00 Temperature 98.7 F Pulse Rate 79 87 Respiratory Rate 14 Blood Pressure 131/98 H Pulse Oximetry 98 100 Oxygen Delivery Room Air Oxygen Flow Rate Fraction of Inspired Oxygen 21 09/19/24 14:00 09/19/24 14:00 09/19/24 16:00 Temperature Pulse Rate 80 84 Respiratory Rate Blood Pressure 131/98 H Pulse Oximetry 99 Oxygen Delivery Room Air Oxygen Flow Rate Fraction of Inspired Oxygen 09/19/24 16:00 09/19/24 16:00 09/19/24 18:00 Temperature 98.1 F Pulse Rate 85 84 84 Respiratory Rate 13 Blood Pressure 153/70 H Pulse Oximetry 99 Oxygen Delivery Oxygen Flow Rate Fraction of Inspired Oxygen 09/19/24 20:00 09/19/24 20:00 09/19/24 20:14 Temperature 97.9 F Pulse Rate 110 H 89 Respiratory Rate 22 H Blood Pressure 141/65 H Pulse Oximetry 98 Oxygen Delivery Room Air Oxygen Flow Rate Fraction of Inspired Oxygen 09/19/24 20:59 09/19/24 21:33 09/19/24 22:00 Temperature Pulse Rate 91 87 Respiratory Rate Blood Pressure Pulse Oximetry 98 Oxygen Delivery Room Air Oxygen Flow Rate Fraction of Inspired Oxygen 09/19/24 23:00 09/20/24 00:00 09/20/24 00:00 Temperature 98.0 F Pulse Rate 80 85 Respiratory Rate 12 17 Blood Pressure 147/63 H Pulse Oximetry 99 96 98 Oxygen Delivery BiPAP BiPAP Oxygen Flow Rate 12 Fraction of Inspired Oxygen 09/20/24 00:00 09/20/24 01:51 09/20/24 02:00 Temperature Pulse Rate 86 79 76 Respiratory Rate 14 Blood Pressure Pulse Oximetry 99 Oxygen Delivery BiPAP Oxygen Flow Rate Fraction of Inspired Oxygen 09/20/24 04:00 09/20/24 04:00 09/20/24 04:00 Temperature 98.0 F Pulse Rate 87 88 Respiratory Rate 16 Blood Pressure 163/68 H Pulse Oximetry 97 Oxygen Delivery Room Air Oxygen Flow Rate Fraction of Inspired Oxygen 09/20/24 06:00 Temperature Pulse Rate 97 Respiratory Rate Blood Pressure Pulse Oximetry Oxygen Delivery Oxygen Flow Rate Fraction of Inspired Oxygen Intake/Output Intake/Output: Intake & Output 09/17/24 09/18/24 09/19/24 09/20/24 23:59 23:59 23:59 23:59 Intake Total 3.4 880.8 250 Output Total 1175 6900 1700 Balance -1171.6 -6019.2 -1450 Meds/Results Medications: Active Medications Generic Name Dose Route Start Last Admin Trade Name Freq PRN Reason Stop Dose Admin Acetaminophen 650 mg 09/18/24 23:06 Acetaminophen 325 Mg Tablet PO Q4H PRN Mild Pain (1-3) or Fever Aspirin 325 mg 09/19/24 09:00 09/19/24 09:37 Aspirin 325 Mg Enteric Tablet PO 325 mg QAM [facility] Administration Enoxaparin Sodium 40 mg 09/20/24 09:00 Enoxaparin 40 Mg/0.4 Ml Syringe SUB-Q DAILY [facility] Fenofibrate 145 mg 09/19/24 09:00 09/19/24 09:36 Fenofibrate Nanocrystallized 145 Mg Tablet PO 145 mg QAM [facility] Administration Furosemide 40 mg 09/20/24 09:00 Furosemide Inj 40 Mg/4 Ml Vial IV PUSH BID [facility] Glimepiride 4 mg 09/20/24 08:00 Glimepiride 2 Mg Tablet PO DAILY@0800 [facility] Hydrocortisone 1 applic 09/19/24 09:00 09/19/24 21:30 Hydrocortisone 2.5% Cream 30 Gm Tube TOPICAL 1 applic Q12HR [facility] Administration Labetalol HCl 20 mg 09/19/24 08:37 Labetalol Hcl Inj 100 Mg/20 Ml Vial IV PUSH Q4H PRN SBP > 180 Levothyroxine Sodium 50 mcg 09/19/24 09:00 09/20/24 06:05 Levothyroxine Sodium 50 Mcg Tablet PO 50 mcg DAILY@0630 [facility] Administration Lisinopril 20 mg 09/19/24 09:00 09/19/24 09:37 Lisinopril 20 Mg Tablet PO 20 mg QAM [facility] Administration Metformin HCl 500 mg 09/20/24 08:00 Metformin Hcl 500 Mg Tablet PO DAILY@0800 [facility] Metoprolol Tartrate 25 mg 09/19/24 09:00 09/19/24 21:33 Metoprolol Tartrate 25 Mg Tablet PO 25 mg Q12HR [facility] Administration Miconazole Nitrate 1 applic 09/19/24 09:00 09/19/24 21:30 Miconazole Nitrate 2% Cream 30 Gm Tube TOPICAL 1 applic Q12HR [facility] Administration Nitroglycerin 1 inch 09/19/24 00:00 09/20/24 06:04 Nitroglycerin Ointment 1 Inch Dose TRANSDERM 1 inch Q6HR [facility] Administration Pantoprazole Sodium 40 mg 09/19/24 09:00 09/19/24 09:36 Pantoprazole Sodium Iv 40 Mg Vial IV PUSH 40 mg QAM [facility] Administration Perflutren Lipid Microsphere 0 ml 09/18/24 22:59 Perflutren Lipid Microspheres 1.5 Ml Vial Diluted To 10 Ml Total Volume IV PUSH 09/21/24 22:59 ONCE PRN adequate visualization Protocol Pravastatin Sodium 40 mg 09/19/24 09:00 09/19/24 09:37 Pravastatin Sodium 20 Mg Tablet PO 40 mg DAILY [facility] Administration Tamsulosin HCl 0.4 mg 09/19/24 09:00 09/19/24 09:36 Tamsulosin Hcl 0.4 Mg Capsule PO 0.4 mg QAM [facility] Administration Radiology Results: ITS Impressions Chest X-Ray 09/18/24 20:35 IMPRESSION: No acute cardiopulmonary process. Chest CTA 09/19/24 06:17 Impression: No evidence of pulmonary embolus, aortic dissection, or aortic aneurysm. Minimal mosaic attenuation pattern in the lungs. Correlate for minimal pulmonary edema, hypoventilatory change, bronchiolitis, hypersensitivity pneumonitis, chronic interstitial disease. Labs Labs: Laboratory Results - last 24 hr 09/19/24 09/19/24 09/19/24 09:33 16:04 16:18 WBC RBC Hgb Hct MCV MCH MCHC RDW Plt Count MPV Puncture Site ABG pH ABG pCO2 ABG pO2 ABG PO2/FiO2 Ratio ABG HCO3 ABG O2 Saturation ABG O2 Content ABG Base Excess A-a Gradient Oxyhemoglobin Total Hemoglobin O2 Delivery Device O2 Liters/Min FiO2 Sodium Potassium Chloride Carbon Dioxide Anion Gap BUN Creatinine Estim Creat Clear Calc Estimated GFR Glucose POC Capillary Glucose 82 54 L* 81 Calcium Total Bilirubin AST ALT Alkaline Phosphatase NT-Pro-B Natriuret Pep Total Protein Albumin 09/19/24 09/20/24 09/20/24 20:17 03:40 03:56 WBC 10.2 H RBC 3.22 L Hgb 9.0 L Hct 30.3 L MCV 94.1 MCH 28.0 MCHC 29.7 L RDW 14.5 Plt Count 216 MPV 11.6 H Puncture Site ABG pH ABG pCO2 ABG pO2 ABG PO2/FiO2 Ratio ABG HCO3 ABG O2 Saturation ABG O2 Content ABG Base Excess A-a Gradient Oxyhemoglobin Total Hemoglobin O2 Delivery Device O2 Liters/Min FiO2 Sodium 139 Potassium 3.5 Chloride 105 Carbon Dioxide 31 H Anion Gap 3 L BUN 25 H Creatinine 1.74 H Estim Creat Clear Calc 45 Estimated GFR 39 L Glucose 66 POC Capillary Glucose 154 H 52 L* Calcium 8.5 Total Bilirubin 0.3 AST 29 ALT 14 Alkaline Phosphatase 45 NT-Pro-B Natriuret Pep 465 H Total Protein 6.2 L Albumin 3.3 L 09/20/24 09/20/24 09/20/24 04:00 06:06 07:24 WBC RBC Hgb Hct MCV MCH MCHC RDW Plt Count MPV Puncture Site Left radial ABG pH 7.484 H ABG pCO2 39.3 ABG pO2 85.1 ABG PO2/FiO2 Ratio 4.05 ABG HCO3 28.9 H ABG O2 Saturation 97.0 ABG O2 Content 14.3 L ABG Base Excess 5.1 A-a Gradient 17.6 Oxyhemoglobin 95.9 Total Hemoglobin 10.5 L O2 Delivery Device Not Reportable O2 Liters/Min 0.0 FiO2 21 Sodium Potassium Chloride Carbon Dioxide Anion Gap BUN Creatinine Estim Creat Clear Calc Estimated GFR Glucose POC Capillary Glucose 94 52 L* Calcium Total Bilirubin AST ALT Alkaline Phosphatase NT-Pro-B Natriuret Pep Total Protein Albumin Hospitalist MIPS Advance Care Plan I have confirmed that the patient's Advanced Care Plan is present, code status is documented, or surrogate decision maker is listed in patient medical record.: Yes Medication Reconciliation I have utilized all available resources to obtain, update and review the patients current medications (includes all prescriptions, OTC, herbals, cannabis, and nutritional supplements).: Yes
[2024-09-20] MEDS: CHOLECALCIFEROL (VITAMIN D3) 25 MCG (1,000 UNITS) TABLET 50 MCG PO (08:52)
[2024-09-20] MEDS: lisinopriL 20 MG TABLET PO (08:52)
[2024-09-20] MEDS: FERROUS SULFATE 325 MG TABLET DR PO (08:52)
[2024-09-20] MEDS: METOPROLOL TARTRATE 25 MG TABLET PO (08:52)
[2024-09-20] MEDS: ENOXAPARIN 40 MG/0.4 ML SYRINGE SUB-Q (08:52)
[2024-09-20] MEDS: FENOFIBRATE NANOCRYSTALLIZED 145 MG TABLET PO (08:52)
[2024-09-20] MEDS: PANTOPRAZOLE SODIUM IV 40 MG VIAL IV PUSH (08:52)
[2024-09-20] MEDS: ASPIRIN 81 MG ENTERIC TABLET PO (08:52)
[2024-09-20] MEDS: FUROSEMIDE INJ 40 MG/4 ML VIAL IV PUSH ×2 (08:52→17:15)
[2024-09-20] MEDS: TAMSULOSIN HCL 0.4 MG CAPSULE PO (08:52)
[2024-09-20] MEDS: metFORMIN HCL 500 MG TABLET PO (08:52)
[2024-09-20] MEDS: MICONAZOLE NITRATE 2% CREAM 30 GM TUBE 1 APPLIC TOPICAL ×2 (08:53→21:03)
[2024-09-20 11:26] LABS: Glucose Point of Care 169 mg/dl (65-105)
--- NOTE | 2024-09-20 11:53 | P.PNCA_ITS ---
Progress Note: A&P Assessment and Plan (1) Acute exacerbation of CHF (congestive heart failure): Qualifiers: Heart failure type: unspecified Qualified Code(s): I50.9 - Heart failure, unspecified Code(s): I50.9 - Heart failure, unspecified Status: Acute (2) Dyslipidemia: Code(s): E78.5 - Hyperlipidemia, unspecified Status: Acute (3) Essential (primary) hypertension: Code(s): I10 - Essential (primary) hypertension Status: Acute Plan 74-year-old man with diabetes, hypertension, hyperlipidemia, chronic kidney disease stage 3, and history of colon cancer presented with shortness of breath, swelling, and weight gain Congestive heart failure -will define systolic function and valve function on echocardiogram -that echo rather unremarkable, would recommend continue outpatient evaluation for other etiologies of swelling -likely discontinue his Lasix tomorrow Hypertension -on lisinopril 20 mg p.o. daily -will change his Lopressor to carvedilol 6.25 mg p.o. b.i.d. for better blood pressure control Hyperlipidemia -on pravastatin Subjective Date/time seen: 09/20/24 11:53 Interval history: No shortness of breath. No chest discomfort. Feels much better when compared to admission. Lower extremity swelling has resolved. Review of Systems Cardiovascular: Cardiovascular: Reports as per HPI Respiratory: Respiratory: Reports as per HPI Exam Const: General: comfortable HENMT: Mouth: Yes moist mucous membranes Eyes: EOM: EOMs intact bilaterally Neck: Neck: no JVD Resp: Effort & Inspection: normal respiratory effort Auscultation: clear to auscultation bilaterally Cardio: Rate: regular rate Rhythm: regular rhythm Extrem: General: no pedal edema Objective Data Vital Signs Vital Signs: Vital Signs - 24 hr 09/19/24 12:00 09/19/24 12:00 09/19/24 12:00 Temperature 36.8 C Pulse Rate 83 71 Respiratory Rate 20 Blood Pressure 143/66 H 156/64 H Pulse Oximetry 100 100 Oxygen Delivery Nasal Cannula Oxygen Flow Rate 2 Fraction of Inspired Oxygen 09/19/24 12:00 09/19/24 13:52 09/19/24 14:00 Temperature 37.1 C Pulse Rate 79 87 Respiratory Rate 14 Blood Pressure 131/98 H Pulse Oximetry 98 100 Oxygen Delivery Room Air Oxygen Flow Rate Fraction of Inspired Oxygen 21 09/19/24 14:00 09/19/24 14:00 09/19/24 16:00 Temperature Pulse Rate 80 84 Respiratory Rate Blood Pressure 131/98 H Pulse Oximetry 99 Oxygen Delivery Room Air Oxygen Flow Rate Fraction of Inspired Oxygen 09/19/24 16:00 09/19/24 16:00 09/19/24 18:00 Temperature 36.7 C Pulse Rate 85 84 84 Respiratory Rate 13 Blood Pressure 153/70 H Pulse Oximetry 99 Oxygen Delivery Oxygen Flow Rate Fraction of Inspired Oxygen 09/19/24 20:00 09/19/24 20:00 09/19/24 20:14 Temperature 36.6 C Pulse Rate 110 H 89 Respiratory Rate 22 H Blood Pressure 141/65 H Pulse Oximetry 98 Oxygen Delivery Room Air Oxygen Flow Rate Fraction of Inspired Oxygen 09/19/24 20:59 09/19/24 21:33 09/19/24 22:00 Temperature Pulse Rate 91 87 Respiratory Rate Blood Pressure Pulse Oximetry 98 Oxygen Delivery Room Air Oxygen Flow Rate Fraction of Inspired Oxygen 21 09/19/24 23:00 09/20/24 00:00 09/20/24 00:00 Temperature 36.7 C Pulse Rate 80 85 Respiratory Rate 12 17 Blood Pressure 147/63 H Pulse Oximetry 99 96 98 Oxygen Delivery BiPAP BiPAP Oxygen Flow Rate 12 Fraction of Inspired Oxygen 25 09/20/24 00:00 09/20/24 01:51 09/20/24 02:00 Temperature Pulse Rate 86 79 76 Respiratory Rate 14 Blood Pressure Pulse Oximetry 99 Oxygen Delivery BiPAP Oxygen Flow Rate Fraction of Inspired Oxygen 09/20/24 04:00 09/20/24 04:00 09/20/24 04:00 Temperature 36.7 C Pulse Rate 87 88 Respiratory Rate 16 Blood Pressure 163/68 H Pulse Oximetry 97 Oxygen Delivery Room Air Oxygen Flow Rate Fraction of Inspired Oxygen 09/20/24 06:00 09/20/24 07:59 09/20/24 08:00 Temperature 36.6 C Pulse Rate 97 93 100 Respiratory Rate 16 Blood Pressure 151/72 H Pulse Oximetry 100 Oxygen Delivery Oxygen Flow Rate Fraction of Inspired Oxygen 09/20/24 08:00 09/20/24 08:16 09/20/24 08:52 Temperature Pulse Rate 98 Respiratory Rate Blood Pressure Pulse Oximetry 98 98 Oxygen Delivery Room Air Room Air Oxygen Flow Rate Fraction of Inspired Oxygen 09/20/24 10:00 Temperature Pulse Rate 100 Respiratory Rate Blood Pressure Pulse Oximetry Oxygen Delivery Oxygen Flow Rate Fraction of Inspired Oxygen Intake/Output Intake/Output: Intake & Output 09/17/24 09/18/24 09/19/24 09/20/24 23:59 23:59 23:59 23:59 Intake Total 3.4 880.8 730 Output Total 1175 6900 3650 Balance -1171.6 -6019.2 -2920 Meds/Results Medications: Active Medications Generic Name Dose Route Start Last Admin Trade Name Freq PRN Reason Stop Dose Admin Acetaminophen 650 mg 09/18/24 23:06 Acetaminophen 325 Mg Tablet PO Q4H PRN Mild Pain (1-3) or Fever Aspirin 81 mg 09/20/24 09:00 09/20/24 08:52 Aspirin 81 Mg Enteric Tablet PO 81 mg DAILY [facility] Administration Enoxaparin Sodium 40 mg 09/20/24 09:00 09/20/24 08:52 Enoxaparin 40 Mg/0.4 Ml Syringe SUB-Q 40 mg DAILY [facility] Administration Fenofibrate 145 mg 09/19/24 09:00 09/20/24 08:52 Fenofibrate Nanocrystallized 145 Mg Tablet PO 145 mg QAM [facility] Administration Ferrous Sulfate 325 mg 09/20/24 09:00 09/20/24 08:52 Ferrous Sulfate [address] PO 325 mg DAILY [facility] Administration Furosemide 40 mg 09/20/24 09:00 09/20/24 08:52 Furosemide Inj 40 Mg/4 Ml Vial IV PUSH 40 mg BID [facility] Administration Glimepiride 4 mg 09/20/24 08:00 Glimepiride 2 Mg Tablet PO DAILY@0800 [facility] Hydrocortisone 1 applic 09/20/24 08:10 Hydrocortisone 2.5% Cream 30 Gm Tube RECTAL DAILY PRN hemorrhoids Labetalol HCl 20 mg 09/19/24 08:37 Labetalol Hcl Inj 100 Mg/20 Ml Vial IV PUSH Q4H PRN SBP > 180 Levothyroxine Sodium 50 mcg 09/21/24 06:30 Levothyroxine Sodium 50 Mcg Tablet PO DAILY@0630 [facility] Lisinopril 20 mg 09/19/24 09:00 09/20/24 08:52 Lisinopril 20 Mg Tablet PO 20 mg QAM [facility] Administration Metformin HCl 500 mg 09/20/24 08:00 09/20/24 08:52 Metformin Hcl 500 Mg Tablet PO 500 mg DAILY@0800 [facility] Administration Metoprolol Tartrate 25 mg 09/19/24 09:00 09/20/24 08:52 Metoprolol Tartrate 25 Mg Tablet PO 25 mg Q12HR [facility] Administration Miconazole Nitrate 1 applic 09/19/24 09:00 09/20/24 08:53 Miconazole Nitrate 2% Cream 30 Gm Tube TOPICAL 1 applic Q12HR [facility] Administration Nitroglycerin 1 inch 09/19/24 00:00 09/20/24 11:41 Nitroglycerin Ointment 1 Inch Dose TRANSDERM 1 inch Q6HR [facility] Administration Pantoprazole Sodium 40 mg 09/19/24 09:00 09/20/24 08:52 Pantoprazole Sodium Iv 40 Mg Vial IV PUSH 40 mg QAM [facility] Administration Perflutren Lipid Microsphere 0 ml 09/18/24 22:59 Perflutren Lipid Microspheres 1.5 Ml Vial Diluted To 10 Ml Total Volume IV PUSH 09/21/24 22:59 ONCE PRN adequate visualization Protocol Pravastatin Sodium 40 mg 09/20/24 21:00 Pravastatin Sodium 20 Mg Tablet PO QHS [facility] Tamsulosin HCl 0.4 mg 09/19/24 09:00 09/20/24 08:52 Tamsulosin Hcl 0.4 Mg Capsule PO 0.4 mg QAM [facility] Administration Vitamin D 50 mcg 09/20/24 09:00 09/20/24 08:52 Cholecalciferol (Vitamin D3) 25 Mcg (1,000 Units) Tablet PO 50 mcg DAILY [facility] Administration Radiology Results: ITS Impressions Chest X-Ray 09/18/24 20:35 IMPRESSION: No acute cardiopulmonary process. Chest CTA 09/19/24 06:17 Impression: No evidence of pulmonary embolus, aortic dissection, or aortic aneurysm. Minimal mosaic attenuation pattern in the lungs. Correlate for minimal pulmonary edema, hypoventilatory change, bronchiolitis, hypersensitivity pneumonitis, chronic interstitial disease. Labs Labs: Laboratory Results - last 24 hr 09/19/24 09/19/24 09/19/24 16:04 16:18 20:17 WBC RBC Hgb Hct MCV MCH MCHC RDW Plt Count MPV Puncture Site ABG pH ABG pCO2 ABG pO2 ABG PO2/FiO2 Ratio ABG HCO3 ABG O2 Saturation ABG O2 Content ABG Base Excess A-a Gradient Oxyhemoglobin Total Hemoglobin O2 Delivery Device O2 Liters/Min FiO2 Sodium Potassium Chloride Carbon Dioxide Anion Gap BUN Creatinine Estim Creat Clear Calc Estimated GFR Glucose POC Capillary Glucose 54 L* 81 154 H Calcium Total Bilirubin AST ALT Alkaline Phosphatase NT-Pro-B Natriuret Pep Total Protein Albumin 09/20/24 09/20/24 09/20/24 03:40 03:56 04:00 WBC 10.2 H RBC 3.22 L Hgb 9.0 L Hct 30.3 L MCV 94.1 MCH 28.0 MCHC 29.7 L RDW 14.5 Plt Count 216 MPV 11.6 H Puncture Site ABG pH ABG pCO2 ABG pO2 ABG PO2/FiO2 Ratio ABG HCO3 ABG O2 Saturation ABG O2 Content ABG Base Excess A-a Gradient Oxyhemoglobin Total Hemoglobin O2 Delivery Device O2 Liters/Min FiO2 Sodium 139 Potassium 3.5 Chloride 105 Carbon Dioxide 31 H Anion Gap 3 L BUN 25 H Creatinine 1.74 H Estim Creat Clear Calc 45 Estimated GFR 39 L Glucose 66 POC Capillary Glucose 52 L* 94 Calcium 8.5 Total Bilirubin 0.3 AST 29 ALT 14 Alkaline Phosphatase 45 NT-Pro-B Natriuret Pep 465 H Total Protein 6.2 L Albumin 3.3 L 09/20/24 09/20/24 09/20/24 06:06 07:24 10:58 WBC RBC Hgb Hct MCV MCH MCHC RDW Plt Count MPV Puncture Site Left radial ABG pH 7.484 H ABG pCO2 39.3 ABG pO2 85.1 ABG PO2/FiO2 Ratio 4.05 ABG HCO3 28.9 H ABG O2 Saturation 97.0 ABG O2 Content 14.3 L ABG Base Excess 5.1 A-a Gradient 17.6 Oxyhemoglobin 95.9 Total Hemoglobin 10.5 L O2 Delivery Device Not Reportable O2 Liters/Min 0.0 FiO2 21 Sodium Potassium Chloride Carbon Dioxide Anion Gap BUN Creatinine Estim Creat Clear Calc Estimated GFR Glucose POC Capillary Glucose 52 L* 169 H Calcium Total Bilirubin AST ALT Alkaline Phosphatase NT-Pro-B Natriuret Pep Total Protein Albumin
--- NOTE | 2024-09-20 12:42 | P.CDI_ITS ---
CDI Query Clarification Request Please specify type of heart failure if known. * Systolic * Diastolic * Combined Systolic and Diastolic * Unknown The medical chart reflects the following: Cardiology documented: Assessment and Plan (1) Acute exacerbation of CHF (congestive heart failure): Qualifiers: Heart failure type: unspecified Qualified Code(s): I50.9 - Heart failure, unspecified Code(s): I50.9 - Heart failure, unspecified Status: Acute (2) Dyslipidemia: Code(s): E78.5 - Hyperlipidemia, unspecified Status: Acute (3) Essential (primary) hypertension: Code(s): I10 - Essential (primary) hypertension Status: Acute Plan 74-year-old man with diabetes, hypertension, hyperlipidemia, chronic kidney disease stage 3, and history of colon cancer presented with shortness of breath, swelling, and weight gain Congestive heart failure -will define systolic function and valve function on echocardiogram -that echo rather unremarkable, would recommend continue outpatient evaluation for other etiologies of swelling -likely discontinue his Lasix tomorrow hospitalist documented: (3) Acute exacerbation of CHF (congestive heart failure): Qualifiers: Heart failure type: unspecified Qualified Code(s): I50.9 - Heart failure, unspecified Code(s): I50.9 - Heart failure, unspecified Status: Acute Assessment and Plan: Patient clearly has signs and symptoms of congestive heart failure with bilateral lower extremity edema, orthopnea PND and mild pulmonary edema this could be mostly right heart failure considering patient has untreated sleep apnea and obesity Echocardiogram pending IV Lasix cardiology consult BNP 09/18: 384, 09/20: 465 Lasix 40mg IV BID <Melva Shepherd RN - Last Filed: 09/20/24 12:48> Clarified Diagnosis Clarified Diagnosis: Unknown <Tan Mo MD - Last Filed: 09/20/24 14:52>
--- NOTE | 2024-09-20 13:11 | PC.NURSE ---
This patient, Alex Thao Jr., was transferred to [facility] on 09/20/24 at 1310. Personal belongings sent with patient. Report given to Nandini at 1243. Appropriate documentation sent with patient. Pts at bedside. Betty Khan RN
[2024-09-20 17:07] LABS: Glucose Point of Care 113 mg/dl (65-105)
[2024-09-20] MEDS: carvediloL 6.25 MG TABLET PO (21:00)
[2024-09-20] MEDS: PRAVASTATIN SODIUM 20 MG TABLET 40 MG PO (21:02)
[2024-09-21] VITALS: PULSE 120
[2024-09-21 04:00] VITALS: PULSE 103
[2024-09-21 05:27] LABS: Glucose Point of Care 194 mg/dl (65-105)
[2024-09-21 05:58] LABS: Hematocrit 30.7 % (42.0-52.0); Hemoglobin 9.4 g/dL (14.0-18.0); Mean Corpuscular HGB Conc 30.6 g/dl (32-36); Mean Corpuscular Hemoglobin 28.2 pg (26-34); Mean Corpuscular Volume 92.2 fl (80-100); Mean Platelet Volume 11.6 fl (7.4-10.4); Platelet Count Result 224 k/mm3 (150-375); Red Blood Count 3.33 M/mm3 (4.6-6.20); Red Cell Distribution Width 14.5 % (11.5-14.5); White Blood Count 8.8 K/mm3 (4.5-10.0)
[2024-09-21 06:00] VITALS: BP 147/73; PULSE 98; RESP 18; TEMP 36.5; O2SAT 97
[2024-09-21] MEDS: NITROGLYCERIN OINTMENT 1 INCH DOSE TRANSDERM ×2 (06:11→11:07)
[2024-09-21] MEDS: LEVOTHYROXINE SODIUM 50 MCG TABLET PO (06:11)
[2024-09-21 06:23] LABS: Alanine Aminotransferase 15 U/L (6-50); Albumin Level 3.2 g/dL (3.5-5.1); Alkaline Phosphatase 45 U/L (38-126); Anion Gap 5 mmol/L (4-12); Aspartate Amino Transferase 28 U/L (17-59); Bilirubin,Total 0.3 mg/dL (0.2-1.3); Blood Urea Nitrogen 21 mg/dL (9-20); Calcium 8.6 mg/dL (8.4-10.2); Carbon Dioxide 29 mmol/L (22-30); Chloride 102 mmol/L (98-107); Estimated CRCL calculation 44 ml/min; Estimated Glomerular Filt Rate 37; Glucose 159 mg/dL (65-110); NT Pro B Type Natriuretic Pept 535 pg/mL (19.9-100); Potassium 3.6 mmol/L (3.4-5.0); Sodium 136 mmol/L (137-145); Total Protein 6.2 g/dL (6.3-8.2)
[2024-09-21 08:00] VITALS: BP 147/80; PULSE 94; PULSE 97; RESP 18; TEMP 36.7; O2SAT 99
[2024-09-21 08:09] LABS: Glucose Point of Care 174 mg/dl (65-105)
[2024-09-21 08:49] VITALS: PULSE 94
[2024-09-21] MEDS: TAMSULOSIN HCL 0.4 MG CAPSULE PO (08:49)
[2024-09-21] MEDS: metFORMIN HCL 500 MG TABLET PO (08:49)
[2024-09-21] MEDS: CHOLECALCIFEROL (VITAMIN D3) 25 MCG (1,000 UNITS) TABLET 50 MCG PO (08:49)
[2024-09-21] MEDS: carvediloL 6.25 MG TABLET PO (08:49)
[2024-09-21] MEDS: FUROSEMIDE INJ 40 MG/4 ML VIAL IV PUSH (08:50)
[2024-09-21] MEDS: FENOFIBRATE NANOCRYSTALLIZED 145 MG TABLET PO (08:50)
[2024-09-21] MEDS: PANTOPRAZOLE SODIUM IV 40 MG VIAL IV PUSH (08:50)
[2024-09-21] MEDS: FERROUS SULFATE 325 MG TABLET DR PO (08:50)
[2024-09-21] MEDS: lisinopriL 20 MG TABLET PO (08:50)
[2024-09-21] MEDS: ENOXAPARIN 40 MG/0.4 ML SYRINGE SUB-Q (08:50)
[2024-09-21] MEDS: ASPIRIN 81 MG ENTERIC TABLET PO (08:50)
[2024-09-21] MEDS: MICONAZOLE NITRATE 2% CREAM 30 GM TUBE 1 APPLIC TOPICAL (08:56)
[2024-09-21 11:46] LABS: Glucose Point of Care 230 mg/dl (65-105)
[2024-09-21 12:00] VITALS: PULSE 88
--- NOTE | 2024-09-21 15:13 | PM.PNCARD ---
Progress Note: A&P Assessment and Plan (1) Acute exacerbation of CHF (congestive heart failure): Qualifiers: Heart failure type: unspecified Qualified Code(s): I50.9 - Heart failure, unspecified Code(s): I50.9 - Heart failure, unspecified Status: Acute (2) Dyslipidemia: Code(s): E78.5 - Hyperlipidemia, unspecified Status: Acute (3) Essential (primary) hypertension: Code(s): I10 - Essential (primary) hypertension Status: Acute Plan 74-year-old man with diabetes, hypertension, hyperlipidemia, chronic kidney disease stage 3, and history of colon cancer presented with shortness of breath, swelling, and weight gain Congestive heart failure, diastolic. -Echocardiogram showed LVEF 50-55%. -Recommend to transition IV Lasix to PO Lasix 40mg once daily. -Will not start SGLT2 inhibitor given patient has genital abscess listed as allergy for Farxiga. Hypertension -Continue Lisinopril and Coreg. -Given issues with lower extremity swelling, would not resume Diltiazem upon discharge. -Do not resume Metoprolol upon discharge as we switched it to Coreg. -Lisinopril and Coreg can be increased as needed for additional blood pressure control. Hyperlipidemia -on pravastatin Okay for discharge from a cardiac standpoint. Will arrange follow up in our office. Recommendations and plan discussed with Hospitalist. Subjective Date/time seen: 09/21/24 15:13 Interval history: Reason for visit: CHF Feeling well today. Diuresed quite well. Review of Systems Cardiovascular: Cardiovascular: Reports as per HPI Exam Const: General: comfortable and no acute distress HENMT: Mouth: Yes moist mucous membranes Eyes: General: appearance normal, both eyes and all related structures Sclera: sclerae normal Resp: Effort & Inspection: normal respiratory effort Cardio: Rate: regular rate Rhythm: regular rhythm Heart sounds: no murmurs Skin: General skin exam: normal color Neuro: Speech: normal speech Psych: Mental Status: mental status grossly normal Affect: normal affect Objective Data Vital Signs Vital Signs: Vital Signs - 24 hr 09/20/24 16:00 09/20/24 16:00 09/20/24 20:00 Temperature 36.8 C Pulse Rate 93 112 H 94 Respiratory Rate 18 Blood Pressure 142/65 H Pulse Oximetry 99 09/20/24 21:00 09/20/24 22:22 09/21/24 00:00 Temperature 36.8 C Pulse Rate 88 102 H 120 H Respiratory Rate 18 Blood Pressure 164/77 H Pulse Oximetry 98 09/21/24 04:00 09/21/24 06:00 09/21/24 08:00 Temperature 36.5 C 36.7 C Pulse Rate 103 H 98 94 Respiratory Rate 18 18 Blood Pressure 147/73 H 147/80 H Pulse Oximetry 97 99 09/21/24 08:00 09/21/24 08:49 09/21/24 12:00 Temperature Pulse Rate 97 94 88 Respiratory Rate Blood Pressure Pulse Oximetry Intake/Output Intake/Output: Intake & Output 09/18/24 09/19/24 09/20/24 09/21/24 23:59 23:59 23:59 23:59 Intake Total 3.4 880.8 1960 1280 Output Total 1175 6900 5500 5800 Balance -1171.6 -6019.2 -3540 -4520 Meds/Results Medications: Active Medications Generic Name Dose Route Start Last Admin Trade Name Freq PRN Reason Stop Dose Admin Acetaminophen 650 mg 09/18/24 23:06 Acetaminophen 325 Mg Tablet PO Q4H PRN Mild Pain (1-3) or Fever Aspirin 81 mg 09/20/24 09:00 09/21/24 08:50 Aspirin 81 Mg Enteric Tablet PO 81 mg DAILY BANDAR Administration Carvedilol 6.25 mg 09/20/24 21:00 09/21/24 08:49 Carvedilol 6.25 Mg Tablet PO 6.25 mg Q12HR BANDAR Administration Enoxaparin Sodium 40 mg 09/20/24 09:00 09/21/24 08:50 Enoxaparin 40 Mg/0.4 Ml Syringe SUB-Q 40 mg DAILY BANDAR Administration Fenofibrate 145 mg 09/19/24 09:00 09/21/24 08:50 Fenofibrate Nanocrystallized 145 Mg Tablet PO 145 mg QAM BANDAR Administration Ferrous Sulfate 325 mg 09/20/24 09:00 09/21/24 08:50 Ferrous Sulfate [address] PO 325 mg DAILY BANDAR Administration Furosemide 40 mg 09/20/24 09:00 09/21/24 08:50 Furosemide Inj 40 Mg/4 Ml Vial IV PUSH 40 mg BID BANDAR Administration Glimepiride 4 mg 09/20/24 08:00 Glimepiride 2 Mg Tablet PO DAILY@0800 BANDAR Hydrocortisone 1 applic 09/20/24 08:10 Hydrocortisone 2.5% Cream 30 Gm Tube RECTAL DAILY PRN hemorrhoids Labetalol HCl 20 mg 09/19/24 08:37 Labetalol Hcl Inj 100 Mg/20 Ml Vial IV PUSH Q4H PRN SBP > 180 Levothyroxine Sodium 50 mcg 09/21/24 06:30 09/21/24 06:11 Levothyroxine Sodium 50 Mcg Tablet PO 50 mcg DAILY@0630 [facility] Administration Lisinopril 20 mg 09/19/24 09:00 09/21/24 08:50 Lisinopril 20 Mg Tablet PO 20 mg QAM BANDAR Administration Metformin HCl 500 mg 09/20/24 08:00 09/21/24 08:49 Metformin Hcl 500 Mg Tablet PO 500 mg DAILY@0800 [facility] Administration Miconazole Nitrate 1 applic 09/19/24 09:00 09/21/24 08:56 Miconazole Nitrate 2% Cream 30 Gm Tube TOPICAL 1 applic Q12HR BANDAR Administration Nitroglycerin 1 inch 09/19/24 00:00 09/21/24 11:07 Nitroglycerin Ointment 1 Inch Dose TRANSDERM 1 inch Q6HR BANDAR Administration Pantoprazole Sodium 40 mg 09/19/24 09:00 09/21/24 08:50 Pantoprazole Sodium Iv 40 Mg Vial IV PUSH 40 mg QAM BANDAR Administration Perflutren Lipid Microsphere 0 ml 09/18/24 22:59 Perflutren Lipid Microspheres 1.5 Ml Vial Diluted To 10 Ml Total Volume IV PUSH 09/21/24 22:59 ONCE PRN adequate visualization Protocol Pravastatin Sodium 40 mg 09/20/24 21:00 09/20/24 21:02 Pravastatin Sodium 20 Mg Tablet PO 40 mg QHS BANDAR Administration Tamsulosin HCl 0.4 mg 09/19/24 09:00 09/21/24 08:49 Tamsulosin Hcl 0.4 Mg Capsule PO 0.4 mg QAM [facility] Administration Vitamin D 50 mcg 09/20/24 09:00 09/21/24 08:49 Cholecalciferol (Vitamin D3) 25 Mcg (1,000 Units) Tablet PO 50 mcg DAILY BANDAR Administration Radiology Results: ITS Impressions Chest X-Ray 09/18/24 20:35 IMPRESSION: No acute cardiopulmonary process. Chest CTA 09/19/24 06:17 Impression: No evidence of pulmonary embolus, aortic dissection, or aortic aneurysm. Minimal mosaic attenuation pattern in the lungs. Correlate for minimal pulmonary edema, hypoventilatory change, bronchiolitis, hypersensitivity pneumonitis, chronic interstitial disease. Labs Labs: Laboratory Results - last 24 hr 09/20/24 09/20/24 09/21/24 17:02 20:01 05:23 WBC 8.8 RBC 3.33 L Hgb 9.4 L Hct 30.7 L MCV 92.2 MCH 28.2 MCHC 30.6 L RDW 14.5 Plt Count 224 MPV 11.6 H Sodium 136 L Potassium 3.6 Chloride 102 Carbon Dioxide 29 Anion Gap 5 BUN 21 H Creatinine 1.79 H Estim Creat Clear Calc 44 Estimated GFR 37 L Glucose 159 H POC Capillary Glucose 113 H 194 H Calcium 8.6 Total Bilirubin 0.3 AST 28 ALT 15 Alkaline Phosphatase 45 NT-Pro-B Natriuret Pep 535 H Total Protein 6.2 L Albumin 3.2 L 09/21/24 09/21/24 08:05 11:43 WBC RBC Hgb Hct MCV MCH MCHC RDW Plt Count MPV Sodium Potassium Chloride Carbon Dioxide Anion Gap BUN Creatinine Estim Creat Clear Calc Estimated GFR Glucose POC Capillary Glucose 174 H 230 H Calcium Total Bilirubin AST ALT Alkaline Phosphatase NT-Pro-B Natriuret Pep Total Protein Albumin
--- NOTE | 2024-09-21 16:00 | PM.DS ---
DS: Admitting Diagnosis Discharge Date 09/21/24 Admitting Diagnosis Chest pain, shortness breast, leg swelling DS: Discharge Diagnosis Discharge Diagnosis (1) Acute exacerbation of CHF (congestive heart failure): Qualifiers: Heart failure type: unspecified Qualified Code(s): I50.9 - Heart failure, unspecified Code(s): I50.9 - Heart failure, unspecified Status: Acute DS: Summary Hospital Course Hospital Course: 74-year-old male with a past medical history of essential hypertension, chronic kidney disease stage III, type 2 diabetes mellitus, diabetic peripheral neuropathy, suspected obstructive sleep apnea in multiple prior abdominal surgeries who presented to the ER via private vehicle with shortness of breath, chest pain and leg swelling. In the ER patient was had markedly labored respirations despite chest x-ray demonstrating no acute cardiopulmonary process and patient was on room air. He was started on BiPAP for respiratory support and given 10 mg of IV hydralazine and 40 mg of IV Lasix. Despite these medications his blood pressures continued to provides upward instead of decreasing. Although he looks more comfortable on BiPAP he is still labored. He was still having some chest discomfort but it had improved from prior. Bedside echo was performed by ER provider and reviewed by myself at bedside patient seemed to have biatrial enlargement and noncompressible IVC suggesting volume overload despite no evidence of for CHF on chest x-ray. Given the patient's reported symptoms of orthopnea paroxysmal nocturnal dyspnea as well as witnessed episodes of apnea I suspect patient has a right-sided heart failure likely due to untreated severe obstructive sleep apnea. However patient also has elevated D-dimer 0.92. He is at higher risk of blood clots due to his history of stage IV colon cancer (in remission since early ) and sedentary lifestyle. Risk for DVT/PE is still moderate subsequently patient will be sent for CTA of the chest to rule out pulmonary embolism. Patient's has been started on a nitro drip and nitro paste in the ER and the patient has been admitted to the ICU with the balance screwhead polisher being consulted from the ER. Hemoglobin in the ER was stable compared to values from 2 days ago that were performed as outpatient. But down 2.5 g from last February. He denies any hematochezia or melena. He is not on blood thinners. Patient was managed for acute hypoxemic respiratory failure from CHF. Initially on BIPAP and now on room air. ECHo showed grade I diastolic dysfunction. also managed for hypertensive emergency with nitroglycerin. Discussed wtih cardiology and patietn discharged on Lisinopril, and Coreg. And lasix 40mg daily. f/u with Cardiology as instructed. ALso managed for urinary retention and urology was consulted and patietn placed on Foely and started on Tamsulosin, reverted back to Doxazozin which is his home meds and will follow up with Urology for possibel cystoscopy. Continue other home meds F/u with PCP in 3-5 days, continue follow up with cardiology as instructed Time Spent with Patient Time attestation: Total time spent providing and/or coordinating discharge services: DS: Data Data Completed and Pending Labs on day of discharge: Labs from last 24 hours 09/21/24 09/21/24 09/21/24 11:43 08:05 05:23 WBC 8.8 RBC 3.33 L Hgb 9.4 L Hct 30.7 L MCV 92.2 MCH 28.2 MCHC 30.6 L RDW 14.5 Plt Count 224 MPV 11.6 H Sodium 136 L Potassium 3.6 Chloride 102 Carbon Dioxide 29 Anion Gap 5 BUN 21 H Creatinine 1.79 H Estim Creat Clear Calc 44 Estimated GFR 37 L Glucose 159 H POC Capillary Glucose 230 H 174 H Calcium 8.6 Total Bilirubin 0.3 AST 28 ALT 15 Alkaline Phosphatase 45 NT-Pro-B Natriuret Pep 535 H Total Protein 6.2 L Albumin 3.2 L 09/20/24 09/20/24 20:01 17:02 WBC RBC Hgb Hct MCV MCH MCHC RDW Plt Count MPV Sodium Potassium Chloride Carbon Dioxide Anion Gap BUN Creatinine Estim Creat Clear Calc Estimated GFR Glucose POC Capillary Glucose 194 H 113 H Calcium Total Bilirubin AST ALT Alkaline Phosphatase NT-Pro-B Natriuret Pep Total Protein Albumin Discharge Plan Discharge Attending physician on discharge: Keny Kidd Consulting providers: Seth Camargo; Flory Glass; Ebenezer Biggs Discharging Clinician: Keny Kidd Anticipated Discharge Date/Time: 09/21/24 15:43 Patient Disposition: Home Activity: as tolerated Diet: as tolerated, heart healthy and diabetic Patient Instructions: Antibiotic Form, Heart Failure (DC) Patient Language: Telugu Stand Alone Forms: General Discharge Information Follow-up/Referrals: Ebenezer Biggs MD [Physician] - (F/u with urology as instructed ) Flory Glass DO [Physician] - (F/u with Cardiology as instructed ) Marito Sainz MD [Primary Care Provider] - (F/u with PCP in 3-5 days ) Discharge Medications: New carvedilol [Coreg] 6.25 mg Tablet 6.25 mg PO Q12HR 30 Days Qty: 60 1RF furosemide [Lasix] 40 mg tablet 40 mg PO DAILY 30 Days Qty: 30 1RF Continued doxazosin [Cardura] 2 mg tablet 2 mg PO DAILY Qty: 90 1RF hydrocortisone [Anusol-HC] 2.5 % cream with perineal applicator 1 applic RECTAL DAILY PRN (Reason: hemorrhoids) Qty: 30 0RF aspirin 81 mg tablet,delayed release (DR/EC) 81 mg PO DAILY glimepiride 4 mg tablet 4 mg PO DAILY Rx Instructions: administer with breakfast metformin [Glucophage XR] 500 mg tablet extended release 24 hr 500 mg PO DAILY lisinopril 40 mg tablet 40 mg PO DAILY Qty: 90 1RF cholecalciferol (vitamin D3) 50 mcg (2,000 unit) tablet 50 mcg PO DAILY Qty: 90 3RF pravastatin 40 mg tablet 40 mg PO QHS Qty: 90 1RF fenofibrate nanocrystallized 145 mg tablet 145 mg PO DAILY Qty: 90 1RF levothyroxine 50 mcg tablet 50 mcg PO DAILY Qty: 90 1RF ferrous sulfate 325 mg (65 mg iron) tablet,delayed release (DR/EC) 325 mg PO DAILY Qty: 90 1RF Discontinued diltiazem HCl 240 mg capsule,extended release 24 hr 240 mg PO BID Qty: 360 1RF metoprolol succinate 100 mg tablet extended release 24 hr 100 mg PO QAM Qty: 90 1RF metoprolol succinate 50 mg tablet extended release 24 hr 50 mg PO QPM Qty: 90 1RF furosemide [Lasix] 20 mg tablet 20 mg PO QAM Qty: 90 0RF Date of admission: 09/18/24 21:37 Primary Care Provider: Marito Sainz Admitting Provider: Kenzie Martin Attending physician on admission: Kenzie Martin Condition: Serious
== END 2024-09-21 17:51 | disposition home or self-care (01) | DRG 291 ==
LOC: ANHED 19:49 → ANHICU 21:52 → ANHIMU 09-19 18:13 → ANH3MED 09-20 13:11
PROVIDERS: General Practice; Admitting Provider Internal Medicine; Emergency Provider Student in an Organized Health Care Education/Training Program; PCP Family Medicine; Visit Provider Internal Medicine
DX: I13.0 Hypertensive heart and chronic kidney disease with heart failure and stage 1 through stage 4 chronic kidney disease, or unspecified chronic kidney disease (principal); I50.31 Acute diastolic (congestive) heart failure; J96.01 Acute respiratory failure with hypoxia; I16.1 Hypertensive emergency; I50.30 Unspecified diastolic (congestive) heart failure; E11.22 Type 2 diabetes mellitus with diabetic chronic kidney disease; E11.42 Type 2 diabetes mellitus with diabetic polyneuropathy; N18.32 Chronic kidney disease, stage 3b; G47.33 Obstructive sleep apnea (adult) (pediatric); E78.5 Hyperlipidemia, unspecified; N40.1 Benign prostatic hyperplasia with lower urinary tract symptoms; R33.8 Other retention of urine; E03.9 Hypothyroidism, unspecified; D50.9 Iron deficiency anemia, unspecified; D63.8 Anemia in other chronic diseases classified elsewhere; E11.65 Type 2 diabetes mellitus with hyperglycemia; Z85.038 Personal history of other malignant neoplasm of large intestine; Z90.49 Acquired absence of other specified parts of digestive tract; Z96.1 Presence of intraocular lens; Z98.42 Cataract extraction status, left eye; Z98.41 Cataract extraction status, right eye; E66.9 Obesity, unspecified; Z68.39 Body mass index [BMI] 39.0-39.9, adult
CPT/HCPCS: 36415; 36600; 71045; 71275; 80053; 82607; 82728; 82746; 82805; 82948; 83036; 83540; 83550; 83690; 83880; 84443; 84484; 85018; 85025; 85027; 85046; 85380; 85610; 85730; 87641; 93005; 93306; 94002; 94003; 96374; 96375; 96376; 99285; A9270; J0360; J1650; J1938; J2060; J2305; J2470; Q9967

== ENCOUNTER 2024-09-28 11:05 | Outpatient (CLI) | payer OTHER, SELFPAY ==
--- OUTSIDE RECORDS SUMMARY | 2024-09-28 12:11 | XMS_ITS | Referral Summary ---
Author Organization [facility] at the [facility] Center Address [address] [place] [address] Care Team Providers Care Property Assessment Monitor Name Role Phone Sanjeev Sainz MD Primary [...] Problem Noted Date Diagnosed Date Atherosclerosis of [place] ar [place] of right lower extremity with [...] Smokeless Tobacco: Never Tobacco Cessation:Counseling Given: No Sex and Gender Information Value Date Recorded [...] Plan of Treatment Not on file Insurance [facility] [place] [id number] Care Teams Property Assessment Monitor Relationship Specialty Start Date End Date Sanjeev Sainz MD [facility] [address] [id number] PCP - General Family Practice 09/22/24
--- OUTSIDE RECORDS SUMMARY | 2024-09-28 12:11 | XMS_ITS | Clinical Summary ---
Author Organization [facility] at the [facility] Address [address] [place] [address] Care Team Providers Care Bag Presser Name Role Phone Sanjeev Sainz MD Primary [...] Problem Noted Date Diagnosed Date Atherosclerosis of [place] of right lower extremity with [...] Comments Colon cancer (HCC) 1998 Stage 4- Can er free at this time Social History [...] 07/07/2016 Influenza Vaccine (Season Ended) 2024 Insurance [facility] Care Teams Bag Presser Relationship Specialty Start Date End Date Sanjeev Sainz MD [address] [facility] [address] [place] [address] [place] [id number] PCP - General Family Practice 09/22/24
[2024-09-28 20:32] LABS: Alanine Aminotransferase 19 U/L (6-50); Albumin Level 4.2 g/dL (3.5-5.1); Alkaline Phosphatase 51 U/L (38-126); Anion Gap 9 mmol/L (4-12); Aspartate Amino Transferase 39 U/L (17-59); Bilirubin,Total 0.3 mg/dL (0.2-1.3); Blood Urea Nitrogen 49 mg/dL (9-20); Calcium 9.4 mg/dL (8.4-10.2); Carbon Dioxide 21 mmol/L (22-30); Chloride 103 mmol/L (98-107); Estimated Glomerular Filt Rate 28; Glucose 249 mg/dL (65-110); Potassium 6.5 mmol/L (3.4-5.0); Sodium 133 mmol/L (137-145); Total Protein 7.8 g/dL (6.3-8.2)
== END 2024-09-28 11:06 | disposition home or self-care (01) ==
LOC: ANHGOSHLAB 11:06
PROVIDERS: PCP Family Medicine; Visit Provider Family Medicine
DX: I10 Essential (primary) hypertension (principal); Z79.899 Other long term (current) drug therapy
CPT/HCPCS: 36415; 80053

== ENCOUNTER 2024-09-28 21:10 | Observation (INO) | payer OTHER, SELFPAY ==
--- NOTE | ~2024-09-28 | XR_ITS ---
CHEST RADIOGRAPH CLINICAL HISTORY: CHF . COMPARISON: 09/18/2024 TECHNIQUE: Single portable view of the chest. FINDINGS Left subclavian central venous port catheter identified with its tip projecting over the brachiocepha lic vein. The remainder of the cardiomediastinal silhouette is otherwise unremarkable. Increased interstitial markings are identified bilaterally, findings suggesting mild pulmonary vascul ar congestion. Hazy opacification of the left hemidiaphragm suggesting a small left-sided pleural effusion. The remainder of the lungs are clear. IMPRESSION: Mild pulmonary vascular congestion with a small left-sided pleural effusion suspected. Reviewed, dictated and finalized at location A. IMPRESSION: Mild pulmonary vascular congestion with a small left-sided pleural effusion srikanth pected.
--- OUTSIDE RECORDS SUMMARY | 2024-09-28 21:12 | XMS_ITS | Referral Summary ---
Author Organization [facility] at the [facility] Office Center Address [address] [place] [address] Care Team Providers Care Zmt Operator Name Role Phone Sanjeev Sainz MD Primary [...] Problem Noted Date Diagnosed Date Atherosclerosis of [place] ar [place] of right lower extremity with [...] Plan of Treatment Not on file Insurance [facility] [id number] Care Teams Zmt Operator Relationship Specialty Start Date End Date Sanjeev Sainz MD [facility] [address] [address] PCP - General Family Practice 09/22/24
--- OUTSIDE RECORDS SUMMARY | 2024-09-28 21:12 | XMS_ITS | Clinical Summary ---
Author Organization [facility] at the [facility] Address [address] [place] [address] Care Team Providers Care Drum Filler Name Role Phone Sanjeev Sainz MD Primary [...] Problem Noted Date Diagnosed Date Atherosclerosis of [place] ar [place] of right lower extremity with [...] 07/07/2016 Influenza Vaccine (Season Ended) 2024 Insurance [facility] Care Teams Drum Filler Relationship Specialty Start Date End Date Sanjeev Sainz MD [id number] [facility] [address] [place] [address] [place] [id number] PCP - General Family Practice 09/22/24
--- NOTE | 2024-09-28 21:16 | ECG_ITS ---
Test Date: 2024-09-28 21:24:03 Measurements Intervals Edwards Rate: 85 P: 54 [place]: 215 QRS: -33 QRSD: 126 T: 69 QT: 346 QTc: 413 Interpretive Statements SINUS RHYTHM WITH FIRST DEGREE AV BLOCK LEFT AXIS DEVIATION INTRAVENTRICULAR CONDUCTION DELAY BORDERLINE R WAVE PROGRESSION, ANTERIOR LEADS BORDERLINE ECG Compared to ECG 09/18/2024 19:43:33 NO SIGNIFICANT CHANGE Electronically Signed On 09-29-2024 06:22:18 CDT by Renaldo Willis D.O.
[2024-09-28 21:17] VITALS: BP 145/77; PULSE 87; RESP 18; TEMP 36.6; O2SAT 99
[2024-09-28 21:29] LABS: Basophils Absolute Auto 0.1 K/mm3 (0.0-0.1); Basophils Percent Auto 0.6 % (0.2-1.2); Eosinophils Absolute Auto 0.2 K/mm3 (0-0.3); Eosinophils Percent Auto 1.2 % (0-4.4); Hematocrit 35.4 % (42.0-52.0); Hemoglobin 10.9 g/dL (14.0-18.0); Immature Granulocyte Absolute 0.06 K/mm3 (0.00-0.031); Immature Granulocyte Percent A 0.4 % (0-0.5); Lymphocytes Absolute Auto 3.65 K/mm3 (0.9-3.2); Lymphocytes Percent Auto 25.8 % (18.3-44.2); Mean Corpuscular HGB Conc 30.8 g/dl (32-36); Mean Corpuscular Hemoglobin 28.2 pg (26-34); Mean Corpuscular Volume 91.7 fl (80-100); Mean Platelet Volume 11.1 fl (7.4-10.4); Monocytes Absolute Auto 1.1 K/mm3 (0.1-0.6); Monocytes Percent Auto 7.4 % (2.6-8.5); Neutrophils Absolute Auto 9.1 K/mm3 (1.3-6.7); Neutrophils Percent Auto 64.6 % (45.5-73.1); Platelet Count Result 273 k/mm3 (150-375); Red Blood Count 3.86 M/mm3 (4.6-6.20); Red Cell Distribution Width 14.4 % (11.5-14.5); White Blood Count 14.1 K/mm3 (4.5-10.0)
--- NOTE | 2024-09-28 21:31 | ED.RECABL ---
HPI - Recheck/Abnormal Lab/Rx General Chief Complaint: Recheck/Abnormal Lab/Rx Stated Complaint: high potassium Time Seen by Provider: 09/28/24 21:13 History of Present Illness HPI narrative: 74-year-old male with a past medical history including hypertension, CKD, diabetes, grade 1 diastolic dysfunction. Recently admitted to the hospital in the intensive care unit for hypertensive crisis. Patient was aggressively diuresed, discharged home on furosemide 40 mg daily and Duong catheter in place. Patient states he feels significantly better now than when he was admitted to the hospital. Has been following his med regimen without any difficulties in his blood pressure has been well controlled. Swelling is decreased and now is able to ambulate and not having shortness of breath. He presents today after he had routine outpatient labs and evaluation by his primary care provider for close follow-up visit. His lab showed significant hyperkalemia and worsening renal function and he was told to come to the hospital. His only complaint right now is some lightheadedness and shortness a breath when he was getting out of the car but otherwise has no complaints such as chest pain, abdominal pain, fever, chills. He is still urinating without any difficulties into his catheter bag without any hematuria or dysuria. No fever chills. No back pain. No trauma or injury no changes to his medications since discharge. Related Data Home Medications ?Medication ?Instructions ?Recorded ?Confirmed ?Last Taken ?Type aspirin 81 mg tablet,delayed 81 mg PO DAILY 09/19/24 09/28/24 Unknown History release Allergies Allergy/AdvReac Type Severity Reaction Status Date / Time codeine Allergy Severe Rash, Verified 09/28/24 21:11 vomiting meperidine (From Demerol) Allergy Severe Rash,vomiti Verified 09/28/24 21:11 ng dapagliflozin (From Farxiga) Allergy Mild genital Verified 09/28/24 21:11 abscess amlodipine AdvReac Mild pedal edema Verified 09/28/24 21:11 gabapentin (From Neurontin) AdvReac Mild Dizziness Verified 09/28/24 21:11 sitagliptin (From Januvia) AdvReac Mild abscess Verified 09/28/24 21:11 Review of Systems Review of Systems: As reviewed above in HPI [facility] Past Medical History Medical History CKD stage 3b, GFR 30-44 ml/min Kidney stones BPH (benign prostatic hyperplasia) Diabetic peripheral neuropathy Type 2 diabetes mellitus with stage 3 chronic kidney disease Stage 3a chronic kidney disease (CKD) Incarcerated incisional hernia (~02/2023) SBO (small bowel obstruction) (~02/2023) Vitamin B12 deficiency Vitamin D deficiency Hypothyroidism Peripheral arterial disease Mildly diminished ankle-brachial index on the left 09/2022 History of colon polyps History of colon cancer (~03/1999) Stage IV at time of initial diagnosis in 1998 s/p partial colectomy currently in remission Dyslipidemia Essential (primary) hypertension HTN (hypertension) Surgical History Surgical History Status post cataract extraction of both eyes with insertion of intraocular lens History of incisional hernia repair (~03/2023) Open reducible incisional hernia repair with Ventralight ST mesh and extensive intra-abdominal adhesiolysis on 03/18/23 SAW History of hernia repair (~2020) Patient has had multiple ventral hernia repairs with most recent being March [address] Lu History of cholecystectomy (~2009) History of colon resection (~03/1999) History of appendectomy (~03/1999) Family History Family History Mother , Early 60s Hypertension Cerebrovascular accident Son , Mid 30s Acute myocardial infarction Grandparent Alcohol abuse Father , Mid 60s Lung cancer Heavy tobacco smoker Social History Social History Social History: Patient is been to his current for over 40 years. He has 2 biological children 1 of which in his mid 30s of heart disease. He has 2 step children. He is a lifelong nonsmoker and does not drink alcohol or use illicit substances. 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 Code status: Full code Surrogate decision maker: Smoking status: Never smoker Alcohol intake: never Substance use: never Substance use type: does not use Do You Feel Safe in your Home?: Yes Lack of Transportation: No Lack of Food: Never True Current Housing: I Have Housing Concerned About Future Housing: No Difficulty Paying Gas/Electric Bills: No Difficulty Paying for Meds: No Currently Unemployed: No Education: Decline to Answer Difficulty w/ Childcare or Family Care: Decline to Answer Living arrangements: with family Occupation/Education: retired Gender identity (if verbalized by the patient): Male Sexual Orientation (if Verbalized by the Patient): Straight or Heterosexual Spiritual care concerns: No Agree to blood products: Yes Exam Narrative: GENERAL: [Well-appearing, well-nourished, and in no acute distress.] HEAD: [Normocephalic, atraumatic.] EYES: [PERRLA and EOMI.] ENT: Nares clear, no rhinorrhea or epistaxis. Mucous membranes moist. NECK: Supple. CHEST: [Clear to auscultation. No respiratory distress.] HEART: [Regular rate and rhythm]. No murmur heard. [Normal peripheral pulses.] ABDOMEN: Previous surgical scars in the abdomen. [Soft, nondistended], [nontender], [No rigidity or guarding] Duong catheter in place EXTREMITIES: Normal range of motion. [No edema.] SKIN: Warm, dry, no rash. NEURO: [No focal deficits]. Alert and oriented [x3.] PSYCH: [Normal mood and affect.] Course Vital Signs Vital signs: Vital Signs Temperature 36.6 C 09/28/24 21:17 Pulse Rate 87 09/28/24 21:17 Respiratory Rate 18 09/28/24 21:17 Blood Pressure 145/77 H 09/28/24 21:17 Pulse Oximetry 99 09/28/24 21:17 Oxygen Delivery Room Air 09/28/24 21:17 Temperature 36.6 C 09/28/24 21:17 Pulse Rate 78 09/29/24 00:16 Respiratory Rate 14 09/29/24 00:16 Blood Pressure 109/63 09/29/24 00:16 Pulse Oximetry 94 09/29/24 00:16 Oxygen Delivery Room Air 09/28/24 21:17 MDM - Recheck/Abnormal Lab/Rx MDM Narrative Medical decision making narrative: 74-year-old male with history of hypertension, CKD, diabetes, grade 1 diastolic dysfunction. Recently admitted to the ICU for hypertensive crisis and discharged home after improvement. Patient is currently on a diuretic including 40 mg of Lasix daily and wears a Duong catheter for urinary retention from BPH. Patient presents to the ER from home for concerns of hyperkalemia on routine labs that were drawn this morning. He has a potassium 6.5 with worsening renal failure on his labs reviewed from the EMR. Patient endorsed some dizziness and shortness of breath when he got here but now he is asymptomatic. His blood pressure is reassuring and much better than last time he was here. No tachycardia, fever, hypoxia. Soft nontender nondistended abdomen no signs of edema or volume overload. He has clear breath sounds. Suspect combination of factors leading towards his hyperkalemia and worsening renal function likely from diuretics and hypertension management. Will re-evaluate with repeat BMP and CBC as well as an EKG. Chest x-ray obtained. Laboratory studies show a leukocytosis of 14.1, hemoglobin 10.9, platelets of 273. Chemistry panel shows renal failure with a BUN of 56, creatinine 2.51 increased from his outpatient labs this morning and increased from his hospital stay previously. Potassium is 6.3. Glucose of 157. Suspect over-diuresis from diuretic therapy but odd that his potassium is risen using furosemide. His BNP is unremarkable, LFTs are normal. Patient was given hyperkalemia cocktail including insulin, dextrose, calcium, Lokelma, fluid bolus and re-evaluated with a serial BMP which shows improvement in both his GFR going up and potassium coming down. EKG shows no significant hyperkalemic T-waves or any ectopy. Likely over-diuresis as the culprit of his renal failure with hyperkalemia. Patient requires admission to the hospital for treatment and correction of his electrolyte abnormalities and evaluation by Nephrology for which a consult was placed. Spoke to the hospitalist service who accepted him to the IMU for continued monitoring and correction of electrolyte derangements. Repeat BMP ordered and additional fluids provided. Patient remained hemodynamically stable and comfortable with admission Medical Records Attestation: I reviewed the patient's medical records. Lab Data Attestation: I reviewed the patient's lab results. 09/28/24 21:23 09/28/24 23:06 Labs: Lab Results 09/28/24 09/28/24 09/28/24 Range/Units 21:23 21:23 22:17 WBC 14.1 H (4.5-10.0) K/mm3 RBC 3.86 L (4.6-6.20) M/mm3 Hgb 10.9 L (14.0-18.0) g/dL Hct 35.4 L (42.0-52.0) % MCV 91.7 (80-100) fl MCH 28.2 (26-34) pg MCHC 30.8 L (32-36) g/dl RDW 14.4 (11.5-14.5) % Plt Count 273 (150-375) k/mm3 MPV 11.1 H (7.4-10.4) fl Immature Gran % (Auto) 0.4 (0-0.5) % Neut % (Auto) 64.6 (45.5-73.1) % Lymph % (Auto) 25.8 (18.3-44.2) % Ble[place] % (Auto) 7.4 (2.6-8.5) % Eos % (Auto) 1.2 (0-4.4) % Baso % (Auto) 0.6 (0.2-1.2) % Lymph # (Auto) 3.65 H (0.9-3.2) K/mm3 Bleckley # (Auto) 1.1 H (0.1-0.6) K/mm3 Eos # (Auto) 0.2 (0-0.3) K/mm3 Baso # (Auto) 0.1 (0.0-0.1) K/mm3 Abs Immat Gran (auto) 0.06 H (0.00-0.031) K/mm3 Absolute Neuts (auto) 9.1 H (1.3-6.7) K/mm3 Absolute Nucleated RBC 0.000 (0.0-0.012) K/mm3 Nucleated RBC % 0.0 (0.0-0.2) % Sodium 131 L (137-145) mmol/L Potassium 6.3 H* (3.4-5.0) mmol/L Chloride 104 (98-107) mmol/L Carbon Dioxide 18 L (22-30) mmol/L Anion Gap 9 (4-12) mmol/L BUN 56 H (9-20) mg/dL Creatinine 2.51 H (0.7-1.3) mg/dL Estim Creat Clear Calc 30 ml/min Estimated GFR 25 L (59 - ) Glucose 157 H (65-110) mg/dL POC Capillary Glucose 137 H (65-105) mg/dl Calcium 9.0 (8.4-10.2) mg/dL Magnesium 2.2 (1.6-2.3) mg/dL Total Bilirubin 0.4 (0.2-1.3) mg/dL AST 31 (17-59) U/L ALT 19 (6-50) U/L Alkaline Phosphatase 48 (38-126) U/L NT-Pro-B Natriuret Pep 123 H Cancelled (19.9-100) pg/mL Total Protein 8.0 (6.3-8.2) g/dL Albumin 4.3 (3.5-5.1) g/dL / Range/Units 23:06 WBC (4.5-10.0) K/mm3 RBC (4.6-6.20) M/mm3 Hgb (14.0-18.0) g/dL Hct (42.0-52.0) % MCV (80-100) fl MCH (26-34) pg MCHC (32-36) g/dl RDW (11.5-14.5) % Plt Count (150-375) k/mm3 MPV (7.4-10.4) fl Immature Gran % (Auto) (0-0.5) % Neut % (Auto) (45.5-73.1) % Lymph % (Auto) (18.3-44.2) % Ble[place] % (Auto) (2.6-8.5) % Eos % (Auto) (0-4.4) % Baso % (Auto) (0.2-1.2) % Lymph # (Auto) (0.9-3.2) K/mm3 Bleck[place] # (Auto) (0.1-0.6) K/mm3 Eos # (Auto) (0-0.3) K/mm3 Baso # (Auto) (0.0-0.1) K/mm3 Abs Immat Gran (auto) (0.00-0.031) K/mm3 Absolute Neuts (auto) (1.3-6.7) K/mm3 Absolute Nucleated RBC (0.0-0.012) K/mm3 Nucleated RBC % (0.0-0.2) % Sodium 133 L (137-145) mmol/L Potassium 5.5 H (3.4-5.0) mmol/L Chloride 105 (98-107) mmol/L Carbon Dioxide 18 L (22-30) mmol/L Anion Gap 10 (4-12) mmol/L BUN 55 H (9-20) mg/dL Creatinine 2.38 H (0.7-1.3) mg/dL Estim Creat Clear Calc 31 ml/min Estimated GFR 27 L (59 - ) Glucose 96 (65-110) mg/dL POC Capillary Glucose (65-105) mg/dl Calcium 9.3 (8.4-10.2) mg/dL Magnesium (1.6-2.3) mg/dL Total Bilirubin (0.2-1.3) mg/dL AST (17-59) U/L ALT (6-50) U/L Alkaline Phosphatase (38-126) U/L NT-Pro-B Natriuret Pep (19.9-100) pg/mL Total Protein (6.3-8.2) g/dL Albumin (3.5-5.1) g/dL Imaging Data Attestation: I personally reviewed and interpreted this imaging study as follows: My impression: Impressions Chest X-Ray 09/28/24 21:50 IMPRESSION: Mild pulmonary vascular congestion with a small left-sided pleural effusion suspected. Critical Care Time Critical Care Time Critical Care Time: Yes Total Critical Care Time: 40 Discharge Plan Discharge Clinical Impression: Acute hyperkalemia, Renal failure Patient Disposition: Still a Patient Condition: Stable Patient Language: Macanese Prescriptions: No Action doxazosin [Cardura] 2 mg tablet 2 mg PO DAILY Qty: 90 1RF (DME) Dexcom G7 Sensor Device See Rx Instructions .Route Qty: 1 0RF Rx Instructions: use As directed hydrocortisone [Anusol-HC] 2.5 % cream with perineal applicator 1 applic RECTAL DAILY PRN (Reason: hemorrhoids) Qty: 30 0RF aspirin 81 mg tablet,delayed release (DR/EC) 81 mg PO DAILY carvedilol [Coreg] 6.25 mg Tablet 6.25 mg PO Q12HR 30 Days Qty: 60 1RF furosemide [Lasix] 40 mg tablet 40 mg PO DAILY 30 Days Qty: 30 1RF lisinopril 40 mg tablet 40 mg PO DAILY Qty: 90 1RF cholecalciferol (vitamin D3) 50 mcg (2,000 unit) tablet 50 mcg PO DAILY Qty: 90 3RF pravastatin 40 mg tablet 40 mg PO QHS Qty: 90 1RF fenofibrate nanocrystallized 145 mg tablet 145 mg PO DAILY Qty: 90 1RF levothyroxine 50 mcg tablet 50 mcg PO DAILY Qty: 90 1RF ferrous sulfate 325 mg (65 mg iron) tablet,delayed release (DR/EC) 325 mg PO DAILY Qty: 90 1RF metformin [Glucophage XR] 500 mg tablet extended release 24 hr 500 mg PO DAILY Qty: 90 1RF glimepiride 4 mg tablet 4 mg PO DAILY Qty: 90 0RF Rx Instructions: administer with breakfast Follow-up/Referrals: Marito Sainz MD [Primary Care Provider] - Time of Disposition: 01:12
[2024-09-28 21:42] LABS: Alanine Aminotransferase 19 U/L (6-50); Albumin Level 4.3 g/dL (3.5-5.1); Alkaline Phosphatase 48 U/L (38-126); Anion Gap 9 mmol/L (4-12); Aspartate Amino Transferase 31 U/L (17-59); Bilirubin,Total 0.4 mg/dL (0.2-1.3); Blood Urea Nitrogen 56 mg/dL (9-20); Carbon Dioxide 18 mmol/L (22-30); Chloride 104 mmol/L (98-107); Estimated CRCL calculation 30 ml/min; Estimated Glomerular Filt Rate 25; Glucose 157 mg/dL (65-110); Magnesium 2.2 mg/dL (1.6-2.3); Potassium 6.3 mmol/L (3.4-5.0); Sodium 131 mmol/L (137-145)
[2024-09-28 21:49] LABS: NT Pro B Type Natriuretic Pept 123 pg/mL (19.9-100)
[2024-09-28] MEDS: LACTATED RINGERS 1,000 ML 1000 ML IV CONT (22:15)
[2024-09-28] MEDS: DEXTROSE 50% 25 GM/50 ML SYRINGE IV PUSH (22:15)
[2024-09-28] MEDS: SODIUM BICARBONATE 8.4% 50 MEQ/50 ML SYRINGE IV PUSH (22:15)
[2024-09-28] MEDS: CALCIUM GLUCONATE 1,000 MG/10 ML VIAL 1000 MG IV PUSH (22:16)
[2024-09-28] MEDS: INSULIN HUMAN REGULAR (*BKC) 100 UNITS/ML IV PUSH (22:16)
[2024-09-28] MEDS: SODIUM ZIRCONIUM CYCLOSILICATE 10 GM POWD.PACK PO (22:16)
[2024-09-28 22:31] VITALS: BP 176/89; PULSE 92; RESP 14; O2SAT 100
[2024-09-28 22:34] LABS: Glucose Point of Care 137 mg/dl (65-105)
--- NOTE | 2024-09-28 22:38 | PC.NURSE ---
Pt. reports nausea and is requesting medication. Dr. Luque notified. Verbal order given for tita.
[2024-09-28] MEDS: ONDANSETRON INJ 4 MG/2 ML VIAL IV PUSH (22:53)
[2024-09-28 23:02] VITALS: BP 139/85; PULSE 83; RESP 16; O2SAT 100
[2024-09-28 23:17] VITALS: BP 116/70; PULSE 85; RESP 14; O2SAT 97
[2024-09-28 23:31] VITALS: BP 117/73; PULSE 87; RESP 12; O2SAT 97
[2024-09-28 23:46] VITALS: BP 101/63; PULSE 79; RESP 10; O2SAT 96
[2024-09-28 23:48] LABS: Anion Gap 10 mmol/L (4-12); Blood Urea Nitrogen 55 mg/dL (9-20); Calcium 9.3 mg/dL (8.4-10.2); Carbon Dioxide 18 mmol/L (22-30); Chloride 105 mmol/L (98-107); Estimated CRCL calculation 31 ml/min; Estimated Glomerular Filt Rate 27; Glucose 96 mg/dL (65-110); Potassium 5.5 mmol/L (3.4-5.0); Sodium 133 mmol/L (137-145)
[2024-09-29] VITALS (20 sets, daily range): BP systolic 109–188; BP diastolic 62–97; PULSE 77–105; RESP 11–20; TEMP 36.6–36.8; O2SAT 94–100
[2024-09-29] MEDS: LACTATED RINGERS 1,000 ML 999 ML IV CONT (01:21)
[2024-09-29] MEDS: ONDANSETRON INJ 4 MG/2 ML VIAL IV PUSH (01:21)
--- NOTE | 2024-09-29 02:13 | ADMGEN ---
This patient, Alex Thao Jr., was admitted to IMU Room 213-01. Patient/family oriented to hospital policies and general routines including ID bracelet, bed and alarms, visiting hours, pain management, procedures, bathroom and other care routines, personal items, smoking policy, room service/diet, and visiting hours. Information on how to activate the Rapid Response Team has been discussed. Patient/Family are encouraged to report perceived risks to care and to ask questions if they do not understand what they are told or what they should do.
[2024-09-29 03:38] LABS: Anion Gap 9 mmol/L (4-12); Blood Urea Nitrogen 51 mg/dL (9-20); Calcium 9.1 mg/dL (8.4-10.2); Carbon Dioxide 17 mmol/L (22-30); Chloride 107 mmol/L (98-107); Estimated CRCL calculation 34 ml/min; Estimated Glomerular Filt Rate 30; Glucose 91 mg/dL (65-110); Potassium 5.1 mmol/L (3.4-5.0); Sodium 133 mmol/L (137-145)
[2024-09-29 07:25] LABS: Glucose Point of Care 77 mg/dl (65-105)
--- NOTE | 2024-09-29 08:33 | PM.IMHP ---
H&P: HPI History of Present Illness Date/Time: 09/29/24 08:33 Chief Complaint: Abnormal labs Narrative: 74-year-old male with a past medical history including hypertension, CKD, diabetes, grade 1 diastolic dysfunction. Recently admitted to the hospital in the intensive care unit for hypertensive crisis. Patient was aggressively diuresed, discharged home on furosemide 40 mg daily and Duong catheter in place. Patient states he feels significantly better now than when he was admitted to the hospital. Has been following his med regimen without any difficulties in his blood pressure has been well controlled. Swelling is decreased and now is able to ambulate and not having shortness of breath. He presents today after he had routine outpatient labs and evaluation by his primary care provider for close follow-up visit. His lab showed significant hyperkalemia and worsening renal function and he was told to come to the hospital. His only complaint right now is some lightheadedness and shortness a breath when he was getting out of the car but otherwise has no complaints such as chest pain, abdominal pain, fever, chills. He is still urinating without any difficulties into his catheter bag without any hematuria or dysuria. No fever chills. No back pain. No trauma or injury no changes to his medications since discharge. Review of Systems Review of Systems: - CONSTITUTIONAL: Denies weight loss, fever and chills. - HEENT: Denies changes in vision and hearing - RESPIRATORY: Denies SOB and cough. - CV: Denies palpitations and CP. - GI: Denies abdominal pain, nausea, vomiting and diarrhea. - : Denies dysuria and urinary frequency. - MSK: Denies myalgia and joint pain. - SKIN: Denies rash and pruritus. - NEUROLOGICAL: Denies headache and syncope. - PSYCHIATRIC: Denies recent changes in mood. Denies anxiety and depression. COUNT INCLUDES THE [facility] Past Medical History Medical History CKD stage 3b, GFR 30-44 ml/min Kidney stones BPH (benign prostatic hyperplasia) Diabetic peripheral neuropathy Type 2 diabetes mellitus with stage 3 chronic kidney disease Stage 3a chronic kidney disease (CKD) Incarcerated incisional hernia (~02/2023) SBO (small bowel obstruction) (~02/2023) Vitamin B12 deficiency Vitamin D deficiency Hypothyroidism Peripheral arterial disease Mildly diminished ankle-brachial index on the left 09/2022 History of colon polyps History of colon cancer (~03/1999) Stage IV at time of initial diagnosis in 1998 s/p partial colectomy currently in remission Dyslipidemia Essential (primary) hypertension HTN (hypertension) Surgical History Surgical History Status post cataract extraction of both eyes with insertion of intraocular lens History of incisional hernia repair (~03/2023) Open reducible incisional hernia repair with Ventralight ST mesh and extensive intra-abdominal adhesiolysis on 03/18/23 SAW History of hernia repair (~2020) Patient has had multiple ventral hernia repairs with most recent being March [address] Lu History of cholecystectomy (~2009) History of colon resection (~03/1999) History of appendectomy (~03/1999) Family History Family History Mother , Early 60s Hypertension Cerebrovascular accident Son , Mid 30s Acute myocardial infarction Grandparent Alcohol abuse Father , Mid 60s Lung cancer Heavy tobacco smoker Social History Social History Social History: Patient is been to his current for over 40 years. He has 2 biological children 1 of which in his mid 30s of heart disease. He has 2 step children. He is a lifelong nonsmoker and does not drink alcohol or use illicit substances. 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 Code status: Full code Surrogate decision maker: Smoking status: Never smoker Alcohol intake: never Substance use: never Substance use type: does not use Do You Feel Safe in your Home?: Yes Lack of Transportation: No Lack of Food: Never True Current Housing: I Have Housing Concerned About Future Housing: No Difficulty Paying Gas/Electric Bills: No Difficulty Paying for Meds: No Currently Unemployed: No Education: High School Diploma/GED Difficulty w/ Childcare or Family Care: No Living arrangements: with family Occupation/Education: retired Gender identity (if verbalized by the patient): Male Sexual Orientation (if Verbalized by the Patient): Straight or Heterosexual Spiritual care concerns: No Agree to blood products: Yes Meds Home Medications and Allergies Home Medications ?Medication ?Instructions ?Recorded ?Confirmed ?Type lisinopril 40 mg tablet 40 mg PO DAILY #90 tabs 03/04/24 09/29/24 Rx cholecalciferol (vitamin D3) 50 50 mcg PO DAILY #90 tabs 05/10/24 09/29/24 Rx mcg (2,000 unit) tablet fenofibrate nanocrystallized 145 145 mg PO DAILY #90 tabs 05/20/24 09/29/24 Rx mg tablet pravastatin 40 mg tablet 40 mg PO QHS #90 tabs 05/20/24 09/29/24 Rx doxazosin 2 mg tablet (Cardura) 2 mg PO DAILY #90 tabs 05/31/24 09/29/24 Rx levothyroxine 50 mcg tablet 50 mcg PO DAILY #90 tabs 06/10/24 09/29/24 Rx ferrous sulfate 325 mg (65 mg 325 mg PO DAILY #90 tabs 09/16/24 09/29/24 Rx iron) tablet,delayed release aspirin 81 mg tablet,delayed 81 mg PO DAILY 09/19/24 09/29/24 History release carvedilol 6.25 mg tablet (Coreg) 6.25 mg PO Q12HR 30 days #60 tabs 09/21/24 09/29/24 Rx furosemide 40 mg tablet (Lasix) 40 mg PO DAILY 30 days #30 tabs 09/21/24 09/29/24 Rx metformin 500 mg tablet,extended 500 mg PO DAILY #90 tabs 09/23/24 09/29/24 Rx release 24 hr (Glucophage XR) glimepiride 4 mg tablet 4 mg PO DAILY #90 tabs 09/27/24 09/29/24 Rx blood-glucose sensor (Dexcom G7 #1 ea 09/28/24 09/29/24 Rx Sensor device) Allergies Allergy/AdvReac Type Severity Reaction Status Date / Time codeine Allergy Severe Rash, Verified 09/28/24 21:11 vomiting meperidine (From Demerol) Allergy Severe Rash,vomiti Verified 09/28/24 21:11 ng dapagliflozin (From Farxiga) Allergy Mild genital Verified 09/28/24 21:11 abscess amlodipine AdvReac Mild pedal edema Verified 09/28/24 21:11 gabapentin (From Neurontin) AdvReac Mild Dizziness Verified 09/28/24 21:11 sitagliptin (From Januvia) AdvReac Mild abscess Verified 09/28/24 21:11 Vital Signs Vital Signs - 24 hr 09/28/24 21:17 09/28/24 22:31 09/28/24 23:02 Temperature 97.8 F Pulse Rate 87 92 83 Respiratory Rate 18 14 16 Blood Pressure 145/77 H 176/89 H 139/85 Pulse Oximetry 99 100 100 Oxygen Delivery Room Air 09/28/24 23:17 09/28/24 23:31 09/28/24 23:46 Temperature Pulse Rate 85 87 79 Respiratory Rate 14 12 10 L Blood Pressure 116/70 117/73 101/63 Pulse Oximetry 97 97 96 Oxygen Delivery 09/29/24 00:01 09/29/24 00:16 09/29/24 00:47 Temperature Pulse Rate 79 78 77 Respiratory Rate 11 L 14 18 Blood Pressure 124/65 109/63 125/78 Pulse Oximetry 98 94 100 Oxygen Delivery 09/29/24 01:02 09/29/24 01:18 09/29/24 01:55 Temperature 98.0 F Pulse Rate 83 83 84 Respiratory Rate 15 19 17 Blood Pressure 141/70 H 188/97 H 143/78 H Pulse Oximetry 99 99 99 Oxygen Delivery 09/29/24 03:46 09/29/24 04:00 09/29/24 04:00 Temperature 98.2 F Pulse Rate 88 87 Respiratory Rate 17 Blood Pressure 113/74 Pulse Oximetry 99 Oxygen Delivery Room Air 09/29/24 06:16 09/29/24 07:55 Temperature 97.8 F Pulse Rate 99 99 Respiratory Rate 20 Blood Pressure 144/67 H Pulse Oximetry 99 Oxygen Delivery Exam Narrative: GENERAL: [Well-appearing, well-nourished, and in no acute distress.] HEAD: [Normocephalic, atraumatic.] EYES: [PERRLA and EOMI.] ENT: Nares clear, no rhinorrhea or epistaxis. Mucous membranes moist. NECK: Supple. CHEST: [Clear to auscultation. No respiratory distress.] HEART: [Regular rate and rhythm]. No murmur heard. [Normal peripheral pulses.] ABDOMEN: Previous surgical scars in the abdomen. [Soft, nondistended], [nontender], [No rigidity or guarding] Duong catheter in place EXTREMITIES: Normal range of motion. [No edema.] SKIN: Warm, dry, no rash. NEURO: [No focal deficits]. Alert and oriented [x3.] PSYCH: [Normal mood and affect.] H&P: Results Labs Labs: Short CBC 09/28/24 Range/Units 21:23 WBC 14.1 H (4.5-10.0) K/mm3 Hgb 10.9 L (14.0-18.0) g/dL Hct 35.4 L (42.0-52.0) % Plt Count 273 (150-375) k/mm3 BMP 09/28/24 09/28/24 09/29/24 21:23 23:06 03:20 Sodium 131 L 133 L 133 L Potassium 6.3 H* 5.5 H 5.1 H Chloride 104 105 107 Carbon Dioxide 18 L 18 L 17 L BUN 56 H 55 H 51 H Creatinine 2.51 H 2.38 H 2.17 H Glucose 157 H 96 91 Calcium 9.0 9.3 9.1 Liver Function 09/28/24 Range/Units 21:23 Total Bilirubin 0.4 (0.2-1.3) mg/dL AST 31 (17-59) U/L ALT 19 (6-50) U/L Alkaline Phosphatase 48 (38-126) U/L Albumin 4.3 (3.5-5.1) g/dL Assessment and Plan Assessment and plan (1) Essential (primary) hypertension: Code(s): I10 - Essential (primary) hypertension Status: Acute (2) Dyslipidemia: Code(s): E78.5 - Hyperlipidemia, unspecified Status: Acute (3) Type 2 diabetes mellitus with stage 3 chronic kidney disease: Qualifiers: Diabetes mellitus intermediate insulin use: without long term care pharmacist use Chronic kidney disease stage 3 subtype: stage 3a (GFR 45-59) Qualified Code(s): E11.22 - Type 2 diabetes mellitus with diabetic chronic kidney disease; N18.31 - Chronic kidney disease, stage 3a Code(s): E11.22 - Type 2 diabetes mellitus with diabetic chronic kidney disease; N18.30 - Chronic kidney disease, stage 3 unspecified Status: Acute (4) Hypothyroidism: Qualifiers: Hypothyroidism type: acquired Qualified Code(s): E03.9 - Hypothyroidism, unspecified Code(s): E03.9 - Hypothyroidism, unspecified Status: Acute (5) Acute hyperkalemia: Code(s): E87.5 - Hyperkalemia Status: Acute (6) Renal failure: Code(s): N19 - Unspecified kidney failure Status: Acute (7) Urinary retention due to benign prostatic hyperplasia: Code(s): N40.1 - Benign prostatic hyperplasia with lower urinary tract symptoms; R33.8 - Other retention of urine Status: Acute (8) Anemia: Qualifiers: Anemia type: unspecified type Qualified Code(s): D64.9 - Anemia, unspecified Code(s): D64.9 - Anemia, unspecified Status: Acute (9) History of colon cancer: Onset Date: ~03/1999 Code(s): Z85.038 - Personal history of other malignant neoplasm of large intestine Status: Acute Plan 74-year-old male with a past medical history including hypertension, CKD, diabetes, grade 1 diastolic dysfunction. Recently admitted to the hospital in the intensive care unit for hypertensive crisis. Patient was aggressively diuresed, discharged home on furosemide 40 mg daily and Duong catheter in place. Patient states he feels significantly better now than when he was admitted to the hospital. Has been following his med regimen without any difficulties in his blood pressure has been well controlled. Swelling is decreased and now is able to ambulate and not having shortness of breath. He presents today after he had routine outpatient labs and evaluation by his primary care provider for close follow-up visit. His lab showed significant hyperkalemia and worsening renal function and he was told to come to the hospital. His only complaint right now is some lightheadedness and shortness a breath when he was getting out of the car but otherwise has no complaints such as chest pain, abdominal pain, fever, chills. He is still urinating without any difficulties into his catheter bag without any hematuria or dysuria. No fever chills. No back pain. No trauma or injury no changes to his medications since discharge. On ED evaluation his vitals were stable. His potassium is reported to be at 6.5 with worsening renal failure with creatinine of 2.5 He was re-evaluated with repeat labs which showed leukocytosis of 14.1 hemoglobin of 10.9 platelet of 273. Chem panel showed BUN of 56 and creatinine of 2.51. Potassium 6.3 glucose of 157. Patient received insulin dextrose calcium Lokelma and fluid bolus. Repeat BMP with improvement in potassium as well as creatinine EKG with no significant findings. GURMEET on CKD stage 3 baseline creatinine around 1.7. Admission creatinine of 2.5. Likely due to over-diuresis. Hyperkalemia likely due to renal failure. Received hyperkalemia cocktail. Continue to monitor potassium. Nephrology has been consulted Congestive heart failure chronic diastolic chest x-ray with mild congestion noted. EF 50-55% Recent admission for hypertensive emergency managed with nitroglycerin CKD stage 3 Type 2 diabetes mellitus Diabetic peripheral neuropathy Obstructive sleep apnea Urinary retention on Duong catheter. Started on doxazosin. Follow-up with urology as scheduled this Friday. May attempt a void trial while this hospitalization History of colon cancer stage IV in remission since early 1999 Hypertension controlled Hyperlipidemia home medication Hypothyroidism levothyroxine Chronic anemia DVT prophylaxis heparin Code status full code Hospitalist [facility] Advance Care Plan I have confirmed that the patient's Advanced Care Plan is present, code status is documented, or surrogate decision maker is listed in patient medical record.: Yes Medication Reconciliation I have utilized all available resources to obtain, update and review the patients current medications (includes all prescriptions, OTC, herbals, cannabis, and nutritional supplements).: Yes
[2024-09-29 09:10] LABS: Basophils Absolute Auto 0.1 K/mm3 (0.0-0.1); Basophils Percent Auto 0.6 % (0.2-1.2); Eosinophils Absolute Auto 0.2 K/mm3 (0-0.3); Eosinophils Percent Auto 1.5 % (0-4.4); Hematocrit 36.9 % (42.0-52.0); Hemoglobin 11.1 g/dL (14.0-18.0); Immature Granulocyte Absolute 0.06 K/mm3 (0.00-0.031); Immature Granulocyte Percent A 0.5 % (0-0.5); Lymphocytes Absolute Auto 2.38 K/mm3 (0.9-3.2); Lymphocytes Percent Auto 20.4 % (18.3-44.2); Mean Corpuscular HGB Conc 30.1 g/dl (32-36); Mean Corpuscular Hemoglobin 28.1 pg (26-34); Mean Corpuscular Volume 93.4 fl (80-100); Mean Platelet Volume 10.9 fl (7.4-10.4); Monocytes Absolute Auto 0.9 K/mm3 (0.1-0.6); Monocytes Percent Auto 7.4 % (2.6-8.5); Neutrophils Absolute Auto 8.1 K/mm3 (1.3-6.7); Neutrophils Percent Auto 69.6 % (45.5-73.1); Platelet Count Result 251 k/mm3 (150-375); Red Blood Count 3.95 M/mm3 (4.6-6.20); Red Cell Distribution Width 14.3 % (11.5-14.5); White Blood Count 11.7 K/mm3 (4.5-10.0)
[2024-09-29 09:19] LABS: Albumin Level 3.7 g/dL (3.5-5.1); Anion Gap 9 mmol/L (4-12); Blood Urea Nitrogen 47 mg/dL (9-20); Calcium 9.1 mg/dL (8.4-10.2); Carbon Dioxide 19 mmol/L (22-30); Chloride 109 mmol/L (98-107); Estimated CRCL calculation 34 ml/min; Estimated Glomerular Filt Rate 30; Glucose 152 mg/dL (65-110); Magnesium 2.1 mg/dL (1.6-2.3); Phosphorus 4.3 mg/dL (2.5-4.5); Potassium 5.5 mmol/L (3.4-5.0); Sodium 137 mmol/L (137-145)
[2024-09-29] MEDS: FENOFIBRATE NANOCRYSTALLIZED 145 MG TABLET PO (09:49)
[2024-09-29] MEDS: HEPARIN SODIUM 5,000 UNITS/ML VIAL 5000 UNITS SUB-Q ×2 (09:49→21:34)
[2024-09-29] MEDS: carvediloL 6.25 MG TABLET PO ×2 (09:49→21:33)
[2024-09-29] MEDS: CHOLECALCIFEROL (VITAMIN D3) 25 MCG (1,000 UNITS) TABLET 50 MCG PO (09:49)
[2024-09-29] MEDS: ASPIRIN 81 MG ENTERIC TABLET PO (09:49)
[2024-09-29] MEDS: DOXAZOSIN MESYLATE 2 MG TABLET PO (09:49)
[2024-09-29] MEDS: FERROUS SULFATE 325 MG TABLET DR PO (09:49)
[2024-09-29] MEDS: SODIUM ZIRCONIUM CYCLOSILICATE 10 GM POWD.PACK PO ×2 (09:49→18:48)
--- OUTSIDE RECORDS SUMMARY | 2024-09-29 10:53 | XMS_ITS | Clinical Summary ---
Author Organization [facility] at the [facility] Address [address] [place] [address] Care Team Providers Care Registered Public Surveyor Name Role Phone Sanjeev Sainz MD Primary [...] Problem Noted Date Diagnosed Date Atherosclerosis of [place] ar tristin of right lower extremity with [...] 07/07/2016 Influenza Vaccine (Season Ended) 2024 Insurance [facility] Care Teams Registered Public Surveyor Relationship Specialty Start Date End Date Sanjeev Sainz MD [address] [place] [address] [place] [id number] PCP - General Family Practice 09/22/24
--- OUTSIDE RECORDS SUMMARY | 2024-09-29 10:53 | XMS_ITS | Referral Summary ---
Author Organization [facility] at the [facility] Address [address] [place] [address] Care Team Providers Care Barrel Turner Name Role Phone Sanjeev Sainz MD Primary [...] Problem Noted Date Diagnosed Date Atherosclerosis of [place] ar tristin of right lower extremity with [...] Plan of Treatment Not on file Insurance [facility] [place] [id number] Care Teams Barrel Turner Relationship Specialty Start Date End Date Sanjeev Sainz MD [facility] [address] [address] PCP - General Family Practice 09/22/24
--- OUTSIDE RECORDS SUMMARY | 2024-09-29 10:53 | XMS_ITS | Continuity of Care Document ---
Author Organization [facility] Address [address] [place] [address] Phone Care Team Providers Care Kindergarten Aide Name Role Phone Noam Carroll MD Unavailable Unavailable Procedures Procedure Date COMPLETE CBC W/AUTO DIFF WBC COMPREHEN METABOLIC PANEL ROUTINE VENIPUNCTURE LACTATE (LD) (LDH) ENZYME ASSAY OF BLOOD/URIC ACID CARCINOEMBRYONIC ANTIGEN OFFICE/OUTPATIENT VISIT, EST OFFICE/OUTPATIENT VISIT, EST COMPREHEN METABOLIC PANEL LIPID PANEL ASSAY OF BLOOD LIPOPROTEIN ROUTINE VENIPUNCTURE GLYCATED HEMOGLOBIN TEST ASSAY OF PSA, TOTAL ASSAY THYROID STIM HORMONE Advance Directives Directive Yes / No Effective Date File Name No Information Encounters Encounter Description Practice Location Reason(s) For Visit Diagnoses Date Provider Providers Copied on Encounter [facility], [address] [place], [place], [id number], [place] tel:[phone] Laboratory Office No Information Carly Santacruz. [address] [place] [address], [id number], [place]. tel:[phone] Referring Provider: Noam Welsh, [address] [place], [address] . tel:[phone] OFFICE/OUTPAT IENT VISIT, EST [facility], [address] [place], [place], [id number], tel:[phone] [facility] Office No Information Carly Santacruz. [address] [place] [address], [id number], [place]. tel:[phone] Referring Provider: Noam Welsh, [address] [place] [address], [address] . tel:[phone] OFFICE/OUTPAT IENT VISIT, EST [facility], [address] [place] [address], [id number], [place] tel:[phone] [facility] Office Malignant neoplasm of colon, unspecified site David Pereirassef. [address] [place], [address], . tel:[phone] [facility], [address] [place] [address], [id number], [place] tel:[phone] Laboratory Office No Information David Emanuel. [address] [place], [address], [place]. tel:[phone] Family History Family Member Type Diagnosis Age At Onset No Information Payers Payer name Insurance type Covered democrat ID Authoriza tion(s) No Information Social History Type Description Quantity Date Captured Comments Sex Male Smoking Status No Information Chief Complaint And Reason For Visit No Information Reason For Referral Reason For Referral No Information History Of Present Illness Encounter Date Complaint History Of Prese nt Illness No Information Functional Status Date Functional Assessmen t No Information Instructions Date Instruction Additional Infor mation No Information Assessments Type Assessment Date No Information Patient Care Teams Name Effective Dates (start - stop) Status Members No Information
--- OUTSIDE RECORDS SUMMARY | 2024-09-29 10:54 | XMS_ITS | Patient Health Record ---
Author Organization [facility] Address [address] [place] [address] Care Team Providers Care Parachute Folder Name Role Phone Adelfo Hernandez Primary Care Provider Jian Nuñez Unavailable [phone] Reason For Referral No Information Medications Medication [...] Problem Status W/U Status Risk Notes Problem History of malignant neoplasm of colon (588410685) History of colon cancer (Z85.038) Active confirmed Problem Functional diarrhea (65175132) Functional diarrhea (564.5) 2 Problem resolved confirmed Agustin-1199 882- Problem Screening for malignant neoplasm of colon (306943046) Screening for cancer of colon (V76.51) 2 Active confirmed Agustin-1199 882- Problem History of polyp of colon (situation) (627820166) History of colonic polyps (V12.72) 2 Active confirmed Agustin-1199 882- Problem 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) Adenomatous colon polyps (235.2) 2 Active confirmed Agustin-1199 882- Problem History of malignant neoplasm of colon (226687761) HISTORY OF COLON CANCER (V10.05) 2 Active confirmed Agustin-1199 882- Problem Diarrhea (63174032) Diarrhea (787.91) 2 Active confirmed Agustin-1199 882- Problem History of polyp of colon (situation) (449573784) Personal history of colon polyps (Z86.010) Active confirmed Plan Of Treatment No Information Insurance Providers Payer Name Payer Address Payer Phone Subscriber Number Group Number Insured Name Patient Relationship to Insured Coverage Start Date Coverage End Date [place] [address] [place] [address] [id number] Alex Thao Self - patient is the [...]
--- NOTE | 2024-09-29 12:50 | P.CONNP_ITS ---
Assessment and Plan Assessment and plan (1) Acute kidney injury: Code(s): N17.9 - Acute kidney failure, unspecified Status: Acute Assessment and Plan: * as noted by outpatient and admission labs * suspicion falls on over-diuresis given recent hospitalization * s/p IVFs in ER * holding off on further IVFs due to CXR findings * diuretics on hold * check urine studies and CPK * consider renal ultrasound if no improvement in the next 24 hours * follow trend of repeat labs and UOP (2) Stage 3 chronic kidney disease: Code(s): N18.30 - Chronic kidney disease, stage 3 unspecified Status: Chronic Assessment and Plan: * baseline creatinine seems to run ~ 1.3 - 1.7mg/dl in the last few years * this causes him to fluctuate between CKD stage 3A and stage 3B * presumably secondary to hypertension, diabetes, vascular disease, BPH, and age-related change * given recent admission/hospitalization and need for diuretics, he might have a new baseline creatinine... (3) Acute hyperkalemia: Code(s): E87.5 - Hyperkalemia Status: Acute Assessment and Plan: * as noted on outpatient labs and on admission * s/p ongoing medical management * KIKA-I on hold for now * follow trend of repeat K+ levels (4) Congestive heart failure: Code(s): I50.9 - Heart failure, unspecified Status: Chronic Assessment and Plan: * noted during last hospitalization * Echo reviewed (on 09/20/24): * left ventricular systolic function is normal, estimated at 50-55% * left ventricular diastolic function is grade I diastolic dysfunction * right ventricular systolic function is normal * mild mitral valve regurgitation * appears compensated at this time * will likely need to resume diuretics (perhaps at a lower dose) (5) Essential (primary) hypertension: Code(s): I10 - Essential (primary) hypertension Status: Chronic Assessment and Plan: * reasonable control * holding KIKA-I for now * follow trend of hemodynamics (6) Anemia: Qualifiers: Anemia type: unspecified type Qualified Code(s): D64.9 - Anemia, unspecified Code(s): D64.9 - Anemia, unspecified Status: Chronic Assessment and Plan: * related to GURMEET, CKD, and recent acute illness * no need for JOSE MANUEL at this time * follow trend of H/H (7) Urinary retention due to benign prostatic hyperplasia: Code(s): N40.1 - Benign prostatic hyperplasia with lower urinary tract symptoms; R33.8 - Other retention of urine Status: Acute Assessment and Plan: * suresh catheter in place * outpatient Urology follow-up for voiding trial * continue supportive care (8) Diabetes: Code(s): E11.9 - Type 2 diabetes mellitus without complications Status: Chronic Assessment and Plan: * follow accu-cheks * glycemic control per hospitalist I will continue to follow the patient with you while he remains hospitalized and make further recommendations as deemed necessary. Thank you for allowing me to participate in the care of this patient. L History of Present Illness Reason for Consult Consult date: 09/29/24 Reason for consult: acute renal failure (on chronic kidney disease) Chief Complaint Chief complaint: renal failure w hyperkalemia, suspect over-diuresi History of Present Illness Narrative: The patient is a 74-year-old male with a past medical history as outlined below who presented to [facility] Emergency Room at the behest of his primary care physician due to abnormal labs. The patient was just recently hospitalized here at [facility] for hypertensive crisis and volume overload. His medications were adjusted and he was aggressively diuresed with significant improvement in his clinical status and states he lost almost 40 lb of fluid by the time of discharge. Since discharge, he has continued on his medication regimen as outlined on discharge and reports stability in his blood pressure and optimization of his volume status without any issues or problems related to shortness of breath, orthopnea, or paroxysmal nocturnal dyspnea. He recently saw his primary care physician for hospital follow-up and routine labs were ordered which demonstrated evidence of hyperkalemia and acute kidney injury on top of his baseline chronic kidney disease. He also reports some issues with lightheadedness but no other acute complaints with regard to fevers, chills, chest pain, palpitations, or vertigo. given these laboratory abnormalities as mentioned, his primary care physician instructed him go to the ER for further assessment. Workup and evaluation emergency room demonstrated the patient be hemodynamically stable and in no acute distress. Review his outpatient labs noted a potassium of 6.5 with a creatinine of 2.5. Repeat labs were done in the emergency room that demonstrated BUN of 56, creatinine of 2.51, potassium of 6.3, white blood cell count of 14.1, hemoglobin 10.9, and a platelet count of 273. He received medical management for his hyperkalemia in the form of IV dextrose, insulin, IV calcium, Lokelma, and IV fluids. His repeat labs show some improvement in his potassium and renal function as well. His EKG did not show any significant changes with regard to ischemia or hyperkalemia. He was subsequently admitted to the hospital for further evaluation and therapy. Since his admission, he still has had some issues and problems with hyperkalemia requiring further doses of Lokelma. His renal function has improved as well but given that his admission chest x-ray still showed evidence of pulmonary vascular congestion, no further IV fluids have been given. Renal consultation was requested due to his acute kidney injury/acute renal failure on top of his baseline chronic kidney disease in association with hyperkalemia. From review the patient's records, he has had some degree of renal insufficiency that dates back as far as 2022 with a creatinine that has been fluctuating anywhere from 1.3 - 1.7 mg/dL. On his last hospitalization [facility], his renal function was maintained in this baseline range up until the day of discharge when his creatinine was up to 2.26 mg/dL. He was discharged on his home medication of lisinopril in conjunction with lasix 40 mg once a day. He has been compliant with his discharge medications as mentioned above but with his admission labs, both his Lasix as well as his lisinopril have been placed on hold. In spite of these electrolyte abnormalities and renal dysfunction as noted by his outpatient as well as inpatient labs, the patient's cell feels reasonably well and without any acute complaints. Currently, at the time my evaluation, he appears to be in no acute distress. Review of Systems 2 Review of Systems: As per HPI. FORMERLY [facility], [facility] Past Medical History Medical History CKD stage 3b, GFR 30-44 ml/min Kidney stones BPH (benign prostatic hyperplasia) Diabetic peripheral neuropathy Type 2 diabetes mellitus with stage 3 chronic kidney disease Stage 3a chronic kidney disease (CKD) Incarcerated incisional hernia (~02/2023) SBO (small bowel obstruction) (~02/2023) Vitamin B12 deficiency Vitamin D deficiency Hypothyroidism Peripheral arterial disease Mildly diminished ankle-brachial index on the left 09/2022 History of colon polyps History of colon cancer (~03/1999) Stage IV at time of initial diagnosis in 1998 s/p partial colectomy currently in remission Dyslipidemia Essential (primary) hypertension HTN (hypertension) Surgical History Surgical History Status post cataract extraction of both eyes with insertion of intraocular lens History of incisional hernia repair (~03/2023) Open reducible incisional hernia repair with Ventralight ST mesh and extensive intra-abdominal adhesiolysis on 03/18/23 SAW History of hernia repair (~2020) Patient has had multiple ventral hernia repairs with most recent being March [address] Lu History of cholecystectomy (~2009) History of colon resection (~03/1999) History of appendectomy (~03/1999) Family History Family History Mother , Early 60s Hypertension Cerebrovascular accident Son , Mid 30s Acute myocardial infarction Grandparent Alcohol abuse Father , Mid 60s Lung cancer Heavy tobacco smoker Social History Social History Social History: Patient is been to his current for over 40 years. He has 2 biological children 1 of which in his mid 30s of heart disease. He has 2 step children. He is a lifelong nonsmoker and does not drink alcohol or use illicit substances. 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 Code status: Full code Surrogate decision maker: Smoking status: Never smoker Alcohol intake: never Substance use: never Substance use type: does not use Do You Feel Safe in your Home?: Yes Lack of Transportation: No Lack of Food: Never True Current Housing: I Have Housing Concerned About Future Housing: No Difficulty Paying Gas/Electric Bills: No Difficulty Paying for Meds: No Currently Unemployed: No Education: High School Diploma/GED Difficulty w/ Childcare or Family Care: No Living arrangements: with family Occupation/Education: retired Gender identity (if verbalized by the patient): Male Sexual Orientation (if Verbalized by the Patient): Straight or Heterosexual Spiritual care concerns: No Agree to blood products: Yes Meds Home Medications and Allergies Home Medications ?Medication ?Instructions ?Recorded ?Confirmed ?Type cholecalciferol (vitamin D3) 50 50 mcg PO DAILY #90 tabs 05/10/24 09/29/24 Rx mcg (2,000 unit) tablet fenofibrate nanocrystallized 145 145 mg PO DAILY #90 tabs 05/20/24 09/29/24 Rx mg tablet pravastatin 40 mg tablet 40 mg PO QHS #90 tabs 05/20/24 09/29/24 Rx doxazosin 2 mg tablet (Cardura) 2 mg PO DAILY #90 tabs 05/31/24 09/29/24 Rx levothyroxine 50 mcg tablet 50 mcg PO DAILY #90 tabs 06/10/24 09/29/24 Rx ferrous sulfate 325 mg (65 mg 325 mg PO DAILY #90 tabs 09/16/24 09/29/24 Rx iron) tablet,delayed release aspirin 81 mg tablet,delayed 81 mg PO DAILY 09/19/24 09/29/24 History release carvedilol 6.25 mg tablet (Coreg) 6.25 mg PO Q12HR 30 days #60 tabs 09/21/24 09/29/24 Rx glimepiride 4 mg tablet 4 mg PO DAILY #90 tabs 09/27/24 09/29/24 Rx blood-glucose sensor (Dexcom G7 #1 ea 09/28/24 09/29/24 Rx Sensor device) furosemide 20 mg tablet (Lasix) 20 mg PO DAILY #30 tabs 09/30/24 Rx Allergies Allergy/AdvReac Type Severity Reaction Status Date / Time codeine Allergy Severe Rash, Verified 09/28/24 21:11 vomiting meperidine (From Demerol) Allergy Severe Rash,vomiti Verified 09/28/24 21:11 ng dapagliflozin (From Farxiga) Allergy Mild genital Verified 09/28/24 21:11 abscess amlodipine AdvReac Mild pedal edema Verified 09/28/24 21:11 gabapentin (From Neurontin) AdvReac Mild Dizziness Verified 09/28/24 21:11 sitagliptin (From Januvia) AdvReac Mild abscess Verified 09/28/24 21:11 Vital Signs Vital Signs Temp Pulse Resp BP Pulse Ox O2 Del Method 09/29/24 12:00 92 Room Air 09/29/24 11:57 98.3 F 97 14 117/65 99 09/29/24 10:00 96 09/29/24 08:00 105 H 09/29/24 08:00 Room Air 09/29/24 07:55 97.8 F 99 20 144/67 H 99 09/29/24 06:16 99 09/29/24 04:00 98.2 F 87 17 113/74 99 09/29/24 04:00 88 09/29/24 03:46 Room Air 09/29/24 01:55 98.0 F 84 17 143/78 H 99 09/29/24 01:18 83 19 188/97 H 99 09/29/24 01:02 83 15 141/70 H 99 09/29/24 00:47 77 18 125/78 100 09/29/24 00:16 78 14 109/63 94 09/29/24 00:01 79 11 L 124/65 98 09/28/24 23:46 79 10 L 101/63 96 09/28/24 23:31 87 12 117/73 97 09/28/24 23:17 85 14 116/70 97 09/28/24 23:02 83 16 139/85 100 09/28/24 22:31 92 14 176/89 H 100 09/28/24 21:17 97.8 F 87 18 145/77 H 99 Room Air Exam 2 Narrative: GENERAL APPEARANCE: elderly but well developed well nourished male in no acute distress HEENT: normocephalic, atraumatic, normal conjunctiva and sclera, nares patient NECK: no lymphadenopathy, thyromegaly, or JVD MOUTH: normal lips, teeth, and gums CARDIOVASCULAR: RRR, normal S1 and S2, no rub RESPIRATORY: clear anteriorly ABDOMEN: soft, nontender, nondistended, positive bowel sounds present EXTREMITIES: no evidence of cyanosis, clubbing, or edema NEUROLOGICAL: alert and oriented x 3; CN II - XII intact bilaterally; no focal deficits noted Results Lab Results 09/30/24 03:59 09/30/24 03:59 Lab results: Most recent lab results Calcium 9.1 mg/dL (8.4-10.2) 09/29/24 08:56 Phosphorus 4.3 mg/dL (2.5-4.5) 09/29/24 08:56 Magnesium 2.1 mg/dL (1.6-2.3) 09/29/24 08:56
[2024-09-29 14:16] LABS: Glucose Point of Care 150 mg/dl (65-105)
[2024-09-29 16:15] LABS: Glucose Point of Care 214 mg/dl (65-105)
[2024-09-29 17:37] LABS: Potassium 5.6 mmol/L (3.4-5.0)
[2024-09-29] MEDS: hydrOXYzine HCL 25 MG TABLET PO (18:48)
[2024-09-29 21:13] LABS: Glucose Point of Care 198 mg/dl (65-105)
[2024-09-29] MEDS: PRAVASTATIN SODIUM 20 MG TABLET 40 MG PO (21:33)
[2024-09-29] MEDS: rOPINIRole HCL 0.25 MG TABLET PO (21:33)
[2024-09-29] MEDS: ACETAMINOPHEN 325 MG TABLET 650 MG PO (23:21)
[2024-09-30] VITALS: BP 135/68; PULSE 77; PULSE 91; RESP 20; TEMP 36.4; O2SAT 98
[2024-09-30 03:56] VITALS: BP 120/47; PULSE 79; RESP 18; TEMP 36.6; O2SAT 99
[2024-09-30 04:00] VITALS: PULSE 78
[2024-09-30 04:15] LABS: Basophils Absolute Auto 0.1 K/mm3 (0.0-0.1); Basophils Percent Auto 0.6 % (0.2-1.2); Eosinophils Absolute Auto 0.2 K/mm3 (0-0.3); Eosinophils Percent Auto 1.6 % (0-4.4); Hematocrit 34.5 % (42.0-52.0); Hemoglobin 10.6 g/dL (14.0-18.0); Immature Granulocyte Absolute 0.05 K/mm3 (0.00-0.031); Immature Granulocyte Percent A 0.5 % (0-0.5); Lymphocytes Percent Auto 31.3 % (18.3-44.2); Mean Corpuscular HGB Conc 30.7 g/dl (32-36); Mean Corpuscular Hemoglobin 28.2 pg (26-34); Mean Corpuscular Volume 91.8 fl (80-100); Mean Platelet Volume 10.9 fl (7.4-10.4); Monocytes Absolute Auto 0.9 K/mm3 (0.1-0.6); Monocytes Percent Auto 8.7 % (2.6-8.5); Neutrophils Absolute Auto 5.9 K/mm3 (1.3-6.7); Neutrophils Percent Auto 57.3 % (45.5-73.1); Platelet Count Result 240 k/mm3 (150-375); Red Blood Count 3.76 M/mm3 (4.6-6.20); Red Cell Distribution Width 14.6 % (11.5-14.5); White Blood Count 10.2 K/mm3 (4.5-10.0)
[2024-09-30 04:33] LABS: Albumin Level 3.4 g/dL (3.5-5.1); Anion Gap 6 mmol/L (4-12); Blood Urea Nitrogen 43 mg/dL (9-20); Calcium 8.9 mg/dL (8.4-10.2); Carbon Dioxide 20 mmol/L (22-30); Chloride 110 mmol/L (98-107); Creatine Kinase 168 U/L (55-170); Estimated CRCL calculation 37 ml/min; Estimated Glomerular Filt Rate 33; Glucose 124 mg/dL (65-110); Magnesium 2.2 mg/dL (1.6-2.3); Potassium 4.7 mmol/L (3.4-5.0); Sodium 136 mmol/L (137-145)
[2024-09-30] MEDS: LEVOTHYROXINE SODIUM 50 MCG TABLET PO (06:05)
[2024-09-30 06:55] LABS: Total Protein Urine Random 101 mg/dL; Urea Random Urine 632 MG/DL
[2024-09-30 06:56] LABS: Total Protein Urine Random 97 mg/dL; Ur Ttl Prot Creatinine Ratio 1.21 mg/mg (0-0.20)
[2024-09-30 07:06] LABS: Sodium Urine Random 51 meq/L
[2024-09-30 07:56] LABS: Glucose Point of Care 148 mg/dl (65-105)
[2024-09-30 07:59] LABS: Eosinophil Urine None Seen % (None Seen); Urine Eos QC 2nd Tech Confirmed
[2024-09-30 08:00] VITALS: BP 133/63; PULSE 86; PULSE 88; RESP 20; TEMP 36.5; O2SAT 100
[2024-09-30] MEDS: carvediloL 6.25 MG TABLET PO (08:46)
[2024-09-30] MEDS: CHOLECALCIFEROL (VITAMIN D3) 25 MCG (1,000 UNITS) TABLET 50 MCG PO (08:46)
[2024-09-30] MEDS: ASPIRIN 81 MG ENTERIC TABLET PO (08:46)
[2024-09-30] MEDS: FENOFIBRATE NANOCRYSTALLIZED 145 MG TABLET PO (08:46)
[2024-09-30] MEDS: FERROUS SULFATE 325 MG TABLET DR PO (08:47)
[2024-09-30] MEDS: HEPARIN SODIUM 5,000 UNITS/ML VIAL 5000 UNITS SUB-Q (08:47)
[2024-09-30] MEDS: DOXAZOSIN MESYLATE 2 MG TABLET PO (09:02)
[2024-09-30 11:29] VITALS: BP 140/73; PULSE 82; RESP 18; TEMP 36.5; O2SAT 100
[2024-09-30 11:59] LABS: Glucose Point of Care 209 mg/dl (65-105)
[2024-09-30 12:00] VITALS: PULSE 86; O2SAT 100
--- NOTE | 2024-09-30 12:17 | PM.DS ---
DS: Admitting Diagnosis Discharge Date 09/30/2024 Admitting Diagnosis Abnormal labs DS: Discharge Diagnosis Discharge Diagnosis (1) Essential (primary) hypertension: Code(s): I10 - Essential (primary) hypertension Status: Acute (2) Dyslipidemia: Code(s): E78.5 - Hyperlipidemia, unspecified Status: Acute (3) Type 2 diabetes mellitus with stage 3 chronic kidney disease: Qualifiers: Diabetes mellitus extermination inspector insulin use: without halfway use Chronic kidney disease stage 3 subtype: stage 3a (GFR 45-59) Qualified Code(s): E11.22 - Type 2 diabetes mellitus with diabetic chronic kidney disease; N18.31 - Chronic kidney disease, stage 3a Code(s): E11.22 - Type 2 diabetes mellitus with diabetic chronic kidney disease; N18.30 - Chronic kidney disease, stage 3 unspecified Status: Acute (4) Hypothyroidism: Qualifiers: Hypothyroidism type: acquired Qualified Code(s): E03.9 - Hypothyroidism, unspecified Code(s): E03.9 - Hypothyroidism, unspecified Status: Acute (5) Acute hyperkalemia: Code(s): E87.5 - Hyperkalemia Status: Acute (6) Renal failure: Code(s): N19 - Unspecified kidney failure Status: Acute (7) Urinary retention due to benign prostatic hyperplasia: Code(s): N40.1 - Benign prostatic hyperplasia with lower urinary tract symptoms; R33.8 - Other retention of urine Status: Acute (8) Anemia: Qualifiers: Anemia type: unspecified type Qualified Code(s): D64.9 - Anemia, unspecified Code(s): D64.9 - Anemia, unspecified Status: Acute (9) History of colon cancer: Onset Date: ~03/1999 Code(s): Z85.038 - Personal history of other malignant neoplasm of large intestine Status: Acute DS: Summary Hospital Course Hospital Course: 74-year-old male with a past medical history including hypertension, CKD, diabetes, grade 1 diastolic dysfunction. Recently admitted to the hospital in the intensive care unit for hypertensive crisis. Patient was aggressively diuresed, discharged home on furosemide 40 mg daily and Duong catheter in place. Patient states he feels significantly better now than when he was admitted to the hospital. Has been following his med regimen without any difficulties in his blood pressure has been well controlled. Swelling is decreased and now is able to ambulate and not having shortness of breath. He presents today after he had routine outpatient labs and evaluation by his primary care provider for close follow-up visit. His lab showed significant hyperkalemia and worsening renal function and he was told to come to the hospital. His only complaint right now is some lightheadedness and shortness a breath when he was getting out of the car but otherwise has no complaints such as chest pain, abdominal pain, fever, chills. He is still urinating without any difficulties into his catheter bag without any hematuria or dysuria. No fever chills. No back pain. No trauma or injury no changes to his medications since discharge. On ED evaluation his vitals were stable. His potassium is reported to be at 6.5 with worsening renal failure with creatinine of 2.5 He was re-evaluated with repeat labs which showed leukocytosis of 14.1 hemoglobin of 10.9 platelet of 273. Chem panel showed BUN of 56 and creatinine of 2.51. Potassium 6.3 glucose of 157. Patient received insulin dextrose calcium Lokelma and fluid bolus. Repeat BMP with improvement in potassium as well as creatinine EKG with no significant findings. GURMEET on CKD stage 3 baseline creatinine around 1.7. Admission creatinine of 2.5. Likely due to over-diuresis. Lasix and lisinopril on hold. Creatinine continues to improve. Will continue to hold this at discharge. He may need resumption of Lasix and have advised him to watch his weight and leg swelling to decide potentially may need to resume lower dose as well at 20 mg Hyperkalemia likely due to renal failure. Received hyperkalemia cocktail. Continue to monitor potassium. Nephrology has been consulted. Continue to hold lisinopril at discharge. He will benefit from KIKA inhibitor/ARB for his CKD unless hyperkalemia issue persist in future. Will recheck labs prior to follow-up with PCP. Congestive heart failure chronic diastolic chest x-ray with mild congestion noted. EF 50-55% Recent admission for hypertensive emergency managed with nitroglycerin CKD stage 3 Type 2 diabetes mellitus Diabetic peripheral neuropathy Obstructive sleep apnea Urinary retention on Duong catheter. Started on doxazosin. Follow-up with urology as scheduled this Friday. May attempt a void trial while this hospitalization. He has a follow-up with urologist tomorrow. Will continue Duong catheter at discharge. History of colon cancer stage IV in remission since early 1999 Hypertension controlled Hyperlipidemia home medication Hypothyroidism levothyroxine Chronic anemia DVT prophylaxis heparin Code status full code Time Spent with Patient Time attestation: Total time spent providing and/or coordinating discharge services: 35 minutes Exam Narrative: GENERAL: [Well-appearing, well-nourished, and in no acute distress.] HEAD: [Normocephalic, atraumatic.] EYES: [PERRLA and EOMI.] ENT: Nares clear, no rhinorrhea or epistaxis. Mucous membranes moist. NECK: Supple. CHEST: [Clear to auscultation. No respiratory distress.] HEART: [Regular rate and rhythm]. No murmur heard. [Normal peripheral pulses.] ABDOMEN: Previous surgical scars in the abdomen. [Soft, nondistended], [nontender], [No rigidity or guarding] Duong catheter in place EXTREMITIES: Normal range of motion. [No edema.] SKIN: Warm, dry, no rash. NEURO: [No focal deficits]. Alert and oriented [x3.] PSYCH: [Normal mood and affect.] DS: Data Data Completed and Pending Labs on day of discharge: Labs from last 24 hours 09/30/24 09/30/24 09/30/24 11:28 07:53 06:27 WBC RBC Hgb Hct MCV MCH MCHC RDW Plt Count MPV Immature Gran % (Auto) Neut % (Auto) Lymph % (Auto) [place] % (Auto) Eos % (Auto) Baso % (Auto) Lymph # (Auto) [place] # (Auto) Eos # (Auto) Baso # (Auto) Abs Immat Gran (auto) Absolute Neuts (auto) Absolute Nucleated RBC Nucleated RBC % Sodium Potassium Chloride Carbon Dioxide Anion Gap BUN Creatinine Estim Creat Clear Calc Estimated GFR Glucose POC Capillary Glucose 209 H 148 H Calcium Phosphorus Magnesium Total Creatine Kinase Albumin Urine Eosinophils U Random Total Protein 101 Ur Random Sodium 51 Ur Random Urea 632 Urine Creatinine 80.0 Protein/Creat Ratio 2 1.21 H 09/30/24 09/30/24 09/29/24 06:27 03:59 21:11 WBC 10.2 H RBC 3.76 L Hgb 10.6 L Hct 34.5 L MCV 91.8 MCH 28.2 MCHC 30.7 L RDW 14.6 H Plt Count 240 MPV 10.9 H Immature Gran % (Auto) 0.5 Neut % (Auto) 57.3 Lymph % (Auto) 31.3 [place] % (Auto) 8.7 H Eos % (Auto) 1.6 Baso % (Auto) 0.6 Lymph # (Auto) 3.20 [place] # (Auto) 0.9 H Eos # (Auto) 0.2 Baso # (Auto) 0.1 Abs Immat Gran (auto) 0.05 H Absolute Neuts (auto) 5.9 Absolute Nucleated RBC 0.000 Nucleated RBC % 0.0 Sodium 136 L Potassium 4.7 Chloride 110 H Carbon Dioxide 20 L Anion Gap 6 BUN 43 H Creatinine 1.98 H Estim Creat Clear Calc 37 Estimated GFR 33 L Glucose 124 H POC Capillary Glucose 198 H Calcium 8.9 Phosphorus 4.0 Magnesium 2.2 Total Creatine Kinase 168 Albumin 3.4 L Urine Eosinophils None seen U Random Total Protein 97 Ur Random Sodium Ur Random Urea Urine Creatinine Protein/Creat Ratio 2 09/29/24 09/29/24 09/29/24 17:25 16:07 11:22 WBC RBC Hgb Hct MCV MCH MCHC RDW Plt Count MPV Immature Gran % (Auto) Neut % (Auto) Lymph % (Auto) [place] % (Auto) Eos % (Auto) Baso % (Auto) Lymph # (Auto) [place] # (Auto) Eos # (Auto) Baso # (Auto) Abs Immat Gran (auto) Absolute Neuts (auto) Absolute Nucleated RBC Nucleated RBC % Sodium Potassium 5.6 H Chloride Carbon Dioxide Anion Gap BUN Creatinine Estim Creat Clear Calc Estimated GFR Glucose POC Capillary Glucose 214 H 150 H Calcium Phosphorus Magnesium Total Creatine Kinase Albumin Urine Eosinophils U Random Total Protein Ur Random Sodium Ur Random Urea Urine Creatinine Protein/Creat Ratio 2 Imaging Radiologist's impression: ITS Impressions Chest X-Ray 09/28/24 21:50 IMPRESSION: Mild pulmonary vascular congestion with a small left-sided pleural effusion suspected. Discharge Plan Discharge Attending physician on discharge: Zachery Foster Consulting providers: Dolores Barnett Discharging Clinician: Zachery Foster Anticipated Discharge Date/Time: 09/30/24 12:20 Patient Disposition: Home Activity: as tolerated Diet: heart healthy, renal and low sodium Discharge Instructions: fluid intake per day 1500 cc per day low salt diet low K diet Lowered Lasix to 20 mg daily. Do not start until next week. Watch your weight and for any swelling. Start Lasix sooner if these increase Labs in next week and see your PCP. Follow-up with cardiology as previously scheduled Follow-up with urology as previously scheduled Patient Instructions: Antibiotic Form, Heart Failure (GEN) Patient Language: Ethiopian Stand Alone Forms: General Discharge Information Follow-up/Referrals: Marito Sainz MD [Primary Care Provider] - 1 Week Discharge Medications: New furosemide [Lasix] 20 mg tablet 20 mg PO DAILY Qty: 30 0RF Rx Instructions: do not start until next week. sooner if weight up or swelling starts Continued doxazosin [Cardura] 2 mg tablet 2 mg PO DAILY Qty: 90 1RF (DME) Dexcom G7 Sensor Device See Rx Instructions .Route Qty: 1 0RF Rx Instructions: use As directed aspirin 81 mg tablet,delayed release (DR/EC) 81 mg PO DAILY carvedilol [Coreg] 6.25 mg Tablet 6.25 mg PO Q12HR 30 Days Qty: 60 1RF cholecalciferol (vitamin D3) 50 mcg (2,000 unit) tablet 50 mcg PO DAILY Qty: 90 3RF pravastatin 40 mg tablet 40 mg PO QHS Qty: 90 1RF fenofibrate nanocrystallized 145 mg tablet 145 mg PO DAILY Qty: 90 1RF levothyroxine 50 mcg tablet 50 mcg PO DAILY Qty: 90 1RF ferrous sulfate 325 mg (65 mg iron) tablet,delayed release (DR/EC) 325 mg PO DAILY Qty: 90 1RF glimepiride 4 mg tablet 4 mg PO DAILY Qty: 90 0RF Rx Instructions: administer with breakfast Discontinued furosemide [Lasix] 40 mg tablet 40 mg PO DAILY 30 Days Qty: 30 1RF lisinopril 40 mg tablet 40 mg PO DAILY Qty: 90 1RF metformin [Glucophage XR] 500 mg tablet extended release 24 hr 500 mg PO DAILY Qty: 90 1RF Other Ambulatory Orders: Basic Metabolic Panel (Routine) Timeframe: 5 Days Location: Determined by Patient Ordered By: Zachery Foster Date of admission: 09/29/24 01:26 Primary Care Provider: Marito Sainz Admitting Provider: Tan Mo Attending physician on admission: Jayaraj,Tan Condition: Stable Hospitalist MIPS Heart Failure (Exclusion) Patient has history of Heart Transplant or Left Ventricular Assistive Device?: No IF YES, STOP HERE Heart Failure (Qualifier) Patient has current or prior documentation of LVEF less than or equal to 40%, or mod/servere depressed LVSF?: No IF NO, STOP HERE
[2024-09-30] MEDS: INSULIN ASPART (*BKC) 100 UNITS/ML SUB-Q (12:48)
== END 2024-09-30 13:02 | disposition home or self-care (01) ==
LOC: ANHED 09-29 01:13 → ANHIMU 09-29 05:39
PROVIDERS: Internal Medicine Nephrology; Nurse Practitioner; Admitting Provider General Practice; Emergency Provider Student in an Organized Health Care Education/Training Program; PCP Family Medicine; Visit Provider Internal Medicine
DX: N17.9 Acute kidney failure, unspecified (principal); E87.5 Hyperkalemia; E11.22 Type 2 diabetes mellitus with diabetic chronic kidney disease; I13.0 Hypertensive heart and chronic kidney disease with heart failure and stage 1 through stage 4 chronic kidney disease, or unspecified chronic kidney disease; I50.32 Chronic diastolic (congestive) heart failure; N18.31 Chronic kidney disease, stage 3a; D63.1 Anemia in chronic kidney disease; D64.9 Anemia, unspecified; E11.42 Type 2 diabetes mellitus with diabetic polyneuropathy; E11.51 Type 2 diabetes mellitus with diabetic peripheral angiopathy without gangrene; E03.9 Hypothyroidism, unspecified; E78.5 Hyperlipidemia, unspecified; N40.1 Benign prostatic hyperplasia with lower urinary tract symptoms; R33.8 Other retention of urine; G47.33 Obstructive sleep apnea (adult) (pediatric); E53.8 Deficiency of other specified B group vitamins; E55.9 Vitamin D deficiency, unspecified; Z79.82 Long term (current) use of aspirin; Z79.84 Long term (current) use of oral hypoglycemic drugs; Z79.899 Other long term (current) drug therapy; Z85.038 Personal history of other malignant neoplasm of large intestine; Z86.0100 Personal history of colon polyps, unspecified; Z90.49 Acquired absence of other specified parts of digestive tract; Z96.1 Presence of intraocular lens; Z98.42 Cataract extraction status, left eye; Z98.41 Cataract extraction status, right eye
CPT/HCPCS: 36415; 71045; 80048; 80053; 80069; 81050; 82550; 82570; 82948; 83735; 83880; 84132; 84156; 84300; 84540; 85025; 85999; 93005; 96361; 96372; 96374; 96375; 99285; A9270; G0378; J0612; J1644; J1815; J2405; J7120

== ENCOUNTER 2024-10-06 14:33 | Outpatient (CLI) | payer OTHER, SELFPAY ==
[2024-10-06 19:14] LABS: Anion Gap 8 mmol/L (4-12); Blood Urea Nitrogen 38 mg/dL (9-20); Calcium 9.2 mg/dL (8.4-10.2); Carbon Dioxide 23 mmol/L (22-30); Chloride 105 mmol/L (98-107); Estimated Glomerular Filt Rate 38; Glucose 203 mg/dL (65-110); Potassium 4.7 mmol/L (3.4-5.0); Sodium 136 mmol/L (137-145)
== END 2024-10-06 14:34 | disposition home or self-care (01) ==
LOC: ANHGOSHLAB 14:34
PROVIDERS: PCP Family Medicine; Visit Provider Family Medicine
DX: N18.31 Chronic kidney disease, stage 3a (principal)
CPT/HCPCS: 36415; 80048

== ENCOUNTER 2024-10-13 11:30 | Emergency (ER) | payer OTHER, SELFPAY ==
[2024-10-13] VITALS (12 sets, daily range): BP systolic 152–176; BP diastolic 70–89; PULSE 80–96; RESP 11–18; TEMP 36.4; O2SAT 99–100
--- NOTE | ~2024-10-13 | CT_ITS ---
EXAMINATION: CTA chest PE protocol DATE: 10/13/2024 13:20 CDT INDICATION: Chest pain pulmonary embolus suspected clinically TECHNIQUE: Computed tomographic angiography (CTA) of the chest was performed with 100 mL Omnipaque-35 0 intravenous contrast. The dose-length product was 946.62 mGy-cm. Maximum intensity projection 3D-re constructions of the aorta and other arteries were constructed by the technologist on a separate work station. COMPARISON: 09/18/2024 FINDINGS/OBSERVATIONS: PULMONARY ARTERIES: No filling defect is identified within the main or proximal pulmonary artery. The main pulmonary artery is not enlarged. THORACIC AORTA: No aneurysmal dilatation or dissection is present. The great vessels are intact LUNGS: Right basilar atelectasis. The remainder of the lungs are clear. MEDIASTINUM: No morphologically suspicious or pathologically enlarged lymph nodes are identified with in the mediastinum or bilateral axilla. BONES OF THE CHEST: No acute fracture. No significant degenerative disease. No lytic or blastic lesions. HEART: The heart is within the upper limits of normal for size, without pericardial effusion. IMPRESSION: No pulmonary embolus. No thoracic aortic dissection. Right basilar atelectasis. Reviewed, dictated and finalized at location A.
--- NOTE | 2024-10-13 11:32 | ECG_ITS ---
Test Date: 2024-10-13 11:42:23 Measurements Intervals [place] Rate: 96 P: 73 [place]: 209 QRS: -24 QRSD: 130 T: 81 QT: 347 QTc: 439 Interpretive Statements SINUS RHYTHM BORDERLINE LEFT AXIS DEVIATION [QRS AXIS < -20] POSSIBLE RIGHT VENTRICULAR CONDUCTION DELAY [RSR (QR) IN V1/V2] NONSPECIFIC ST & T-WAVE ABNORMALITY Compared to ECG 09/28/2024 21:24:03 T-wave abnormality now present First degree AV block no longer present Intraventricular conduction delay no longer present Electronically Signed On 10-14-2024 16:31:11 CDT by Ba Aguilar
--- OUTSIDE RECORDS SUMMARY | 2024-10-13 11:32 | XMS_ITS | Referral Summary ---
Author Organization [facility] Address [address] [place] [address] Care Team Providers Care Hide Stretcher Hand Name Role Phone Sanjeev Sainz MD Primary Care Provider Encounters Date Type Department Care Team Description 10/04/2024 10:00 AM CDT Office Visit [facility] Medical [facility] Cardiology [address] [facility] [address] [place] [phone] Angeles Rodriguez NP Essential hypertension (Primary Dx); Stage 3 chronic kidney disease, unspecified whether stage 3a or 3b CKD (HCC); Hospital discharge follow-up; Heart failure, unspecified (HCC) 10/01/2024 Orders Only [facility] Medical [facility] Cardiology [address] [facility] [address] [phone] Juanita Mukherjee MD from Last 3 Months Allergies Active Allergy Reactions Criticality Noted Date Comments Codeine Fever,Vomiting Medium 10/16/2022 Meperidine Fever,Vomiting Medium 10/16/2022 Medications fenofibrate nanocrystallized (TRICOR) 145 mg tablet Take 1 tablet (145 mg total) by mouth daily 07/12/19 23 Active levothyroxine (SYNTHROID) 50 mcg tablet Take 1 tablet (50 mcg total) by mouth daily 07/12/19 Active pravastatin (PRAVACHOL) 40 mg tablet Take 1 tablet (40 mg total) by mouth daily 07/12/19 Active carvediloL (COREG) 6.25 mg tablet Take 1 tablet (6.25 mg total) by mouth 2 (two) times a day with meals 09/22/19 Active cholecalciferol (VITAMIN D-3) 2000 unit capsule 09/22/19 25 Active doxazosin (CARDURA) 2 mg tablet Take 1 tablet (2 mg total) by mouth daily 08/27/19 25 Active ferrous sulfate 325 mg (65 mg of elemental iron) tablet Take 1 tablet (325 mg total) by mouth daily 09/17/19 25 Active furosemide (LASIX) 20 mg tablet Take 1 tablet (20 mg total) by mouth every morning 10/12/19 Active glimepiride (AMARYL) 4 mg tablet Take 1 tablet (4 mg total) by mouth 2 (two) times a day after breakfast and dinner 07/12/19 025 Discontinu ed(Therapy completed) metFORMIN (GLUCOPHAGE) 1,000 mg tablet Take 1 tablet (1,000 mg total) by mouth 2 (two) times a day 09/06/19 025 Discontinu ed(Therapy completed) lisinopriL (PRINIVIL,ZESTRIL) 40 mg tablet Take 1 tablet (40 mg total) by mouth daily 07/12/19 025 Discontinu ed(No longer taking - Do not display on AVS) amLODIPine (NORVASC) 10 mg tablet Take 1 tablet (10 mg total) by mouth daily 09/24/19 025 Discontinu ed(Patient Reported) Active Problems Problem Noted Date Diagnosed Date Atherosclerosis of [place] of right lower extremity with [...] Never Smokeless Tobacco: Never Tobacco Cessation:Counseling Given: Not Answered Sex and Gender Information Value Date Recorded Sex Assigned at Not on file Legal Sex Male 12:12 PM CDT Gender Identity Male 12/11/2022 7:04 AM CDT Sexual Orientation Straight 12/11/2022 7: 04 AM CDT Last Filed Vital Signs Vital Sign Reading Time Taken Comments Blood Pressure 138/68 10/04/2024 10:06 AM CDT Pulse 82 10/04/2024 10:06 AM CDT Temperature - - Respiratory Rate - - Oxygen Saturation 99% 10/04/2024 10:06 AM CDT Inhaled Oxygen Concentration - - Weight 107 kg (236 lb) 10/04/2024 10:06 AM CDT Height 177.8 cm (5' 10) 10/04/2024 10:06 AM CDT Body Mass Index 33.86 10/04/2024 10:06 AM CDT Plan of Treatment Not on file Procedures Procedure Name Priority Date/Time Associated Diagnosis Comments CARDIOLOGY DOCUMENT SCAN Routine 09/21/2024 4:46 PM CDT CARDIOLOGY DOCUMENT SCAN Routine 09/19/2024 4:43 PM CDT from Last 3 Months Results * Cardiology Document Scan (09/21/2024 4:46 PM CDT) Anatomical Region Laterality Modality Other us [facility] Bridget Serrano MD CV CARDIAC SERVICES PRO CEDURES Final Result * Cardiology Document Scan (09/19/2024 4:43 PM CDT) Anatomical Region Laterality Modality Other Juanita Mukherjee MD CV CARDIAC SERVICES PROCEDURES Final Result from Last 3 Months Insurance [facility] Member Subscriber Plan / Payer (Ef fective 2022-Present) Name:Alex Thao Relation to Subscriber:Self Name:Alex Thao Payer ID:[id number] (NAIC) Type:MEDICARE RISK OTHER Address: [place] [id number] [facility] Member Subscriber Plan / Payer (Ef fective 2022-Present) Name:Alex Thao Relation to Subscriber:Self Name:Alex Thao Payer ID:[id number] (NAIC) Type:MEDICARE RISK OTHER Address: [place] [id number] Care Teams Hide Stretcher Hand Relationship Specialty Start Date End Date Sanjeev Sainz MD [address] [facility] [address] [place] [id number] PCP - General Family Practice 09/22/24
--- OUTSIDE RECORDS SUMMARY | 2024-10-13 11:32 | XMS_ITS | Clinical Summary ---
Author Organization [facility] [place] at the [facility] Office Center Address [address] [place] [address] Care Team Providers Care Subsurface Augmentee Operator Name Role Phone Sanjeev Sainz MD [...] total) by mouth daily 07/12/19 23 Active carvediloL (COREG) 6.25 mg tablet Take 1 tablet (6.25 mg total) by mouth 2 (two) times a day with meals 09/22/19 25 Active cholecalciferol (VITAMIN D-3) 2000 unit capsule [...] mg total) by mouth every morning 10/12/19 25 Active glimepiride (AMARYL) 4 mg tablet Take [...] Problem Noted Date Diagnosed Date Atherosclerosis of [place] of right lower extremity with [...] 2 diabetes mellitus without complication Hyperlipidemia 10/16/2022 Encounters Date Type Department Care Team Description 10/04/2024 10:00 AM CDT Office Visit [facility] Cardiology [address] [place] [phone] Angeles Rodriguez NP Essential hypertension (Primary Dx); Stage 3 chronic kidney disease, unspecified whether stage 3a or 3b CKD (HCC); Hospital discharge follow-up; Heart failure, unspecified (HCC) 10/01/2024 Orders Only [facility] Cardiology [address] [place] [address] Juanita Mukherjee MD from Last 3 Months Surgical History Surgery Date Site/Laterality Comments GALLBLADDER [...] 10/04/2024 10:06 AM CDT Plan of Treatment Health Maintenance [...] 07/07/1970 Zoster Vaccine (1 of 2) 07/07/2001 Well Visit 65+ 07/07/2016 Influenza Vaccine (#1) 2024 Procedures Procedure Name Priority Date/Time Associated Diagnosis Comments CARDIOLOGY DOCUMENT SCAN Routine 09/21/2024 4:46 PM CDT CARDIOLOGY DOCUMENT SCAN Routine 09/19/2024 4:43 PM CDT from Last 3 Months Results * Cardiology Document Scan (09/21/2024 4:46 PM CDT) Anatomical Region Laterality Modality Other us Rossy Serrano MD CV CARDIAC SERVICES PRO CEDURES Final Result * Cardiology Document Scan (09/19/2024 4:43 PM CDT) Anatomical Region Laterality Modality Other us Juanita Mukherjee MD CV CARDIAC SERVICES PROCEDURES Final Result from Last 3 Months Insurance [facility] [employer] Care Teams Subsurface Augmentee Operator Relationship Specialty Start Date End Date Sanjeev Sainz MD [address] [facility] [address] [place] [phone] PCP - General Family Practice 09/22/24
--- OUTSIDE RECORDS SUMMARY | 2024-10-13 11:33 | XMS_ITS | Patient Health Record ---
Author Organization [facility] Address [address] [place] [address] Care Team Providers Care Magazine Repairer Name Role Phone Adelfo Hernandez Primary Care Provider Jian Nuñez Unavailable [phone] Reason For Referral No Information Medications Medication [...] Problem History of malignant neoplasm of colon (150499626) History of colon cancer (Z85.038) Active confirmed Problem History of polyp of colon (situation) (371594663) Personal history of colon polyps (Z86.010) Active confirmed Problem Diarrhea (83228923) Diarrhea (787.91) 2 Active confirmed Agustin-1199 882- Problem History of malignant neoplasm of colon (206721011) HISTORY OF COLON CANCER (V10.05) 2 Active confirmed Agustin-1199 882- Problem 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) Adenomatous colon polyps (235.2) 2 Active confirmed Agustin-1199 882- Problem History of polyp of colon (situation) (916298782) History of colonic polyps (V12.72) 2 Active confirmed Agustin-1199 882- Problem Screening for malignant neoplasm of colon (794885742) Screening for cancer of colon (V76.51) 2 Active confirmed Agustin-1199 882- Problem Functional diarrhea (91496387) Functional diarrhea (564.5) 2 Problem resolved confirmed Agustin-1199 882- Plan Of Treatment No Information Insurance Providers Payer Name Payer Address Payer Phone Subscriber Number Group Number Insured Name Patient Relationship to Insured Coverage Start Date Coverage End Date [place] [address] [place] [address] [id number] Alex Thao Self - patient is the insured Medical (General) History Surgical History Surgery Date(Month/Year) COLONOSCOPY: 06/10/11 INDICA TION: personal history of colon cancer DX: mild diverticulosis, internal hemorrhoids, and polyps of the colon. BX: adenoma, SURVEILLANCE: 3 years COLONOSCOPY: 11/21/14 INDICATION: personal history of colon cancer DX: mild diverticulosis, internal hem orrhoids, polyp of the colon, and benign amastomosis. BX: adenoma, SURVEILLANCE: 5 years
--- OUTSIDE RECORDS SUMMARY | 2024-10-13 12:00 | XMS_ITS | Referral Summary ---
Author Organization [facility] at the [facility] Office Center Address [address] [place] [address] Care Team Providers Care Operations Director Name Role Phone Sanjeev Sainz MD Primary Care Provider Encounters Date Type Department Care Team Description 10/04/2024 10:00 AM CDT Office Visit [facility] Medical [facility] Cardiology [address] [facility] [address] [place] [phone] Angeels Rodriguez NP Essential hypertension (Primary Dx); Stage 3 chronic kidney disease, unspecified whether stage 3a or 3b CKD (HCC); Hospital discharge follow-up; Heart failure, unspecified (HCC) 10/01/2024 Orders Only [facility] Medical [facility] Cardiology [address] [facility] [address] [phone] Juanita Mukherjee MD from Last [...] Problem Noted Date Diagnosed Date Atherosclerosis of [place] of right lower extremity with [...] CDT) Anatomical Region Laterality Modality Other us [facility] Bridget Serrano MD CV CARDIAC SERVICES PRO CEDURES Final Result * Cardiology Document Scan (09/19/2024 4:43 PM CDT) Anatomical Region Laterality Modality Other Juanita Mukherjee MD CV CARDIAC SERVICES PROCEDURES Final Result from Last [address] [facility] Member Subscriber Plan / Payer (Ef fective 2022-Present) Name:Alex Thao Relation to Subscriber:Self Name:Alex Thao Payer ID:[id number] (NAIC) Type:MEDICARE RISK OTHER Address: [place] [id number] [facility] Member Subscriber Plan / Payer (Ef fective 2022-Present) Name:Alex Thao Relation to Subscriber:Self Name:Alex Thao Payer ID:[id number] (NAIC) Type:MEDICARE RISK OTHER Address: [place] [id number] Care Teams Operations Director Relationship Specialty Start Date End Date Sanjeev Sainz MD [address] [facility] [address] [place] [id number] PCP - General Family Practice 09/22/24
--- OUTSIDE RECORDS SUMMARY | 2024-10-13 12:00 | XMS_ITS | Clinical Summary ---
Author Organization [facility] at the [facility] Office Center Address [address] [place] [address] Care Team Providers Care Meat Inspector Name Role Phone Sanjeev Sainz MD Primary [...] Problem Noted Date Diagnosed Date Atherosclerosis of [place] ar trist[place] of right lower extremity with [...] Description 10/04/2024 10:00 AM CDT Office Visit [facility] Medical [facility] Cardiology [address] [place] [phone] Angeles Rodriguez NP Essential hypertension (Primary Dx); Stage 3 chronic kidney disease, unspecified whether stage 3a or 3b CKD (HCC); Hospital discharge follow-up; Heart failure, unspecified (HCC) 10/01/2024 Orders Only [facility] Cardiology [address] [place] [address] Juanita Mukherjee MD from Last 3 Months [...] Final Result from Last 3 Months Insurance [facility] Care Teams Meat Inspector Relationship Specialty Start Date End Date Sanjeev Sainz MD [address] [facility] [address] [place] [address] [phone] PCP - General Family Practice 09/22/24
--- NOTE | 2024-10-13 12:10 | PC.NURSE ---
Pt. taken to bathroom to have a BM via WC by JOSE G [place].
[2024-10-13 12:41] LABS: Hematocrit 34.0 % (42.0-52.0); Hemoglobin 10.7 g/dL (14.0-18.0); Immature Granulocyte Percent A 0.5 % (0-0.5); Lymphocytes Absolute Auto 2.62 K/mm3 (0.9-3.2); Mean Corpuscular HGB Conc 31.5 g/dl (32-36); Mean Corpuscular Hemoglobin 28.1 pg (26-34); Mean Corpuscular Volume 89.2 fl (80-100); Nucleated Red Blood Cells Absolute Auto 0.000 K/mm3 (0.0-0.012); Nucleated Red Blood Cells Perc 0.0 % (0.0-0.2); Platelet Count Result 272 k/mm3 (150-375); Red Blood Count 3.81 M/mm3 (4.6-6.20); White Blood Count 11.6 K/mm3 (4.5-10.0)
[2024-10-13 12:52] LABS: Alanine Aminotransferase 19 U/L (6-50); Albumin Level 4.0 g/dL (3.5-5.1); Alkaline Phosphatase 49 U/L (38-126); Anion Gap 11 mmol/L (4-12); Aspartate Amino Transferase 35 U/L (17-59); Bilirubin,Total 0.3 mg/dL (0.2-1.3); Blood Urea Nitrogen 34 mg/dL (9-20); Calcium 9.3 mg/dL (8.4-10.2); Carbon Dioxide 17 mmol/L (22-30); Chloride 102 mmol/L (98-107); Estimated CRCL calculation 48 ml/min; Estimated Glomerular Filt Rate 45; Glucose 114 mg/dL (65-110); INR 1.0; Lipase 283 U/L (23-300); Partial Thromboplastin Time 28.0 Seconds (22.3-36.8); Potassium 4.3 mmol/L (3.4-5.0); Prothrombin Time 13.6 Seconds (11.1-14.7); Sodium 130 mmol/L (137-145); Total Protein 7.4 g/dL (6.3-8.2)
[2024-10-13 13:04] LABS: NT Pro B Type Natriuretic Pept 247 pg/mL (19.9-100); Troponin I < 0.012 ng/mL (0.000-0.034)
[2024-10-13] MEDS: ASPIRIN 81 MG CHEWABLE TABLET 324 MG PO (13:46)
[2024-10-13] MEDS: DICYCLOMINE HCL INJ 20 MG/2 ML VIAL IM (13:46)
[2024-10-13] MEDS: ONDANSETRON INJ 4 MG/2 ML VIAL IV PUSH (13:46)
[2024-10-13] MEDS: BELLADONNA ALK/PHENOB ELIX 10 ML, MAG HYDROX/ALUMINUM HYD/SIMETH 30 ML, LIDOCAINE 2% VI... PO (13:59)
--- NOTE | 2024-10-13 14:32 | ED_ITS ---
HPI - General Adult General Chief complaint: Chest Pain Stated complaint: chest pain, sob and dizzy Time Seen by Provider: 10/13/24 11:37 History of Present Illness HPI narrative: Patient is a 74-year-old male who presents ER with multiple complaints. Reports today he woke up and was having chest discomfort as well as shortness of breath. She is having persistent belching. No relieving factors nor aggravating factors. He has had 3 such episodes in the last month. Patient was recently started on a diuretic but has not taken it over last 2 weeks and has been monitoring his weight and has not had any weight gain or any new edema in his legs. Chronic orthopnea. No diarrhea. Related Data Home Medications ?Medication ?Instructions ?Recorded ?Confirmed ?Last Taken ?Type aspirin 81 mg tablet,delayed 81 mg PO DAILY 09/19/24 10/06/24 09/28/24 History release Allergies Allergy/AdvReac Type Severity Reaction Status Date / Time codeine Allergy Severe Rash, Verified 10/13/24 11:45 vomiting meperidine (From Demerol) Allergy Severe Rash,vomiti Verified 10/13/24 11:45 ng dapagliflozin (From Farxiga) Allergy Mild genital Verified 10/13/24 11:45 abscess amlodipine AdvReac Mild pedal edema Verified 10/13/24 11:45 diltiazem AdvReac Mild pedal edema Verified 10/13/24 11:45 gabapentin (From Neurontin) AdvReac Mild Dizziness Verified 10/13/24 11:45 metformin AdvReac Mild Diarrhea Verified 10/13/24 11:45 sitagliptin (From Januvia) AdvReac Mild abscess Verified 10/13/24 11:45 Review of Systems 2 Review of Systems: All systems reviewed & are unremarkable except as noted in HPI and below Constitutional: Constitutional: Reports no additional constitutional complaints ENT: Reports system reviewed and no additional complaints, except as documented Cardiovascular: Cardiovascular: Reports no additional cardiovascular complaints Respiratory: Respiratory: Reports no additional respiratory complaints Gastrointestinal: Gastrointestinal: Reports no additional gastrointestinal complaints [facility] Past Medical History Medical History Neuropathy of right lower extremity CKD stage 3b, GFR 30-44 ml/min Kidney stones BPH (benign prostatic hyperplasia) Diabetic peripheral neuropathy Type 2 diabetes mellitus with stage 3 chronic kidney disease Stage 3a chronic kidney disease (CKD) Incarcerated incisional hernia (~02/2023) SBO (small bowel obstruction) (~02/2023) Vitamin B12 deficiency Vitamin D deficiency Hypothyroidism Peripheral arterial disease Mildly diminished ankle-brachial index on the left 09/2022 History of colon polyps History of colon cancer (~03/1999) Stage IV at time of initial diagnosis in 1998 s/p partial colectomy currently in remission Dyslipidemia Essential (primary) hypertension HTN (hypertension) Surgical History Surgical History Status post cataract extraction of both eyes with insertion of intraocular lens History of incisional hernia repair (~03/2023) Open reducible incisional hernia repair with Ventralight ST mesh and extensive intra-abdominal adhesiolysis on 03/18/23 SAW History of hernia repair (~2020) Patient has had multiple ventral hernia repairs with most recent being March [address] Lu History of cholecystectomy (~2009) History of colon resection (~03/1999) History of appendectomy (~03/1999) Family History Family History Mother , Early 60s Hypertension Cerebrovascular accident Son , Mid 30s Acute myocardial infarction Grandparent Alcohol abuse Father , Mid 60s Lung cancer Heavy tobacco smoker Social History Social History Social History: Patient is been to his current for over 40 years. He has 2 biological children 1 of which in his mid 30s of heart disease. He has 2 step children. He is a lifelong nonsmoker and does not drink alcohol or use illicit substances. 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 Code status: Full code Surrogate decision maker: Smoking status: Never smoker Alcohol intake: never Substance use: never Substance use type: does not use Do You Feel Safe in your Home?: Yes Lack of Transportation: No Lack of Food: Never True Current Housing: I Have Housing Concerned About Future Housing: No Difficulty Paying Gas/Electric Bills: No Difficulty Paying for Meds: No Currently Unemployed: No Education: High School Diploma/GED Difficulty w/ Childcare or Family Care: No Living arrangements: with family Occupation/Education: retired Gender identity (if verbalized by the patient): Male Sexual Orientation (if Verbalized by the Patient): Straight or Heterosexual Spiritual care concerns: No Agree to blood products: Yes Exam 2 Narrative: GENERAL: Well-appearing, well-nourished, and in no acute distress. HEAD: Normocephalic, atraumatic. EYES: PERRL and EOMI. ENT: Mucous membranes moist. CHEST: Clear to auscultation. No respiratory distress. HEART: Regular rate and rhythm. Normal peripheral pulses. ABDOMEN: Soft, mild epigastric discomfort with palpation without rebound or guarding, nondistended. EXTREMITIES: Normal range of motion. No edema. SKIN: Warm, dry, no rash. NEURO: Alert and oriented x3. PSYCH: Normal mood and affect. Course Course Emergency Course: Chest pain improved with GI cocktail. Troponin negative x2. CT without PE. Appropriate for discharge. Vital Signs Vital signs: Vital Signs Temperature 97.5 F L 10/13/24 11:39 Pulse Rate 93 10/13/24 11:39 Respiratory Rate 18 10/13/24 11:39 Blood Pressure 173/81 H 10/13/24 11:39 Pulse Oximetry 99 10/13/24 11:39 Oxygen Delivery Room Air 10/13/24 11:39 Temperature 97.5 F L 10/13/24 11:39 Pulse Rate 94 10/13/24 16:02 Respiratory Rate 13 10/13/24 16:02 Blood Pressure 164/78 H 10/13/24 16:02 Pulse Oximetry 99 10/13/24 16:02 Oxygen Delivery Room Air 10/13/24 12:44 Medical Decision Making Vital Signs Vital Signs: Vital Signs Temperature 97.5 F L 10/13/24 11:39 Pulse Rate 93 10/13/24 11:39 Respiratory Rate 18 10/13/24 11:39 Blood Pressure 173/81 H 10/13/24 11:39 Pulse Oximetry 99 10/13/24 11:39 Oxygen Delivery Room Air 10/13/24 11:39 Temperature 97.5 F L 10/13/24 11:39 Pulse Rate 94 10/13/24 16:02 Respiratory Rate 13 10/13/24 16:02 Blood Pressure 164/78 H 10/13/24 16:02 Pulse Oximetry 99 10/13/24 16:02 Oxygen Delivery Room Air 10/13/24 12:44 Lab Data 10/13/24 12:35 10/13/24 12:34 Labs: Lab Results 10/13/24 10/13/24 10/13/24 Range/Units 12:24 12:34 12:34 WBC (4.5-10.0) K/mm3 RBC (4.6-6.20) M/mm3 Hgb (14.0-18.0) g/dL Hct (42.0-52.0) % MCV (80-100) fl MCH (26-34) pg MCHC (32-36) g/dl RDW (11.5-14.5) % Plt Count (150-375) k/mm3 MPV (7.4-10.4) fl Immature Gran % (Auto) (0-0.5) % Neut % (Auto) (45.5-73.1) % Lymph % (Auto) (18.3-44.2) % [place] % (Auto) (2.6-8.5) % Eos % (Auto) (0-4.4) % Baso % (Auto) (0.2-1.2) % Lymph # (Auto) (0.9-3.2) K/mm3 [place] # (Auto) (0.1-0.6) K/mm3 Eos # (Auto) (0-0.3) K/mm3 Baso # (Auto) (0.0-0.1) K/mm3 Abs Immat Gran (auto) (0.00-0.031) K/mm3 Absolute Neuts (auto) (1.3-6.7) K/mm3 Absolute Nucleated RBC (0.0-0.012) K/mm3 Nucleated RBC % (0.0-0.2) % PT 13.6 (11.1-14.7) Seconds INR 1.0 APTT 28.0 (22.3-36.8) Seconds Sodium 130 L (137-145) mmol/L Potassium 4.3 (3.4-5.0) mmol/L Chloride 102 (98-107) mmol/L Carbon Dioxide 17 L (22-30) mmol/L Anion Gap 11 (4-12) mmol/L BUN 34 H (9-20) mg/dL Creatinine 1.52 H (0.7-1.3) mg/dL Estim Creat Clear Calc 48 ml/min Estimated GFR 45 L (59 - ) Glucose 114 H (65-110) mg/dL POC Capillary Glucose 113 H (65-105) mg/dl Calcium 9.3 (8.4-10.2) mg/dL Total Bilirubin 0.3 (0.2-1.3) mg/dL AST 35 (17-59) U/L ALT 19 (6-50) U/L Alkaline Phosphatase 49 (38-126) U/L Troponin I < 0.012 (0.000-0.034) ng/mL NT-Pro-B Natriuret Pep 247 H Cancelled (19.9-100) pg/mL Total Protein 7.4 (6.3-8.2) g/dL Albumin 4.0 (3.5-5.1) g/dL Lipase 283 (23-300) U/L 10/13/24 10/13/24 Range/Units 12:35 15:26 WBC 11.6 H (4.5-10.0) K/mm3 RBC 3.81 L (4.6-6.20) M/mm3 Hgb 10.7 L (14.0-18.0) g/dL Hct 34.0 L (42.0-52.0) % MCV 89.2 (80-100) fl MCH 28.1 (26-34) pg MCHC 31.5 L (32-36) g/dl RDW 14.1 (11.5-14.5) % Plt Count 272 (150-375) k/mm3 MPV 10.6 H (7.4-10.4) fl Immature Gran % (Auto) 0.5 (0-0.5) % Neut % (Auto) 67.8 (45.5-73.1) % Lymph % (Auto) 22.7 (18.3-44.2) % [place] % (Auto) 7.5 (2.6-8.5) % Eos % (Auto) 1.0 (0-4.4) % Baso % (Auto) 0.5 (0.2-1.2) % Lymph # (Auto) 2.62 (0.9-3.2) K/mm3 [place] # (Auto) 0.9 H (0.1-0.6) K/mm3 Eos # (Auto) 0.1 (0-0.3) K/mm3 Baso # (Auto) 0.1 (0.0-0.1) K/mm3 Abs Immat Gran (auto) 0.06 H (0.00-0.031) K/mm3 Absolute Neuts (auto) 7.8 H (1.3-6.7) K/mm3 Absolute Nucleated RBC 0.000 (0.0-0.012) K/mm3 Nucleated RBC % 0.0 (0.0-0.2) % PT (11.1-14.7) Seconds INR APTT (22.3-36.8) Seconds Sodium (137-145) mmol/L Potassium (3.4-5.0) mmol/L Chloride (98-107) mmol/L Carbon Dioxide (22-30) mmol/L Anion Gap (4-12) mmol/L BUN (9-20) mg/dL Creatinine (0.7-1.3) mg/dL Estim Creat Clear Calc ml/min Estimated GFR (59 - ) Glucose (65-110) mg/dL POC Capillary Glucose (65-105) mg/dl Calcium (8.4-10.2) mg/dL Total Bilirubin (0.2-1.3) mg/dL AST (17-59) U/L ALT (6-50) U/L Alkaline Phosphatase (38-126) U/L Troponin I < 0.012 (0.000-0.034) ng/mL NT-Pro-B Natriuret Pep (19.9-100) pg/mL Total Protein (6.3-8.2) g/dL Albumin (3.5-5.1) g/dL Lipase (23-300) U/L Imaging Data Radiologist's impression: ITS Impressions Chest CTA 10/13/24 13:20 IMPRESSION: No pulmonary embolus. No thoracic aortic dissection. Right basilar atelectasis. ECG Data EKG #1: ECG completion date: 10/13/24 ECG completion time: 11:42 EKG Interpretation: normal rate (96), sinus rhythm, non-specific ST changes, widened QRS, normal QT and left axis Discharge Plan Discharge Clinical Impression: Abdominal bloating with cramps Patient Disposition: Home Condition: Stable Instructions: Gas and Bloating (ED) Additional Instructions: Return to the emergency department if you develop severe abdominal pain, severe nausea and vomiting to the point where you are unable to keep down fluids, if you develop chest pain or difficulty breathing, blood in your stool, dizziness or fainting, or if you develop any other new or concerning symptoms as these could be signs of more serious medical illness. Try to stay well hydrated. Patient Language: Irish Prescriptions: New simethicone 125 mg capsule 125 mg PO QID Qty: 20 0RF Rx Instructions: administer after meals and at bedtime dicyclomine 20 mg tablet 20 mg PO QID Qty: 20 0RF pantoprazole 40 mg tablet,delayed release (DR/EC) 40 mg PO HS 28 Days Qty: 28 0RF No Action doxazosin [Cardura] 2 mg tablet 2 mg PO DAILY Qty: 90 1RF (DME) Dexcom G7 Sensor Device See Rx Instructions .Route Qty: 1 0RF Rx Instructions: use As directed furosemide [Lasix] 20 mg tablet 20 mg PO DAILY PRN (Reason: edema) Qty: 30 0RF aspirin 81 mg tablet,delayed release (DR/EC) 81 mg PO DAILY cholecalciferol (vitamin D3) 50 mcg (2,000 unit) tablet 50 mcg PO DAILY Qty: 90 3RF pravastatin 40 mg tablet 40 mg PO QHS Qty: 90 1RF fenofibrate nanocrystallized 145 mg tablet 145 mg PO DAILY Qty: 90 1RF levothyroxine 50 mcg tablet 50 mcg PO DAILY Qty: 90 1RF ferrous sulfate 325 mg (65 mg iron) tablet,delayed release (DR/EC) 325 mg PO DAILY Qty: 90 1RF glimepiride 4 mg tablet 4 mg PO DAILY Qty: 90 0RF Rx Instructions: administer with breakfast lisinopril 5 mg tablet 5 mg PO DAILY Qty: 90 1RF carvedilol [Coreg] 12.5 mg tablet 12.5 mg PO Q12H Qty: 180 0RF Rx Instructions: must administer with a meal/food Follow-up/Referrals: Marito Sainz MD [Primary Care Provider] - 1 Week
[2024-10-13 15:57] LABS: Troponin I < 0.012 ng/mL (0.000-0.034)
== END 2024-10-13 16:44 | disposition home or self-care (01) ==
PROVIDERS: Emergency Provider Emergency Medicine; PCP Family Medicine
DX: R14.0 Abdominal distension (gaseous) (principal); R10.9 Unspecified abdominal pain; I12.9 Hypertensive chronic kidney disease with stage 1 through stage 4 chronic kidney disease, or unspecified chronic kidney disease; E11.22 Type 2 diabetes mellitus with diabetic chronic kidney disease; N18.30 Chronic kidney disease, stage 3 unspecified; E11.42 Type 2 diabetes mellitus with diabetic polyneuropathy; E11.51 Type 2 diabetes mellitus with diabetic peripheral angiopathy without gangrene; I73.9 Peripheral vascular disease, unspecified; E03.9 Hypothyroidism, unspecified; E55.9 Vitamin D deficiency, unspecified; E53.8 Deficiency of other specified B group vitamins; N40.0 Benign prostatic hyperplasia without lower urinary tract symptoms; Z85.038 Personal history of other malignant neoplasm of large intestine; Z96.1 Presence of intraocular lens; Z98.42 Cataract extraction status, left eye; Z98.41 Cataract extraction status, right eye; Z90.49 Acquired absence of other specified parts of digestive tract; Z79.82 Long term (current) use of aspirin; Z79.84 Long term (current) use of oral hypoglycemic drugs; Z79.899 Other long term (current) drug therapy
CPT/HCPCS: 36415; 71275; 80053; 82948; 83690; 83880; 84484; 85025; 85610; 85730; 93005; 96372; 96374; 99284; A9270; J0500; J2405; Q9967

== ENCOUNTER 2024-10-19 08:09 | Outpatient (CLI) | payer OTHER, SELFPAY ==
--- NOTE | ~2024-10-19 | US_ITS ---
US ART. DOPPLER LOWER - GEMA Procedure: Bilateral lower extremity arterial Doppler examination. Indication: Peripheral vascular disease Comparison: No prior studies for comparison. Findings: Normal pressures are present throughout the lower extremity arteries bilaterally without ev idence for hemodynamically significant pressure gradient. There is predominantly biphasic waveform pr esent. Ankle-brachial indices within normal limits measuring 1.18 on the right and 1.16 on the left. Toe brachial indices are decreased bilaterally measuring 0.41. Impression: 1: Normal ankle-brachial indices. Diminished bilateral toe brachial indices consistent with periphera l arterial disease. Reviewed, dictated and finalized at location A. Impression: 1: Normal ankle-brachial indices. Diminished bilateral toe brachial indices con sistent with peripheral arterial disease.
--- OUTSIDE RECORDS SUMMARY | 2024-10-19 08:12 | XMS_ITS | Continuity of Care Document ---
Author Organization [facility] Address [address] [place] [address] Phone Care Team Providers Care Dental Instrument Maker Name Role Phone Noam Carroll MD Unavailable [...] Diagnoses Date Provider Providers Copied on Encounter [facility], [address], [place], [id number], [place] tel:[phone] Laboratory Office No Information Carly Santacruz. [address] [place] [address], [id number], [place]. tel:[phone] Referring Provider: Noam Welsh, [address] [place], [address] . tel:[phone] OFFICE/OUTPAT IENT VISIT, EST [facility], [address], [place], [id number], tel:[phone] [facility] Office No Information Carly Santacruz. [address] [place] [address], [id number], [place]. tel:[phone] Referring Provider: Noam Welsh, [address] [place] [address], [id number] . tel:[phone] OFFICE/OUTPAT IENT VISIT, EST [facility], [address] [place] [address], [id number], [place] tel:[phone] [facility] Office Malignant neoplasm of colon, unspecified site David Pereirassef. [address] [place], [address], . tel:[phone] [facility], [address] [place] [address], [id number], [place] tel:[phone] Laboratory Office No Information David Emanuel. [address] [place], [address], [place]. tel:[phone] Family History Family Member Type Diagnosis Age [...]
--- OUTSIDE RECORDS SUMMARY | 2024-10-19 08:12 | XMS_ITS | Referral Summary ---
Author Organization [facility] Address [address] [place] [address] Care Team Providers Care Life Educator Name Role Phone Sanjeev Sainz MD Primary Care Provider Encounters Date Type Department Care Team Description 10/04/2024 10:00 AM CDT Office Visit [facility] Medical [facility] Cardiology [address] [facility] [address] [place] [phone] Angeles Rodriguez NP Essential hypertension (Primary Dx); Stage 3 chronic kidney disease, unspecified whether stage 3a or 3b CKD (HCC); Hospital discharge follow-up; Heart failure, unspecified (HCC) 10/01/2024 Orders Only [facility] Cardiology [address] [facility] [address] [address] Juanita Mukherjee MD from Last [...] Problem Noted Date Diagnosed Date Atherosclerosis of [place] ar tristin of right lower extremity with [...] CDT) Anatomical Region Laterality Modality Other us [facility] Bridget Serrano MD CV CARDIAC SERVICES PRO CEDURES Final Result * Cardiology Document Scan (09/19/2024 4:43 PM CDT) Anatomical Region Laterality Modality Other Juanita Mukherjee MD CV CARDIAC SERVICES PROCEDURES Final Result from Last 3 Months Insurance [facility] Member Subscriber Plan / Payer (Ef fective 2022-Present) Name:Alxe Thao Relation to Subscriber:Self Name:Alex Thao Payer ID:[id number] (NAIC) Type:MEDICARE RISK OTHER Address: [place] [id number] [facility] Member Subscriber Plan / Payer (Ef fective 2022-Present) Name:Alex Thao Relation to Subscriber:Self Name:Alex Thao Payer ID:[id number] (NAIC) Type:MEDICARE RISK OTHER Address: [place] [id number] Care Teams Life Educator Relationship Specialty Start Date End Date Sanjeev Sainz MD [address] [facility] [address] ABD[address] [place] [id number] PCP - General Family Practice 09/22/24
--- OUTSIDE RECORDS SUMMARY | 2024-10-19 08:12 | XMS_ITS | Clinical Summary ---
Author Organization [facility] Address [address] [place] [address] Care Team Providers Care Rn Assessment Name Role Phone Sanjeev Sainz MD Primary [...] Problem Noted Date Diagnosed Date Atherosclerosis of [place] ar tristin of right lower extremity with [...] Description 10/04/2024 10:00 AM CDT Office Visit [facility] Medical [facility] Cardiology [address] [place] [phone] Angeles Rodriguez NP Essential hypertension (Primary Dx); Stage 3 chronic kidney disease, unspecified whether stage 3a or 3b CKD (HCC); Hospital discharge follow-up; Heart failure, unspecified (HCC) 10/01/2024 Orders Only [facility] Cardiology [address] [place] [address] Juanita Mukherjee MD from Last 3 Months [...] Final Result from Last 3 Months Insurance [facility] Care Teams Rn Assessment Relationship Specialty Start Date End Date Sanjeev Sainz MD [address] [facility] [facility] [address] ABDI [address] [place] [address] [id number] PCP - General Family Practice 09/22/24
--- OUTSIDE RECORDS SUMMARY | 2024-10-19 08:13 | XMS_ITS | Patient Health Record ---
Author Organization [facility] Address [address] [place] [address] Care Team Providers Care Toe Puncher Name Role Phone Adelfo Hernandez Primary Care Provider Jian Nuñez Unavailable [phone] Reason For Referral No Information Medications Medication [...] Problem History of malignant neoplasm of colon (564723168) History of colon cancer (Z85.038) Active confirmed Problem History of polyp of colon (situation) (967388572) Personal history of colon polyps (Z86.010) Active confirmed Problem Diarrhea (92489635) Diarrhea (787.91) 2 Active confirmed Agustin-1199 882- Problem History of malignant neoplasm of colon (731104723) HISTORY OF COLON CANCER (V10.05) 2 Active confirmed Agustin-1199 882- Problem 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) Adenomatous colon polyps (235.2) 2 Active confirmed Agustin-1199 882- Problem History of polyp of colon (situation) (502759471) History of colonic polyps (V12.72) 2 Active confirmed Agustin-1199 882- Problem Screening for malignant neoplasm of colon (431570255) Screening for cancer of colon (V76.51) 2 Active confirmed Agustin-1199 882- Problem Functional diarrhea (01313976) Functional diarrhea (564.5) 2 Problem resolved confirmed Agustin-1199 882- Plan Of Treatment No Information Insurance Providers Payer Name Payer Address Payer Phone Subscriber Number Group Number Insured Name Patient Relationship to Insured Coverage Start Date Coverage End Date BC [place] MED[place] HMO [address] [place] [address] [phone] [id number] Alex Thao Self - patient is the [...]
== END 2024-10-19 08:10 | disposition home or self-care (01) ==
PROVIDERS: PCP Family Medicine; Visit Provider Family Medicine
DX: I73.9 Peripheral vascular disease, unspecified (principal)
CPT/HCPCS: 93923

== ENCOUNTER 2024-11-01 10:20 | Outpatient (CLI) | payer OTHER, SELFPAY ==
--- NOTE | ~2024-11-01 | US_ITS ---
US renal BI 11/01/2024 10:38 Procedure: Realtime transabdominal ultrasound of the kidneys and bladder. Indication: Chronic kidney disease stage IIIa Comparison: No prior studies for comparison. Findings: Renal echotexture is normal bilaterally without contour deforming mass or renal calculus. M ild right hydronephrosis. The right kidney measures 13.1 cm and left kidney measures 13.7 cm. Bladde r within normal limits. Impression: 1: Mild right hydronephrosis. Reviewed, dictated and finalized at location A. Impression: 1: Mild right hydronephrosis.
== END 2024-11-01 10:21 | disposition home or self-care (01) ==
LOC: GOSHIMG 10:20
PROVIDERS: PCP Family Medicine; Visit Provider Internal Medicine Nephrology
DX: I12.9 Hypertensive chronic kidney disease with stage 1 through stage 4 chronic kidney disease, or unspecified chronic kidney disease (principal); N18.31 Chronic kidney disease, stage 3a; N25.81 Secondary hyperparathyroidism of renal origin; E55.9 Vitamin D deficiency, unspecified
CPT/HCPCS: 76775

== ENCOUNTER 2024-11-10 09:24 | Outpatient (CLI) | payer OTHER, SELFPAY ==
--- OUTSIDE RECORDS SUMMARY | 2024-11-10 09:56 | XMS_ITS | Encounter Summary ---
Author Organization [facility] Address [address] [place] [address] Care Team Providers Care Steel Die Printer Name Role Phone Sanjeev Sainz MD Primary Care Provider Sanjeev Sainz MD Primary Care Provider Encounter Details Date Type Department Care Team (Late st Contact Info) Description 09/18/2024 Orders Only [facility] Management [address] [place] [address] Scanning, Provider Social History Tobacco Use Types Packs/Day Years Used Date Smoking Tobacco: Never Passive Smoke Exposure: Never Smokeless Tobacco: Never Sex and Gender Information Value Date Recorded Sex Assigned at Not on file Legal Sex Male 12:12 PM CDT Gender Identity Male 12/11/2022 7:04 AM CDT Sexual Orientation Straight 12/11/2022 7: 04 AM CDT documented as of this encounter Plan of Treatment Not on file documented as of this encounter Procedures Procedure Name Priority Date/Time Associated Diagnosis Comments SCAN - RADIOLOGY/IMAGING 09/18/2024 documented in this encounter Results * SCAN - RADIOLOGY/IMAGING (09/18/2024) Anatomical Region Laterality Modality Other us Provider Scanning Edited Result - Final documented in this encounter Visit Diagnoses Not on filedocumented in this encounter Care Teams Steel Die Printer Relationship Specialty Start Date End Date Sanjeev Sainz MD PCP - General Family Practice 10/02/22 09/21/24 Sanjeev Sainz MD [address] [place] [address] DR ABDI [address] [place] [id number] PCP - General Family Practice 09/22/24 documented as of this encounter
--- OUTSIDE RECORDS SUMMARY | 2024-11-10 09:56 | XMS_ITS | Patient Health Record ---
Author Organization [facility] Address [address] [place] [address] Care Team Providers Care Outdoor Illuminating Engineer Name Role Phone Adelfo Hernandez Primary Care Provider Jian Nuñez Unavailable [phone] Reason For Referral No Information Medications Medication [...] Problem History of malignant neoplasm of colon (381095025) History of colon cancer (Z85.038) Active confirmed Problem History of polyp of colon (situation) (402233026) Personal history of colon polyps (Z86.010) Active confirmed Problem Diarrhea (71962222) Diarrhea (787.91) 2 Active confirmed Agustin-1199 882- Problem History of malignant neoplasm of colon (996008881) HISTORY OF COLON CANCER (V10.05) 2 Active confirmed Agustin-1199 882- Problem Carcinoid tumor of stomach (485423047) Adenomatous colon polyps (235.2) 2 Active confirmed Agustin-1199 882- Problem History of polyp of colon (situation) (943527558) History of colonic polyps (V12.72) 2 Active confirmed Agustin-1199 882- Problem Screening for malignant neoplasm of colon (855285593) Screening for cancer of colon (V76.51) 2 Active confirmed Agustin-1199 882- Problem Functional diarrhea (50640591) Functional diarrhea (564.5) 2 Problem resolved confirmed Agustin-1199 882- Plan Of Treatment No Information Insurance Providers Payer Name Payer Address Payer Phone Subscriber Number Group Number Insured Name Patient Relationship to Insured Coverage Start Date Coverage End Date BC [place] H[place] [address] [place] [address] [id number] Alex Thao Self - patient is the [...]
--- OUTSIDE RECORDS SUMMARY | 2024-11-10 09:56 | XMS_ITS | Referral Summary ---
Author Organization [facility] Address [address] [place] [address] Care Team Providers Care [employer] Crewmember Name Role Phone Sanjeev Sainz MD Primary Care Provider Encounters Date Type Department Care Team Description 10/04/2024 10:00 AM CDT Office Visit [facility] Cardiology [address] [facility] [address] [place] [phone] Angeles Rodriguez NP Essential hypertension (Primary Dx); Stage 3 chronic kidney disease, unspecified whether stage 3a or 3b CKD (HCC); Hospital discharge follow-up; Heart failure, unspecified (HCC) 10/01/2024 Orders Only [facility] Cardiology [address] [facility] [address] [place] [phone] Juanita Mukherjee MD 09/18/2024 Orders Only [facility] [place] Information Management [address] [place] [phone] Scanning, Provider from Last 3 Months Allergies Active Allergy Reactions Criticality Noted Date Comments Codeine Fever,Vomiting Medium 10/16/2022 Meperidine Fever,Vomiting Medium 10/16/2022 Medications fenofibrate nanocrystallized (TRICOR) 145 mg tablet Take 1 tablet (145 mg total) by mouth daily 3 Active levothyroxine (SYNTHROID) 50 mcg tablet Take 1 tablet (50 mcg total) by mouth daily 3 Active pravastatin (PRAVACHOL) 40 mg tablet Take 1 tablet (40 mg total) by mouth daily 3 Active carvediloL (COREG) 6.25 mg tablet Take 1 tablet (6.25 mg total) by mouth 2 (two) times a day with meals 5 Active cholecalciferol (VITAMIN D-3) 2000 unit capsule 5 Active doxazosin (CARDURA) 2 mg tablet Take 1 tablet (2 mg total) by mouth daily 5 Active ferrous sulfate 325 mg (65 mg of elemental iron) tablet Take 1 tablet (325 mg total) by mouth daily 5 Active furosemide (LASIX) 20 mg tablet Take 1 tablet (20 mg total) by mouth every morning 5 Active Active Problems Problem Noted Date Diagnosed Date Atherosclerosis of [place] of right lower extremity with [...] DOCUMENT SCAN Routine 09/21/2024 4:46 PM CDT SCAN - LABS 09/21/2024 CARDIOLOGY DOCUMENT SCAN Routine 09/19/2024 4:43 PM CDT SCAN - RADIOLOGY/IMAGING 09/18/2024 from Last 3 Months Results * Cardiology Document Scan (09/21/2024 4:46 PM CDT) Anatomical Region Laterality Modality Other us Rossy Serrano MD [facility] PRO CEDURES Final Result * SCAN - LABS (09/21/2024) us Provider Scanning Final Result * Cardiology Document Scan (09/19/2024 4:43 PM CDT) Anatomical Region Laterality Modality Other us Juanita Mukherjee MD [facility] PROCEDURES Final Result * SCAN - RADIOLOGY/IMAGING (09/18/2024) Anatomical Region Laterality Modality Other us Provider Scanning Edited Result - Final from Last 3 Months Insurance [facility] Member Subscriber Plan / Payer (Ef fective 2022-Present) Name:Alex Thao Relation to Subscriber:Self Name:MasterAlex Payer ID:[id number] (NAIC) Type:MEDICARE RISK OTHER Address: [address] [facility] Care Teams [employer] Crewmember Relationship Specialty Start Date End Date Sanjeev Sainz MD [facility] [facility] [address] [place] [id number] PCP - General Family Practice 09/22/24
--- OUTSIDE RECORDS SUMMARY | 2024-11-10 09:56 | XMS_ITS | Clinical Summary ---
Author Organization [facility] Address [address] [place] [address] Care Team Providers Care Coding Machine Operator Name Role Phone Sanjeev Sainz MD [...] Problem Noted Date Diagnosed Date Atherosclerosis of [place] of right lower extremity with [...] Description 10/04/2024 10:00 AM CDT Office Visit [facility] Cardiology [address] [facility] [address] [place] [phone] Angeles Rodriguez NP Essential hypertension (Primary Dx); Stage 3 chronic kidney disease, unspecified whether stage 3a or 3b CKD (HCC); Hospital discharge follow-up; Heart failure, unspecified (HCC) 10/01/2024 Orders Only [facility] Cardiology [address] [place] [phone] Juanita Mukherjee MD 09/18/2024 Orders Only [facility] Health Information Management [address] [place] [phone] Scanning, Provider from Last 3 Months Surgical History Surgery [...] - Final from Last 3 Months Insurance [facility] Care Teams Coding Machine Operator Relationship Specialty Start Date End Date Sanjeev Sainz MD [id number] [facility] [address] [place] [id number] PCP - General Family Practice 09/22/24
[2024-11-16 16:17] VITALS: BMI 34.1
--- NOTE | 2024-11-16 16:17 | P.SLEEP_ITS ---
Sleep Study Date of Study: 11/10/24 Ordering Provider: Sanjeev Sainz MD Interpreting Physician: Shobha Saenz DO Sleep Study Type: Polysomnogram Height: 1.78 m Weight: 107.955 kg Body Mass Index: 34.1 Neck Circumference (inches): 20 [place]: 5 Reason for Sleep Study Daytime hypersomnia Sleep History The patient is a 74-year-old male who had a sleep study ordered by his primary care physician for evaluation of sleep apnea. The patient denies awakening from sleep short of breath. He denies awakening at night with heartburn, belching, or cough. He occasionally snores, and it is occasionally loud enough that others complain. He rarely has trouble sleeping when he has a cold. He rarely wakes up gasping for air throughout the night. He rarely has breathing problems at night observed by himself or others. He rarely sweats excessively at night. He rarely has heart palpitations or irregular heartbeats during the night. He occasionally falls asleep during the day, but never while driving. He denies sleep paralysis, cataplexy, and hypnagogic/hypnopompic hallucinations. He denies having trouble at school or work due to sleepiness. He denies feeling afraid of going to sleep. He denies having nightmares. He occasionally remembers his dreams. He rarely feels sad, depressed, or anxious. He rarely has muscular tension. He rarely notices parts of his body jerk. He rarely kicks during the night. He occasionally has crawling and aching feelings in his legs and occasionally has leg pain during the night. He denies grinding his teeth during sleep and denies awakening with morning jaw pain. He is rarely bothered by pain during the day and rarely awakened by pain during the night. He rarely wakes up feeling stiff in the morning. He rarely wakes up with sore or achy muscles. He rarely wakes up with pain in the neck, spine, or other joints. He goes to bed at 8 p.m. every night. He is able to fall asleep relatively quickly. He wakes up 3-5 times throughout the night to urinate and is able to fall back asleep within 30 minutes. He wakes up at 6 a.m. every morning. He typically gets 5-6 hours of sleep per night. He does not stay in bed after waking up in the morning. He currently lives with his . He denies consuming any caffeinated beverages within two hours of bedtime. He denies engaging in physical exercise before bedtime. He will watch television before falling asleep. He will take naps in the afternoon or evening, and they are refreshing. He consumes two cups of coffee every day. He denies tobacco, alcohol, and recreational drug use. [facility] Past Medical History Medical History Neuropathy of right lower extremity CKD stage 3b, GFR 30-44 ml/min Kidney stones BPH (benign prostatic hyperplasia) Diabetic peripheral neuropathy Type 2 diabetes mellitus with stage 3 chronic kidney disease Stage 3a chronic kidney disease (CKD) Incarcerated incisional hernia (~02/2023) SBO (small bowel obstruction) (~02/2023) Vitamin B12 deficiency Vitamin D deficiency Hypothyroidism Peripheral arterial disease Mildly diminished ankle-brachial index on the left 09/2022 History of colon polyps History of colon cancer (~03/1999) Stage IV at time of initial diagnosis in 1998 s/p partial colectomy currently in remission Dyslipidemia Essential (primary) hypertension HTN (hypertension) Surgical History Surgical History Status post cataract extraction of both eyes with insertion of intraocular lens History of incisional hernia repair (~03/2023) Open reducible incisional hernia repair with Ventralight ST mesh and extensive intra-abdominal adhesiolysis on 03/18/23 SAW History of hernia repair (~2020) Patient has had multiple ventral hernia repairs with most recent being March [address] Lu History of cholecystectomy (~2009) History of colon resection (~03/1999) History of appendectomy (~03/1999) Family History Family History Mother , Early 60s Hypertension Cerebrovascular accident Son , Mid 30s Acute myocardial infarction Grandparent Alcohol abuse Father , Mid 60s Lung cancer Heavy tobacco smoker Social History Social History Social History: Patient is been to his current for over 40 years. He has 2 biological children 1 of which in his mid 30s of heart disease. He has 2 step children. He is a lifelong nonsmoker and does not drink alcohol or use illicit substances. 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 Code status: Full code Surrogate decision maker: Smoking status: Never smoker Alcohol intake: never Substance use: never Substance use type: does not use Do You Feel Safe in your Home?: Yes Lack of Transportation: No Lack of Food: Never True Current Housing: I Have Housing Concerned About Future Housing: No Difficulty Paying Gas/Electric Bills: No Difficulty Paying for Meds: No Currently Unemployed: No Education: High School Diploma/GED Difficulty w/ Childcare or Family Care: No Living arrangements: with family Occupation/Education: retired Gender identity (if verbalized by the patient): Male Sexual Orientation (if Verbalized by the Patient): Straight or Heterosexual Spiritual care concerns: No Agree to blood products: Yes Medications Home Medications ?Medication ?Instructions ?Recorded ?Confirmed ?Type cholecalciferol (vitamin D3) 50 50 mcg PO DAILY #90 tabs 05/10/24 10/21/24 Rx mcg (2,000 unit) tablet fenofibrate nanocrystallized 145 145 mg PO DAILY #90 tabs 05/20/24 10/21/24 Rx mg tablet pravastatin 40 mg tablet 40 mg PO QHS #90 tabs 05/20/24 10/21/24 Rx doxazosin 2 mg tablet (Cardura) 2 mg PO DAILY #90 tabs 05/31/24 10/21/24 Rx levothyroxine 50 mcg tablet 50 mcg PO DAILY #90 tabs 06/10/24 10/21/24 Rx ferrous sulfate 325 mg (65 mg 325 mg PO DAILY #90 tabs 09/16/24 10/21/24 Rx iron) tablet,delayed release aspirin 81 mg tablet,delayed 81 mg PO DAILY 09/19/24 10/21/24 History release furosemide 20 mg tablet (Lasix) 20 mg PO DAILY PRN edema #30 tabs 10/06/24 10/21/24 Rx lisinopril 5 mg tablet 5 mg PO DAILY #90 tabs 10/07/24 10/21/24 Rx carvedilol 6.25 mg tablet 6.25 mg PO BID #180 tabs 10/20/24 10/21/24 Rx glimepiride 2 mg tablet 2 mg PO QAM #90 tabs 10/20/24 10/21/24 Rx tamsulosin 0.4 mg capsule 0.4 mg PO DAILY 10/20/24 10/21/24 History glimepiride 1 mg tablet 1 mg PO QPM #90 tabs 11/01/24 Rx Sleep Procedure A full night polysomnogram using the [employer]ura multi-channel system recorded the standard physiologic parameters including EEG, EOG, submentalis EMG, anterior tibialis EMG, EKG, body position, nasal and oral airflow using nasal pressure sensor and thermistor.? Respiratory parameters of chest and abdominal movements were recorded with Respiratory Inductance Plethysmography belts. Oxygen saturation was recorded by pulse oximetry. Video monitoring was also performed. Sleep stages, periodic limb movements, and EEG arousals were scored in 30 second epochs according to the criteria of the AASM Scoring Manual. The Apnea-Hypopnea Index was calculated using CMS guidelines for definition of hypopnea with 4% O2 desaturations while scoring respiratory events. Sleep Architecture The total recording time was 398.4 minutes.? The total sleep time was 215.5 minutes. Sleep latency was 18.3 minutes. REM latency was 247.5 minutes. Sleep efficiency was 54.1%. The patient had 18 awakenings for an awakening index of 5.0. Wake after sleep onset time was 164.5 minutes. The patient spent 33.0 minutes, 15.3% of total sleep time in Stage N1. The patient spent 145.5 minutes, 67.5% in Stage N2. The patient spent 0.0 minutes, 0.0% in Stage N3. The patient spent 37.0 minutes, 17.2% in Stage REM sleep. Respiratory Analysis The patient had 8 hypopneas, 1 mixed apnea and 1 central apnea for an overall Apnea Hypopnea Index of 2.8. The REM Apnea Hypopnea Index was 16.2. The NREM Apnea Hypopnea Index was 2.0. The patient had a Central Apnea Hypopnea Index of 0.3. There was no evidence of Fabrizio-Bauer Respirations. Arousals There were 55 total arousals for an arousal index of 15.3. There were 47 spontaneous arousals for an index of 13.1. There was 1 arousal due to a respiratory event for an index of 0.3. There were 7 arousals due to periodic limb movements for an index of 1.9.? There were 0 arousals due to isolated limb movements for an index of 0. Periodic Limb Movements The patient had 18 isolated limb movements with an index of 5.0. The patient had 157 periodic limb movements with an index of 43.7, which is elevated (normal < 15). Patient had a total of 175 limb movements with a total limb movement index of 48.7. Oximetry Data The patient had an average oxygen saturation of 93.6% in sleep with a minimum oxygen saturation of 88.0% and a maximum oxygen saturation of 98.0%. The patient had 9 oxygen desaturations that were 4% or greater resulting in an Oxygen Desat uration Index of 2.5.? The patient spent 0.3 minutes, 0.1% of total sleep time with an oxygen saturation below 88%. Snoring Profile Snoring was not present throughout this study. Cardiac Profile The EKG showed normal sinus rhythm. with rare PVCs. The patient had an average pulse rate of 81.9 bpm with a minimum pulse of rate of 70.0 bpm and a maximum pulse rate of 99.0 bpm.? EEG Profile No signs of seizure activity seen. Assessment and Plan Assessment and Plan (1) Sleep disturbances: Code(s): G47.9 - Sleep disorder, unspecified Status: Acute Assessment and Plan: The patient had an overall AHI of 2.8 with desaturation down to 88%. This is not consistent with sleep disordered breathing. While the patient did have a significant amount of periodic limb movements, only 5% of the leg movements caused arousals in the patient's sleep. His sleep history was not overly suggestive of Restless Legs Syndrome. Data The data obtained during this sleep study is adequate for interpretation. Certification This sleep study has been reviewed by a board certified sleep medicine physician.
== END 2024-11-11 04:22 | disposition home or self-care (01) ==
LOC: ANHCSM 09:37
PROVIDERS: PCP Family Medicine; Visit Provider Family Medicine
DX: R40.0 Somnolence (principal); G47.10 Hypersomnia, unspecified; G47.9 Sleep disorder, unspecified
CPT/HCPCS: 95810

== ENCOUNTER 2025-01-29 15:33 | Inpatient (IN) | payer OTHER, SELFPAY ==
[2025-01-29] VITALS (34 sets, daily range): BP systolic 87–168; BP diastolic 47–90; PULSE 82–107; RESP 8–24; TEMP 36.6–36.7; O2SAT 86–100; BMI 34.2
--- NOTE | ~2025-01-29 | XR_ITS ---
EXAMINATION: XR sm bowel follow through [facility] DATE: 01/31/2025 10:57 INDICATION: Small bowel obstruction TECHNIQUE: Hatchery Manager radiograph(s) of the abdomen was/were obtained. Water-soluble oral contrast was administered, and sequential radiographs of the abdomen were obtained until oral contrast was noted to be in the colon. COMPARISON: CT dated 01/29/2025 FINDINGS: Hatchery Manager radiograph demonstrates nasogastric tube tip in proximal side port in the proximal body of the stomach. Cholecystectomy clips in right upper quadrant. Additional postoperative changes with a couple surgical clips and subtle suture line in the right lower quadrant consistent with prior right hemicolectomy with ileocolic anastomosis better appreciated on the prior CT. Transit time from the stomach to ileocolic anastomosis was approximately 1 hour with contrast seen at the rectum at 1 hour and 30 minutes. There is normal caliber and mucosal fold pattern throughout the small bowel. IMPRESSION: 1. Postoperative changes of prior cholecystectomy and right hemicolectomy with right lower quadrant ileocolic anastomosis. 2. Resolution of prior small bowel obstruction with contrast passing beyond the ileocolic anastomosis by 1 hour and with normal caliber of the small bowel. Reviewed, dictated and finalized at location A.
--- NOTE | ~2025-01-29 | CT_ITS ---
EXAMINATION: CTA chest abdomen pelvis, 01/29/2025 18:15 CDT HISTORY: sob, abd pain, vomiting COMPARISON: No comparisons available. TECHNIQUE: CTA scan with 3D Reconstructions of the chest, abdomen and pelvis was performed with contrast Isovue 300, 92cc injected IV. One or more of the following dose reduction techniques were used: automated exposure control, adjustment of the mA and/or kV according to patient size, use of iterative reconstruction technique. Unless otherwise stated, incidental findings do not require dedicated follow up imaging FINDINGS: CT chest: No significant coronary calcification is present ([id number]) LUNGS: No tracheomalacia. No bronchiectasis. Minimal emphysematous changes. Minimal pulmonary fibrotic changes. No honeycombing or areas of bullous formation noted. HEART AND PERICARDIUM: Mild cardiomegaly. AORTA: There is no aneurysm or dissection identified. MEDIASTINUM: Unremarkable. THYROID: The thyroid is unremarkable. CT abdomen: LIVER: Mild hepatic steatosis. Mild cirrhotic disease of the liver. SPLEEN: Unremarkable, no splenomegaly. KIDNEYS: Right Kidney: Right kidney is atrophic with moderate hydronephrosis and hydroureter without an obstructing distal ureteral calculus. Left Kidney: Unremarkable. No calculi. No hydronephrosis ADRENAL GLANDS: Unremarkable. PANCREAS: The pancreas is atrophic. GALLBLADDER/BILIARY: Postcholecystectomy. STOMACH AND ESOPHAGUS: Nonspecific gastric distention. BOWEL/MESENTERY: Moderate fecal content, no colitis or diverticulitis. Postsurgical changes noted in the bowel. There are multiple dilated loops of small bowel the largest measuring 5 cm with decompressed distal small bowel loops noted with transition point in the anterior pelvis adjacent to the abdomi nal wall with underlying adhesion in this area suspected. RETROPERITONEUM: Unremarkable AORTA/VASCULATURE: Normal caliber aorta. FREE FLUID OR FREE AIR: No free fluid.. CT pelvis: SOLID ORGANS/REPRODUCTIVE: Unremarkable. BLADDER: Within normal limits. LYMPHADENOPATHY: No lymphadenopathy. OSSEOUS STRUCTURES: No sclerotic or lytic lesions. Moderate degenerative changes of the lumbar spine. OVERLYING SOFT TISSUES: Left Mediport. Postsurgical changes in the abdominal wall. IMPRESSION: 1. Negative for dissection or aneurysm. 2. Small bowel obstruction 3. Right-sided hydronephrosis and hydroureter with distal stricture suspected. The differential includes a obstructing noncalcified calculus. Correlate with urinalysis. Ureteroscopy is suggested. 4. Incidental findings above Reviewed, dictated and finalized at location P. IMPRESSION: 1. Negative for dissection or aneurysm. 2. Small bowel obstruction 3. Right-sided hydronephrosis and hydroureter with distal stricture suspected. The differential includes a obstructing noncalcified calculus. Correlate with u rinalysis. Ureteroscopy is suggested. 4. Incidental findings above
--- NOTE | ~2025-01-29 | NM_ITS ---
EXAMINATION: ARTIS richardson renal scan DATE: 02/01/2025 10:34 INDICATION: Right hydroureteronephrosis TECHNIQUE: 9.0 mCi Tc-99m MAG3 was administered IV. 40 mg furosemide was administered IV 10 minutes afterward. The patient was scanned in the supine position. A posterior abdominal radionuclide angiogram was obtained. A subsequent time course of static images of the kidneys, ureters, and bladder was obtained. COMPARISON: None FINDINGS: The posterior abdominal radionuclide angiogram and sequential static images show normal size, position, and morphology of the kidneys. Peak renal parenchymal uptake was 7 min in left kidney and 26 min in right kidney (normal peak 3-5 minutes). The relative early renal uptake was 79% on the left and 21% on the right (<40% is abnormal). There is right hydroureteronephrosis evident on the delayed images. T1/2 for clearance of activity from the left kidney and proximal collecting system was 7 minutes. T1/2 for clearance of activity from the right kidney and proximal collecting system was indeterminate with continually rising activity curve over the initial 27 minutes of imaging. Notes on interpretation: T1/2 <10 minutes is normal, 10-15 minutes is low grade obstruction of questionable clinical significance, 15-20 minutes is partial obstruction that is likely clinically significant, >20 minutes is high grade obstruction. Note that false positives may be seen with supine positioning, dehydration, severely dilated nonobstructed kidney, atonic collecting system, poor renal function, and chronic furosemide use. IMPRESSION: 1. Asymmetric decreased function the right kidney which contributes only 21% to total renal function. 2. Right hydroureteronephrosis with marked delayed activity clearance from the right kidney with continually rising activity curve throughout the first 27 minutes of imaging consistent with high-grade obstruction. Reviewed, dictated and finalized at location A. IMPRESSION: 1. Asymmetric decreased function the right kidney which contributes only 21% t o total renal function. 2. Right hydroureteronephrosis with marked delayed activity clearance from the right kidney with continually rising activity curve throughout the first 27 mi nutes of imaging consistent with high-grade obstruction.
--- NOTE | 2025-01-29 15:39 | ECG_ITS ---
Test Date: 2025-01-29 15:41:58 Measurements Intervals [place] Rate: 78 P: 96 NM: 178 QRS: -38 QRSD: 114 T: 51 QT: 358 QTc: 408 Interpretive Statements SINUS RHYTHM LEFT AXIS DEVIATION CANNOT R/O SEPTAL INFARCT, AGE INDETERMINATE BORDERLINE ST-T WAVE ABNORMALITY- HIGH LATERAL LEADS BASELINE ARTIFACT- I, II, III, AVR, AVL, AVF ABNORMAL ECG Compared to ECG 10/13/2024 11:42:23 NO SIGNIFICANT CHANGE Electronically Signed On 01-29-2025 18:34:50 CDT by Renaldo Willis D.O.
[2025-01-29 16:24] LABS: Hematocrit 37.2 % (42.0-52.0); Hemoglobin 11.7 g/dL (14.0-18.0); Immature Granulocyte Percent A 0.5 % (0-0.5); Immature Platelet Fraction Pct 5.3 % (0.9-11.2); Lymphocytes Absolute Auto 1.77 K/mm3 (0.9-3.2); Mean Corpuscular HGB Conc 31.5 g/dl (32-36); Mean Corpuscular Hemoglobin 29.5 pg (26-34); Mean Corpuscular Volume 93.7 fl (80-100); Nucleated Red Blood Cells Absolute Auto 0.000 K/mm3 (0.0-0.012); Nucleated Red Blood Cells Perc 0.0 % (0.0-0.2); Platelet Count Result 224 k/mm3 (150-375); Red Blood Count 3.97 M/mm3 (4.6-6.20); White Blood Count 15.1 K/mm3 (4.5-10.0)
[2025-01-29 16:34] LABS: Alanine Aminotransferase 21 U/L (6-50); Albumin Level 4.1 g/dL (3.5-5.1); Alkaline Phosphatase 54 U/L (38-126); Anion Gap 8 mmol/L (4-12); Aspartate Amino Transferase 33 U/L (17-59); Bilirubin,Total 0.6 mg/dL (0.2-1.3); Blood Urea Nitrogen 40 mg/dL (9-20); Calcium 8.8 mg/dL (8.4-10.2); Carbon Dioxide 25 mmol/L (22-30); Chloride 103 mmol/L (98-107); Estimated CRCL calculation 52 ml/min; Estimated Glomerular Filt Rate 49; Glucose 214 mg/dL (65-110); INR 1.0; Lipase 31 U/L (23-300); Potassium 4.3 mmol/L (3.4-5.0); Prothrombin Time 12.8 Seconds (11.1-14.7); Sodium 136 mmol/L (137-145); Total Protein 7.6 g/dL (6.3-8.2)
[2025-01-29 16:48] LABS: Partial Thromboplastin Time 20.0 Seconds (22.3-36.8)
--- NOTE | 2025-01-29 16:54 | ED_ITS ---
HPI - Abdominal Pain General Chief Complaint: Dizziness <Shanelle Gannon PA-C - Last Filed: 01/29/25 19:21> Stated Complaint: abd pain, Dizzy, SOB <MELISSA Brown Last Filed: 01/29/25 19:21> Time Seen by Provider: 01/29/25 16:14 <MELISSA Brown Last Filed: 01/29/25 19:21> Source: patient <MELISSA Brown Last Filed: 01/29/25 19:21> Mode of arrival: ambulatory <MELISSA Brown Last Filed: 01/29/25 19:21> Limitations: no limitations <MELISSA Brown Last Filed: 01/29/25 19:21> History of Present Illness HPI narrative: This is a 74 year old male that presents to the ER for abdominal pain. Reports associated nausea, vomiting, lightheadedness. Reports some shortness of breath. Denies chest pain. <Shanelle Gannon PA-C - Last Filed: 01/29/25 19:21> Related Data Home Medications: Home Medications ?Medication ?Instructions ?Recorded ?Confirmed ?Last Taken ?Type aspirin 81 mg tablet,delayed 81 mg PO DAILY 09/19/24 1 09/28/24 History release tamsulosin 0.4 mg capsule 0.4 mg PO DAILY 10/20/24 Unknown History glimepiride 1 mg tablet 1 mg PO QAM 12/01/24 5 Unknown History furosemide 20 mg tablet 20 mg PO DAILY PRN edema 01/29/25 Unknown History <MELISSA Brown Last Filed: 01/29/25 19:21> Allergies/Adverse Reactions: Allergies Allergy/AdvReac Type Severity Reaction Status Date / Time codeine Allergy Severe Rash, Verified 01/29/25 22:33 vomiting meperidine (From Demerol) Allergy Severe Rash,vomiti Verified 01/29/25 22:33 ng dapagliflozin (From Farxiga) Allergy Mild genital Verified 01/29/25 22:33 abscess semaglutide (From Ozempic) Allergy Mild Hives Verified 01/29/25 22:33 amlodipine AdvReac Mild pedal edema Verified 01/29/25 22:33 diltiazem AdvReac Mild pedal edema Verified 01/29/25 22:33 gabapentin (From Neurontin) AdvReac Mild Dizziness Verified 01/29/25 22:14 metformin AdvReac Mild Diarrhea Verified 01/29/25 22:33 sitagliptin (From Januvia) AdvReac Mild abscess Verified 01/29/25 22:33 <Shanelle Gannon PA-C - Last Filed: 01/29/25 19:21> Review of Systems 2 Review of Systems: All systems reviewed & are unremarkable except as noted in HPI and below <Shanelle Gannon PA-C - Last Filed: 01/29/25 19:21> [facility] Past Medical History Medical History: Medical History Neuropathy of right lower extremity CKD stage 3b, GFR 30-44 ml/min Kidney stones BPH (benign prostatic hyperplasia) Diabetic peripheral neuropathy Type 2 diabetes mellitus with stage 3 chronic kidney disease Stage 3a chronic kidney disease (CKD) Incarcerated incisional hernia (~02/2023) SBO (small bowel obstruction) (~02/2023) Vitamin B12 deficiency Vitamin D deficiency Hypothyroidism Peripheral arterial disease Mildly diminished ankle-brachial index on the left 09/2022 History of colon polyps History of colon cancer (~03/1999) Stage IV at time of initial diagnosis in 1998 s/p partial colectomy currently in remission Dyslipidemia Essential (primary) hypertension HTN (hypertension) <Shanelle Gannon PA-C - Last Filed: 01/29/25 19:21> Surgical History Surgical History: Surgical History Status post cataract extraction of both eyes with insertion of intraocular lens History of incisional hernia repair (~03/2023) Open reducible incisional hernia repair with Ventralight ST mesh and extensive intra-abdominal adhesiolysis on 03/18/23 [facility] History of hernia repair (~2020) Patient has had multiple ventral hernia repairs with most recent being March [address] Lu History of cholecystectomy (~2009) History of colon resection (~03/1999) History of appendectomy (~03/1999) <Shanelle Gannon PA-C - Last Filed: 01/29/25 19:21> Family History Family History: Family History Mother , Early 60s Hypertension Cerebrovascular accident Son , Mid 30s Acute myocardial infarction Grandparent Alcohol abuse Father , Mid 60s Lung cancer Heavy tobacco smoker <Shanelle Gannon PA-C - Last Filed: 01/29/25 19:21> Social History Social History: Social History (Updated 12/01/24 @ 07:44 by Madeline Grigsby) Social History: Patient is been to his current for over 40 years. He has 2 biological children 1 of which in his mid 30s of heart disease. He has 2 step children. He is a lifelong nonsmoker and does not drink alcohol or use illicit substances. 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 Code status: Full code Surrogate decision maker: Caffeine-coffee Smoking status: Never smoker Alcohol intake: never Substance use: never Substance use type: does not use Do You Feel Safe in your Home?: Yes Lack of Transportation: No Lack of Food: Never True Current Housing: I Have Housing Concerned About Future Housing: No Difficulty Paying Gas/Electric Bills: No Difficulty Paying for Meds: No Currently Unemployed: No Education: Associate Degree Difficulty w/ Childcare or Family Care: No Living arrangements: with family Occupation/Education: retired Gender identity (if verbalized by the patient): Male Sexual Orientation (if Verbalized by the Patient): Straight or Heterosexual Spiritual care concerns: No Agree to blood products: Yes <Shanelle Gannon PA-C - Last Filed: 01/29/25 19:21> Exam 2 Narrative: GENERAL: Well-appearing, well-nourished, and in no acute distress. HEAD: Normocephalic, atraumatic. EYES: EOMI. ENT: Nares clear, no rhinorrhea or epistaxis. Mucous membranes moist. Oropharynx without tonsillar hypertrophy exudate or other lesions. Bilateral TMs pearly finch non-bulging NECK: Supple. No adenopathy or masses. No carotid bruits or JVD CHEST: Clear to auscultation. No respiratory distress. No wheezes rales or rhonchi HEART: Regular rate and rhythm. No murmur heard. Normal peripheral pulses. ABDOMEN: Soft, nontender, nondistended, normal active bowel sounds. EXTREMITIES: Normal range of motion. No edema. SKIN: Warm, dry, no rash. NEURO: No focal deficits. Alert and oriented x3. PSYCH: Normal mood and affect <Shanelle Gannon PA-C - Last Filed: 01/29/25 19:21> Course PLASTIC TUBING INSULATION SUPERVISOR/PA Physician Supervision This visit was performed by both a physician and an APC. I performed all aspects of the MDM as documented. <Austin Cannon MD - Last Filed: 01/30/25 09:53> Vital Signs Vital signs: Vital Signs Temperature 97.9 F 01/29/25 15:35 Pulse Rate 89 01/29/25 15:35 Respiratory Rate 18 01/29/25 15:35 Pulse Oximetry 98 01/29/25 15:35 Oxygen Delivery Room Air 01/29/25 15:35 Temperature 97.4 F L 01/30/25 03:54 Pulse Rate 93 01/30/25 03:54 Respiratory Rate 17 01/30/25 03:54 Blood Pressure 103/51 L 01/30/25 03:54 Pulse Oximetry 98 01/30/25 03:54 Oxygen Delivery Room Air 01/29/25 15:35 <Shanelle Gannon PA-C - Last Filed: 01/29/25 19:21> Vital Signs Temperature 97.9 F 01/29/25 15:35 Pulse Rate 89 01/29/25 15:35 Respiratory Rate 18 01/29/25 15:35 Pulse Oximetry 98 01/29/25 15:35 Oxygen Delivery Room Air 01/29/25 15:35 Temperature 97.4 F L 01/30/25 03:54 Pulse Rate 93 01/30/25 03:54 Respiratory Rate 17 01/30/25 03:54 Blood Pressure 103/51 L 01/30/25 03:54 Pulse Oximetry 98 01/30/25 03:54 Oxygen Delivery Room Air 01/29/25 15:35 <Austin Cannon MD - Last Filed: 01/30/25 09:53> MDM - Abdominal Pain MDM Narrative Medical decision making narrative: Patient presents to the emergency department for abdominal pain, nausea, vomiting. Patient is afebrile and nontoxic appearing. His vitals are stable. CBC with leukocytosis to 15.1. Metabolic panel with kidney function that is around baseline. Lactic is not elevated. CTA chest/abdomen/pelvis showing small bowel obstruction. Right-sided hydronephrosis and hydroureter, which was present on scan February of last year. Patient updated on his workup and need for admission. General surgery will consult. NG tube will be placed. Spoke with hospitalist about patient and workup who accepts admission <FARRUKH Brown - Last Filed: 01/29/25 19:21> Differential Diagnosis Differential diagnosis: Likely diverticulitis, small bowel obstruction and other (aortic dissection) <Shanelle Gannon PA-C - Last Filed: 01/29/25 19:21> Medical Records Attestation: I reviewed the patient's medical records. <Austin Cannon MD - Last Filed: 01/30/25 09:53> Lab Data Attestation: I reviewed the patient's lab results. <Shanelle Gannon PA-C - Last Filed: 01/29/25 19:21> Result diagrams: 01/30/25 04:39 01/30/25 04:39 <Shanelle Gannon PA-C - Last Filed: 01/29/25 19:21> Labs: Lab Results 01/29/25 01/29/25 01/29/25 Range/Units 16:17 16:39 23:38 WBC 15.1 H (4.5-10.0) K/mm3 RBC 3.97 L (4.6-6.20) M/mm3 Hgb 11.7 L (14.0-18.0) g/dL Hct 37.2 L (42.0-52.0) % MCV 93.7 (80-100) fl MCH 29.5 (26-34) pg MCHC 31.5 L (32-36) g/dl RDW 14.4 (11.5-14.5) % Plt Count 224 (150-375) k/mm3 MPV 11.1 H (7.4-10.4) fl Immature Gran % (Auto) 0.5 (0-0.5) % Neut % (Auto) 81.6 H (45.5-73.1) % Lymph % (Auto) 11.7 L (18.3-44.2) % [place] % (Auto) 5.4 (2.6-8.5) % Eos % (Auto) 0.5 (0-4.4) % Baso % (Auto) 0.3 (0.2-1.2) % Lymph # (Auto) 1.77 (0.9-3.2) K/mm3 [place] # (Auto) 0.8 H (0.1-0.6) K/mm3 Eos # (Auto) 0.1 (0-0.3) K/mm3 Baso # (Auto) 0.0 (0.0-0.1) K/mm3 Abs Immat Gran (auto) 0.07 H (0.00-0.031) K/mm3 Absolute Neuts (auto) 12.3 H (1.3-6.7) K/mm3 Absolute Nucleated RBC 0.000 (0.0-0.012) K/mm3 Nucleated RBC % 0.0 (0.0-0.2) % % Immature Plt Fraction 5.3 (0.9-11.2) % PT 12.8 (11.1-14.7) Seconds INR 1.0 APTT 20.0 L (22.3-36.8) Seconds Sodium 136 L (137-145) mmol/L Potassium 4.3 (3.4-5.0) mmol/L Chloride 103 (98-107) mmol/L Carbon Dioxide 25 (22-30) mmol/L Anion Gap 8 (4-12) mmol/L BUN 40 H (9-20) mg/dL Creatinine 1.41 H (0.7-1.3) mg/dL Estim Creat Clear Calc 52 ml/min Estimated GFR 49 L (59 - ) Glucose 214 H (65-110) mg/dL POC Capillary Glucose 187 H (65-105) mg/dl Lactic Acid 1.6 (0.7-2.0) mmol/L Calcium 8.8 (8.4-10.2) mg/dL Total Bilirubin 0.6 (0.2-1.3) mg/dL AST 33 (17-59) U/L ALT 21 (6-50) U/L Alkaline Phosphatase 54 (38-126) U/L NT-Pro-B Natriuret Pep 197 H (19.9-100) pg/mL Total Protein 7.6 (6.3-8.2) g/dL Albumin 4.1 (3.5-5.1) g/dL Lipase 31 (23-300) U/L 01/30/25 01/30/25 Range/Units 04:39 05:58 WBC 13.0 H (4.5-10.0) K/mm3 RBC 3.73 L (4.6-6.20) M/mm3 Hgb 10.9 L (14.0-18.0) g/dL Hct 35.9 L (42.0-52.0) % MCV 96.2 (80-100) fl MCH 29.2 (26-34) pg MCHC 30.4 L (32-36) g/dl RDW 14.4 (11.5-14.5) % Plt Count 228 (150-375) k/mm3 MPV 10.9 H (7.4-10.4) fl Immature Gran % (Auto) 0.2 (0-0.5) % Neut % (Auto) 77.5 H (45.5-73.1) % Lymph % (Auto) 13.1 L (18.3-44.2) % [place] % (Auto) 8.3 (2.6-8.5) % Eos % (Auto) 0.5 (0-4.4) % Baso % (Auto) 0.4 (0.2-1.2) % Lymph # (Auto) 1.71 (0.9-3.2) K/mm3 [place] # (Auto) 1.1 H (0.1-0.6) K/mm3 Eos # (Auto) 0.1 (0-0.3) K/mm3 Baso # (Auto) 0.1 (0.0-0.1) K/mm3 Abs Immat Gran (auto) 0.03 (0.00-0.031) K/mm3 Absolute Neuts (auto) 10.1 H (1.3-6.7) K/mm3 Absolute Nucleated RBC 0.000 (0.0-0.012) K/mm3 Nucleated RBC % 0.0 (0.0-0.2) % % Immature Plt Fraction (0.9-11.2) % PT (11.1-14.7) Seconds INR APTT (22.3-36.8) Seconds Sodium 138 (137-145) mmol/L Potassium 4.0 (3.4-5.0) mmol/L Chloride 102 (98-107) mmol/L Carbon Dioxide 29 (22-30) mmol/L Anion Gap 7 (4-12) mmol/L BUN 42 H (9-20) mg/dL Creatinine 1.51 H (0.7-1.3) mg/dL Estim Creat Clear Calc 48 ml/min Estimated GFR 46 L (59 - ) Glucose 147 H (65-110) mg/dL POC Capillary Glucose 144 H (65-105) mg/dl Lactic Acid (0.7-2.0) mmol/L Calcium 8.7 (8.4-10.2) mg/dL Total Bilirubin (0.2-1.3) mg/dL AST (17-59) U/L ALT (6-50) U/L Alkaline Phosphatase (38-126) U/L NT-Pro-B Natriuret Pep (19.9-100) pg/mL Total Protein (6.3-8.2) g/dL Albumin (3.5-5.1) g/dL Lipase (23-300) U/L <Shanelle Gannon PA-C - Last Filed: 01/29/25 19:21> Lab Results 01/29/25 01/29/25 01/29/25 Range/Units 16:17 16:39 23:38 WBC 15.1 H (4.5-10.0) K/mm3 RBC 3.97 L (4.6-6.20) M/mm3 Hgb 11.7 L (14.0-18.0) g/dL Hct 37.2 L (42.0-52.0) % MCV 93.7 (80-100) fl MCH 29.5 (26-34) pg MCHC 31.5 L (32-36) g/dl RDW 14.4 (11.5-14.5) % Plt Count 224 (150-375) k/mm3 MPV 11.1 H (7.4-10.4) fl Immature Gran % (Auto) 0.5 (0-0.5) % Neut % (Auto) 81.6 H (45.5-73.1) % Lymph % (Auto) 11.7 L (18.3-44.2) % [place] % (Auto) 5.4 (2.6-8.5) % Eos % (Auto) 0.5 (0-4.4) % Baso % (Auto) 0.3 (0.2-1.2) % Lymph # (Auto) 1.77 (0.9-3.2) K/mm3 [place] # (Auto) 0.8 H (0.1-0.6) K/mm3 Eos # (Auto) 0.1 (0-0.3) K/mm3 Baso # (Auto) 0.0 (0.0-0.1) K/mm3 Abs Immat Gran (auto) 0.07 H (0.00-0.031) K/mm3 Absolute Neuts (auto) 12.3 H (1.3-6.7) K/mm3 Absolute Nucleated RBC 0.000 (0.0-0.012) K/mm3 Nucleated RBC % 0.0 (0.0-0.2) % % Immature Plt Fraction 5.3 (0.9-11.2) % PT 12.8 (11.1-14.7) Seconds INR 1.0 APTT 20.0 L (22.3-36.8) Seconds Sodium 136 L (137-145) mmol/L Potassium 4.3 (3.4-5.0) mmol/L Chloride 103 (98-107) mmol/L Carbon Dioxide 25 (22-30) mmol/L Anion Gap 8 (4-12) mmol/L BUN 40 H (9-20) mg/dL Creatinine 1.41 H (0.7-1.3) mg/dL Estim Creat Clear Calc 52 ml/min Estimated GFR 49 L (59 - ) Glucose 214 H (65-110) mg/dL POC Capillary Glucose 187 H (65-105) mg/dl Lactic Acid 1.6 (0.7-2.0) mmol/L Calcium 8.8 (8.4-10.2) mg/dL Total Bilirubin 0.6 (0.2-1.3) mg/dL AST 33 (17-59) U/L ALT 21 (6-50) U/L Alkaline Phosphatase 54 (38-126) U/L NT-Pro-B Natriuret Pep 197 H (19.9-100) pg/mL Total Protein 7.6 (6.3-8.2) g/dL Albumin 4.1 (3.5-5.1) g/dL Lipase 31 (23-300) U/L 01/30/25 01/30/25 Range/Units 04:39 05:58 WBC 13.0 H (4.5-10.0) K/mm3 RBC 3.73 L (4.6-6.20) M/mm3 Hgb 10.9 L (14.0-18.0) g/dL Hct 35.9 L (42.0-52.0) % MCV 96.2 (80-100) fl MCH 29.2 (26-34) pg MCHC 30.4 L (32-36) g/dl RDW 14.4 (11.5-14.5) % Plt Count 228 (150-375) k/mm3 MPV 10.9 H (7.4-10.4) fl Immature Gran % (Auto) 0.2 (0-0.5) % Neut % (Auto) 77.5 H (45.5-73.1) % Lymph % (Auto) 13.1 L (18.3-44.2) % [place] % (Auto) 8.3 (2.6-8.5) % Eos % (Auto) 0.5 (0-4.4) % Baso % (Auto) 0.4 (0.2-1.2) % Lymph # (Auto) 1.71 (0.9-3.2) K/mm3 [place] # (Auto) 1.1 H (0.1-0.6) K/mm3 Eos # (Auto) 0.1 (0-0.3) K/mm3 Baso # (Auto) 0.1 (0.0-0.1) K/mm3 Abs Immat Gran (auto) 0.03 (0.00-0.031) K/mm3 Absolute Neuts (auto) 10.1 H (1.3-6.7) K/mm3 Absolute Nucleated RBC 0.000 (0.0-0.012) K/mm3 Nucleated RBC % 0.0 (0.0-0.2) % % Immature Plt Fraction (0.9-11.2) % PT (11.1-14.7) Seconds INR APTT (22.3-36.8) Seconds Sodium 138 (137-145) mmol/L Potassium 4.0 (3.4-5.0) mmol/L Chloride 102 (98-107) mmol/L Carbon Dioxide 29 (22-30) mmol/L Anion Gap 7 (4-12) mmol/L BUN 42 H (9-20) mg/dL Creatinine 1.51 H (0.7-1.3) mg/dL Estim Creat Clear Calc 48 ml/min Estimated GFR 46 L (59 - ) Glucose 147 H (65-110) mg/dL POC Capillary Glucose 144 H (65-105) mg/dl Lactic Acid (0.7-2.0) mmol/L Calcium 8.7 (8.4-10.2) mg/dL Total Bilirubin (0.2-1.3) mg/dL AST (17-59) U/L ALT (6-50) U/L Alkaline Phosphatase (38-126) U/L NT-Pro-B Natriuret Pep (19.9-100) pg/mL Total Protein (6.3-8.2) g/dL Albumin (3.5-5.1) g/dL Lipase (23-300) U/L <Austin Cannon MD - Last Filed: 01/30/25 09:53> Imaging Data Radiologist's impression: ITS Impressions Chest/Abdomen/Pelvis CTA 01/29/25 18:35 IMPRESSION: 1. Negative for dissection or aneurysm. 2. Small bowel obstruction 3. Right-sided hydronephrosis and hydroureter with distal stricture suspected. The differential includes a obstructing noncalcified calculus. Correlate with urinalysis. Ureteroscopy is suggested. 4. Incidental findings above <Shanelle Gannon PA-C - Last Filed: 01/29/25 19:21> ITS Impressions Chest/Abdomen/Pelvis CTA 01/29/25 18:35 IMPRESSION: 1. Negative for dissection or aneurysm. 2. Small bowel obstruction 3. Right-sided hydronephrosis and hydroureter with distal stricture suspected. The differential includes a obstructing noncalcified calculus. Correlate with urinalysis. Ureteroscopy is suggested. 4. Incidental findings above <Austin Cannon MD - Last Filed: 01/30/25 09:53> Critical Care Time Critical Care Time Critical Care Time: No <Shanelle Gannon PA-C - Last Filed: 01/29/25 19:21> Discharge Plan Discharge Clinical Impression: Small bowel obstruction <Shanelle Gannon PA-C - Last Filed: 01/29/25 19:21> Patient Disposition: Still a Patient <Shanelle Gannon PA-C - Last Filed: 01/29/25 19:21> Condition: Stable <Shanelle Gannon PA-C - Last Filed: 01/29/25 19:21>
[2025-01-29 17:16] LABS: NT Pro B Type Natriuretic Pept 197 pg/mL (19.9-100)
[2025-01-29] MEDS: MORPHINE SULFATE (*CRX) 4 MG/ML INJ IV PUSH (17:19)
[2025-01-29] MEDS: ONDANSETRON INJ 4 MG/2 ML VIAL IV PUSH (17:19)
--- NOTE | 2025-01-29 18:20 | PC.NURSE ---
Pt to CT.
[2025-01-29] MEDS: HYDROmorphone HCL INJ (*CRX) 1 MG/ML SYR 0.5 MG IV PUSH (18:59)
[2025-01-29] MEDS: SODIUM CHLORIDE 0.9% IV 1,000 ML 100 ML IV CONT (19:34)
--- NOTE | 2025-01-29 19:47 | P.HP_ITS ---
H&P: HPI History of Present Illness Date/Time: 01/29/25 19:47 Chief Complaint: Abdominal pain and dizziness Narrative: 74-year-old man past medical history of CKD stage 3, BPH, diabetes, small-bowel obstructions, hypothyroidism, history of colon cancer and hypertension presents with abdominal pain, dizziness and shortness of breath. Patient also complains of increased weakness. He states that he is having trouble getting around. Patient states that he is unable to eat due to abdominal pain. Patient states that he has vomited several times. He also states that he goes hypoglycemic every night and often takes glucose tabs when he gets up in the middle the night to pee. Patient denies fevers chills Patient's lab work shows leukocytosis at 15.1, hemoglobin 11.7, sodium of 136, BUN of 40, creatinine of 1.41 which is below previous creatinines, glucose of 214 proBNP of 197, CTA chest abdomen pelvis show small-bowel obstruction, Right- sided hydronephrosis and hydroureter with distal stricture suspected. General surgery was consulted in NG tube was ordered. Review of Systems Review of Systems: 12 systems were reviewed and are negativ e except for as per HPI. [facility] Past Medical History Medical History Neuropathy of right lower extremity CKD stage 3b, GFR 30-44 ml/min Kidney stones BPH (benign prostatic hyperplasia) Diabetic peripheral neuropathy Type 2 diabetes mellitus with stage 3 chronic kidney disease Stage 3a chronic kidney disease (CKD) Incarcerated incisional hernia (~02/2023) SBO (small bowel obstruction) (~02/2023) Vitamin B12 deficiency Vitamin D deficiency Hypothyroidism Peripheral arterial disease Mildly diminished ankle-brachial index on the left 09/2022 History of colon polyps History of colon cancer (~03/1999) Stage IV at time of initial diagnosis in 1998 s/p partial colectomy currently in remission Dyslipidemia Essential (primary) hypertension HTN (hypertension) Surgical History Surgical History Status post cataract extraction of both eyes with insertion of intraocular lens History of incisional hernia repair (~03/2023) Open reducible incisional hernia repair with Ventralight ST mesh and extensive intra-abdominal adhesiolysis on 03/18/23 SAW History of hernia repair (~2020) Patient has had multiple ventral hernia repairs with most recent being March [address] Lu History of cholecystectomy (~2009) History of colon resection (~03/1999) History of appendectomy (~03/1999) Family History Family History Mother , Early 60s Hypertension Cerebrovascular accident Son , Mid 30s Acute myocardial infarction Grandparent Alcohol abuse Father , Mid 60s Lung cancer Heavy tobacco smoker Social History Social History (Updated 12/01/24 @ 07:44 by Madeline Grigsby) Social History: Patient is been to his current for over 40 years. He has 2 biological children 1 of which in his mid 30s of heart disease. He has 2 step children. He is a lifelong nonsmoker and does not drink alcohol or use illicit substances. 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 Code status: Full code Surrogate decision maker: Caffeine-coffee Smoking status: Never smoker Alcohol intake: never Substance use: never Substance use type: does not use Do You Feel Safe in your Home?: Yes Lack of Transportation: No Lack of Food: Never True Current Housing: I Have Housing Concerned About Future Housing: No Difficulty Paying Gas/Electric Bills: No Difficulty Paying for Meds: No Currently Unemployed: No Education: High School Diploma/GED Difficulty w/ Childcare or Family Care: No Living arrangements: with family Occupation/Education: retired Gender identity (if verbalized by the patient): Male Sexual Orientation (if Verbalized by the Patient): Straight or Heterosexual Spiritual care concerns: No Agree to blood products: Yes Meds Home Medications and Allergies Home Medications ?Medication ?Instructions ?Recorded ?Confirmed ?Type cholecalciferol (vitamin D3) 50 50 mcg PO DAILY #90 ta bs 05/10/24 10/21/24 Rx mcg (2,000 unit) tablet ferrous sulfate 325 mg (65 mg 325 mg PO DAILY #90 tabs 09/16/24 10/21/24 Rx iron) tablet,delayed release aspirin 81 mg tablet,delayed 81 mg PO DAILY 09/19/24 0 10/21/24 History release lisinopril 5 mg tablet 5 mg PO DAILY #90 tabs 10/0710/21/24 Rx carvedilol 6.25 mg tablet 6.25 mg PO BID #180 tabs 01/0610/21/24 Rx tamsulosin 0.4 mg capsule 0.4 mg PO DAILY 10/20/2402/05 History doxazosin 2 mg tablet (Cardura) 2 mg PO DAILY #90 tabs 11/22/24 Rx levothyroxine 50 mcg tablet 50 mcg PO DAILY #90 tabs 0 11/22/24 Rx glimepiride 1 mg tablet 1 mg PO QAM 12/01/24 Histor y fenofibrate nanocrystallized 145 145 mg PO DAILY #90 t abs 12/15/24 Rx mg tablet pravastatin 40 mg tablet 40 mg PO QHS #90 tabs Rx glimepiride 2 mg tablet 2 mg PO QAM #90 tabs 5 Rx furosemide 20 mg tablet 20 mg PO DAILY PRN edema 01/29/25 History Allergies Allergy/AdvReac Type Severity Reaction Status Date / Time codeine Allergy Severe Rash, Verified 01/29/25 22:14 vomiting meperidine (From Demerol) Allergy Severe Rash,vomiti Verified 01/29/25 22:14 ng dapagliflozin (From Farxiga) Allergy Mild genital Verified 01/29/25 22:14 abscess semaglutide (From Ozempic) Allergy Mild Hives Verified 01/29/25 22:14 amlodipine AdvReac Mild pedal edema Verified 01/29/25 22:14 diltiazem AdvReac Mild pedal edema Verified 01/29/25 22:14 gabapentin (From Neurontin) AdvReac Mild Dizziness Verified 01/29/25 22:14 metformin AdvReac Mild Diarrhea Verified 01/29/25 22:14 sitagliptin (From Januvia) AdvReac Mild abscess Verified 01/29/25 22:14 Vital Signs Vital Signs - 24 hr 01/29/25 15:35 01/29/25 16:57 01/29/25 18:19 Temperature 97.9 F Pulse Rate 89 87 94 Respiratory Rate 18 21 H 16 Blood Pressure 126/70 168/90 H Pulse Oximetry 98 100 95 Oxygen Delivery Room Air Exam Narrative: General: well appearing, appears stated age. HEENT: normocephalic, atraumatic. Mucous membranes moist. EOMI, PERRLA, bilateral sclera anicteric, no conjunctival injection. Neck supple without JVD, lymphadenopathy, or bruit. NG to with thick green output Respiratory: clear to ascultation bilaterally. No rales/rhonic/wheezes. Cardiovascular: Regular rate and rhythm, normal S1-S2 upon ascultation. No murmurs, rubs, or clicks. PMI is nondisplaced, capillary refill less than 3 second. Abdomen: Firm, tender to palpation Extremities: No cyanosis, clubbing, or edema present. Pulses are palpable 2/2. Active ROM to all four extremities. Neuro: Alert and orientated x 4. PERRLA. Cranial nerves 2-12 intact without focal deficit. Skin: Warm, dry, and intact, without rash, erythema, or lesion. Psych: pleasant, cooperative, normal speech, normal affect, no hallucinations, no dysarthia 2 L nasal cannula H&P: Results Labs Labs: Short CBC 01/29/25 Range/Units 16:17 WBC 15.1 H (4.5-10.0) K/mm3 Hgb 11.7 L (14.0-18.0) g/dL Hct 37.2 L (42.0-52.0) % Plt Count 224 (150-375) k/mm3 BMP 01/29/25 16:17 Sodium 136 L Potassium 4.3 Chloride 103 Carbon Dioxide 25 BUN 40 H Creatinine 1.41 H Glucose 214 H Calcium 8.8 Liver Function 01/29/25 Range/Units 16:17 Total Bilirubin 0.6 (0.2-1.3) mg/dL AST 33 (17-59) U/L ALT 21 (6-50) U/L Alkaline Phosphatase 54 (38-126) U/L Albumin 4.1 (3.5-5.1) g/dL Assessment and Plan Assessment and plan (1) Small bowel obstruction: Code(s): K56.609 - Unspecified intestinal obstruction, unspecified as to partial versus complete obstruction Status: Acute Assessment and Plan: Surgery consulted NPO NG tube IVF gentle due to CHF Waiting for return of bowel function Okay to clamp NG tube for walks (2) Hydronephrosis: Code(s): N13.30 - Unspecified hydronephrosis Status: Acute Assessment and Plan: Urology consulted (3) Essential (primary) hypertension: Code(s): I10 - Essential (primary) hypertension Status: Chronic Assessment and Plan: Holding p.o. medications P.r.n. 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: without watermelon harvesting supervisor use Qualified Code(s): E11.22 - Type 2 diabetes mellitus with diabetic chronic kidney disease; N18.31 - Chronic kidney disease, stage 3a Code(s): E11.22 - Type 2 diabetes mellitus with diabetic chronic kidney disease; N18.30 - Chronic kidney disease, stage 3 unspecified Status: Acute Assessment and Plan: Accu-Cheks q.6 Hypoglycemia protocol SSI D5 NS at 35 (5) Hypothyroidism: Qualifiers: Hypothyroidism type: acquired Qualified Code(s): E03.9 - Hypothyroidism, unspecified Code(s): E03.9 - Hypothyroidism, unspecified Status: Acute Assessment and Plan: IV Synthroid (6) Urinary retention due to benign prostatic hyperplasia: Code(s): N40.1 - Benign prostatic hyperplasia with lower urinary tract symptoms; R33.8 - Other retention of urine Status: Acute Assessment and Plan: Currently unable to give Flomax restart when able Quality VTE Prophylaxis VTE prophylaxis: mechanical ordered and pharmacologic ordered Hospitalist MIPS Advance Care Plan I have confirmed that the patient's Advanced Care Plan is present, code status is documented, or surrogate decision maker is listed in patient medical record.: Yes Medication Reconciliation I have utilized all available resources to obtain, update and review the patients current medications (includes all prescriptions, OTC, herbals, cannabis, and nutritional supplements).: Yes
[2025-01-29] MEDS: METOCLOPRAMIDE HCL INJ 10 MG/2 ML VIAL IV PUSH (19:50)
[2025-01-29] MEDS: MORPHINE SULFATE (*CRX) 4 MG/ML INJ 2 MG IV PUSH (22:37)
[2025-01-29] MEDS: DEXTROSE 5%/0.9% SOD CHL 1,000 ML 35 ML IV CONT (22:39)
[2025-01-30 03:54] VITALS: BP 103/51; PULSE 93; RESP 17; TEMP 36.3; O2SAT 98
[2025-01-30] MEDS: MORPHINE SULFATE (*CRX) 4 MG/ML INJ 2 MG IV PUSH ×4 (04:51→20:43)
[2025-01-30 05:09] LABS: Hematocrit 35.9 % (42.0-52.0); Hemoglobin 10.9 g/dL (14.0-18.0); Immature Granulocyte Percent A 0.2 % (0-0.5); Lymphocytes Absolute Auto 1.71 K/mm3 (0.9-3.2); Mean Corpuscular HGB Conc 30.4 g/dl (32-36); Mean Corpuscular Hemoglobin 29.2 pg (26-34); Mean Corpuscular Volume 96.2 fl (80-100); Nucleated Red Blood Cells Absolute Auto 0.000 K/mm3 (0.0-0.012); Nucleated Red Blood Cells Perc 0.0 % (0.0-0.2); Platelet Count Result 228 k/mm3 (150-375); Red Blood Count 3.73 M/mm3 (4.6-6.20); White Blood Count 13.0 K/mm3 (4.5-10.0)
[2025-01-30 05:26] LABS: Anion Gap 7 mmol/L (4-12); Blood Urea Nitrogen 42 mg/dL (9-20); Calcium 8.7 mg/dL (8.4-10.2); Carbon Dioxide 29 mmol/L (22-30); Chloride 102 mmol/L (98-107); Estimated CRCL calculation 48 ml/min; Estimated Glomerular Filt Rate 46; Glucose 147 mg/dL (65-110); Potassium 4.0 mmol/L (3.4-5.0); Sodium 138 mmol/L (137-145)
--- NOTE | 2025-01-30 08:59 | P.PNIM_ITS ---
Progress Note: A&P Assessment and Plan (1) Small bowel obstruction: Code(s): K56.609 - Unspecified intestinal obstruction, unspecified as to partial versus complete obstruction Status: Acute Assessment and Plan: Surgery consulted NPO NG tube IVF gentle due to CHF Waiting for return of bowel function Okay to clamp NG tube for walks Ng in place surgery consulted and following. Dr Singh: Exam improved after NG tube decompression and bowel rest, continue conservative management for now, we will get a small-bowel series for further evaluation (2) Hydronephrosis: Code(s): N13.30 - Unspecified hydronephrosis Status: Acute Assessment and Plan: Urology consulted (3) Essential (primary) hypertension: Code(s): I10 - Essential (primary) hypertension Status: Chronic Assessment and Plan: Holding p.o. medications P.r.n. hydralazine if needed (4) Type 2 diabetes mellitus with stage 3 chronic kidney disease: Qualifiers: Chronic kidney disease stage 3 subtype: stage 3a (GFR 45-59) Diabetes mellitus evp and chief operating officer insulin use: without evp and chief operating officer use Qualified Code(s): E11.22 - Type 2 diabetes mellitus with diabetic chronic kidney disease; N18.31 - Chronic kidney disease, stage 3a Code(s): E11.22 - Type 2 diabetes mellitus with diabetic chronic kidney disease; N18.30 - Chronic kidney disease, stage 3 unspecified Status: Acute Assessment and Plan: Accu-Cheks q.6 Hypoglycemia protocol SSI D5 NS at 35 coninue to monitor -bs reviewed and had been stable (5) Hypothyroidism: Qualifiers: Hypothyroidism type: acquired Qualified Code(s): E03.9 - Hypothyroidism, unspecified Code(s): E03.9 - Hypothyroidism, unspecified Status: Acute Assessment and Plan: IV Synthroid (6) Urinary retention due to benign prostatic hyperplasia: Code(s): N40.1 - Benign prostatic hyperplasia with lower urinary tract symptoms; R33.8 - Other retention of urine Status: Acute Assessment and Plan: Currently unable to give Flomax restart when able Time Spent With Patient Time with patient: 25 - 35 minutes Subjective Date/time seen: 01/30/25 08:59 Interval history: 74-year-old man past medical history of CKD stage 3, BPH, diabetes, small- bowel obstructions, hypothyroidism, history of colon cancer and hypertension presents with abdominal pain, dizziness and shortness of breath. Patient also complains of increased weakness. He states that he is having trouble getting around. Patient states that he is unable to eat due to abdominal pain. Patient states that he has vomited several times. He also states that he goes hypoglycemic every night and often takes glucose tabs when he gets up in the middle the night to pee. Patient denies fevers chills Patient's lab work shows leukocytosis at 15.1, hemoglobin 11.7, sodium of 136, BUN of 40, creatinine of 1.41 which is below previous creatinines, glucose of 214 proBNP of 197, CTA chest abdomen pelvis show small-bowel obstruction, Right- sided hydronephrosis and hydroureter with distal stricture suspected. General s urgery was consulted in NG tube was ordered. Pt is seen and examined.He is nauseated, NG in place. Surgery consulted. He is resting comfortable in bed. Denies chest pain or sob. Review of Systems Review of Systems: 12 systems were reviewed and are negativ e except for as per HPI. Exam Narrative: General: well appearing, appears stated age. HEENT: normocephalic, atraumatic. Mucous membranes moist. EOMI, PERRLA, bilateral sclera anicteric, no conjunctival injection. Neck supple without JVD, lymphadenopathy, or bruit. NG to with thick green output Respiratory: clear to ascultation bilaterally. No rales/rhonic/wheezes. Cardiovascular: Regular rate and rhythm, normal S1-S2 upon ascultation. No murmurs, rubs, or clicks. PMI is nondisplaced, capillary refill less than 3 second. Abdomen: Firm, tender to palpation Extremities: No cyanosis, clubbing, or edema present. Pulses are palpable 2/2. Active ROM to all four extremities. Neuro: Alert and orientated x 4. PERRLA. Cranial nerves 2-12 intact without focal deficit. Skin: Warm, dry, and intact, without rash, erythema, or lesion. Psych: pleasant, cooperative, normal speech, normal affect, no hallucinations, no dysarthia Const: General: comfortable Objective Data Vital Signs Vital Signs: Vital Signs - 24 hr 01/29/25 15:35 01/29/25 16:33 01/29/25 16:51 Temperature 97.9 F Pulse Rate 89 82 83 Respiratory Rate 18 18 Blood Pressure Pulse Oximetry 98 96 98 Oxygen Delivery Room Air 01/29/25 16:57 01/29/25 16:57 01/29/25 17:00 Temperature Pulse Rate 87 86 83 Respiratory Rate 21 H 22 H 15 Blood Pressure 126/70 126/70 Pulse Oximetry 100 100 99 Oxygen Delivery 01/29/25 17:15 01/29/25 17:27 01/29/25 17:30 Temperature Pulse Rate 83 87 87 Respiratory Rate 16 11 L 9 L Blood Pressure 104/49 L Pulse Oximetry 89 L 86 L Oxygen Delivery 01/29/25 17:31 01/29/25 17:37 01/29/25 17:45 Temperature Pulse Rate 93 91 83 Respiratory Rate 11 L 22 H 8 L Blood Pressure 95/47 L 87/50 L Pulse Oximetry 95 95 91 Oxygen Delivery 01/29/25 17:46 01/29/25 18:00 01/29/25 18:01 Temperature Pulse Rate 87 83 82 Respiratory Rate 9 L 8 L 10 L Blood Pressure 101/50 L 93/53 L Pulse Oximetry 96 96 95 Oxygen Delivery 01/29/25 18:19 01/29/25 18:33 01/29/25 18:45 Temperature Pulse Rate 94 89 92 Respiratory Rate 16 13 18 Blood Pressure 168/90 H Pulse Oximetry 95 100 98 Oxygen Delivery 01/29/25 18:46 01/29/25 19:00 01/29/25 19:01 Temperature Pulse Rate 91 90 90 Respiratory Rate 17 12 12 Blood Pressure 144/69 H 132/71 Pulse Oximetry 100 98 97 Oxygen Delivery 01/29/25 19:15 01/29/25 19:30 01/29/25 19:31 Temperature Pulse Rate 91 93 91 Respiratory Rate 10 L 12 16 Blood Pressure 108/69 Pulse Oximetry 94 94 96 Oxygen Delivery 01/29/25 19:45 01/29/25 20:00 01/29/25 20:01 Temperature Pulse Rate 92 96 96 Respiratory Rate 14 19 15 Blood Pressure 147/71 H Pulse Oximetry 96 96 95 Oxygen Delivery 01/29/25 20:01 01/29/25 20:15 01/29/25 20:30 Temperature Pulse Rate 96 94 94 Respiratory Rate 15 10 L 17 Blood Pressure 147/71 H Pulse Oximetry 96 93 98 Oxygen Delivery 01/29/25 20:31 01/29/25 20:45 01/29/25 21:00 Temperature Pulse Rate 99 107 H 97 Respiratory Rate 16 24 H 10 L Blood Pressure 136/60 Pulse Oximetry 94 93 Oxygen Delivery 01/29/25 21:01 01/29/25 21:40 01/29/25 23:41 Temperature 97.9 F 98.0 F Pulse Rate 96 98 90 Respiratory Rate 10 L 20 18 Blood Pressure 123/64 121/68 106/56 L Pulse Oximetry 92 99 98 Oxygen Delivery 01/30/25 03:54 Temperature 97.4 F L Pulse Rate 93 Respiratory Rate 17 Blood Pressure 103/51 L Pulse Oximetry 98 Oxygen Delivery Intake/Output Intake/Output: Intake & Output 01/27/25 01/28/25 01/29/25 01/30/25 23:59 23:59 23:59 23:59 Intake Total 0 Output Total 1000 200 Balance -1000 -200 Meds/Results Medications: Active Medications Generic Name Dose Route Start Last Admin Trade Name Freq PRN Reason Stop Dose Admin Dextrose 12.5 gm 01/29/25 19:56 Dextrose 50% 25 Gm/50 Ml Syringe IV PUSH PRN PRN Hypoglycemia Protocol Enoxaparin Sodium 40 mg 01/30/25 09:00 Enoxaparin 40 Mg/0.4 Ml Syringe SUB-Q DAILY BANDAR Glucagon 1 mg 01/29/25 19:56 Glucagon For Inj 1 Mg Vial IM PRN PRN Hypoglycemia Protocol Glucose 15 gm 01/29/25 19:56 Glucose Oral Gel 15 Gm Of Glucse In 37.5 Gm Tube PO PRN PRN Hypoglycemia Protocol Hydralazine HCl 10 mg 01/29/25 22:30 Hydralazine Hcl 20 Mg/Ml Vial IV PUSH Q8H PRN Blood Pressure - High Dextrose 1,000 mls @ 100 mls/hr 01/29/25 19:56 Dextrose 5% 1,000 Ml IVPB PRN PRN Hypoglycemia Protocol Dextrose/Sodium Chloride 1,000 mls @ 35 mls/hr 01/29/25 22:15 01/29/25 22:39 Dextrose 5% Sodium Chloride 0.9% IV CONT 35 mls/hr .Q24H BANDAR Administration Insulin Aspart 2 - 5 units 01/30/25 00:00 01/30/25 06:21 Insulin Aspart (*Bkc) 100 Units/Ml SUB-Q Not Given Q6HR BNADAR Protocol Ketorolac Tromethamine 15 mg 01/29/25 19:52 Ketorolac 15 Mg/Ml Vial (*Bkc) IV PUSH Q6H PRN Pain Rated 4-6 Levothyroxine Sodium 25 mcg 01/30/25 06:30 01/30/25 04:53 Levothyroxine Sodium Inj 100 Mcg/5 Ml Vial IV PUSH Not Given DAILY@0630 [facility] Morphine Sulfate 2 mg 01/29/25 19:52 01/30/25 04:51 Morphine Sulfate (*Crx) 4 Mg/Ml Inj IV PUSH 2 mg Q4H PRN Administration Pain Rated 7-10 Radiology Results: ITS Impressions Chest/Abdomen/Pelvis CTA 01/29/25 18:35 IMPRESSION: 1. Negative for dissection or aneurysm. 2. Small bowel obstruction 3. Right-sided hydronephrosis and hydroureter with distal stricture suspected. The differential includes a obstructing noncalcified calculus. Correlate with urinalysis. Ureteroscopy is suggested. 4. Incidental findings above Labs Labs: Laboratory Results - last 24 hr 01/29/25 01/29/25 01/29/25 16:17 16:39 23:38 WBC 15.1 H RBC 3.97 L Hgb 11.7 L Hct 37.2 L MCV 93.7 MCH 29.5 MCHC 31.5 L RDW 14.4 Plt Count 224 MPV 11.1 H Immature Gran % (Auto) 0.5 Neut % (Auto) 81.6 H Lymph % (Auto) 11.7 L [place] % (Auto) 5.4 Eos % (Auto) 0.5 Baso % (Auto) 0.3 Lymph # (Auto) 1.77 [place] # (Auto) 0.8 H Eos # (Auto) 0.1 Baso # (Auto) 0.0 Abs Immat Gran (auto) 0.07 H Absolute Neuts (auto) 12.3 H Absolute Nucleated RBC 0.000 Nucleated RBC % 0.0 % Immature Plt Fraction 5.3 PT 12.8 INR 1.0 APTT 20.0 L Sodium 136 L Potassium 4.3 Chloride 103 Carbon Dioxide 25 Anion Gap 8 BUN 40 H Creatinine 1.41 H Estim Creat Clear Calc 52 Estimated GFR 49 L Glucose 214 H POC Capillary Glucose 187 H Lactic Acid 1.6 Calcium 8.8 Total Bilirubin 0.6 AST 33 ALT 21 Alkaline Phosphatase 54 NT-Pro-B Natriuret Pep 197 H Total Protein 7.6 Albumin 4.1 Lipase 31 01/30/25 01/30/25 04:39 05:58 WBC 13.0 H RBC 3.73 L Hgb 10.9 L Hct 35.9 L MCV 96.2 MCH 29.2 MCHC 30.4 L RDW 14.4 Plt Count 228 MPV 10.9 H Immature Gran % (Auto) 0.2 Neut % (Auto) 77.5 H Lymph % (Auto) 13.1 L [place] % (Auto) 8.3 Eos % (Auto) 0.5 Baso % (Auto) 0.4 Lymph # (Auto) 1.71 [place] # (Auto) 1.1 H Eos # (Auto) 0.1 Baso # (Auto) 0.1 Abs Immat Gran (auto) 0.03 Absolute Neuts (auto) 10.1 H Absolute Nucleated RBC 0.000 Nucleated RBC % 0.0 % Immature Plt Fraction PT INR APTT Sodium 138 Potassium 4.0 Chloride 102 Carbon Dioxide 29 Anion Gap 7 BUN 42 H Creatinine 1.51 H Estim Creat Clear Calc 48 Estimated GFR 46 L Glucose 147 H POC Capillary Glucose 144 H Lactic Acid Calcium 8.7 Total Bilirubin AST ALT Alkaline Phosphatase NT-Pro-B Natriuret Pep Total Protein Albumin Lipase Quality VTE Prophylaxis VTE prophylaxis: mechanical ordered and pharmacologic ordered
[2025-01-30] MEDS: ENOXAPARIN 40 MG/0.4 ML SYRINGE SUB-Q (09:01)
[2025-01-30] MEDS: ONDANSETRON INJ 4 MG/2 ML VIAL IV PUSH ×2 (09:41→20:47)
--- NOTE | 2025-01-30 09:55 | PM.CNGS ---
Assessment and Plan Assessment and plan (1) Small bowel obstruction: Code(s): K56.609 - Unspecified intestinal obstruction, unspecified as to partial versus complete obstruction Status: Acute Assessment and Plan: Exam improved after NG tube decompression and bowel rest, continue conservative management for now, we will get a small-bowel series for further evaluation History of Present Illness Consult details Consult date: 01/30/25 Reason for consult: abdominal pain Requesting physician: Keny Kidd MD Narrative: The patient is a 74-year-old male presenting to the emergency department complaining of severe, crampy abdominal pain and intractable nausea and vomiting over the last few days. The patient reports he has also been dizzy and very weak. He reports very little p.o. intake secondary to pain and nausea. Of note, the patient had multiple abdominal surgeries in past. Workup in the emergency department, including imaging, is significant for small bowel obstruction. Review of Systems Review of Systems: All systems reviewed & are unremarkable except as noted in HPI and below PMFSH Past Medical History Medical History Neuropathy of right lower extremity CKD stage 3b, GFR 30-44 ml/min Kidney stones BPH (benign prostatic hyperplasia) Diabetic peripheral neuropathy Type 2 diabetes mellitus with stage 3 chronic kidney disease Stage 3a chronic kidney disease (CKD) Incarcerated incisional hernia (~02/2023) SBO (small bowel obstruction) (~02/2023) Vitamin B12 deficiency Vitamin D deficiency Hypothyroidism Peripheral arterial disease Mildly diminished ankle-brachial index on the left 09/2022 History of colon polyps History of colon cancer (~03/1999) Stage IV at time of initial diagnosis in 1998 s/p partial colectomy currently in remission Dyslipidemia Essential (primary) hypertension HTN (hypertension) Surgical History Surgical History Status post cataract extraction of both eyes with insertion of intraocular lens History of incisional hernia repair (~03/2023) Open reducible incisional hernia repair with Ventralight ST mesh and extensive intra-abdominal adhesiolysis on 03/18/23 SAW History of hernia repair (~2020) Patient has had multiple ventral hernia repairs with most recent being March [address] Lu History of cholecystectomy (~2009) History of colon resection (~03/1999) History of appendectomy (~03/1999) Family History Family History Mother , Early 60s Hypertension Cerebrovascular accident Son , Mid 30s Acute myocardial infarction Grandparent Alcohol abuse Father , Mid 60s Lung cancer Heavy tobacco smoker Social History Social History Social History: Patient is been to his current for over 40 years. He has 2 biological children 1 of which in his mid 30s of heart disease. He has 2 step children. He is a lifelong nonsmoker and does not drink alcohol or use illicit substances. 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 Code status: Full code Surrogate decision maker: Caffeine-coffee Smoking status: Never smoker Alcohol intake: never Substance use: never Substance use type: does not use Do You Feel Safe in your Home?: Yes Lack of Transportation: No Lack of Food: Never True Current Housing: I Have Housing Concerned About Future Housing: No Difficulty Paying Gas/Electric Bills: No Difficulty Paying for Meds: No Currently Unemployed: No Education: Associate Degree Difficulty w/ Childcare or Family Care: No Living arrangements: with family Occupation/Education: retired Gender identity (if verbalized by the patient): Male Sexual Orientation (if Verbalized by the Patient): Straight or Heterosexual Spiritual care concerns: No Agree to blood products: Yes Meds Home Medications and Allergies Home Medications ?Medication ?Instructions ?Recorded ?Confirmed ?Type cholecalciferol (vitamin D3) 50 50 mcg PO DAILY #90 tabs 05/10/24 01/29/25 Rx mcg (2,000 unit) tablet ferrous sulfate 325 mg (65 mg 325 mg PO DAILY #90 tabs 09/16/24 01/29/25 Rx iron) tablet,delayed release aspirin 81 mg tablet,delayed 81 mg PO DAILY 09/19/24 01/29/25 History release lisinopril 5 mg tablet 5 mg PO DAILY #90 tabs 10/07/24 01/29/25 Rx carvedilol 6.25 mg tablet 6.25 mg PO BID #180 tabs 10/20/24 01/29/25 Rx tamsulosin 0.4 mg capsule 0.4 mg PO DAILY 10/20/24 01/29/25 History doxazosin 2 mg tablet (Cardura) 2 mg PO DAILY #90 tabs 11/22/24 01/29/25 Rx levothyroxine 50 mcg tablet 50 mcg PO DAILY #90 tabs 11/22/24 01/29/25 Rx glimepiride 1 mg tablet 1 mg PO QAM 12/01/24 01/29/25 History fenofibrate nanocrystallized 145 145 mg PO DAILY #90 tabs 12/15/24 01/29/25 Rx mg tablet pravastatin 40 mg tablet 40 mg PO QHS #90 tabs 12/15/24 01/29/25 Rx glimepiride 2 mg tablet 2 mg PO QAM #90 tabs 01/19/25 01/29/25 Rx furosemide 20 mg tablet 20 mg PO DAILY PRN edema 01/29/25 01/29/25 History Allergies Allergy/AdvReac Type Severity Reaction Status Date / Time codeine Allergy Severe Rash, Verified 01/29/25 22:33 vomiting meperidine (From Demerol) Allergy Severe Rash,vomiti Verified 01/29/25 22:33 ng dapagliflozin (From Farxiga) Allergy Mild genital Verified 01/29/25 22:33 abscess semaglutide (From Ozempic) Allergy Mild Hives Verified 01/29/25 22:33 amlodipine AdvReac Mild pedal edema Verified 01/29/25 22:33 diltiazem AdvReac Mild pedal edema Verified 01/29/25 22:33 gabapentin (From Neurontin) AdvReac Mild Dizziness Verified 01/29/25 22:14 metformin AdvReac Mild Diarrhea Verified 01/29/25 22:33 sitagliptin (From Januvia) AdvReac Mild abscess Verified 01/29/25 22:33 Vital Signs Vital Signs - 24 hr 01/29/25 15:35 01/29/25 16:33 01/29/25 16:51 Temperature 36.6 C Pulse Rate 89 82 83 Respiratory Rate 18 18 18 Blood Pressure Pulse Oximetry 98 96 98 Oxygen Delivery Room Air 01/29/25 16:57 01/29/25 16:57 01/29/25 17:00 Temperature Pulse Rate 87 86 83 Respiratory Rate 21 H 22 H 15 Blood Pressure 126/70 126/70 Pulse Oximetry 100 100 99 Oxygen Delivery 01/29/25 17:15 01/29/25 17:27 01/29/25 17:30 Temperature Pulse Rate 83 87 87 Respiratory Rate 16 11 L 9 L Blood Pressure 104/49 L Pulse Oximetry 89 L 86 L Oxygen Delivery 01/29/25 17:31 01/29/25 17:37 01/29/25 17:45 Temperature Pulse Rate 93 91 83 Respiratory Rate 11 L 22 H 8 L Blood Pressure 95/47 L 87/50 L Pulse Oximetry 95 95 91 Oxygen Delivery 01/29/25 17:46 01/29/25 18:00 01/29/25 18:01 Temperature Pulse Rate 87 83 82 Respiratory Rate 9 L 8 L 10 L Blood Pressure 101/50 L 93/53 L Pulse Oximetry 96 96 95 Oxygen Delivery 01/29/25 18:19 01/29/25 18:33 01/29/25 18:45 Temperature Pulse Rate 94 89 92 Respiratory Rate 16 13 18 Blood Pressure 168/90 H Pulse Oximetry 95 100 98 Oxygen Delivery 01/29/25 18:46 01/29/25 19:00 01/29/25 19:01 Temperature Pulse Rate 91 90 90 Respiratory Rate 17 12 12 Blood Pressure 144/69 H 132/71 Pulse Oximetry 100 98 97 Oxygen Delivery 01/29/25 19:15 01/29/25 19:30 01/29/25 19:31 Temperature Pulse Rate 91 93 91 Respiratory Rate 10 L 12 16 Blood Pressure 108/69 Pulse Oximetry 94 94 96 Oxygen Delivery 01/29/25 19:45 01/29/25 20:00 01/29/25 20:01 Temperature Pulse Rate 92 96 96 Respiratory Rate 14 19 15 Blood Pressure 147/71 H Pulse Oximetry 96 96 95 Oxygen Delivery 01/29/25 20:01 01/29/25 20:15 01/29/25 20:30 Temperature Pulse Rate 96 94 94 Respiratory Rate 15 10 L 17 Blood Pressure 147/71 H Pulse Oximetry 96 93 98 Oxygen Delivery 01/29/25 20:31 01/29/25 20:45 01/29/25 21:00 Temperature Pulse Rate 99 107 H 97 Respiratory Rate 16 24 H 10 L Blood Pressure 136/60 Pulse Oximetry 94 93 Oxygen Delivery 01/29/25 21:01 01/29/25 21:40 01/29/25 23:41 Temperature 36.6 C 36.7 C Pulse Rate 96 98 90 Respiratory Rate 10 L 20 18 Blood Pressure 123/64 121/68 106/56 L Pulse Oximetry 92 99 98 Oxygen Delivery 01/30/25 03:54 Temperature 36.3 C L Pulse Rate 93 Respiratory Rate 17 Blood Pressure 103/51 L Pulse Oximetry 98 Oxygen Delivery Exam Const: General: cooperative, comfortable and no acute distress HENMT: Head: normal to inspection, normocephalic and atraumatic Eyes: General: appearance normal, both eyes and all related structures Neck: Neck: normal visual inspection, full ROM and no lymphadenopathy Resp: Auscultation: clear to auscultation bilaterally Cardio: Rate: regular rate Rhythm: regular rhythm GI: Inspection: normal to inspection and distended GI Palp: Yes abdominal tenderness and Yes Soft to palpation Skin: General skin exam: normal color and no rashes or lesions noted Neuro: General: patient oriented x3 and CN's II-XI intact bilaterally Extrem: General: normal to inspection and full ROM Results Labs 01/30/25 04:39 01/30/25 04:39 Labs: Abnormal lab results 01/29/25 01/29/25 01/30/25 Range/Units 16:17 23:38 04:39 WBC 15.1 H 13.0 H (4.5-10.0) K/mm3 RBC 3.97 L 3.73 L (4.6-6.20) M/mm3 Hgb 11.7 L 10.9 L (14.0-18.0) g/dL Hct 37.2 L 35.9 L (42.0-52.0) % MCHC 31.5 L 30.4 L (32-36) g/dl MPV 11.1 H 10.9 H (7.4-10.4) fl Neut % (Auto) 81.6 H 77.5 H (45.5-73.1) % Lymph % (Auto) 11.7 L 13.1 L (18.3-44.2) % [place] # (Auto) 0.8 H 1.1 H (0.1-0.6) K/mm3 Abs Immat Gran (auto) 0.07 H (0.00-0.031) K/mm3 Absolute Neuts (auto) 12.3 H 10.1 H (1.3-6.7) K/mm3 APTT 20.0 L (22.3-36.8) Seconds Sodium 136 L (137-145) mmol/L BUN 40 H 42 H (9-20) mg/dL Creatinine 1.41 H 1.51 H (0.7-1.3) mg/dL Estimated GFR 49 L 46 L (59 - ) Glucose 214 H 147 H (65-110) mg/dL POC Capillary Glucose 187 H (65-105) mg/dl NT-Pro-B Natriuret Pep 197 H (19.9-100) pg/mL 01/30/25 Range/Units 05:58 WBC (4.5-10.0) K/mm3 RBC (4.6-6.20) M/mm3 Hgb (14.0-18.0) g/dL Hct (42.0-52.0) % MCHC (32-36) g/dl MPV (7.4-10.4) fl Neut % (Auto) (45.5-73.1) % Lymph % (Auto) (18.3-44.2) % [place] # (Auto) (0.1-0.6) K/mm3 Abs Immat Gran (auto) (0.00-0.031) K/mm3 Absolute Neuts (auto) (1.3-6.7) K/mm3 APTT (22.3-36.8) Seconds Sodium (137-145) mmol/L BUN (9-20) mg/dL Creatinine (0.7-1.3) mg/dL Estimated GFR (59 - ) Glucose (65-110) mg/dL POC Capillary Glucose 144 H (65-105) mg/dl NT-Pro-B Natriuret Pep (19.9-100) pg/mL Diabetes panel 01/29/25 01/30/25 Range/Units 16:17 04:39 Sodium 136 L 138 (137-145) mmol/L Potassium 4.3 4.0 (3.4-5.0) mmol/L Chloride 103 102 (98-107) mmol/L Carbon Dioxide 25 29 (22-30) mmol/L BUN 40 H 42 H (9-20) mg/dL Creatinine 1.41 H 1.51 H (0.7-1.3) mg/dL Glucose 214 H 147 H (65-110) mg/dL Calcium 8.8 8.7 (8.4-10.2) mg/dL AST 33 (17-59) U/L ALT 21 (6-50) U/L Alkaline Phosphatase 54 (38-126) U/L Total Protein 7.6 (6.3-8.2) g/dL Albumin 4.1 (3.5-5.1) g/dL Calcium panel 01/29/25 01/30/25 Range/Units 16:17 04:39 Calcium 8.8 8.7 (8.4-10.2) mg/dL Albumin 4.1 (3.5-5.1) g/dL Pituitary panel 01/29/25 01/30/25 Range/Units 16:17 04:39 Sodium 136 L 138 (137-145) mmol/L Potassium 4.3 4.0 (3.4-5.0) mmol/L Chloride 103 102 (98-107) mmol/L Carbon Dioxide 25 29 (22-30) mmol/L BUN 40 H 42 H (9-20) mg/dL Creatinine 1.41 H 1.51 H (0.7-1.3) mg/dL Glucose 214 H 147 H (65-110) mg/dL Calcium 8.8 8.7 (8.4-10.2) mg/dL Adrenal panel 01/29/25 01/30/25 Range/Units 16:17 04:39 Sodium 136 L 138 (137-145) mmol/L Potassium 4.3 4.0 (3.4-5.0) mmol/L Chloride 103 102 (98-107) mmol/L Carbon Dioxide 25 29 (22-30) mmol/L BUN 40 H 42 H (9-20) mg/dL Creatinine 1.41 H 1.51 H (0.7-1.3) mg/dL Glucose 214 H 147 H (65-110) mg/dL Calcium 8.8 8.7 (8.4-10.2) mg/dL Total Bilirubin 0.6 (0.2-1.3) mg/dL AST 33 (17-59) U/L ALT 21 (6-50) U/L Alkaline Phosphatase 54 (38-126) U/L Total Protein 7.6 (6.3-8.2) g/dL Albumin 4.1 (3.5-5.1) g/dL All other labs normal. Imaging Abdomen CT scan report/results: report reviewed and image reviewed
[2025-01-30 14:00] VITALS: BP 131/57; PULSE 78; RESP 18; TEMP 36.6; O2SAT 95
--- NOTE | 2025-01-30 18:51 | WPDURCON ---
Assessment and Plan Assessment and plan (1) Hydronephrosis: Code(s): N13.30 - Unspecified hydronephrosis Status: Acute Assessment and Plan: Stable right hydronephrosis. Will review with my partners to see if he had work up in 2023 when the hydronephrosis was first noted. It does not appear to have changed. No plans for intervention at this time. Urology Consult Note HPI Date Seen: 01/30/25 Requesting Physician: Keny Kidd MD Primary Care Provider: Sanjeev Sainz MD Consult Narrative Narrative: Alex Thao Jr. is a 74 year old male who is admitted for intestinal obstruction. NGT is in place. Urology was called about right hydronephrosis. I reviewed his prior scans. The hydronephrosis is unchanged from a scan in February 2024. Mr. Thao states he has no flank pain and no voiding. It is not clear from the chart, or from his history, that he has had prior assessment for the hydronephrosis. He did have retention in September 2024, but states he has been voiding well since that time. [facility] Past Medical History Medical History Neuropathy of right lower extremity CKD stage 3b, GFR 30-44 ml/min Kidney stones BPH (benign prostatic hyperplasia) Diabetic peripheral neuropathy Type 2 diabetes mellitus with stage 3 chronic kidney disease Stage 3a chronic kidney disease (CKD) Incarcerated incisional hernia (~02/2023) SBO (small bowel obstruction) (~02/2023) Vitamin B12 deficiency Vitamin D deficiency Hypothyroidism Peripheral arterial disease Mildly diminished ankle-brachial index on the left 09/2022 History of colon polyps History of colon cancer (~03/1999) Stage IV at time of initial diagnosis in 1998 s/p partial colectomy currently in remission Dyslipidemia Essential (primary) hypertension HTN (hypertension) Surgical History Surgical History Status post cataract extraction of both eyes with insertion of intraocular lens History of incisional hernia repair (~03/2023) Open reducible incisional hernia repair with Ventralight ST mesh and extensive intra-abdominal adhesiolysis on 03/18/23 [facility]W History of hernia repair (~2020) Patient has had multiple ventral hernia repairs with most recent being March [address] Lu History of cholecystectomy (~2009) History of colon resection (~03/1999) History of appendectomy (~03/1999) Family History Family History Mother , Early 60s Hypertension Cerebrovascular accident Son , Mid 30s Acute myocardial infarction Grandparent Alcohol abuse Father , Mid 60s Lung cancer Heavy tobacco smoker Social History Social History Social History: Patient is been to his current for over 40 years. He has 2 biological children 1 of which in his mid 30s of heart disease. He has 2 step children. He is a lifelong nonsmoker and does not drink alcohol or use illicit substances. 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 Code status: Full code Surrogate decision maker: Caffeine-coffee Smoking status: Never smoker Alcohol intake: never Substance use: never Substance use type: does not use Do You Feel Safe in your Home?: Yes Lack of Transportation: No Lack of Food: Never True Current Housing: I Have Housing Concerned About Future Housing: No Difficulty Paying Gas/Electric Bills: No Difficulty Paying for Meds: No Currently Unemployed: No Education: Associate Degree Difficulty w/ Childcare or Family Care: No Living arrangements: with family Occupation/Education: retired Gender identity (if verbalized by the patient): Male Sexual Orientation (if Verbalized by the Patient): Straight or Heterosexual Spiritual care concerns: No Agree to blood products: Yes Meds Home Medications and Allergies Home Medications ?Medication ?Instructions ?Recorded ?Confirmed ?Type cholecalciferol (vitamin D3) 50 50 mcg PO DAILY #90 tabs 05/10/24 01/29/25 Rx mcg (2,000 unit) tablet ferrous sulfate 325 mg (65 mg 325 mg PO DAILY #90 tabs 09/16/24 01/29/25 Rx iron) tablet,delayed release aspirin 81 mg tablet,delayed 81 mg PO DAILY 09/19/24 01/29/25 History release lisinopril 5 mg tablet 5 mg PO DAILY #90 tabs 10/07/24 01/29/25 Rx carvedilol 6.25 mg tablet 6.25 mg PO BID #180 tabs 10/20/24 01/29/25 Rx tamsulosin 0.4 mg capsule 0.4 mg PO DAILY 10/20/24 01/29/25 History doxazosin 2 mg tablet (Cardura) 2 mg PO DAILY #90 tabs 11/22/24 01/29/25 Rx levothyroxine 50 mcg tablet 50 mcg PO DAILY #90 tabs 11/22/24 01/29/25 Rx glimepiride 1 mg tablet 1 mg PO QAM 12/01/24 01/29/25 History fenofibrate nanocrystallized 145 145 mg PO DAILY #90 tabs 12/15/24 01/29/25 Rx mg tablet pravastatin 40 mg tablet 40 mg PO QHS #90 tabs 12/15/24 01/29/25 Rx glimepiride 2 mg tablet 2 mg PO QAM #90 tabs 01/19/25 01/29/25 Rx furosemide 20 mg tablet 20 mg PO DAILY PRN edema 01/29/25 01/29/25 History Allergies Allergy/AdvReac Type Severity Reaction Status Date / Time codeine Allergy Severe Rash, Verified 01/29/25 22:33 vomiting meperidine (From Demerol) Allergy Severe Rash,vomiti Verified 01/29/25 22:33 ng dapagliflozin (From Farxiga) Allergy Mild genital Verified 01/29/25 22:33 abscess semaglutide (From Ozempic) Allergy Mild Hives Verified 01/29/25 22:33 amlodipine AdvReac Mild pedal edema Verified 01/29/25 22:33 diltiazem AdvReac Mild pedal edema Verified 01/29/25 22:33 gabapentin (From Neurontin) AdvReac Mild Dizziness Verified 01/29/25 22:14 metformin AdvReac Mild Diarrhea Verified 01/29/25 22:33 sitagliptin (From Januvia) AdvReac Mild abscess Verified 01/29/25 22:33 Vital Signs Vital Signs - 24 hr 01/29/25 19:00 01/29/25 19:01 01/29/25 19:15 Temperature Pulse Rate 90 90 91 Respiratory Rate 12 12 10 L Blood Pressure 132/71 Pulse Oximetry 98 97 94 Oxygen Delivery 01/29/25 19:30 01/29/25 19:31 01/29/25 19:45 Temperature Pulse Rate 93 91 92 Respiratory Rate 12 16 14 Blood Pressure 108/69 Pulse Oximetry 94 96 96 Oxygen Delivery 01/29/25 20:00 01/29/25 20:01 01/29/25 20:01 Temperature Pulse Rate 96 96 96 Respiratory Rate 19 15 15 Blood Pressure 147/71 H 147/71 H Pulse Oximetry 96 95 96 Oxygen Delivery 01/29/25 20:15 01/29/25 20:30 01/29/25 20:31 Temperature Pulse Rate 94 94 99 Respiratory Rate 10 L 17 16 Blood Pressure 136/60 Pulse Oximetry 93 98 94 Oxygen Delivery 01/29/25 20:45 01/29/25 21:00 01/29/25 21:01 Temperature Pulse Rate 107 H 97 96 Respiratory Rate 24 H 10 L 10 L Blood Pressure 123/64 Pulse Oximetry 93 92 Oxygen Delivery 01/29/25 21:40 01/29/25 23:41 01/30/25 03:54 Temperature 36.6 C 36.7 C 36.3 C L Pulse Rate 98 90 93 Respiratory Rate 20 18 17 Blood Pressure 121/68 106/56 L 103/51 L Pulse Oximetry 99 98 98 Oxygen Delivery 01/30/25 08:00 01/30/25 14:00 Temperature 36.6 C Pulse Rate 78 Respiratory Rate 18 Blood Pressure 131/57 L Pulse Oximetry 95 Oxygen Delivery Room Air Exam Narrative: resting comfortably with NGT in place Results Labs 01/30/25 04:39 01/30/25 04:39 Labs: Short CBC 01/30/25 Range/Units 04:39 WBC 13.0 H (4.5-10.0) K/mm3 Hgb 10.9 L (14.0-18.0) g/dL Hct 35.9 L (42.0-52.0) % Plt Count 228 (150-375) k/mm3 BMP 01/30/25 04:39 Sodium 138 Potassium 4.0 Chloride 102 Carbon Dioxide 29 BUN 42 H Creatinine 1.51 H Glucose 147 H Calcium 8.7 Imaging My impression: right hydronephrosis and hydroureter are stable compared to scan from February 2024
[2025-01-30 20:00] VITALS: BP 149/61; PULSE 84; RESP 20; TEMP 36.9; O2SAT 98
[2025-01-30 23:30] VITALS: BP 140/52; PULSE 79; RESP 18; TEMP 36.8; O2SAT 96
[2025-01-31] VITALS (7 sets, daily range): BP systolic 135–144; BP diastolic 65–71; PULSE 87–99; RESP 17–20; TEMP 35.8–36.7; O2SAT 96–100
[2025-01-31] MEDS: MORPHINE SULFATE (*CRX) 4 MG/ML INJ 2 MG IV PUSH ×2 (03:34→09:47)
[2025-01-31 04:57] LABS: Hematocrit 38.1 % (42.0-52.0); Hemoglobin 11.2 g/dL (14.0-18.0); Mean Corpuscular HGB Conc 29.4 g/dl (32-36); Mean Corpuscular Hemoglobin 29.5 pg (26-34); Mean Corpuscular Volume 100.3 fl (80-100); Platelet Count Result 206 k/mm3 (150-375); Red Blood Count 3.80 M/mm3 (4.6-6.20); White Blood Count 10.4 K/mm3 (4.5-10.0)
[2025-01-31 05:22] LABS: Alanine Aminotransferase 13 U/L (6-50); Albumin Level 3.3 g/dL (3.5-5.1); Alkaline Phosphatase 51 U/L (38-126); Anion Gap 8 mmol/L (4-12); Aspartate Amino Transferase 30 U/L (17-59); Bilirubin,Total 0.6 mg/dL (0.2-1.3); Blood Urea Nitrogen 39 mg/dL (9-20); Calcium 8.4 mg/dL (8.4-10.2); Carbon Dioxide 26 mmol/L (22-30); Chloride 107 mmol/L (98-107); Estimated CRCL calculation 47 ml/min; Estimated Glomerular Filt Rate 44; Glucose 83 mg/dL (65-110); Potassium 4.1 mmol/L (3.4-5.0); Sodium 141 mmol/L (137-145); Total Protein 6.3 g/dL (6.3-8.2)
[2025-01-31] MEDS: LEVOTHYROXINE SODIUM INJ 100 MCG/5 ML VIAL 25 MCG IV PUSH (05:57)
--- NOTE | 2025-01-31 07:12 | P.PNIM_ITS ---
Progress Note: A&P Assessment and Plan (1) Small bowel obstruction: Code(s): K56.609 - Unspecified intestinal obstruction, unspecified as to partial versus complete obstruction Status: Acute Assessment and Plan: Chest/abdomen/pelvis CTA: Small bowel obstruction Small bowel follow through: resolution of SBO Gentle IV fluid resuscitation, dc as long as tolerating diet P.r.n. Anti emetics Monitor I&Os, vital signs, neuro status and patient is a fall risk Monitor serum electrolytes and CBC Place NG tube for non operative management, NG tube to low intermittent suction General surgery consulted Remove NG tube and start diet (2) Hydronephrosis: Code(s): N13.30 - Unspecified hydronephrosis Status: Acute Assessment and Plan: Chest/abdomen/pelvis CTA: Right-sided hydronephrosis and hydroureter with distal stricture suspected. UA ordered, patient denies UTI like symptoms Urology consulted Right hydroureteronephrosis down to the level of the UVJ without clear stone or mass, stable dating back to 2023 Plan for Lasix renal scan to assess for obstruction Further management to be completed as outpatient pending results. If obstructed will plan for diagnostic URS with possible stent placement. (3) Essential (primary) hypertension: Code(s): I10 - Essential (primary) hypertension Status: Chronic Assessment and Plan: Chronic Resumed coreg 6.25 mg BID and lisinopril 5 mg daily P.r.n. hydralazine if needed Blood pressures reviewed and remain stable (4) Type 2 diabetes mellitus with stage 3 chronic kidney disease: Qualifiers: Chronic kidney disease stage 3 subtype: stage 3a (GFR 45-59) Diabetes mellitus chcf insulin use: without chcf use Qualified Code(s): E11.22 - Type 2 diabetes mellitus with diabetic chronic kidney disease; N18.31 - Chronic kidney disease, stage 3a Code(s): E11.22 - Type 2 diabetes mellitus with diabetic chronic kidney disease; N18.30 - Chronic kidney disease, stage 3 unspecified Status: Acute Assessment and Plan: - hypoglycemia protocol - POC blood glucose ACHS - home medication - glimepiride 1 mg daily, on hold - correct regimen ordered - low dose SSI - A1C 7.1 oon 09/18/2024 Diet resumed per surgery. Remains on D5NS at this time to ensure tolerating diet, once tolerating will DC. (5) Hypothyroidism: Qualifiers: Hypothyroidism type: acquired Qualified Code(s): E03.9 - Hypothyroidism, unspecified Code(s): E03.9 - Hypothyroidism, unspecified Status: Acute Assessment and Plan: Synthroid (6) Urinary retention due to benign prostatic hyperplasia: Code(s): N40.1 - Benign prostatic hyperplasia with lower urinary tract symptoms; R33.8 - Other retention of urine Status: Acute Assessment and Plan: Flomax Time Spent With Patient Time with patient: 25 - 35 minutes Subjective Date/time seen: 01/31/25 07:12 Interval history: 74-year-old man past medical history of CKD stage 3, BPH, diabetes, small-bowel obstructions, hypothyroidism, history of colon cancer and hypertension presents with abdominal pain, dizziness and shortness of breath. Patient is pleasant lying comfortably in bed with family at bedside. He states that the shortness of breath has completely resolved. He continues to endorse slight abdominal cramping relates this more to the ongoing diarrhea following the small-bowel follow-through. He denies any nausea/vomiting. Patient also denies any UTI like symptoms. He has no other complaints denying chest pain, palpitations. Review of Systems Review of Systems: All systems reviewed & are unremarkable except as noted in HPI and below Exam Narrative: AF HR 95 RR 17 Spo2 96 BP 137/68 General: male in no acute respiratory distress who is nontoxic appearing, lying semi recumbent in bed. HEENT: Normocephalic. Atraumatic. Extraocular movement intact. Sclera clear and anicteric. No facial asymmetry. Chest: Lungs are clear to auscultation bilaterally. No wheezes or crackles. CV: Heart was regular rate and rhythm. S1/S2. No murmurs, gallops, or rubs. Abd: Abdomen was soft. Nontender. Nondistended. Positive bowel sounds. Ext: No clubbing, cyanosis, or edema. DP pulses bilaterally. Neuro: Patient is alert. Speech is clear. Objective Data Vital Signs Vital Signs: Vital Signs - 24 hr 01/30/25 08:00 01/30/25 14:00 01/30/25 20:00 Temperature 98 F 98.4 F Pulse Rate 78 84 Respiratory Rate 18 20 Blood Pressure 131/57 L 149/61 H Pulse Oximetry 95 98 Oxygen Delivery Room Air 01/30/25 20:00 01/30/25 23:30 01/31/25 03:40 Temperature 98.2 F 98.1 F Pulse Rate 84 79 87 Respiratory Rate 20 18 20 Blood Pressure 140/52 L 137/70 Pulse Oximetry 98 96 100 Oxygen Delivery Room Air Intake/Output Intake/Output: Intake & Output 01/28/25 01/29/25 01/30/25 01/31/25 23:59 23:59 23:59 23:59 Intake Total 0 0 Output Total 1000 200 Balance -1000 -200 0 Meds/Results Medications: Active Medications Generic Name Dose Route Start Last Admin Trade Name Freq PRN Reason Stop Dose Admin Dextrose 12.5 gm 01/29/25 19:56 Dextrose 50% 25 Gm/50 Ml Syringe IV PUSH PRN PRN Hypoglycemia Protocol Enoxaparin Sodium 40 mg 01/30/25 09:00 01/30/25 09:01 Enoxaparin 40 Mg/0.4 Ml Syringe SUB-Q 40 mg DAILY BANDAR Administration Glucagon 1 mg 01/29/25 19:56 Glucagon For Inj 1 Mg Vial IM PRN PRN Hypoglycemia Protocol Glucose 15 gm 01/29/25 19:56 Glucose Oral Gel 15 Gm Of Glucse In 37.5 Gm Tube PO PRN PRN Hypoglycemia Protocol Hydralazine HCl 10 mg 01/29/25 22:30 Hydralazine Hcl 20 Mg/Ml Vial IV PUSH Q8H PRN Blood Pressure - High Dextrose 1,000 mls @ 100 mls/hr 01/29/25 19:56 Dextrose 5% 1,000 Ml IVPB PRN PRN Hypoglycemia Protocol Dextrose/Sodium Chloride 1,000 mls @ 35 mls/hr 01/29/25 22:15 01/29/25 22:39 Dextrose 5% Sodium Chloride 0.9% IV CONT 35 mls/hr .Q24H BANDAR Administration Insulin Aspart 2 - 5 units 01/30/25 00:00 01/31/25 06:00 Insulin Aspart (*Bkc) 100 Units/Ml SUB-Q Not Given Q6HR [facility] Protocol Ketorolac Tromethamine 15 mg 01/29/25 19:52 Ketorolac 15 Mg/Ml Vial (*Bkc) IV PUSH Q6H PRN Pain Rated 4-6 Levothyroxine Sodium 25 mcg 01/30/25 06:30 01/31/25 05:57 Levothyroxine Sodium Inj 100 Mcg/5 Ml Vial IV PUSH 25 mcg DAILY@0630 BANDAR Administration Morphine Sulfate 2 mg 01/29/25 19:52 01/31/25 03:34 Morphine Sulfate (*Crx) 4 Mg/Ml Inj IV PUSH 2 mg Q4H PRN Administration Pain Rated 7-10 Ondansetron HCl 4 mg 01/30/25 09:27 01/30/25 20:47 Ondansetron Inj 4 Mg/2 Ml Vial IV PUSH 4 mg Q6H PRN Administration Nausea And Vomiting Radiology Results: ITS Impressions Chest/Abdomen/Pelvis CTA 01/29/25 18:35 IMPRESSION: 1. Negative for dissection or aneurysm. 2. Small bowel obstruction 3. Right-sided hydronephrosis and hydroureter with distal stricture suspected. The differential includes a obstructing noncalcified calculus. Correlate with urinalysis. Ureteroscopy is suggested. 4. Incidental findings above Labs Labs: Laboratory Results - last 24 hr 01/30/25 01/30/25 01/30/25 12:54 18:56 20:28 WBC RBC Hgb Hct MCV MCH MCHC RDW Plt Count MPV Sodium Potassium Chloride Carbon Dioxide Anion Gap BUN Creatinine Estim Creat Clear Calc Estimated GFR Glucose POC Capillary Glucose 137 H 82 81 Calcium Total Bilirubin AST ALT Alkaline Phosphatase Total Protein Albumin 01/30/25 01/30/25 01/31/25 21:39 23:29 04:28 WBC 10.4 H RBC 3.80 L Hgb 11.2 L Hct 38.1 L MCV 100.3 H MCH 29.5 MCHC 29.4 L RDW 14.6 H Plt Count 206 MPV 10.7 H Sodium 141 Potassium 4.1 Chloride 107 Carbon Dioxide 26 Anion Gap 8 BUN 39 H Creatinine 1.56 H Estim Creat Clear Calc 47 Estimated GFR 44 L Glucose 83 POC Capillary Glucose 79 79 Calcium 8.4 Total Bilirubin 0.6 AST 30 ALT 13 Alkaline Phosphatase 51 Total Protein 6.3 Albumin 3.3 L 01/31/25 05:33 WBC RBC Hgb Hct MCV MCH MCHC RDW Plt Count MPV Sodium Potassium Chloride Carbon Dioxide Anion Gap BUN Creatinine Estim Creat Clear Calc Estimated GFR Glucose POC Capillary Glucose 86 Calcium Total Bilirubin AST ALT Alkaline Phosphatase Total Protein Albumin Quality VTE Prophylaxis VTE prophylaxis: mechanical ordered and pharmacologic ordered
[2025-01-31] MEDS: ONDANSETRON INJ 4 MG/2 ML VIAL IV PUSH (09:47)
--- NOTE | 2025-01-31 13:41 | WPDUROPN2 ---
Progress Note: A&P Assessment and Plan (1) Hydronephrosis: Qualifiers: Hydronephrosis type: unspecified Qualified Code(s): N13.30 - Unspecified hydronephrosis Code(s): N13.30 - Unspecified hydronephrosis Status: Acute Assessment and Plan: - Right hydroureteronephrosis down to the level of the UVJ without clear stone or mass - This has been present and stable dating back to 2023; creat stable at 1.5 - Plan for Lasix renal scan to assess for obstruciton - Further management to be completed as outpatient pending results. If obstructed will plan for diagnostic URS with possible stent placement. Subjective Subjective Date/Time Seen: 01/31/25 13:41 Interval history: NAEO; resting comfortably on bedside commode. No voiding complaints. Exam Const: General: comfortable and no acute distress HENMT: Face/Nose/Sinus: Normal nares present Resp: Effort & Inspection: normal respiratory effort Skin: General skin exam: normal color and no rashes or lesions noted Neuro: General: gait normal Extrem: General: normal to inspection Psych: Mental Status: mental status grossly normal Objective Data Vital Signs Vital Signs: Vital Signs - 24 hr 01/30/25 14:00 01/30/25 20:00 01/30/25 20:00 Temperature 36.6 C 36.9 C Pulse Rate 78 84 84 Respiratory Rate 18 20 20 Blood Pressure 131/57 L 149/61 H Pulse Oximetry 95 98 98 Oxygen Delivery Room Air 01/30/25 23:30 01/31/25 03:40 01/31/25 08:00 Temperature 36.8 C 36.7 C Pulse Rate 79 87 Respiratory Rate 18 20 Blood Pressure 140/52 L 137/70 Pulse Oximetry 96 100 Oxygen Delivery Room Air 01/31/25 12:00 Temperature 36.4 C Pulse Rate 99 Respiratory Rate 18 Blood Pressure 144/65 H Pulse Oximetry 100 Oxygen Delivery Intake/Output Intake/Output: Intake & Output 01/28/25 01/29/25 01/30/25 01/31/25 23:59 23:59 23:59 23:59 Intake Total 0 0 Output Total 1000 200 900 Balance -1000 -200 -900 Meds/Results Medications: Active Medications Generic Name Dose Route Start Last Admin Trade Name Freq PRN Reason Stop Dose Admin Dextrose 12.5 gm 01/29/25 19:56 Dextrose 50% 25 Gm/50 Ml Syringe IV PUSH PRN PRN Hypoglycemia Protocol Dextrose 12.5 gm 01/31/25 07:29 Dextrose 50% 25 Gm/50 Ml Syringe IV PUSH PRN PRN Hypoglycemia Protocol Enoxaparin Sodium 40 mg 01/30/25 09:00 01/31/25 08:51 Enoxaparin 40 Mg/0.4 Ml Syringe SUB-Q Not Given DAILY BANDAR Glucagon 1 mg 01/29/25 19:56 Glucagon For Inj 1 Mg Vial IM PRN PRN Hypoglycemia Protocol Glucagon 1 mg 01/31/25 07:29 Glucagon For Inj 1 Mg Vial IM PRN PRN Hypoglycemia Protocol Glucose 15 gm 01/29/25 19:56 Glucose Oral Gel 15 Gm Of Glucse In 37.5 Gm Tube PO PRN PRN Hypoglycemia Protocol Glucose 15 gm 01/31/25 07:29 Glucose Oral Gel 15 Gm Of Glucse In 37.5 Gm Tube PO PRN PRN Hypoglycemia Protocol Hydralazine HCl 10 mg 01/29/25 22:30 Hydralazine Hcl 20 Mg/Ml Vial IV PUSH Q8H PRN Blood Pressure - High Dextrose 1,000 mls @ 100 mls/hr 01/29/25 19:56 Dextrose 5% 1,000 Ml IVPB PRN PRN Hypoglycemia Protocol Dextrose/Sodium Chloride 1,000 mls @ 35 mls/hr 01/29/25 22:15 01/31/25 10:29 Dextrose 5% Sodium Chloride 0.9% IV CONT Not Given .Q24H BANDAR Dextrose 1,000 mls @ 100 mls/hr 01/31/25 07:29 Dextrose 5% 1,000 Ml IVPB PRN PRN Hypoglycemia Protocol Insulin Aspart 2 - 5 units 01/30/25 00:00 01/31/25 12:10 Insulin Aspart (*Bkc) 100 Units/Ml SUB-Q Not Given Q6HR [facility] Protocol Ketorolac Tromethamine 15 mg 01/29/25 19:52 Ketorolac 15 Mg/Ml Vial (*Bkc) IV PUSH Q6H PRN Pain Rated 4-6 Levothyroxine Sodium 25 mcg 01/30/25 06:30 01/31/25 05:57 Levothyroxine Sodium Inj 100 Mcg/5 Ml Vial IV PUSH 25 mcg DAILY@0630 [facility] Administration Morphine Sulfate 2 mg 01/29/25 19:52 01/31/25 09:47 Morphine Sulfate (*Crx) 4 Mg/Ml Inj IV PUSH 2 mg Q4H PRN Administration Pain Rated 7-10 Ondansetron HCl 4 mg 01/30/25 09:27 01/31/25 09:47 Ondansetron Inj 4 Mg/2 Ml Vial IV PUSH 4 mg Q6H PRN Administration Nausea And Vomiting Radiology Results: ITS Impressions Chest/Abdomen/Pelvis CTA 01/29/25 18:35 IMPRESSION: 1. Negative for dissection or aneurysm. 2. Small bowel obstruction 3. Right-sided hydronephrosis and hydroureter with distal stricture suspected. The differential includes a obstructing noncalcified calculus. Correlate with urinalysis. Ureteroscopy is suggested. 4. Incidental findings above Small Bowel X-Ray 01/31/25 11:09 IMPRESSION: 1. Postoperative changes of prior cholecystectomy and right hemicolectomy with right lower quadrant ileocolic anastomosis. 2. Resolution of prior small bowel obstruction with contrast passing beyond the ileocolic anastomosis by 1 hour and with normal caliber of the small bowel. Labs Labs: Laboratory Results - last 24 hr 01/30/25 01/30/25 01/30/25 18:56 20:28 21:39 WBC RBC Hgb Hct MCV MCH MCHC RDW Plt Count MPV Sodium Potassium Chloride Carbon Dioxide Anion Gap BUN Creatinine Estim Creat Clear Calc Estimated GFR Glucose POC Capillary Glucose 82 81 79 Calcium Total Bilirubin AST ALT Alkaline Phosphatase Total Protein Albumin 01/30/25 01/31/25 01/31/25 23:29 04:28 05:33 WBC 10.4 H RBC 3.80 L Hgb 11.2 L Hct 38.1 L MCV 100.3 H MCH 29.5 MCHC 29.4 L RDW 14.6 H Plt Count 206 MPV 10.7 H Sodium 141 Potassium 4.1 Chloride 107 Carbon Dioxide 26 Anion Gap 8 BUN 39 H Creatinine 1.56 H Estim Creat Clear Calc 47 Estimated GFR 44 L Glucose 83 POC Capillary Glucose 79 86 Calcium 8.4 Total Bilirubin 0.6 AST 30 ALT 13 Alkaline Phosphatase 51 Total Protein 6.3 Albumin 3.3 L 01/31/25 11:54 WBC RBC Hgb Hct MCV MCH MCHC RDW Plt Count MPV Sodium Potassium Chloride Carbon Dioxide Anion Gap BUN Creatinine Estim Creat Clear Calc Estimated GFR Glucose POC Capillary Glucose 142 H Calcium Total Bilirubin AST ALT Alkaline Phosphatase Total Protein Albumin
--- NOTE | 2025-01-31 15:01 | P.PNGS_ITS ---
Progress Note: A&P Assessment and Plan (1) Small bowel obstruction: Code(s): K56.609 - Unspecified intestinal obstruction, unspecified as to partial versus complete obstruction Status: Acute Assessment and Plan: resolved, SBS unremarkable, will remove NG and start diet, ok to dc home from surgical standpoint if clinton diet Subjective Subjective Date/Time Seen: 01/31/25 15:01 Interval history: feels much better, having multiple BMs after SBS Review of Systems Review of Systems: All systems reviewed & are unremarkable except as noted in HPI and below Exam Const: General: cooperative, comfortable and no acute distress Resp: Auscultation: clear to auscultation bilaterally Cardio: Rate: regular rate Rhythm: regular rhythm GI: Inspection: normal to inspection and non-distended GI Palp: No abdominal tenderness and Yes Soft to palpation Objective Data Vital Signs Vital Signs: Vital Signs - 24 hr 01/30/25 20:00 01/30/25 20:00 01/30/25 23:30 Temperature 36.9 C 36.8 C Pulse Rate 84 84 79 Respiratory Rate 20 20 18 Blood Pressure 149/61 H 140/52 L Pulse Oximetry 98 98 96 Oxygen Delivery Room Air 01/31/25 03:40 01/31/25 08:00 01/31/25 12:00 Temperature 36.7 C 36.4 C Pulse Rate 87 99 Respiratory Rate 20 18 Blood Pressure 137/70 144/65 H Pulse Oximetry 100 100 Oxygen Delivery Room Air 01/31/25 13:56 Temperature 35.8 C L Pulse Rate 95 Respiratory Rate 17 Blood Pressure 137/68 Pulse Oximetry 96 Oxygen Delivery Intake/Output Intake/Output: Intake & Output 01/28/25 01/29/25 01/30/25 01/31/25 23:59 23:59 23:59 23:59 Intake Total 0 0 Output Total 1000 200 900 Balance -1000 -200 -900 Meds/Results Medications: Active Medications Generic Name Dose Route Start Last Admin Trade Name Freq PRN Reason Stop Dose Admin Dextrose 12.5 gm 01/29/25 19:56 Dextrose 50% 25 Gm/50 Ml Syringe IV PUSH PRN PRN Hypoglycemia Protocol Dextrose 12.5 gm 01/31/25 07:29 Dextrose 50% 25 Gm/50 Ml Syringe IV PUSH PRN PRN Hypoglycemia Protocol Enoxaparin Sodium 40 mg 01/30/25 09:00 01/31/25 08:51 Enoxaparin 40 Mg/0.4 Ml Syringe SUB-Q Not Given DAILY [facility] Glucagon 1 mg 01/29/25 19:56 Glucagon For Inj 1 Mg Vial IM PRN PRN Hypoglycemia Protocol Glucagon 1 mg 01/31/25 07:29 Glucagon For Inj 1 Mg Vial IM PRN PRN Hypoglycemia Protocol Glucose 15 gm 01/29/25 19:56 Glucose Oral Gel 15 Gm Of Glucse In 37.5 Gm Tube PO PRN PRN Hypoglycemia Protocol Glucose 15 gm 01/31/25 07:29 Glucose Oral Gel 15 Gm Of Glucse In 37.5 Gm Tube PO PRN PRN Hypoglycemia Protocol Hydralazine HCl 10 mg 01/29/25 22:30 Hydralazine Hcl 20 Mg/Ml Vial IV PUSH Q8H PRN Blood Pressure - High Dextrose 1,000 mls @ 100 mls/hr 01/29/25 19:56 Dextrose 5% 1,000 Ml IVPB PRN PRN Hypoglycemia Protocol Dextrose/Sodium Chloride 1,000 mls @ 35 mls/hr 01/29/25 22:15 01/31/25 10:29 Dextrose 5% Sodium Chloride 0.9% IV CONT Not Given .Q24H [facility] Dextrose 1,000 mls @ 100 mls/hr 01/31/25 07:29 Dextrose 5% 1,000 Ml IVPB PRN PRN Hypoglycemia Protocol Insulin Aspart 2 - 5 units 01/30/25 00:00 01/31/25 12:10 Insulin Aspart (*Bkc) 100 Units/Ml SUB-Q Not Given Q6HR [facility] Protocol Ketorolac Tromethamine 15 mg 01/29/25 19:52 Ketorolac 15 Mg/Ml Vial (*Bkc) IV PUSH Q6H PRN Pain Rated 4-6 Levothyroxine Sodium 25 mcg 01/30/25 06:30 01/31/25 05:57 Levothyroxine Sodium Inj 100 Mcg/5 Ml Vial IV PUSH 25 mcg DAILY@0630 [facility] Administration Morphine Sulfate 2 mg 01/29/25 19:52 01/31/25 09:47 Morphine Sulfate (*Crx) 4 Mg/Ml Inj IV PUSH 2 mg Q4H PRN Administration Pain Rated 7-10 Ondansetron HCl 4 mg 01/30/25 09:27 01/31/25 09:47 Ondansetron Inj 4 Mg/2 Ml Vial IV PUSH 4 mg Q6H PRN Administration Nausea And Vomiting Radiology Results: ITS Impressions Chest/Abdomen/Pelvis CTA 01/29/25 18:35 IMPRESSION: 1. Negative for dissection or aneurysm. 2. Small bowel obstruction 3. Right-sided hydronephrosis and hydroureter with distal stricture suspected. The differential includes a obstructing noncalcified calculus. Correlate with urinalysis. Ureteroscopy is suggested. 4. Incidental findings above Small Bowel X-Ray 01/31/25 11:09 IMPRESSION: 1. Postoperative changes of prior cholecystectomy and right hemicolectomy with right lower quadrant ileocolic anastomosis. 2. Resolution of prior small bowel obstruction with contrast passing beyond the ileocolic anastomosis by 1 hour and with normal caliber of the small bowel. Labs Labs: Laboratory Results - last 24 hr 01/30/25 01/30/25 01/30/25 18:56 20:28 21:39 WBC RBC Hgb Hct MCV MCH MCHC RDW Plt Count MPV Sodium Potassium Chloride Carbon Dioxide Anion Gap BUN Creatinine Estim Creat Clear Calc Estimated GFR Glucose POC Capillary Glucose 82 81 79 Calcium Total Bilirubin AST ALT Alkaline Phosphatase Total Protein Albumin 01/30/25 01/31/25 01/31/25 23:29 04:28 05:33 WBC 10.4 H RBC 3.80 L Hgb 11.2 L Hct 38.1 L MCV 100.3 H MCH 29.5 MCHC 29.4 L RDW 14.6 H Plt Count 206 MPV 10.7 H Sodium 141 Potassium 4.1 Chloride 107 Carbon Dioxide 26 Anion Gap 8 BUN 39 H Creatinine 1.56 H Estim Creat Clear Calc 47 Estimated GFR 44 L Glucose 83 POC Capillary Glucose 79 86 Calcium 8.4 Total Bilirubin 0.6 AST 30 ALT 13 Alkaline Phosphatase 51 Total Protein 6.3 Albumin 3.3 L 01/31/25 11:54 WBC RBC Hgb Hct MCV MCH MCHC RDW Plt Count MPV Sodium Potassium Chloride Carbon Dioxide Anion Gap BUN Creatinine Estim Creat Clear Calc Estimated GFR Glucose POC Capillary Glucose 142 H Calcium Total Bilirubin AST ALT Alkaline Phosphatase Total Protein Albumin
[2025-01-31 15:44] LABS: Add Urine Microscopic? YES; Appearance Urine Turbid (Clear); Glucose Urine UA Trace mg/dL (Negative); Leukocyte Esterase Ur 3+ LEU/UL (Negative); Need Manual Microscopic Reviewed; Nitrate Urine Negative (Negative); Specific Grav Ur 1.036 (1.001-1.035)
[2025-01-31] MEDS: PRAVASTATIN SODIUM 20 MG TABLET 40 MG PO (20:51)
[2025-02-01] VITALS (7 sets, daily range): BP systolic 117–134; BP diastolic 44–56; PULSE 63–84; RESP 17–18; TEMP 36.3–36.7; O2SAT 95–100
[2025-02-01 05:15] LABS: Hematocrit 33.0 % (42.0-52.0); Hemoglobin 10.1 g/dL (14.0-18.0); Mean Corpuscular HGB Conc 30.6 g/dl (32-36); Mean Corpuscular Hemoglobin 29.5 pg (26-34); Mean Corpuscular Volume 96.5 fl (80-100); Platelet Count Result 213 k/mm3 (150-375); Red Blood Count 3.42 M/mm3 (4.6-6.20); White Blood Count 9.6 K/mm3 (4.5-10.0)
[2025-02-01 05:32] LABS: Alanine Aminotransferase 15 U/L (6-50); Albumin Level 3.2 g/dL (3.5-5.1); Alkaline Phosphatase 55 U/L (38-126); Anion Gap 6 mmol/L (4-12); Aspartate Amino Transferase 31 U/L (17-59); Bilirubin,Total 0.5 mg/dL (0.2-1.3); Blood Urea Nitrogen 40 mg/dL (9-20); Calcium 8.2 mg/dL (8.4-10.2); Carbon Dioxide 29 mmol/L (22-30); Chloride 104 mmol/L (98-107); Estimated CRCL calculation 47 ml/min; Estimated Glomerular Filt Rate 44; Glucose 109 mg/dL (65-110); Potassium 3.5 mmol/L (3.4-5.0); Sodium 139 mmol/L (137-145); Total Protein 6.1 g/dL (6.3-8.2)
[2025-02-01] MEDS: LEVOTHYROXINE SODIUM 50 MCG TABLET PO (06:25)
--- NOTE | 2025-02-01 07:06 | P.PNIM_ITS ---
Progress Note: A&P Assessment and Plan (1) Small bowel obstruction: Code(s): K56.609 - Unspecified intestinal obstruction, unspecified as to partial versus complete obstruction Status: Acute Assessment and Plan: Chest/abdomen/pelvis CTA: Small bowel obstruction Small bowel follow through: resolution of SBO Diet resumed per surgery. P.r.n. Anti emetics Monitor I&Os, vital signs, neuro status and patient is a fall risk Monitor serum electrolytes and CBC General surgery consulted Remove NG tube and start diet (2) Hydronephrosis: Qualifiers: Hydronephrosis type: unspecified Qualified Code(s): N13.30 - Unspecified hydronephrosis Code(s): N13.30 - Unspecified hydronephrosis Status: Acute Assessment and Plan: Chest/abdomen/pelvis CTA: Right-sided hydronephrosis and hydroureter with distal stricture suspected. UA concerning for acute infection, denies UTI like symptoms UC obtained on 01/31 Started on Urology consulted Right hydroureteronephrosis down to the level of the UVJ without clear stone or mass, stable dating back to 2023 Plan for Lasix renal scan to assess for obstruction Further management to be completed as outpatient pending results. If obstructed will plan for diagnostic URS with possible stent placement. (3) Essential (primary) hypertension: Code(s): I10 - Essential (primary) hypertension Status: Chronic Assessment and Plan: Chronic Resumed coreg 6.25 mg BID and lisinopril 5 mg daily P.r.n. 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 mellitus extermination inspector insulin use: without group home use Chronic kidney disease stage 3 subtype: stage 3a (GFR 45-59) Qualified Code(s): E11.22 - Type 2 diabetes mellitus with diabetic chronic kidney disease; N18.31 - Chronic kidney disease, stage 3a Code(s): E11.22 - Type 2 diabetes mellitus with diabetic chronic kidney disease; N18.30 - Chronic kidney disease, stage 3 unspecified Status: Acute Assessment and Plan: - hypoglycemia protocol - POC blood glucose ACHS - home medication - glimepiride 1 mg daily, on hold - correct regimen ordered - low dose SSI - A1C 7.1 on 09/18/2024 (5) Hypothyroidism: Qualifiers: Hypothyroidism type: acquired Qualified Code(s): E03.9 - Hypothyroidism, unspecified Code(s): E03.9 - Hypothyroidism, unspecified Status: Acute Assessment and Plan: Synthroid (6) Urinary retention due to benign prostatic hyperplasia: Code(s): N40.1 - Benign prostatic hyperplasia with lower urinary tract symptoms; R33.8 - Other retention of urine Status: Acute Assessment and Plan: Flomax Time Spent With Patient Time with patient: 25 - 35 minutes Subjective Date/time seen: 02/01/25 07:06 Interval history: 74-year-old man past medical history of CKD stage 3, BPH, diabetes, small-bowel obstructions, hypothyroidism, history of colon cancer and hypertension presents with abdominal pain, dizziness and shortness of breath. Review of Systems Review of Systems: All systems reviewed & are unremarkable except as noted in HPI and below Exam Narrative: AF HR General: male in no acute respiratory distress who is nontoxic appearing, lying semi recumbent in bed. HEENT: Normocephalic. Atraumatic. Extraocular movement intact. Sclera clear and anicteric. No facial asymmetry. Chest: Lungs are clear to auscultation bilaterally. No wheezes or crackles. CV: Heart was regular rate and rhythm. S1/S2. No murmurs, gallops, or rubs. Abd: Abdomen was soft. Nontender. Nondistended. Positive bowel sounds. Ext: No clubbing, cyanosis, or edema. DP pulses bilaterally. Neuro: Patient is alert. Speech is clear. Objective Data Vital Signs Vital Signs: Vital Signs - 24 hr 01/31/25 08:00 01/31/25 12:00 01/31/25 13:56 Temperature 97.6 F 96.4 F L Pulse Rate 99 95 Respiratory Rate 18 17 Blood Pressure 144/65 H 137/68 Pulse Oximetry 100 96 Oxygen Delivery Room Air 01/31/25 15:31 01/31/25 20:00 01/31/25 20:00 Temperature 97.4 F L 97.7 F Pulse Rate 95 92 Respiratory Rate 17 18 Blood Pressure 139/71 135/68 Pulse Oximetry 98 100 Oxygen Delivery Room Air 01/31/25 20:52 01/31/25 22:00 02/01/25 00:00 Temperature 97.7 F 98.0 F Pulse Rate 92 92 80 Respiratory Rate 18 18 Blood Pressure 135/68 120/46 L Pulse Oximetry 100 98 Oxygen Delivery 02/01/25 04:00 02/01/25 06:00 Temperature 97.4 F L 97.5 F L Pulse Rate 63 65 Respiratory Rate 18 18 Blood Pressure 120/44 L 117/46 L Pulse Oximetry 96 95 Oxygen Delivery Intake/Output Intake/Output: Intake & Output 01/29/25 01/30/25 01/31/25 02/01/25 23:59 23:59 23:59 23:59 Intake Total 0 1344 Output Total 1000 200 900 Balance -1000 -200 444 Meds/Results Medications: Active Medications Generic Name Dose Route Start Last Admin Trade Name Freq PRN Reason Stop Dose Admin Aspirin 81 mg 02/01/25 09:00 Aspirin 81 Mg Enteric Tablet PO DAILY [facility] Carvedilol 6.25 mg 01/31/25 21:00 01/31/25 20:52 Carvedilol 6.25 Mg Tablet PO 6.25 mg Q12HR [facility] Administration Dextrose 12.5 gm 01/31/25 07:29 Dextrose 50% 25 Gm/50 Ml Syringe IV PUSH PRN PRN Hypoglycemia Protocol Doxazosin Mesylate 2 mg 02/01/25 09:00 Doxazosin Mesylate 2 Mg Tablet PO DAILY [facility] Enoxaparin Sodium 40 mg 01/30/25 09:00 01/31/25 08:51 Enoxaparin 40 Mg/0.4 Ml Syringe SUB-Q Not Given DAILY [facility] Fenofibrate 145 mg 02/01/25 09:00 Fenofibrate 145 Mg Tablet PO DAILY [facility] Ferrous Sulfate 325 mg 02/01/25 09:00 Ferrous Sulfate 325 Mg Tablet PO DAILY [facility] Furosemide 20 mg 01/31/25 15:11 Furosemide 20 Mg Tablet PO DAILY PRN Edema Furosemide 40 mg 02/01/25 09:00 Furosemide Inj 40 Mg/4 Ml Vial IV PUSH 02/01/25 09:01 ONCE ONE Glucagon 1 mg 01/31/25 07:29 Glucagon For Inj 1 Mg Vial IM PRN PRN Hypoglycemia Protocol Glucose 15 gm 01/31/25 07:29 Glucose Oral Gel 15 Gm Of Glucse In 37.5 Gm Tube PO PRN PRN Hypoglycemia Protocol Hydralazine HCl 10 mg 01/29/25 22:30 Hydralazine Hcl 20 Mg/Ml Vial IV PUSH Q8H PRN Blood Pressure - High Dextrose 1,000 mls @ 100 mls/hr 01/31/25 07:29 Dextrose 5% 1,000 Ml IVPB PRN PRN Hypoglycemia Protocol Insulin Aspart 2 - 5 units 01/31/25 16:30 02/01/25 06:28 Insulin Aspart (*Bkc) 100 Units/Ml SUB-Q Not Given ACHS [facility] Protocol Ketorolac Tromethamine 15 mg 01/29/25 19:52 Ketorolac 15 Mg/Ml Vial (*Bkc) IV PUSH Q6H PRN Pain Rated 4-6 Levothyroxine Sodium 50 mcg 02/01/25 06:30 02/01/25 06:25 Levothyroxine Sodium 50 Mcg Tablet PO 50 mcg DAILY@0630 [facility] Administration Lisinopril 5 mg 02/01/25 09:00 Lisinopril 5 Mg Tablet PO DAILY [facility] Morphine Sulfate 2 mg 01/29/25 19:52 01/31/25 09:47 Morphine Sulfate (*Crx) 4 Mg/Ml Inj IV PUSH 2 mg Q4H PRN Administration Pain Rated 7-10 Ondansetron HCl 4 mg 01/30/25 09:27 01/31/25 09:47 Ondansetron Inj 4 Mg/2 Ml Vial IV PUSH 4 mg Q6H PRN Administration Nausea And Vomiting Pravastatin Sodium 40 mg 01/31/25 21:00 01/31/25 20:51 Pravastatin Sodium 20 Mg Tablet PO [address] [facility] Administration Tamsulosin HCl 0.4 mg 02/01/25 09:00 Tamsulosin Hcl 0.[address]aps[address] PO [address] [facility] Vitamin D 50 mcg 02/01/25 09:00 Cholecalciferol (Vitamin D3) 25 Mcg (1,000 Units) Tablet PO DAILY [facility] Radiology Results: ITS Impressions Chest/Abdomen/Pelvis CTA 01/29/25 18:35 IMPRESSION: 1. Negative for dissection or aneurysm. 2. Small bowel obstruction 3. Right-sided hydronephrosis and hydroureter with distal stricture suspected. The differential includes a obstructing noncalcified calculus. Correlate with urinalysis. Ureteroscopy is suggested. 4. Incidental findings above Small Bowel X-Ray 01/31/25 11:09 IMPRESSION: 1. Postoperative changes of prior cholecystectomy and right hemicolectomy with right lower quadrant ileocolic anastomosis. 2. Resolution of prior small bowel obstruction with contrast passing beyond the ileocolic anastomosis by 1 hour and with normal caliber of the small bowel. Labs Labs: Laboratory Results - last 24 hr 01/31/25 01/31/25 01/31/25 11:54 15:14 17:14 WBC RBC Hgb Hct MCV MCH MCHC RDW Plt Count MPV Sodium Potassium Chloride Carbon Dioxide Anion Gap BUN Creatinine Estim Creat Clear Calc Estimated GFR Glucose POC Capillary Glucose 142 H 152 H Calcium Total Bilirubin AST ALT Alkaline Phosphatase Total Protein Albumin Urine Color Dark yellow Urine Appearance Turbid H Urine pH 5.0 Ur Specific [place] 1.036 H Urine Protein 4+ H Urine Glucose (UA) Trace H Urine Ketones 1+ H Ur Blood (Man) 3+ H Urine Nitrate Negative Urine Bilirubin Negative Urine Urobilinogen 1.0 Add Ur Microanalysis Reviewed Leukocyte Esterase Rfl 3+ H Urine RBC 6-10 H Urine WBC >100 H Ur Squamous Epith Cells Few Urine Bacteria 4+ H Urine Casts 11-20 01/31/25 02/01/25 02/01/25 20:52 04:30 06:27 WBC 9.6 RBC 3.42 L Hgb 10.1 L Hct 33.0 L MCV 96.5 MCH 29.5 MCHC 30.6 L RDW 14.3 Plt Count 213 MPV 11.0 H Sodium 139 Potassium 3.5 Chloride 104 Carbon Dioxide 29 Anion Gap 6 BUN 40 H Creatinine 1.55 H Estim Creat Clear Calc 47 Estimated GFR 44 L Glucose 109 POC Capillary Glucose 143 H 115 H Calcium 8.2 L Total Bilirubin 0.5 AST 31 ALT 15 Alkaline Phosphatase 55 Total Protein 6.1 L Albumin 3.2 L Urine Color Urine Appearance Urine pH Ur Specific [place] Urine Protein Urine Glucose (UA) Urine Ketones Ur Blood (Man) Urine Nitrate Urine Bilirubin Urine Urobilinogen Add Ur Microanalysis Leukocyte Esterase Rfl Urine RBC Urine WBC Ur Squamous Epith Cells Urine Bacteria Urine Casts Quality VTE Prophylaxis VTE prophylaxis: mechanical ordered and pharmacologic ordered
[2025-02-01] MEDS: TAMSULOSIN HCL 0.4 MG CAPSULE PO (08:45)
[2025-02-01] MEDS: FENOFIBRATE 145 MG TABLET PO (08:46)
[2025-02-01] MEDS: DOXAZOSIN MESYLATE 2 MG TABLET PO (08:46)
[2025-02-01] MEDS: FERROUS SULFATE 325 MG TABLET PO (08:46)
[2025-02-01] MEDS: CHOLECALCIFEROL (VITAMIN D3) 25 MCG (1,000 UNITS) TABLET 50 MCG PO (08:46)
[2025-02-01] MEDS: ASPIRIN 81 MG ENTERIC TABLET PO (08:47)
[2025-02-01] MEDS: ENOXAPARIN 40 MG/0.4 ML SYRINGE SUB-Q (08:47)
--- NOTE | 2025-02-01 08:55 | P.PNUR_ITS ---
Progress Note: A&P Assessment and Plan (1) Hydronephrosis: Qualifiers: Hydronephrosis type: unspecified Qualified Code(s): N13.30 - Unspecified hydronephrosis Code(s): N13.30 - Unspecified hydronephrosis Status: Acute Assessment and Plan: - LRS planned today - Following scan, pt OK to be discharged from perspective. - Will arrange follow up in outpatient clinic and plan for review at that time. Subjective Subjective Date/Time Seen: 02/01/25 08:55 Interval history: NAEO; pt resting comfortably in bed. No complaints this AM. Exam Const: General: comfortable and no acute distress Eyes: General: appearance normal, both eyes and all related structures Resp: Effort & Inspection: normal respiratory effort Skin: General skin exam: normal color and no rashes or lesions noted Extrem: General: normal to inspection Psych: Mental Status: mental status grossly normal Objective Data Vital Signs Vital Signs: Vital Signs - 24 hr 01/31/25 12:00 01/31/25 13:56 01/31/25 15:31 Temperature 36.4 C 35.8 C L 36.3 C L Pulse Rate 99 95 95 Respiratory Rate 18 17 17 Blood Pressure 144/65 H 137/68 139/71 Pulse Oximetry 100 96 98 Oxygen Delivery 01/31/25 20:00 01/31/25 20:00 01/31/25 20:52 Temperature 36.5 C Pulse Rate 92 92 Respiratory Rate 18 Blood Pressure 135/68 Pulse Oximetry 100 Oxygen Delivery Room Air 01/31/25 22:00 02/01/25 00:00 02/01/25 04:00 Temperature 36.5 C 36.7 C 36.3 C L Pulse Rate 92 80 63 Respiratory Rate 18 18 18 Blood Pressure 135/68 120/46 L 120/44 L Pulse Oximetry 100 98 96 Oxygen Delivery 02/01/25 06:00 02/01/25 08:47 Temperature 36.4 C L Pulse Rate 65 82 Respiratory Rate 18 Blood Pressure 117/46 L Pulse Oximetry 95 Oxygen Delivery Intake/Output Intake/Output: Intake & Output 01/29/25 01/30/25 01/31/25 02/01/25 23:59 23:59 23:59 23:59 Intake Total 0 1344 344 Output Total 1000 200 900 Balance -1000 -200 444 344 Meds/Results Medications: Active Medications Generic Name Dose Route Start Last Admin Trade Name Yunierq PRN Reason Stop Dose Admin Aspirin 81 mg 02/01/25 09:00 02/01/25 08:47 Aspirin 81 Mg Enteric Tablet PO 81 mg DAILY [facility] Administration Carvedilol 6.25 mg 01/31/25 21:00 02/01/25 08:47 Carvedilol 6.25 Mg Tablet PO 6.25 mg Q12HR [facility] Administration Dextrose 12.5 gm 01/31/25 07:29 Dextrose 50% 25 Gm/50 Ml Syringe IV PUSH PRN PRN Hypoglycemia Protocol Doxazosin Mesylate 2 mg 02/01/25 09:00 02/01/25 08:46 Doxazosin Mesylate 2 Mg Tablet PO 2 mg DAILY [facility] Administration Enoxaparin Sodium 40 mg 01/30/25 09:00 02/01/25 08:47 Enoxaparin 40 Mg/0.4 Ml Syringe SUB-Q 40 mg DAILY [facility] Administration Fenofibrate 145 mg 02/01/25 09:00 02/01/25 08:46 Fenofibrate 145 Mg Tablet PO 145 mg DAILY [facility] Administration Ferrous Sulfate 325 mg 02/01/25 09:00 02/01/25 08:46 Ferrous Sulfate 325 Mg Tablet PO 325 mg DAILY [facility] Administration Furosemide 20 mg 01/31/25 15:11 Furosemide 20 Mg Tablet PO DAILY PRN Edema Furosemide 40 mg 02/01/25 09:00 Furosemide Inj 40 Mg/4 Ml Vial IV PUSH 02/01/25 09:01 ONCE ONE Glucagon 1 mg 01/31/25 07:29 Glucagon For Inj 1 Mg Vial IM PRN PRN Hypoglycemia Protocol Glucose 15 gm 01/31/25 07:29 Glucose Oral Gel 15 Gm Of Glucse In 37.5 Gm Tube PO PRN PRN Hypoglycemia Protocol Hydralazine HCl 10 mg 01/29/25 22:30 Hydralazine Hcl 20 Mg/Ml Vial IV PUSH Q8H PRN Blood Pressure - High Dextrose 1,000 mls @ 100 mls/hr 01/31/25 07:29 Dextrose 5% 1,000 Ml IVPB PRN PRN Hypoglycemia Protocol Insulin Aspart 2 - 5 units 01/31/25 16:30 02/01/25 06:28 Insulin Aspart (*Bkc) 100 Units/Ml SUB-Q Not Given ACHS [facility] Protocol Ketorolac Tromethamine 15 mg 01/29/25 19:52 Ketorolac 15 Mg/Ml Vial (*Bkc) IV PUSH Q6H PRN Pain Rated 4-6 Levothyroxine Sodium 50 mcg 02/01/25 06:30 02/01/25 06:25 Levothyroxine Sodium 50 Mcg Tablet PO 50 mcg DAILY@0630 [facility] Administration Lisinopril 5 mg 02/01/25 09:00 02/01/25 08:46 Lisinopril 5 Mg Tablet PO 5 mg DAILY [facility] Administration Morphine Sulfate 2 mg 01/29/25 19:52 01/31/25 09:47 Morphine Sulfate (*Crx) 4 Mg/Ml Inj IV PUSH 2 mg Q4H PRN Administration Pain Rated 7-10 Ondansetron HCl 4 mg 01/30/25 09:27 01/31/25 09:47 Ondansetron Inj 4 Mg/2 Ml Vial IV PUSH 4 mg Q6H PRN Administration Nausea And Vomiting Pravastatin Sodium 40 mg 01/31/25 21:00 01/31/25 20:51 Pravastatin Sodium 20 Mg Tablet PO 40 mg QHS [facility] Administration Tamsulosin HCl 0.4 mg 02/01/25 09:00 02/01/25 08:45 Tamsulosin Hcl 0.4 Mg Capsule PO 0.4 mg DAILY [facility] Administration Vitamin D 50 mcg 02/01/25 09:00 02/01/25 08:46 Cholecalciferol (Vitamin D3) 25 Mcg (1,000 Units) Tablet PO 50 mcg DAILY [facility] Administration Radiology Results: ITS Impressions Chest/Abdomen/Pelvis CTA 01/29/25 18:35 IMPRESSION: 1. Negative for dissection or aneurysm. 2. Small bowel obstruction 3. Right-sided hydronephrosis and hydroureter with distal stricture suspected. The differential includes a obstructing noncalcified calculus. Correlate with urinalysis. Ureteroscopy is suggested. 4. Incidental findings above Small Bowel X-Ray 01/31/25 11:09 IMPRESSION: 1. Postoperative changes of prior cholecystectomy and right hemicolectomy with right lower quadrant ileocolic anastomosis. 2. Resolution of prior small bowel obstruction with contrast passing beyond the ileocolic anastomosis by 1 hour and with normal caliber of the small bowel. Labs Labs: Laboratory Results - last 24 hr 01/31/25 01/31/25 01/31/25 11:54 15:14 17:14 WBC RBC Hgb Hct MCV MCH MCHC RDW Plt Count MPV Sodium Potassium Chloride Carbon Dioxide Anion Gap BUN Creatinine Estim Creat Clear Calc Estimated GFR Glucose POC Capillary Glucose 142 H 152 H Calcium Total Bilirubin AST ALT Alkaline Phosphatase Total Protein Albumin Urine Color Dark yellow Urine Appearance Turbid H Urine pH 5.0 Ur Specific [place] 1.036 H Urine Protein 4+ H Urine Glucose (UA) Trace H Urine Ketones 1+ H Ur Blood (Man) 3+ H Urine Nitrate Negative Urine Bilirubin Negative Urine Urobilinogen 1.0 Add Ur Microanalysis Reviewed Leukocyte Esterase Rfl 3+ H Urine RBC 6-10 H Urine WBC >100 H Ur Squamous Epith Cells Few Urine Bacteria 4+ H Urine Casts 11-20 01/31/25 02/01/25 02/01/25 20:52 04:30 06:27 WBC 9.6 RBC 3.42 L Hgb 10.1 L Hct 33.0 L MCV 96.5 MCH 29.5 MCHC 30.6 L RDW 14.3 Plt Count 213 MPV 11.0 H Sodium 139 Potassium 3.5 Chloride 104 Carbon Dioxide 29 Anion Gap 6 BUN 40 H Creatinine 1.55 H Estim Creat Clear Calc 47 Estimated GFR 44 L Glucose 109 POC Capillary Glucose 143 H 115 H Calcium 8.2 L Total Bilirubin 0.5 AST 31 ALT 15 Alkaline Phosphatase 55 Total Protein 6.1 L Albumin 3.2 L Urine Color Urine Appearance Urine pH Ur Specific [place] Urine Protein Urine Glucose (UA) Urine Ketones Ur Blood (Man) Urine Nitrate Urine Bilirubin Urine Urobilinogen Add Ur Microanalysis Leukocyte Esterase Rfl Urine RBC Urine WBC Ur Squamous Epith Cells Urine Bacteria Urine Casts 02/01/25 08:00 WBC RBC Hgb Hct MCV MCH MCHC RDW Plt Count MPV Sodium Potassium Chloride Carbon Dioxide Anion Gap BUN Creatinine Estim Creat Clear Calc Estimated GFR Glucose POC Capillary Glucose 126 H Calcium Total Bilirubin AST ALT Alkaline Phosphatase Total Protein Albumin Urine Color Urine Appearance Urine pH Ur Specific [place] Urine Protein Urine Glucose (UA) Urine Ketones Ur Blood (Man) Urine Nitrate Urine Bilirubin Urine Urobilinogen Add Ur Microanalysis Leukocyte Esterase Rfl Urine RBC Urine WBC Ur Squamous Epith Cells Urine Bacteria Urine Casts
[2025-02-01] MEDS: FUROSEMIDE INJ 40 MG/4 ML VIAL IV PUSH (09:11)
--- NOTE | 2025-02-01 11:57 | P.PNGS_ITS ---
Progress Note: A&P Assessment and Plan (1) Small bowel obstruction: Code(s): K56.609 - Unspecified intestinal obstruction, unspecified as to partial versus complete obstruction Status: Acute Assessment and Plan: Patient tolerating regular diabetic diet. No nausea or vomiting. Having bowel movements. SBS yesterday showed resolved small bowel obstruction. Surgically stable for discharge. Plan Discussed patient's case and plan of care with Dr. Singh. Subjective Subjective Date/Time Seen: 02/01/25 11:57 Patient reports: no new complaints, feels better, tolerating a regular diet (diabetic), bowel movement and afebrile Interval history: Patient doing well today. No nausea or vomiting with regular diet. BM+. Exam Const: General: comfortable and no acute distress Neck: Neck: supple and no JVD Resp: Effort & Inspection: normal respiratory effort Cardio: Rate: regular rate GI: Inspection: distended GI Palp: Yes Soft to palpation, No Tenderness to palpation present (GI) and No Guarding due to palpation present (GI) Aus cultation: normal bowel sounds Skin: General skin exam: normal color and no rashes or lesions noted Objective Data Vital Signs Vital Signs: Vital Signs - 24 hr 01/31/25 12:00 01/31/25 13:56 01/31/25 15:31 Temperature 97.6 F 96.4 F L 97.4 F L Pulse Rate 99 95 95 Respiratory Rate 18 17 17 Blood Pressure 144/65 H 137/68 139/71 Pulse Oximetry 100 96 98 Oxygen Delivery 01/31/25 20:00 01/31/25 20:00 01/31/25 20:52 Temperature 97.7 F Pulse Rate 92 92 Respiratory Rate 18 Blood Pressure 135/68 Pulse Oximetry 100 Oxygen Delivery Room Air 01/31/25 22:00 02/01/25 00:00 02/01/25 04:00 Temperature 97.7 F 98.0 F 97.4 F L Pulse Rate 92 80 63 Respiratory Rate 18 18 18 Blood Pressure 135/68 120/46 L 120/44 L Pulse Oximetry 100 98 96 Oxygen Delivery 02/01/25 06:00 02/01/25 08:00 02/01/25 08:44 Temperature 97.5 F L 97.8 F Pulse Rate 65 79 84 Respiratory Rate 18 17 Blood Pressure 117/46 L 134/52 L 134/56 L Pulse Oximetry 95 98 Oxygen Delivery 02/01/25 08:45 02/01/25 08:47 02/01/25 11:45 Temperature 97.9 F Pulse Rate 82 70 Respiratory Rate 18 Blood Pressure 120/51 L Pulse Oximetry 100 Oxygen Delivery Room Air Intake/Output Intake/Output: Intake & Output 01/29/25 01/30/25 01/31/25 02/01/25 23:59 23:59 23:59 23:59 Intake Total 0 1344 344 Output Total 1000 200 900 Balance -1000 -200 444 344 Meds/Results Medications: Active Medications Generic Name Dose Route Start Last Admin Trade Name Freq PRN Reason Stop Dose Admin Aspirin 81 mg 02/01/25 09:00 02/01/25 08:47 Aspirin 81 Mg Enteric Tablet PO 81 mg DAILY BANDAR Administration Carvedilol 6.25 mg 01/31/25 21:00 02/01/25 08:47 Carvedilol 6.25 Mg Tablet PO 6.25 mg Q12HR BANDAR Administration Dextrose 12.5 gm 01/31/25 07:29 Dextrose 50% 25 Gm/50 Ml Syringe IV PUSH PRN PRN Hypoglycemia Protocol Doxazosin Mesylate 2 mg 02/01/25 09:00 02/01/25 08:46 Doxazosin Mesylate 2 Mg Tablet PO 2 mg DAILY BANDAR Administration Enoxaparin Sodium 40 mg 01/30/25 09:00 02/01/25 08:47 Enoxaparin 40 Mg/0.4 Ml Syringe SUB-Q 40 mg DAILY BANDAR Administration Fenofibrate 145 mg 02/01/25 09:00 02/01/25 08:46 Fenofibrate 145 Mg Tablet PO 145 mg DAILY BANDAR Administration Ferrous Sulfate 325 mg 02/01/25 09:00 02/01/25 08:46 Ferrous Sulfate 325 Mg Tablet PO 325 mg DAILY BANDAR Administration Furosemide 20 mg 01/31/25 15:11 Furosemide 20 Mg Tablet PO DAILY PRN Edema Glucagon 1 mg 01/31/25 07:29 Glucagon For Inj 1 Mg Vial IM PRN PRN Hypoglycemia Protocol Glucose 15 gm 01/31/25 07:29 Glucose Oral Gel 15 Gm Of Glucse In 37.5 Gm Tube PO PRN PRN Hypoglycemia Protocol Hydralazine HCl 10 mg 01/29/25 22:30 Hydralazine Hcl 20 Mg/Ml Vial IV PUSH Q8H PRN Blood Pressure - High Dextrose 1,000 mls @ 100 mls/hr 01/31/25 07:29 Dextrose 5% 1,000 Ml IVPB PRN PRN Hypoglycemia Protocol Insulin Aspart 2 - 5 units 01/31/25 16:30 02/01/25 06:28 Insulin Aspart (*Bkc) 100 Units/Ml SUB-Q Not Given ACHS [facility] Protocol Ketorolac Tromethamine 15 mg 01/29/25 19:52 Ketorolac 15 Mg/Ml Vial (*Bkc) IV PUSH Q6H PRN Pain Rated 4-6 Levothyroxine Sodium 50 mcg 02/01/25 06:30 02/01/25 06:25 Levothyroxine Sodium 50 Mcg Tablet PO 50 mcg DAILY@0630 BANDAR Administration Lisinopril 5 mg 02/01/25 09:00 02/01/25 08:46 Lisinopril 5 Mg Tablet PO 5 mg DAILY BANDAR Administration Morphine Sulfate 2 mg 01/29/25 19:52 01/31/25 09:47 Morphine Sulfate (*Crx) 4 Mg/Ml Inj IV PUSH 2 mg Q4H PRN Administration Pain Rated 7-10 Ondansetron HCl 4 mg 01/30/25 09:27 01/31/25 09:47 Ondansetron Inj 4 Mg/2 Ml Vial IV PUSH 4 mg Q6H PRN Administration Nausea And Vomiting Pravastatin Sodium 40 mg 01/31/25 21:00 01/31/25 20:51 Pravastatin Sodium 20 Mg Tablet PO 40 mg QHS BANDAR Administration Tamsulosin HCl 0.4 mg 02/01/25 09:00 02/01/25 08:45 Tamsulosin Hcl 0.4 Mg Capsule PO 0.4 mg DAILY BANDAR Administration Vitamin D 50 mcg 02/01/25 09:00 02/01/25 08:46 Cholecalciferol (Vitamin D3) 25 Mcg (1,000 Units) Tablet PO 50 mcg DAILY BANDAR Administration Radiology Results: ITS Impressions Chest/Abdomen/Pelvis CTA 01/29/25 18:35 IMPRESSION: 1. Negative for dissection or aneurysm. 2. Small bowel obstruction 3. Right-sided hydronephrosis and hydroureter with distal stricture suspected. The differential includes a obstructing noncalcified calculus. Correlate with urinalysis. Ureteroscopy is suggested. 4. Incidental findings above Small Bowel X-Ray 01/31/25 11:09 IMPRESSION: 1. Postoperative changes of prior cholecystectomy and right hemicolectomy with right lower quadrant ileocolic anastomosis. 2. Resolution of prior small bowel obstruction with contrast passing beyond the ileocolic anastomosis by 1 hour and with normal caliber of the small bowel. Renal Scan w/Medication NM 02/01/25 10:38 IMPRESSION: 1. Asymmetric decreased function the right kidney which contributes only 21% to total renal function. 2. Right hydroureteronephrosis with marked delayed activity clearance from the right kidney with continually rising activity curve throughout the first 27 minutes of imaging consistent with high-grade obstruction. Labs Labs: Laboratory Results - last 24 hr 01/31/25 01/31/25 01/31/25 11:54 15:14 17:14 WBC RBC Hgb Hct MCV MCH MCHC RDW Plt Count MPV Sodium Potassium Chloride Carbon Dioxide Anion Gap BUN Creatinine Estim Creat Clear Calc Estimated GFR Glucose POC Capillary Glucose 142 H 152 H Calcium Total Bilirubin AST ALT Alkaline Phosphatase Total Protein Albumin Urine Color Dark yellow Urine Appearance Turbid H Urine pH 5.0 Ur Specific [place] 1.036 H Urine Protein 4+ H Urine Glucose (UA) Trace H Urine Ketones 1+ H Ur Blood (Man) 3+ H Urine Nitrate Negative Urine Bilirubin Negative Urine Urobilinogen 1.0 Add Ur Microanalysis Reviewed Leukocyte Esterase Rfl 3+ H Urine RBC 6-10 H Urine WBC >100 H Ur Squamous Epith Cells Few Urine Bacteria 4+ H Urine Casts 11-20 01/31/25 02/01/25 02/01/25 20:52 04:30 06:27 WBC 9.6 RBC 3.42 L Hgb 10.1 L Hct 33.0 L MCV 96.5 MCH 29.5 MCHC 30.6 L RDW 14.3 Plt Count 213 MPV 11.0 H Sodium 139 Potassium 3.5 Chloride 104 Carbon Dioxide 29 Anion Gap 6 BUN 40 H Creatinine 1.55 H Estim Creat Clear Calc 47 Estimated GFR 44 L Glucose 109 POC Capillary Glucose 143 H 115 H Calcium 8.2 L Total Bilirubin 0.5 AST 31 ALT 15 Alkaline Phosphatase 55 Total Protein 6.1 L Albumin 3.2 L Urine Color Urine Appearance Urine pH Ur Specific [place] Urine Protein Urine Glucose (UA) Urine Ketones Ur Blood (Man) Urine Nitrate Urine Bilirubin Urine Urobilinogen Add Ur Microanalysis Leukocyte Esterase Rfl Urine RBC Urine WBC Ur Squamous Epith Cells Urine Bacteria Urine Casts 02/01/25 02/01/25 08:00 11:29 WBC RBC Hgb Hct MCV MCH MCHC RDW Plt Count MPV Sodium Potassium Chloride Carbon Dioxide Anion Gap BUN Creatinine Estim Creat Clear Calc Estimated GFR Glucose POC Capillary Glucose 126 H 226 H Calcium Total Bilirubin AST ALT Alkaline Phosphatase Total Protein Albumin Urine Color Urine Appearance Urine pH Ur Specific [place] Urine Protein Urine Glucose (UA) Urine Ketones Ur Blood (Man) Urine Nitrate Urine Bilirubin Urine Urobilinogen Add Ur Microanalysis Leukocyte Esterase Rfl Urine RBC Urine WBC Ur Squamous Epith Cells Urine Bacteria Urine Casts
[2025-02-01] MEDS: INSULIN ASPART (*BKC) 100 UNITS/ML SUB-Q (12:09)
--- NOTE | 2025-02-01 12:26 | P.DS_ITS ---
DS: Admitting Diagnosis Discharge Date 02/01/2025 Admitting Diagnosis SBO Hydronephrosis HTN DM Hypothyroid Urinary retention DS: Discharge Diagnosis Discharge Diagnosis (1) Small bowel obstruction: Code(s): K56.609 - Unspecified intestinal obstruction, unspecified as to partial versus complete obstruction Status: Acute (2) Hydronephrosis: Qualifiers: Hydronephrosis type: unspecified Qualified Code(s): N13.30 - Unspecified hydronephrosis Code(s): N13.30 - Unspecified hydronephrosis Status: Acute (3) Essential (primary) hypertension: Code(s): I10 - Essential (primary) hypertension Status: Chronic (4) Type 2 diabetes mellitus with stage 3 chronic kidney disease: Qualifiers: Chronic kidney disease stage 3 subtype: stage 3a (GFR 45-59) Diabetes mellitus parts counterman insulin use: without correction use Qualified Code(s): E11.22 - Type 2 diabetes mellitus with diabetic chronic kidney disease; N18.31 - Chronic kidney disease, stage 3a Code(s): E11.22 - Type 2 diabetes mellitus with diabetic chronic kidney disease; N18.30 - Chronic kidney disease, stage 3 unspecified Status: Acute (5) Hypothyroidism: Qualifiers: Hypothyroidism type: acquired Qualified Code(s): E03.9 - Hypothyroidism, unspecified Code(s): E03.9 - Hypothyroidism, unspecified Status: Acute (6) Urinary retention due to benign prostatic hyperplasia: Code(s): N40.1 - Benign prostatic hyperplasia with lower urinary tract symptoms; R33.8 - Other retention of urine Status: Acute DS: Summary Hospital Course Reason for hospitalization: SBO Hydronephrosis HTN DM Hypothyroid Urinary retention Hospital Course: 74-year-old man past medical history of CKD stage 3, BPH, diabetes, small-bowel obstructions, hypothyroidism, history of colon cancer and hypertension presents with abdominal pain, dizziness and shortness of breath. A chest/abdomen/pelvis was obtained and showed a SBO. NG placed for bowel rest and surgery consulted. Throughout admission patient started to pass flatus and a small bowel xr was obtained and showed resolution of the SBO. NG tube removed and diet advanced. Patient able to tolerate a diet and denied any nausea/vomiting or abdominal pain at time of discharge. He continues to have bowel movement and pass flatus. Patie nt states that his shortness of breath completely resolved with resolution of the bowel obstruction. On admission patient noted to have right-sided hydronephrosis and hydroureter with distal stricture suspected as seen on Chest/abdomen/pelvis CTA. Urology consulted. A lasix renal scan was obtained and showed decreased function to the right kidney and right hydroureteronephrosis with findings consistent with high-grade obstruction. Prior to discharge discussed patient with urology to review the renal scan with nuclear medicine and urology states that the severe obstruction is chronic extending back to 2023 and no acute intervention is required at this time. They plan to follow-up in the outpatient setting. Patient noted to have a ua concerning for possible infection however throughout admission he remained asymptomatic with downtrending wbc despite no antibiotic intervention. Will continue to hold antibiotics at this time, urology stated that they are in agreement with not treating for a urinary tract infection at this time. Discussed with patient that if he developed any uti like symptoms he is to follow up with his pcp. He stated understanding. Patient no complaints at time of discharge denying chest pain, shortness a breath, palpitations, nausea/vomiting, abdominal pain, and dizziness/lightheadedness. He states he is back to his baseline function is ready for discharge at this time. Patient discharged home with family in a stable condition. He is to follow-up with his primary care provider in 1 week and the specialist as scheduled. Status at Discharge Functional status at discharge: independent ambulation Time Spent with Patient Time attestation: Total time spent providing and/or coordinating discharge services: Time spent: Greater than 30 minutes Exam Narrative: AF HR 70 RR 18 Spo2 100 BP 120/51 General: male in no acute respiratory distress who is nontoxic appearing, sitting on side of bed. HEENT: Normocephalic. Atraumatic. Extraocular movement intact. Sclera clear and anicteric. No facial asymmetry. Chest: Lungs are clear to auscultation bilaterally. No wheezes or crackles. CV: Heart was regular rate and rhythm. Abd: Abdomen was soft. Nontender. Nondistended. Positive bowel sounds. Ext: No clubbing, cyanosis, or edema. DP pulses bilaterally. Neuro: Patient is alert. Speech is clear. DS: Data Data Completed and Pending Completed studies during hospitalization: renal scan nm small bowel xr chest/abdomen/pelvis cta Labs on day of discharge: Labs from last 24 hours 02/01/25 02/01/25 02/01/25 11:29 08:00 06:27 WBC RBC Hgb Hct MCV MCH MCHC RDW Plt Count MPV Sodium Potassium Chloride Carbon Dioxide Anion Gap BUN Creatinine Estim Creat Clear Calc Estimated GFR Glucose POC Capillary Glucose 226 H 126 H 115 H Calcium Total Bilirubin AST ALT Alkaline Phosphatase Total Protein Albumin Urine Color Urine Appearance Urine pH Ur Specific [place] Urine Protein Urine Glucose (UA) Urine Ketones Ur Blood (Man) Urine Nitrate Urine Bilirubin Urine Urobilinogen Add Ur Microanalysis Leukocyte Esterase Rfl Urine RBC Urine WBC Ur Squamous Epith Cells Urine Bacteria Urine Casts 02/01/25 01/31/25 01/31/25 04:30 20:52 17:14 WBC 9.6 RBC 3.42 L Hgb 10.1 L Hct 33.0 L MCV 96.5 MCH 29.5 MCHC 30.6 L RDW 14.3 Plt Count 213 MPV 11.0 H Sodium 139 Potassium 3.5 Chloride 104 Carbon Dioxide 29 Anion Gap 6 BUN 40 H Creatinine 1.55 H Estim Creat Clear Calc 47 Estimated GFR 44 L Glucose 109 POC Capillary Glucose 143 H 152 H Calcium 8.2 L Total Bilirubin 0.5 AST 31 ALT 15 Alkaline Phosphatase 55 Total Protein 6.1 L Albumin 3.2 L Urine Color Urine Appearance Urine pH Ur Specific [place] Urine Protein Urine Glucose (UA) Urine Ketones Ur Blood (Man) Urine Nitrate Urine Bilirubin Urine Urobilinogen Add Ur Microanalysis Leukocyte Esterase Rfl Urine RBC Urine WBC Ur Squamous Epith Cells Urine Bacteria Urine Casts 01/31/25 15:14 WBC RBC Hgb Hct MCV MCH MCHC RDW Plt Count MPV Sodium Potassium Chloride Carbon Dioxide Anion Gap BUN Creatinine Estim Creat Clear Calc Estimated GFR Glucose POC Capillary Glucose Calcium Total Bilirubin AST ALT Alkaline Phosphatase Total Protein Albumin Urine Color Dark yellow Urine Appearance Turbid H Urine pH 5.0 Ur Specific [place] 1.036 H Urine Protein 4+ H Urine Glucose (UA) Trace H Urine Ketones 1+ H Ur Blood (Man) 3+ H Urine Nitrate Negative Urine Bilirubin Negative Urine Urobilinogen 1.0 Add Ur Microanalysis Reviewed Leukocyte Esterase Rfl 3+ H Urine RBC 6-10 H Urine WBC >100 H Ur Squamous Epith Cells Few Urine Bacteria 4+ H Urine Casts 11-20 Discharge Plan Discharge Attending physician on discharge: Tan Mo Consulting providers: Sarahi Singh; Toby Marmolejo; Dora Martinez Discharging Clinician: Dora Martinez Anticipated Discharge Date/Time: 02/01/25 12:21 Patient Disposition: Home Activity: as tolerated Diet: as tolerated, heart healthy and diabetic Discharge Instructions: Discharge disposition: Patient admitted to the hospital for bowel obstruction Evaluated by surgery No acute surgical intervention required Continue to monitor stools During admission patient noted to have hydronephrosis, stable since 2023 Take all medications as prescribed even if feeling better Evaluated by urology who plans for continued management in the outpatient setting Eat well balanced meals and stay hydrated Keep active to remain strong Trend urine output If you develop pain with urination, burning sensation, blood in your urine or flank pain follow up with pcp, urology or return to the hospital Monitor blood pressures Take caution while standing, rising, or moving Change positions slowly taking a break between each position change If you standing feel dizzy sit back down and take a break Encouraged to continue with yearly vaccinations Return to the emergency department if he developed sudden shortness of breath, chest pain, nausea, vomiting, upset stomach or intractable diarrhea Return to the emergency department if you develop fever greater than 100.5 Follow-up with the primary care physician within 1-2 weeks Thank you for choosing [facility] for your healthcare needs Patient Instructions: Hydronephrosis (DC), Bowel Obstruction (DC) Patient Language: Tu[place] Stand Alone Forms: General Discharge Information Follow-up/Referrals: Marito Sainz MD [Primary Care Provider, Family Practice] - 1 Week Jayce Garcia PA [Physician Fraud Investigator, Urology] - 3 Weeks Referral Note: Right hydro with LRS Discharge Medications: Continued glimepiride 1 mg tablet 1 mg PO QAM carvedilol 6.25 mg tablet 6.25 mg PO BID Qty: 180 1RF tamsulosin 0.4 mg capsule 0.4 mg PO DAILY aspirin 81 mg tablet,delayed release (DR/EC) 81 mg PO DAILY furosemide 20 mg tablet 20 mg PO DAILY PRN (Reason: edema) cholecalciferol (vitamin D3) 50 mcg (2,000 unit) tablet 50 mcg PO DAILY Qty: 90 3RF ferrous sulfate 325 mg (65 mg iron) tablet,delayed release (DR/EC) 325 mg PO DAILY Qty: 90 1RF lisinopril 5 mg tablet 5 mg PO DAILY Qty: 90 1RF levothyroxine 50 mcg tablet 50 mcg PO DAILY Qty: 90 1RF doxazosin [Cardura] 2 mg tablet 2 mg PO DAILY Qty: 90 1RF fenofibrate nanocrystallized 145 mg tablet 145 mg PO DAILY Qty: 90 1RF pravastatin 40 mg tablet 40 mg PO QHS Qty: 90 1RF glimepiride 2 mg tablet 2 mg PO QAM Qty: 90 1RF Rx Instructions: administer with breakfast Date of admission: 01/30/25 08:38 Primary Care Provider: Marito Sainz Admitting Provider: Keny Kidd Attending physician on admission: Keny Kidd Condition: Stable Hospitalist MIPS Heart Failure (Exclusion) Patient has history of Heart Transplant or Left Ventricular Assistive Device?: No IF YES, STOP HERE Heart Failure (Qualifier) Patient has current or prior documentation of LVEF less than or equal to 40%, or mod/servere depressed LVSF?: No IF NO, STOP HERE
== END 2025-02-01 13:00 | disposition home or self-care (01) | DRG 389 ==
LOC: ANHED 19:21 → ANH3MEDSUR 19:53 → ANH2MED 20:29
PROVIDERS: Nurse Practitioner; Nurse Practitioner Gerontology; Admitting Provider Internal Medicine; Emergency Provider Physician Assistant; PCP Family Medicine; Visit Provider Student in an Organized Health Care Education/Training Program
DX: K56.609 Unspecified intestinal obstruction, unspecified as to partial versus complete obstruction (principal); N13.30 Unspecified hydronephrosis; I12.9 Hypertensive chronic kidney disease with stage 1 through stage 4 chronic kidney disease, or unspecified chronic kidney disease; N18.32 Chronic kidney disease, stage 3b; E11.40 Type 2 diabetes mellitus with diabetic neuropathy, unspecified; E11.22 Type 2 diabetes mellitus with diabetic chronic kidney disease; E53.8 Deficiency of other specified B group vitamins; E55.9 Vitamin D deficiency, unspecified; E78.5 Hyperlipidemia, unspecified; E03.9 Hypothyroidism, unspecified; E11.51 Type 2 diabetes mellitus with diabetic peripheral angiopathy without gangrene; N40.1 Benign prostatic hyperplasia with lower urinary tract symptoms; R33.8 Other retention of urine; Z85.038 Personal history of other malignant neoplasm of large intestine; Z79.82 Long term (current) use of aspirin
CPT/HCPCS: 36415; 71275; 74174; 74250; 78708; 80048; 80053; 81001; 82948; 83605; 83690; 83880; 85025; 85027; 85055; 85610; 85730; 87086; 87186; 93005; 96374; 96375; 99285; A9270; A9562; G0378; J0650; J1171; J1200; J1650; J1815; J1938; J2270; J2405; J2765; J7030; J7042; Q9967

== ENCOUNTER 2025-02-28 07:54 | Outpatient (CLI) | payer OTHER, SELFPAY ==
[2025-02-28 13:19] LABS: Cholesterol 125 mg/dL (0-200); HDL Direct 33 mg/dL; Triglycerides 120 mg/dL (<150)
[2025-02-28 13:22] LABS: Albumin Level 4.1 g/dL (3.5-5.1); Anion Gap 9 mmol/L (4-12); Blood Urea Nitrogen 29 mg/dL (9-20); Calcium 9.0 mg/dL (8.4-10.2); Carbon Dioxide 25 mmol/L (22-30); Chloride 104 mmol/L (98-107); Estimated Glomerular Filt Rate 56; Glucose 123 mg/dL (65-110); Potassium 3.9 mmol/L (3.4-5.0); Sodium 138 mmol/L (137-145)
[2025-02-28 13:41] LABS: Parathyroid Intact 26.2 pg/mL (14.5-75.2)
[2025-02-28 13:42] LABS: Thyroid Stimulating Hormone Reflex 2.970 uIU/mL (0.465-4.68)
[2025-02-28 13:51] LABS: Total Protein Urine Random 138 mg/dL; Ur Ttl Prot Creatinine Ratio 2.98 mg/mg (0-0.20)
[2025-02-28 14:52] LABS: Hemoglobin A1C 6.4 % (<5.7)
[2025-03-01 10:25] LABS: Iron 93 ug/dL (49-181)
[2025-03-01 10:35] LABS: Percent Iron Saturation 21 % (20-50)
[2025-03-01 11:06] LABS: Ferritin 65.10 ng/mL (11.1-264)
[2025-03-01 11:33] LABS: Vitamin B12 279.0 pg/mL (239-931)
[2025-03-01 15:09] LABS: Albumin 3.4 g/dL (2.9-4.4); Alpha-1-Globulin 0.2 g/dL (0.0-0.4); Alpha-2-Globulin 0.8 g/dL (0.4-1.0); Gamma Globulin 1.3 g/dL (0.4-1.8)
[2025-03-01 16:08] LABS: ANA by IFA Rfx Titer/Pattern Positive (.)
[2025-03-02 15:09] LABS: Albumin, U 70.5 % (.); Alpha-1-Globulin, U 0.5 % (.); Alpha-2-Globulin, U 3.1 % (.); Beta Globulin, U 13.3 % (.); Gamma Globulin, U 12.5 % (.); Immunofixation Result, Urine Comment: (.)
[2025-03-03 20:08] LABS: Anti-GBM Antibodies <0.2 units (0.0-0.9)
== END 2025-02-28 07:55 | disposition home or self-care (01) ==
PROVIDERS: Nurse Practitioner Family; PCP Family Medicine; Visit Provider Internal Medicine Nephrology
DX: E03.9 Hypothyroidism, unspecified (principal); E78.5 Hyperlipidemia, unspecified; E11.9 Type 2 diabetes mellitus without complications; I12.9 Hypertensive chronic kidney disease with stage 1 through stage 4 chronic kidney disease, or unspecified chronic kidney disease; N18.31 Chronic kidney disease, stage 3a; N25.81 Secondary hyperparathyroidism of renal origin; E55.9 Vitamin D deficiency, unspecified; D64.9 Anemia, unspecified
CPT/HCPCS: 36415; 80061; 80069; 82306; 82570; 82607; 82728; 82746; 83036; 83540; 83550; 83970; 84155; 84156; 84165; 84166; 84443; 86037; 86038; 86160; 86215; 86335; 86364